=== PATIENT | female | born 1985 | race Two or more races ===

== ENCOUNTER 2024-03-08 09:30 | Outpatient (REF) | payer MEDICAID, SELFPAY ==
[2024-03-09 10:41] LABS: HPV 16,18/45 See PAP report
== END 2024-03-08 09:31 | disposition home or self-care (01) ==
LOC: HO.LNP 09:30
PROVIDERS: Visit Provider Obstetrics & Gynecology
DX: Z01.419 Encounter for gynecological examination (general) (routine) without abnormal findings (principal); N89.8 Other specified noninflammatory disorders of vagina; N94.9 Unspecified condition associated with female genital organs and menstrual cycle
CPT/HCPCS: 81515; 87491; 87591; 87626; 88175; 99386; 99459

== ENCOUNTER 2024-03-08 09:30 | Outpatient (AMB) | payer MEDICAID, SELFPAY ==
--- NOTE | 2024-03-08 09:31 | A.OFFVIS_ITS ---
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 Complaining of vaginal discharge denies associated with vulvovaginal itching nor foul odor Last Pap/HPV? No previous screening Mammogram Review of Systems Const All systems reviewed & are unremarkable except as noted in HPI and below Card Reports as per HPI Resp Reports as per HPI GI Reports as per HPI and Reports no additional complaints Reports as per HPI Physical Exam Vital Signs: BMI result Body Mass Index 29.5 Const General: cooperative, healthy appearing and comfortable Chest Chest palpation & inspection: normal inspection of the chest and normal palpation of entire chest wall Breast/axilla inspection: normal inspection of the breasts and normal inspection of the axillae Breast/axilla palpation: normal palpation of the breasts, normal palpation of the axillae and no axillary lymphadenopathy Resp Effort & Inspection: normal respiratory effort Auscultation: clear to auscultation bilaterally Percussion: percussion normal Cardio Palpation: normal PMI Rate: regular rate Rhythm: regular rhythm Heart sounds: no murmurs and no rubs Peripheral pulses: Peripheral pulses 2+ throughout GI Inspection: Yes normal to inspection Palpation (GI): Soft to palpation, nontender, no guarding, not rigid and No hepatosplenomegaly present Percussion: Yes normal to percussion Auscultation: normal bowel sounds Rectal Exam - Female: deferred General: Yes bladder normal to palpation External Female Exam: No lesion Speculum Exam - Vagina: normal appearance of the vagina, normal palpation, normal vaginal discharge and not erythematous Speculum Exam - Cervix: normal appearance of the cervix and normal palpation Bimanual exam- vagina & uterus: normal bimanual exam, normal palpation, uterine size normal, bladder normal to palpation, consistency normal and normal palpation Bimanual Exam- Adnexa, other: no tenderness and Other (? Right adnexal fullness) Assessment & Plan Assessment & Plan (1) Well woman exam: Code(s): Z01.419 - Encounter for gynecological examination (general) (routine) without abnormal findings Category: Medical Plan: Cotesting done. Mammogram ordered. Counseled the patient about the recommended dietary allowance of 1000 mg of Calcium & 600 IU of vitamin D. The patient was instructed to perform monthly self-breast exams and to schedule an annual exam in a year; All questions answered and the patient verbalized understanding. Instructed the patient to schedule annual exam in a year (2) Vaginal discharge: Code(s): N89.8 - Other specified noninflammatory disorders of vagina Category: Medical Plan: GC/CT with BV panel collected will check the results and treat accordingly (3) Adnexal fullness: Code(s): N94.9 - Unspecified condition associated with female genital organs and menstrual cycle Category: Medical Plan: Discussed with the patient the finding on pelvic exam, pelvic ultrasound ordered, instructions given the patient to schedule an ultrasound and a follow- up appointment within 2-3 weeks. Orders: Orders MM tomosynthesis screening BI Today Z12.31 - Encounter for screening mammogram for malignant neoplasm of breast US pelvic and transvaginal Today N94.9 - Unspecified condition associated with female genital organs and menstrual cycle HPV High risk Today Z01.419 - Encounter for gynecological examination (general) (routine) without abnormal findings Pap Smear Today Z01.419 - Encounter for gynecological examination (general) (routine) without abnormal findings Bacterial Vaginosis Panel Today N89.8 - Other specified noninflammatory disorders of vagina CT NG by PCR Today N89.8 - Other specified noninflammatory disorders of vagina Coding Level of Care Code New Pt Prev Care 40-64y([id number]) Diagnoses Well woman exam Z01.419 Vaginal discharge N89.8 Adnexal fullness N94.9
[2024-03-08 09:35] VITALS: BMI 29.5
--- OUTSIDE RECORDS SUMMARY | 2024-03-08 09:56 | XMS_ITS ---
Author Name [facility] Organization Unknown Results Test Name/Text Value Interpretation Date Range Source ALBUMIN 2.7g/dL Below low normal [id number] 3.4 - 5 [facility] SODIUM 142mmol/L Normal 473576127629 136 - 145 [facility] GLUCOSE 109mg/dL Above high normal 809504761882 74 - 100 [facility] BUN 12mg/dL Normal 317032716012 7 - 18 [facility] CALCIUM 8.9mg/dL Normal 556525871217 8.5 - 10.1 [facility] BILIRUBIN,TOTAL 0.6mg/dL Normal 525899409404 0.2 - 1 [facility] CHLORIDE 107mmol/L Normal 575364799331 98 - 107 [facility] POTASSIUM SERUM 4mmol/L Normal 672276840515 3.5 - 5.1 C [facility] CO2 28mmol/L Normal 702124973922 21 - 32 [facility] ALKALINE PHOSPHATASE 113U/L Normal 655309405848 50 - 1 36 [facility] AST (SGOT) 11U/L Below low normal 740410926145 15 - 37 [facility] GLOBULIN 3.8g/dL Normal 567802820681 2.4 - 4.2 [facility] A/G RATIO 0.7g/dL Normal 213172319246 [facility] ALT (SGPT) 18U/L Normal 740187621099 12 - 78 [facility] BUN/CREAT.RATIO 24 Normal [facility]3605931 [facility] CREATININE 0.5mg/dL Below low normal 512565157526 0.55 - 1. 3 [facility] PROTEIN, TOTAL 6.5g/dL Normal 918334356230 6.4 - 8.2 [facility] GFRE 146 Normal 567079153987 60 - [facility] WBC 5.3K/uL Normal [id number] 3.7 - 10.3 [facility] ABSOLUTE GRANULOCYTES 2.5K/uL Normal [id number] 2.2 - 7.3 [facility] ABSOLUTE BASO 0K/uL Normal 547228569463 0 - 0.2 [facility] RBC 3.88M/uL Below low normal 459653351301 4 - 5.4 [facility] IMMATURE GRANULOCYTES 1% Above high normal 8073979672 19 0 - 0.45 [facility] EOSINOPHILS 5% Normal 314450112136 0 - 6 [facility] MMH MPV 9fL Normal 026202660294 8 - 12 [facility] ABSOLUTE MONOS 0.3K/uL Normal 902987219165 0.2 - 1.5 [facility] BASOPHILS 1% Normal 806718968991 0 - 2 [facility] NUCLEATED RBC 0% Normal 888399031961 0 - 0.2 [facility] MCV 84fL Normal [id number] 83 - 102 [facility] MCH 25PG Below low normal 013209831157 27 - 34 [facility] HCT 32.6% Below low normal 790653788556 36 - 46 [facility] ABSOLUTE LYMPHS 2.2K/uL Normal 393140792089 1.5 - 4.9 C [facility] GRANULOCYTES 47% Normal 823446627418 23 - 78 [facility] MONOCYTES 5% Normal 093536120853 0 - 12 [facility] ABSOLUTE EOS 0.3K/uL Normal 817154635192 0 - 0.7 [facility] LYMPHS 41% Normal 071991472023 16 - 50 [facility] ABSOLUTE IMMATURE GRANULOCYTES 0.1K/uL Normal 652193540770 0 - 0.3 [facility] HGB 9.5g/dL Below low normal 047143054856 12.1 - 15.7 [facility] RDW 16.3% Above high normal 657082575364 11.1 - 13.3 [facility] PLATELET COUNT 317K/uL Normal [id number] 150 - 480 [facility] MCHC 29.1g/dL Below low normal 756718824561 31 - 36 [facility] ABSOLUTE NUCLEATED RBC 0K/uL Normal 830781283885 0 - 0.012 [facility] PATIENT FASTING? YES Normal [id number] [facility] IRON BINDING CAPACITY,TOTAL 204ug/dL Below low normal 296376620103 250 - 450 [facility] %SATURATION, IRON 25% Normal [id number] 20 - 55 [facility] IRON 50ug/dL Normal 564533285695 50 - 170 [facility] FERRITIN 306ng/mL Above high normal 704904710826 8 - 252 [facility] GFRE 263 Normal 540189139645 60 - [facility] SODIUM 141mmol/L Normal 634214169733 136 - 145 [facility] GLUCOSE 100mg/dL Normal 953871025951 74 - 100 [facility] BUN 10mg/dL Normal 487619224185 7 - 18 [facility] CALCIUM 8.5mg/dL Normal 165422086258 8.5 - 10.1 [facility] CHLORIDE 109mmol/L Above high normal 905402189411 98 - 107 [facility] POTASSIUM SERUM 4.4mmol/L Normal 825037314562 3.5 - 5.1 C [facility] CO2 24mmol/L Normal 227920251270 21 - 32 [facility] CREATININE 0.3mg/dL Below low normal 906935919063 0.55 - 1. 3 [facility] WBC 5.4K/uL Normal 244053461534 3.7 - 10.3 [facility] MH ABSOLUTE GRANULOCYTES 2.8K/uL Normal [id number] 2.2 - 7.3 [facility] ABSOLUTE BASO 0K/uL Normal 367486503430 0 - 0.2 [facility] RBC 3.53M/uL Below low normal 189688526378 4 - 5.4 [facility] IMMATURE GRANULOCYTES 2% Above high normal 2848710475 05 0 - 0.45 [facility] EOSINOPHILS 2% Normal 752657746692 0 - 6 [facility] MMH MPV 9fL Normal 498125351936 8 - 12 [facility] ABSOLUTE MONOS 0.3K/uL Normal 391474842522 0.2 - 1.5 [facility] BASOPHILS 1% Normal 461039893874 0 - 2 [facility] NUCLEATED RBC 0% Normal 546842306744 0 - 0.2 [facility] MCV 82fL Below low normal 501813794058 83 - 102 [facility] MCH 25PG Below low normal 844723974818 27 - 34 [facility] HCT 29% Below low normal 590508318112 36 - 46 [facility] ABSOLUTE LYMPHS 2.1K/uL Normal 649057537325 1.5 - 4.9 C [facility] GRANULOCYTES 52% Normal 269994133749 23 - 78 [facility] MONOCYTES 5% Normal 158115591066 0 - 12 [facility] ABSOLUTE EOS 0.1K/uL Normal 943521914438 0 - 0.7 [facility] LYMPHS 38% Normal [id number] 16 - 50 [facility] ABSOLUTE IMMATURE GRANULOCYTES 0.1K/uL Normal 195338768752 0 - 0.3 [facility] HGB 8.9g/dL Below low normal 262286311940 12.1 - 15.7 [facility] RDW 14.3% Above high normal 086548025848 11.1 - 13.3 [facility] PLATELET COUNT 334K/uL Normal 604737621871 150 - 480 [facility] MCHC 30.7g/dL Below low normal 855737579683 31 - 36 [facility] ABSOLUTE NUCLEATED RBC 0K/uL Normal 394282305512 0 - 0.012 [facility] PATIENT FASTING? UNKNOWN Normal [id number] [facility] BLOOD CULTURE NO GROWTH AT 5 DAYS Normal 255204865916 [facility] BLOOD CULTURE NO GROWTH AT 5 DAYS Normal 614634657512 [facility] WBC 7.6K/uL Normal 759513990469 3.7 - 10.3 [facility] MH ABSOLUTE GRANULOCYTES 4.2K/uL Normal 048173035171 2.2 - 7.3 [facility] ABSOLUTE BASO 0K/uL Normal 577130988780 0 - 0.2 [facility] RBC 3.53M/uL Below low normal 059355754911 4 - 5.4 [facility] IMMATURE GRANULOCYTES 2% Above high normal 4655000709 23 0 - 0.45 [facility] EOSINOPHILS 1% Normal 913730524472 0 - 6 [facility] MMH MPV 9fL Normal 861661091299 8 - 12 [facility] ABSOLUTE MONOS 0.5K/uL Normal 475220371083 0.2 - 1.5 [facility] BASOPHILS 0% Normal 979623904752 0 - 2 [facility] NUCLEATED RBC 0% Normal 910616236477 0 - 0.2 [facility] MCV 81fL Below low normal 307982832223 83 - 102 [facility] MCH 25PG Below low normal 377986549125 27 - 34 [facility] HCT 28.6% Below low normal 995761758997 36 - 46 [facility] ABSOLUTE LYMPHS 2.7K/uL Normal [id number] 1.5 - 4.9 C [facility] GRANULOCYTES 55% Normal 052065040949 23 - 78 [facility] MONOC[facility]TES 7% Normal [id number] 0 - 12 [facility] ABSOLUTE EOS 0.1K/uL Normal 326913131469 0 - 0.7 [facility] LYMPHS 36% Normal [id number] 16 - 50 [facility] ABSOLUTE IMMATURE GRANULOCYTES 0.1K/uL Normal 907534155210 0 - 0.3 [facility] HGB 8.9g/dL Below low normal 052554087109 12.1 - 15.7 [facility] RDW 13.2% Normal 262817701787 11.1 - 13.3 [facility] PLATELET COUNT 375K/uL Normal 630941031502 150 - [address] [facility] M[facility]C 31.1g/dL Normal 241210322295 31 - 36 [facility] ABSOLUTE NUCLEATED RBC 0K/uL Normal [id number] 0 - 0.012 [facility] BILIRUBIN,TOTAL 0.5mg/dL Normal 973715706177 0.2 - 1 C [facility] ALKALINE PHOSPHATASE 179U/L Above high normal 56024750845 1 50 - 136 [facility] GLOBULIN 4.4g/dL Above high normal 839427605427 2.4 - 4.2 [facility] A/G RATIO 0.5g/dL Normal 246401533658 [facility] ALT (SGPT) 45U/L Normal [id number] 12 - 78 [facility] PROTEIN, TOTAL 6.7g/dL Normal 646868834921 6.4 - 8.2 CT [facility] ALBUMIN 2.3g/dL Below low normal 902904944226 3.4 - 5 [facility] SODIUM 137mmol/L Normal 817024972230 136 - 145 [facility] GLUCOSE 91mg/dL Normal 657201745756 74 - 100 [facility] BUN 17mg/dL Normal 699893415738 7 - 18 [facility] CALCIUM 8.6mg/dL Normal 009252840713 8.5 - 10.1 [facility] CHLORIDE 104mmol/L Normal 463628958055 98 - 107 [facility] POTASSIUM SERUM 4.1mmol/L Normal 054326122994 3.5 - 5.1 C [facility] CO2 26mmol/L Normal 676792880624 21 - 32 [facility] AST (SGOT) 22U/L Normal [id number] 15 - 37 [facility] BUN/CREAT.RATIO 32.1 Normal 878053042839 [facility] CREATININE 0.53mg/dL Below low normal 841828379791 0.55 - 1. 3 [facility] GFRE 136 Normal 730050779676 60 - [facility] PATIENT FASTING? NO Normal [id number] [facility] GLYCOHEMOGLOBIN (A1C) 5% Normal 4 - 5 .6 [facility] VITAMIN B12 469pg/mL Normal 211 - 911 [facility] VITAMIN D (25-HYDROXY) 20.8ng/mL Below low normal 30 - 100 [facility] TRIGLYCERIDE 124mg/dL Normal 339626759312 - 150 [facility] LDL 93 Normal 0 - 129 [facility] CHOLESTEROL 169mg/dL Normal 663203611128 - 200 [facility] HDL 51mg/dL Normal 738050780447 - [facility] TSH 1uIU/mL Normal 0.35 - 4.5 [facility] MH ALBUMIN 3.5g/dL Normal 3.4 - 5 [facility] SODIUM 142mmol/L Normal 136 - 145 [facility] GLUCOSE 95mg/dL Normal 74 - 100 [facility] BUN 17mg/dL Normal 7 - 18 [facility] CALCIUM 8.8mg/dL Normal 8.5 - 10.1 [facility] MH BILIRUBIN,TOTAL 0.9mg/dL Normal 0.2 - 1 C [facility] CHLORIDE 110mmol/L Above high normal 98 - 107 [facility] POTASSIUM SERUM 4mmol/L Normal 3.5 - 5.1 C [facility] CO2 25mmol/L Normal 21 - 32 [facility] ALKALINE PHOSPHATASE 107U/L Normal 50 - 1 36 [facility] AST (SGOT) 17U/L Normal 15 - 37 [facility] MH GLOBULIN 3.8g/dL Normal 2.4 - 4.2 [facility] A/G RATIO 0.9g/dL Normal [facility] ALT (SGPT) 31U/L Normal 12 - 78 [facility] MH BUN/CREAT.RATIO 37 Normal C [facility] CREATININE 0.46mg/dL Below low normal 0.55 - 1. 3 [facility] PROTEIN, TOTAL 7.3g/dL Normal 6.4 - 8.2 [facility] GFRE 161 Normal 60 - [facility] WBC 5.1K/uL Normal 3.7 - 10.3 [facility] MH ABSOLUTE GRANULOCYTES 2.3K/uL Normal 2.2 - 7.3 [facility] ABSOLUTE BASO 0K/uL Normal 0 - 0.2 [facility] RBC 4.47M/uL Normal 4 - 5.4 [facility] IMMATURE GRANULOCYTES 0% Normal 0 - 0 .45 [facility] EOSINOPHILS 3% Normal 0 - 6 [facility] MMH MPV 10fL Normal 8 - 12 [facility] ABSOLUTE MONOS 0.3K/uL Normal 0.2 - 1.5 [facility] BASOPHILS 0% Normal 0 - 2 [facility] NUCLEATED RBC 0% Normal 0 - 0.2 [facility] MCV 87fL Normal 83 - 102 [facility] MCH 27PG Normal 27 - 34 [facility] HCT 39% Normal 36 - 46 [facility] ABSOLUTE LYMPHS 2.3K/uL Normal 1.5 - 4.9 C [facility] GRANULOCYTES 45% Normal 23 - 78 [facility] MONOCYTES 6% Normal 0 - 12 [facility] ABSOLUTE EOS 0.2K/uL Normal 0 - 0.7 [facility] LYMPHS 45% Normal [id number] 16 - 50 [facility] ABSOLUTE IMMATURE GRANULOCYTES 0K/uL Normal 965443754045 0 - 0.3 [facility] HGB 12.1g/dL Normal 676072210865 12.1 - 15.7 [facility] RDW 13.6% Above high normal [id number] 11.1 - 13.3 [facility] PLATELET COUNT 247K/uL Normal 066740242276 150 - 480 [facility] MCHC 31g/dL Normal 487910290544 31 - 36 [facility] ABSOLUTE NUCLEATED RBC 0K/uL Normal 320782062742 0 - 0.012 [facility] PATIENT FASTING? YES Normal 786762354036 [facility] SODIUM 141mmol/L Normal 582653588541 136 - 145 [facility] GLUCOSE 94mg/dL Normal 183182256954 74 - 100 [facility] BUN 21mg/dL Above high normal 011881821234 7 - 18 [facility] CALCIUM 8.9mg/dL Normal 424627422691 8.5 - 10.1 [facility] MH CHLORIDE 106mmol/L Normal 599800752508 98 - 107 [facility] POTASSIUM SERUM 4.4mmol/L Normal 993099764543 3.5 - 5.1 C [facility] CO2 29mmol/L Normal 870660178803 21 - 32 [facility] CREATININE 0.5mg/dL Below low normal 409189293082 0.55 - 1. 3 [facility] GFRE 146 Normal 028249475714 60 - [facility] WBC 5K/uL Normal [id number] 3.7 - 10.3 [facility] MH ABSOLUTE GRANULOCYTES 1.6K/uL Below low normal 10153236536 0 2.2 - 7.3 [facility] ABSOLUTE BASO 0K/uL Normal 954886309948 0 - 0.2 [facility] RBC 3.46M/uL Below low normal 147931656852 4 - 5.4 [facility] IMMATURE GRANULOCYTES 1% Above high normal [id number] 30 0 - 0.45 [facility] EOSINOPHILS 6% Normal 313782246025 0 - 6 [facility] MMH MPV 10fL Normal 658476124607 8 - 12 [facility] ABSOLUTE MONOS 0.3K/uL Normal 463769737763 0.2 - 1.5 [facility] BASOPHILS 0% Normal [id number] 0 - 2 [facility] NUCLEATED RBC 0% Normal 0 - 0.2 [facility] MCV 88fL Normal 941710307966 83 - 102 [facility] MCH 27PG Normal 064025089223 27 - 34 [facility] HCT 30.5% Below low normal 921252436737 36 - 46 [facility] ABSOLUTE LYMPHS 2.7K/uL Normal 551401719481 1.5 - 4.9 C [facility] GRANULOCYTES 32% Normal [id number] 23 - 78 [facility] MON[facility]TES 7% Normal 0 - 12 [facility] ABSOLUTE EOS 0.3K/uL Normal 0 - 0.7 [facility] LYMPHS 54% Above high normal 376147765685 16 - 50 [facility] ABSOLUTE IMMATURE GRANULOCYTES 0.1K/uL Normal 0 - 0.3 [facility] HGB 9.4g/dL Below low normal 507873626863 12.1 - 15.7 [facility] RDW 14.3% Above high normal [id number] 11.1 - 13.3 [facility] PLATELET COUNT 231K/uL Normal 062033290026 150 - 480 [facility] MCHC 30.8g/dL Below low normal 084769252577 31 - 36 [facility] ABSOLUTE NUCLEATED RBC 0K/uL Normal 154928863916 0 - 0.012 [facility] PATIENT FASTING? UNKNOWN Normal 304655903219 [facility] ALBUMIN 3.5g/dL Normal 048221563560 3.4 - 5 [facility] SODIUM 137mmol/L Normal 018374078800 136 - 145 [facility] GLUCOSE 92mg/dL Normal 669498933401 74 - 100 [facility] BUN 17mg/dL Normal 7 - 18 [facility] CALCIUM 9.6mg/dL Normal 078178945264 8.5 - 10.1 [facility] MH BILIRUBIN,TOTAL 0.7mg/dL Normal 477805123941 0.2 - 1 C [facility] CHLORIDE 102mmol/L Normal 758656422797 98 - 107 [facility] POTASSIUM SERUM 4.4mmol/L Normal 512527614328 3.5 - 5.1 C [facility] CO2 30mmol/L Normal 034097632809 21 - 32 [facility] ALKALINE PHOSPHATASE 99U/L Normal 958281066864 50 - 1 36 [facility] AST (SGOT) 19U/L Normal 723304571921 15 - 37 [facility] MH GLOBULIN 4.1g/dL Normal 071092115573 2.4 - 4.2 [facility] H A/G RATIO 0.9g/dL Normal 692648851248 [facility] ALT (SGPT) 35U/L Normal 12 - 78 [facility] MH BUN/CREAT.RATIO 32.7 Normal [facility] CREATININE 0.52mg/dL Below low normal 868469023072 0.55 - 1. 3 [facility] PROTEIN, TOTAL 7.6g/dL Normal 238843708658 6.4 - 8.2 [facility] GFRE 140 Normal 944405064615 60 - [facility] H WBC 5K/uL Normal 572852557792 3.7 - 10.3 [facility] MH ABSOLUTE GRANULOCYTES 1.9K/uL Below low normal 04939339264 4 2.2 - 7.3 [facility] ABSOLUTE BASO 0.1K/uL Normal 887748530218 0 - 0.2 [facility] RBC 3.85M/uL Below low normal 242750417108 4 - 5.4 [facility] IMMATURE GRANULOCYTES 2% Above high normal 5153608845 24 0 - 0.45 [facility] EOSINOPHILS 4% Normal 552554242277 0 - 6 [facility] MMH MPV 9fL Normal 525070942230 8 - 12 [facility] ABSOLUTE MONOS 0.4K/uL Normal 022093750832 0.2 - 1.5 [facility] BASOPHILS 1% Normal 459922892253 0 - 2 [facility] H NUCLEATED RBC 0% Normal 016125088330 0 - 0.2 [facility] MCV 87fL Normal 029382867699 83 - 102 [facility] MCH 27PG Normal 206879564816 27 - 34 [facility] HCT 33.6% Below low normal 830311615033 36 - 46 [facility] ABSOLUTE LYMPHS 2.4K/uL Normal 124359107001 1.5 - 4.9 C [facility] GRANULOCYTES 37% Normal 722750370669 23 - 78 [facility] MONOCYTES 9% Normal 152443331719 0 - 12 [facility] ABSOLUTE EOS 0.2K/uL Normal 670232492464 0 - 0.7 [facility] LYMPHS 48% Normal 212769370168 16 - 50 [facility] ABSOLUTE IMMATURE GRANULOCYTES 0.1K/uL Normal [id number] 0 - 0.3 [facility] HGB 10.5g/dL Below low normal 214683844942 12.1 - 15.7 [facility] RDW 13.7% Above high normal 256042597694 11.1 - 13.3 [facility] PLATELET COUNT 303K/uL Normal 723126273549 150 - 480 [facility] MCHC 31.3g/dL Normal 275370848752 31 - 36 [facility] ABSOLUTE NUCLEATED RBC 0K/uL Normal 150491123361 0 - 0.012 [facility] PATIENT FASTING? UNKNOWN Normal 725630487596 [facility] SED RATE 23MM/HR Above high normal 532790045762 0 - 20 [facility] C-REACTIVE PROTEIN < 0.3 Normal 448893402839 - 1 [facility] WBC 4.4K/uL Normal 514510769476 3.7 - 10.3 [facility] MH ABSOLUTE GRANULOCYTES 1.6K/uL Below low normal 96782335197 5 2.2 - 7.3 [facility] ABSOLUTE BASO 0K/uL Normal 463785541813 0 - 0.2 [facility] RBC 4.22M/uL Normal 819318234965 4 - 5.4 [facility] H IMMATURE GRANULOCYTES 1% Above high normal 3596875902 25 0 - 0.45 [facility] EOSINOPHILS 3% Normal 368940844374 0 - 6 [facility] MMH MPV 9fL Normal 608236774085 8 - 12 [facility] ABSOLUTE MONOS 0.3K/uL Normal 831935900860 0.2 - 1.5 [facility] BASOPHILS 1% Normal 469338769920 0 - 2 [facility] H NUCLEATED RBC 0% Normal 514677295397 0 - 0.2 [facility] MCV 90fL Normal 731692736756 83 - 102 [facility] H MCH 28PG Normal 828068975056 27 - 34 [facility] HCT 37.8% Normal 892380591277 36 - 46 [facility] ABSOLUTE LYMPHS 2.3K/uL Normal 156974637992 1.5 - 4.9 C [facility] GRANULOCYTES 37% Normal 256468633397 23 - 78 [facility] MONOC[facility]TES 6% Normal 921878760286 0 - 12 [facility] H ABSOLUTE EOS 0.1K/uL Normal 102871428827 0 - 0.7 [facility] LYMPHS 53% Above high normal 895848979118 16 - 50 [facility] ABSOLUTE IMMATURE GRANULOCYTES 0.1K/uL Normal 137130358937 0 - 0.3 [facility] HGB 11.6g/dL Below low normal 279776949649 12.1 - 15.7 [facility] RDW 12.9% Normal 015427434027 11.1 - 13.3 [facility] PLATELET COUNT 233K/uL Normal 287747382537 150 - [address] [facility] 30.7g/dL Below low normal 097650282806 31 - 36 [facility] ABSOLUTE NUCLEATED RBC 0K/uL Normal 306087619446 0 - 0.012 [facility] WBC > 50 Above high normal 124111885079 0 - 0 [facility] BACTERIA 4+ Critically abnormal - [facility] RBC 20/HPF Above high normal 797058157932 0 - 0 [facility] CRYSTALS 3+ CALCIUM OXALATE Normal [facility] EPI CELLS 1+ Normal 885346782436 [facility] H BILIRUBIN Negative Normal - [facility] H BLOOD Moderate Critically abnormal - [facility] SPECIFIC GRAVITY 1.02 Normal 1.005 - 1.03 [facility] PROTEIN Negative Normal - [facility] H UROBILINOGEN 0.2mg/dL Normal - [facility] COL[facility] Yellow Normal - [facility] H KETONES Negative Normal - [facility] H PH 5.5 Normal 5 - 8 [facility] H NITRITE Positive Critically abnormal - [facility] LEUK. ESTERASE Large Critically abnormal - [facility] GLUCOSE Negative Normal - [facility] H APPEARANCE Turbid Normal - [facility] MH BUN SerPl-mCnc 18mg/dL Normal 6 - 20 [facility] Creat SerPl-mCnc 0.7mg/dL Normal 0.4 - 1.3 [facility] Glucose SerPl-mCnc 103mg/dL Above high normal 70 - 100 [facility] BUN/Creat SerPl 25.7 Above high normal 8 - 23 [facility] Sodium SerPl-sCnc 137mmol/L Normal 136 - 144 [facility] Anion Gap3 SerPl-sCnc 10 Normal 7 - 1 7 [facility] Chloride SerPl-sCnc 101mmol/L Normal 98 - 10 7 [facility] HCO3 SerPl-sCnc 26mmol/L Normal 20 - 30 [facility] GFR/BSA.pred SerPlBld [id number] 60mL/min/1.73 m2 Normal - [facility] Potassium SerPl-sCnc 4.1mmol/L Normal 3.3 - 5.3 [facility] Calcium SerPl-mCnc 9mg/dL Normal 8.8 - 10 .2 [facility] Lymphocytes/leuk NFr Bld Auto 44.2% Normal 17 - 50 [facility] WBC # Bld Auto 3.2u3209/uL Below low normal 4 - 11 [facility] PMV Bld Auto 8.1fL Normal 8 - 12 [facility] M[facility] RBC Qn Auto 28.2pg Normal 27 - 33 [facility] Imm Granulocytes/leuk NFr Bld Auto 1.5% Above high normal 683793581382 0 - 1 [facility] Neutrophils # Bld Auto 1.25i0403/uL Below low normal 894022241834 2 - 7.6 [facility] Imm Granulocytes # Bld Auto 0.01n5730/uL Normal 914007051456 0 - 0.3 [facility] RDW RBC Auto-Rto 14.9% Normal 932162603525 11 - 15 [facility] nRBC # Bld Auto 7b7647/uL Normal 921287672400 0 - 1 [facility] MCHC RBC Auto-mCnc 32.1g/dL Normal 145163069532 31 - 36 [facility] nRBC/100 WBC Bld Auto-Rto 0% Normal 458938868142 0 - 1 [facility] RBC # Bld Auto 3.47M/uL Below low normal 382825580253 4 - 6 [facility] Platelet # Bld Auto 001d7057/uL Normal 645515201721 150 - 420 [facility] Eosinophil/leuk NFr Bld Auto 3.5% Normal 670918256423 0 - 5 [facility] Basophils/leuk NFr Bld Auto 0.6% Normal 016031642338 0 - 1.4 [facility] Eosinophil # Bld Auto 0.84m4373/uL Normal 401942728340 0 - 1 [facility] Lymphocytes # Bld Auto 1.00g5664/uL Normal 683067096782 0.6 - 3.7 [facility] Monocytes # Bld Auto 0.45o5320/uL Normal 073535308799 0 - 1 [facility] Monocytes/leuk NFr Bld Auto 9.6% Normal 427735897079 4 - 12 [facility] BKR WAM BASOPHIL ABSOLUTE COUNT. 0.41r8677/uL Normal 143475682246 0 - 1 [facility] Hgb Bld-mCnc 9.8g/dL Below low normal 029361662194 11.7 - 15.5 [facility] Hct VFr Bld Auto 30.5% Below low normal 588462184695 35 - 45 [facility] MCV RBC Auto 87.9fL Normal 919586805545 80 - 100 [facility] Neutrophils/leuk NFr Bld Auto 40.6% Normal 531801831856 39 - 72 [facility] BKR REFLEX URINE CULTURE See Comment Normal [id number] [facility] BKR BACTERIA, UA Moderate Abnormal 177124043057 - [facility] BKR RBC/HPF INSTRUMENT 1/HPF Normal [id number] 0 - 2 [facility] BKR WBC/HPF INSTRUMENT 10/HPF Above high normal 109031798582 0 - 5 [facility] BKR URINE SQUAMOUS EPITHELIAL CELLS, UA (NUMERIC) 1/HPF Normal [id number] 0 - 5 [facility] Glucose Ur Strip.auto-mCnc Negative Normal [id number] - [facility] Ketones Ur Strip.auto-mCnc Negative Normal [id number] - [facility] Clarity Ur Refract.auto Cloudy Abnormal [id number] - [facility] Hgb Ur Ql Strip.auto Negative Normal [id number] - [facility] Bilirub Ur Ql Strip.auto Negative Normal [id number] - [facility] Nitrite Ur Ql Strip.auto Positive Abnormal [id number] - [facility] Color Ur Auto Yellow Normal [id number] - [facility] WBC # Ur Strip 3+ Abnormal [id number] - [facility] Prot Ur Strip.auto-mCnc Negative Normal [id number] - [facility] Urobilinogen Ur Strip-mCnc 12mg/dL Above high normal [id number] - [facility] Sp Gr Ur Refract.auto 1.021 Normal [id number] 1 .005 - 1.03 [facility] pH Ur Strip.auto 6.5 Normal [id number] 5.5 - 7.5 [facility] BUN SerPl-mCnc 18mg/dL Normal [id number] 6 - 20 [facility] Creat SerPl-mCnc 0.6mg/dL Normal 0.4 - 1.3 [facility] Glucose SerPl-mCnc 97mg/dL Normal [id number] 70 - 100 [facility] BUN/Creat SerPl 30 Above high normal [id number] 8 - 23 [facility] Sodium SerPl-sCnc 136mmol/L Normal 136 - 144 [facility] Anion Gap3 SerPl-sCnc 10 Normal [id number] 7 - 1 7 [facility] Chloride SerPl-sCnc 100mmol/L Normal 226037246712 98 - 10 7 [facility] HCO3 SerPl-sCnc 26mmol/L Normal [id number] 20 - 30 [facility] GFR/BSA.pred SerPlBld CPM-LXC-RmPFcj 60mL/min/1.73 m2 Normal [id number] - [facility] Potassium SerPl-sCnc 4.2mmol/L Normal [id number] 3.3 - 5.3 [facility] Calcium SerPl-mCnc 9.2mg/dL Normal [id number] 8.8 - 10 .2 [facility] Phosphate SerPl-mCnc 4.3mg/dL Normal [id number] 2.2 - 4.5 [facility] Magnesium SerPl-mCnc 2.2mg/dL Normal 135477802093 1.7 - 2.4 [facility] WBC # Bld Auto 4.5m5654/uL Normal [id number] 4 - 11 [facility] PMV Bld Auto 8.3fL Normal 399101107610 8 - 12 [facility] MCH RBC Qn Auto 28.4pg Normal [id number] 27 - 33 [facility] Neutrophils # Bld Auto 2.77m9964/uL Normal [id number] 2 - 7.6 [facility] RDW RBC Auto-Rto 15.2% Above high normal 541843028510 11 - 15 [facility] MCHC RBC Auto-mCnc 31.7g/dL Normal [id number] 31 - 36 [facility] Hgb Bld-mCnc 9.7g/dL Below low normal 411227298293 11.7 - 15.5 [facility] RBC # Bld Auto 3.42M/uL Below low normal 623497783714 4 - 6 [facility] Platelet # Bld Auto 965q3315/uL Normal [id number] 150 - 420 [facility] Hct VFr Bld Auto 30.6% Below low normal [id number] 35 - 45 [facility] MCV RBC Auto 89.5fL Normal [id number] 80 - 100 [facility] BKR BACTERIA, UA Rare Normal [id number] - [facility] BKR RBC/HPF INSTRUMENT 3/HPF Above high normal 035840722064 0 - 2 [facility] BKR WBC/HPF INSTRUMENT 42/HPF Above high normal [id number] 0 - 5 [facility] Glucose Ur Strip.auto-mCnc Negative Normal [id number] - [facility] Ketones Ur Strip.auto-mCnc Negative Normal [id number] - [facility] Clarity Ur Refract.auto Clear Normal [id number] - [facility] Hgb Ur Ql Strip.auto Negative Normal [id number] - [facility] Bilirub Ur Ql Strip.auto Negative Normal [id number] - [facility] Nitrite Ur Ql Strip.auto Negative Normal [id number] - [facility] Color Ur Auto Yellow Normal [id number] - [facility] WBC # Ur Strip 4+ Abnormal [id number] - [facility] Prot Ur Strip.auto-mCnc Negative Normal [id number] - [facility] Urobilinogen Ur Strip-mCnc 6mg/dL Above high normal [id number] - [facility] Sp Gr Ur Refract.auto 1.008 Normal [id number] 1 .005 - 1.03 [facility] pH Ur Strip.auto 6 Normal 660230307021 5.5 - 7.5 [facility] BUN SerPl-mCnc 15mg/dL Normal [id number] 6 - 20 [facility] Creat SerPl-mCnc 0.7mg/dL Normal 0.4 - 1.3 [facility] Glucose SerPl-mCnc 93mg/dL Normal [id number] 70 - 100 [facility] BUN/Creat SerPl 21.4 Normal 8 - 23 [facility] Sodium SerPl-sCnc 136mmol/L Normal 136 - 144 [facility] Anion Gap3 SerPl-sCnc 12 Normal 158261440712 7 - 1 7 [facility] Chloride SerPl-sCnc 100mmol/L Normal 98 - 10 7 [facility] HCO3 SerPl-sCnc 24mmol/L Normal [id number] 20 - 30 [facility] GFR/BSA.pred SerPlBld IRZ-CIJ-ThUGio 60mL/min/1.73 m2 Normal [id number] - [facility] Potassium SerPl-sCnc 4.2mmol/L Normal [id number] 3.3 - 5.3 [facility] Calcium SerPl-mCnc 9.6mg/dL Normal [id number] 8.8 - 10 .2 [facility] Lymphocytes/leuk NFr Bld Auto 27.2% Normal [id number] 17 - 50 [facility] WBC # Bld Auto 5.1b6617/uL Normal [id number] 4 - 11 [facility] PMV Bld Auto 8.4fL Normal 065156064026 8 - 12 [facility] MCH RBC Qn Auto 28.3pg Normal [id number] 27 - 33 [facility] Imm Granulocytes/leuk NFr Bld Auto 4% Above high normal 662711415005 0 - 1 [facility] Neutrophils # Bld Auto 3.59x6648/uL Normal [id number] 2 - 7.6 [facility] Imm Granulocytes # Bld Auto 0.78a9916/uL Normal [id number] 0 - 0.3 [facility] RDW RBC Auto-Rto 15% Normal [id number] 11 - 15 [facility] nRBC # Bld Auto 9h9847/uL Normal 268585369810 0 - 1 [facility] [facility] RBC Auto-mCnc 32.3g/dL Normal [id number] 31 - 36 [facility] nRBC/100 WBC Bld Auto-Rto 0% Normal [id number] 0 - 1 [facility] RBC # Bld Auto 3.85M/uL Below low normal 456632204882 4 - 6 [facility] Platelet # Bld Auto 240x1901/uL Normal [id number] 150 - 420 [facility] Eosinophil/leuk NFr Bld Auto 3.3% Normal 722673560434 0 - 5 [facility] Basophils/leuk NFr Bld Auto 1.1% Normal 662388898064 0 - 1.4 [facility] Eosinophil # Bld Auto 0.20k8117/uL Normal 908130518977 0 - 1 [facility] Lymphocytes # Bld Auto 1.82h2264/uL Normal [id number] 0.6 - 3.7 [facility] Monocytes # Bld Auto 0.73i6884/uL Normal 772458103178 0 - 1 [facility] Monocytes/leuk NFr Bld Auto 6.1% Normal [id number] 4 - 12 [facility] BKR WAM BASOPHIL ABSOLUTE COUNT. 0.31m7730/uL Normal [id number] 0 - 1 [facility] Hgb Bld-mCnc 10.9g/dL Below low normal 237833163987 11.7 - 15.5 [facility] Hct VFr Bld Auto 33.7% Below low normal [id number] 35 - 45 [facility] MCV RBC Auto 87.5fL Normal [id number] 80 - 100 [facility] Neutrophils/leuk NFr Bld Auto 58.3% Normal [id number] 39 - 72 [facility] Phosphate SerPl-mCnc 4.4mg/dL Normal [id number] 2.2 - 4.5 [facility] Magnesium SerPl-mCnc 2.3mg/dL Normal [id number] 1.7 - 2.4 [facility] BUN SerPl-mCnc 18mg/dL Normal [id number] 6 - 20 [facility] Creat SerPl-mCnc 0.6mg/dL Normal 0.4 - 1.3 [facility] Glucose SerPl-mCnc 100mg/dL Normal [id number] 70 - 100 [facility] BUN/Creat SerPl 30 Above high normal 757990310090 8 - 23 [facility] Sodium SerPl-sCnc 135mmol/L Below low normal 13 6 - 144 [facility] Anion Gap3 SerPl-sCnc 12 Normal [id number] 7 - 1 7 [facility] Chloride SerPl-sCnc 98mmol/L Normal 98 - 10 7 [facility] HCO3 SerPl-sCnc 25mmol/L Normal [id number] 20 - 30 [facility] GFR/BSA.pred SerPlBld NFC-NLK-FuCPzh 60mL/min/1.73 m2 Normal [id number] - [facility] Potassium SerPl-sCnc 3.8mmol/L Normal [id number] 3.3 - 5.3 [facility] Calcium SerPl-mCnc 9.3mg/dL Normal [id number] 8.8 - 10 .2 [facility] Ammonia Plas-sCnc 10umol/L Below low normal 744059257503 11 - 35 [facility] Vit B12 SerPl-mCnc 1215pg/mL Normal [id number] 232 - 12 45 [facility] BUN SerPl-mCnc 17mg/dL Normal [id number] 6 - 20 [facility] Creat SerPl-mCnc 0.6mg/dL Normal [id number] 0.4 - 1.3 [facility] Glucose SerPl-mCnc 109mg/dL Above high normal 783786360817 70 - 100 [facility] BUN/Creat SerPl 28.3 Above high normal [id number] 8 - 23 [facility] Sodium SerPl-sCnc 133mmol/L Below low normal [id number] 13 6 - 144 [facility] Anion Gap3 SerPl-sCnc 12 Normal [id number] 7 - 1 7 [facility] Chloride SerPl-sCnc 97mmol/L Below low normal [id number] 98 - 107 [facility] HCO3 SerPl-sCnc 24mmol/L Normal [id number] 20 - 30 [facility] GFR/BSA.pred SerPlBld MGH-GFC-OpMXjf 60mL/min/1.73 m2 Normal [id number] - [facility] Potassium SerPl-sCnc 4.7mmol/L Normal [id number] 3.3 - 5.3 [facility] Calcium SerPl-mCnc 9.2mg/dL Normal [id number] 8.8 - 10 .2 [facility] BUN SerPl-mCnc 17mg/dL Normal [id number] 6 - 20 [facility] Creat SerPl-mCnc 0.5mg/dL Normal [id number] 0.4 - 1.3 [facility] Glucose SerPl-mCnc 109mg/dL Above high normal [id number] 70 - 100 [facility] BUN/Creat SerPl 34 Above high normal [id number] 8 - 23 [facility] Sodium SerPl-sCnc 132mmol/L Below low normal [id number] 13 6 - 144 [facility] Anion Gap3 SerPl-sCnc 14 Normal [id number] 7 - 1 7 [facility] Chloride SerPl-sCnc 94mmol/L Below low normal 764428430178 98 - 107 [facility] HCO3 SerPl-sCnc 24mmol/L Normal [id number] 20 - 30 [facility] GFR/BSA.pred SerPlBld TKU-VAI-QsJEmu 60mL/min/1.73 m2 Normal [id number] - [facility] Potassium SerPl-sCnc 4.9mmol/L Normal [id number] 3.3 - 5.3 [facility] Calcium SerPl-mCnc 9.4mg/dL Normal [id number] 8.8 - 10 .2 [facility] BUN SerPl-mCnc 16mg/dL Normal [id number] 6 - 20 [facility] Creat SerPl-mCnc 0.6mg/dL Normal 487130652299 0.4 - 1.3 [facility] Glucose SerPl-mCnc 102mg/dL Above high normal [id number] 70 - 100 [facility] BUN/Creat SerPl 26.7 Above high normal [id number] 8 - 23 [facility] Sodium SerPl-sCnc 132mmol/L Below low normal [id number] 13 6 - 144 [facility] Anion Gap3 SerPl-sCnc 9 Normal [id number] 7 - 1 7 [facility] Chloride SerPl-sCnc 97mmol/L Below low normal [id number] 98 - 107 [facility] HCO3 SerPl-sCnc 26mmol/L Normal [id number] 20 - 30 [facility] GFR/BSA.pred SerPlBld SNJ-YTG-XtTTww 60mL/min/1.73 m2 Normal [id number] - [facility] Potassium SerPl-sCnc 4.7mmol/L Normal 3.3 - 5.3 [facility] Calcium SerPl-mCnc 8.8mg/dL Normal 8.8 - 10 .2 [facility] Phosphate SerPl-mCnc 4.1mg/dL Normal 2.2 - 4.5 [facility] Magnesium SerPl-mCnc 2.2mg/dL Normal 1.7 - 2.4 [facility] BUN SerPl-mCnc 13mg/dL Normal 6 - 20 [facility] Creat SerPl-mCnc 0.6mg/dL Normal 0.4 - 1.3 [facility] Glucose SerPl-mCnc 115mg/dL Above high normal 70 - 100 [facility] BUN/Creat SerPl 21.7 Normal 8 - 23 [facility] Sodium SerPl-sCnc 134mmol/L Below low normal 13 6 - 144 [facility] Anion Gap3 SerPl-sCnc 10 Normal 7 - 1 7 [facility] Chloride SerPl-sCnc 99mmol/L Normal 98 - 10 7 [facility] HCO3 SerPl-sCnc 25mmol/L Normal 20 - 30 [facility] GFR/BSA.pred SerPlBld FJE-CGY-ZvJWit 60mL/min/1.73 m2 Normal - [facility] Potassium SerPl-sCnc 4.7mmol/L Normal 3.3 - 5.3 [facility] Calcium SerPl-mCnc 8.9mg/dL Normal 8.8 - 10 .2 [facility] Phosphate SerPl-mCnc 3.5mg/dL Normal 2.2 - 4.5 [facility] Magnesium SerPl-mCnc 2mg/dL Normal 1.7 - 2.4 [facility] WBC # Bld Auto 9.3y4312/uL Normal 4 - 11 [facility] PMV Bld Auto 9.8fL Normal 8 - 12 [facility] RBC Qn Auto 28.6pg Normal 27 - 33 [facility] Neutrophils # Bld Auto 6.51h6588/uL Normal 2 - 7.6 [facility] RDW RBC Auto-Rto 15.4% Above high normal 11 - 15 [facility] RBC Auto-mCnc 32.4g/dL Normal 31 - 36 [facility] Hgb Bld-mCnc 9.6g/dL Below low normal 11.7 - 15.5 [facility] RBC # Bld Auto 3.36M/uL Below low normal 4 - 6 [facility] Platelet # Bld Auto 921h8950/uL Normal 150 - 420 [facility] Hct VFr Bld Auto 29.6% Below low normal 35 - 45 [facility] MCV RBC Auto 88.1fL Normal 80 - 100 [facility] BUN SerPl-mCnc 11mg/dL Normal 6 - 20 [facility] Creat SerPl-mCnc 0.5mg/dL Normal 0.4 - 1.3 [facility] Glucose SerPl-mCnc 102mg/dL Above high normal 70 - 100 [facility] BUN/Creat SerPl 22 Normal 8 - 23 [facility] Sodium SerPl-sCnc 136mmol/L Normal 136 - 144 [facility] Anion Gap3 SerPl-sCnc 10 Normal 7 - 1 7 [facility] Chloride SerPl-sCnc 102mmol/L Normal 98 - 10 7 [facility] HCO3 SerPl-sCnc 24mmol/L Normal 20 - 30 [facility] GFR/BSA.pred SerPlBld UPV-TKM-YlWGty 60mL/min/1.73 m2 Normal - [facility] Potassium SerPl-sCnc 4.3mmol/L Normal [id number] 3.3 - 5.3 [facility] Calcium SerPl-mCnc 8.3mg/dL Below low normal [id number] 8 .8 - 10.2 [facility] Phosphate SerPl-mCnc 3.8mg/dL Normal [id number] 2.2 - 4.5 [facility] Magnesium SerPl-mCnc 2.1mg/dL Normal [id number] 1.7 - 2.4 [facility] WBC # Bld Auto 9.4l2095/uL Normal [id number] 4 - 11 [facility] PMV Bld Auto 10.2fL Normal [id number] 8 - 12 [facility] RBC Qn Auto 28.4pg Normal [id number] 27 - 33 [facility] Neutrophils # Bld Auto 5.35o8114/uL Normal [id number] 2 - 7.6 [facility] RDW RBC Auto-Rto 15.5% Above high normal [id number] 11 - 15 [facility] RBC Auto-mCnc 32.6g/dL Normal [id number] 31 - 36 [facility] Hgb Bld-mCnc 8.5g/dL Below low normal [id number] 11.7 - 15.5 [facility] RBC # Bld Auto 2.99M/uL Below low normal [id number] 4 - 6 [facility] Platelet # Bld Auto 907v8987/uL Normal [id number] 150 - 420 [facility] Hct VFr Bld Auto 26.1% Below low normal [id number] 35 - 45 [facility] MCV RBC Auto 87.3fL Normal [id number] 80 - 100 [facility] Procalcitonin SerPl-mCnc 0.24ng/mL Normal [id number] - [facility] BUN SerPl-mCnc 10mg/dL Normal [id number] 6 - 20 [facility] Creat SerPl-mCnc 0.5mg/dL Normal [id number] 0.4 - 1.3 [facility] Glucose SerPl-mCnc 109mg/dL Above high normal [id number] 70 - 100 [facility] BUN/Creat SerPl 20 Normal [id number] 8 - 23 [facility] Sodium SerPl-sCnc 136mmol/L Normal [id number] 136 - 144 [facility] Anion Gap3 SerPl-sCnc 11 Normal [id number] 7 - 1 7 [facility] Chloride SerPl-sCnc 101mmol/L Normal [id number] 98 - 10 7 [facility] HCO3 SerPl-sCnc 24mmol/L Normal [id number] 20 - 30 [facility] GFR/BSA.pred SerPlBld GUM-JET-WhUHyr 60mL/min/1.73 m2 Normal [id number] - [facility] Potassium SerPl-sCnc 4.4mmol/L Normal [id number] 3.3 - 5.3 [facility] Calcium SerPl-mCnc 7.9mg/dL Below low normal [id number] 8 .8 - 10.2 [facility] Phosphate SerPl-mCnc 3.9mg/dL Normal [id number] 2.2 - 4.5 [facility] Magnesium SerPl-mCnc 2mg/dL Normal [id number] 1.7 - 2.4 [facility] WBC # Bld Auto 7.5q6788/uL Normal [id number] 4 - 11 [facility] PMV Bld Auto 9.6fL Normal [id number] 8 - 12 [facility]CH RBC Qn Auto 28.2pg Normal 594846707048 27 - 33 [facility] Neutrophils # Bld Auto 4.67v1407/uL Normal [id number] 2 - 7.6 [facility] RDW RBC Auto-Rto 15.5% Above high normal [id number] 11 - 15 [facility] RBC Auto-mCnc 32.9g/dL Normal [id number] 31 - 36 [facility] Hgb Bld-mCnc 9.1g/dL Below low normal [id number] 11.7 - 15.5 [facility] RBC # Bld Auto 3.23M/uL Below low normal 700538118832 4 - 6 [facility] Platelet # Bld Auto 432m1229/uL Normal [id number] 150 - 420 [facility] Hct VFr Bld Auto 27.7% Below low normal 971235186689 35 - 45 [facility] MCV RBC Auto 85.8fL Normal [id number] 80 - 100 [facility] BUN SerPl-mCnc 8mg/dL Normal [id number] 6 - 20 [facility] Creat SerPl-mCnc 0.4mg/dL Normal 941037780166 0.4 - 1.3 [facility] Glucose SerPl-mCnc 147mg/dL Above high normal [id number] 70 - 100 [facility] BUN/Creat SerPl 20 Normal [id number] 8 - 23 [facility] Sodium SerPl-sCnc 141mmol/L Normal [id number] 136 - 144 [facility] Anion Gap3 SerPl-sCnc 9 Normal [id number] 7 - 1 7 [facility] Chloride SerPl-sCnc 108mmol/L Above high normal [id number] 98 - 107 [facility] HCO3 SerPl-sCnc 24mmol/L Normal [id number] 20 - 30 [facility] GFR/BSA.pred SerPlBld ALV-ECX-FwOGbm 60mL/min/1.73 m2 Normal [id number] - [facility] Potassium SerPl-sCnc 3.9mmol/L Normal [id number] 3.3 - 5.3 [facility] Calcium SerPl-mCnc 7.7mg/dL Below low normal [id number] 8 .8 - 10.2 [facility] Phosphate SerPl-mCnc 1.8mg/dL Below low normal 331857314662 2.2 - 4.5 [facility] Magnesium SerPl-mCnc 2mg/dL Normal [id number] 1.7 - 2.4 [facility] WBC # Bld Auto 2j2518/uL Normal [id number] 4 - 11 [facility] PMV Bld Auto 9.7fL Normal [id number] 8 - 12 [facility] RBC Qn Auto 28.9pg Normal [id number] 27 - 33 [facility] Neutrophils # Bld Auto 4.1t6105/uL Normal [id number] 2 - 7.6 [facility] RDW RBC Auto-Rto 15.5% Above high normal 538375736890 11 - 15 [facility] RBC Auto-mCnc 33.8g/dL Normal 524600188984 31 - 36 [facility] Hgb Bld-mCnc 7.9g/dL Below low normal 320955450476 11.7 - 15.5 [facility] RBC # Bld Auto 2.73M/uL Below low normal [id number] 4 - 6 [facility] Platelet # Bld Auto 693t0165/uL Below low normal 72337306415 2 150 - 420 [facility] Hct VFr Bld Auto 23.4% Below low normal 576453154191 35 - 45 [facility] MCV RBC Auto 85.7fL Normal [id number] 80 - 100 [facility] BUN SerPl-mCnc 8mg/dL Normal [id number] 6 - 20 [facility] Creat SerPl-mCnc 0.5mg/dL Normal 913760884602 0.4 - 1.3 [facility] Glucose SerPl-mCnc 126mg/dL Above high normal 344138581133 70 - 100 [facility] BUN/Creat SerPl 16 Normal 000264259044 8 - 23 [facility] Sodium SerPl-sCnc 143mmol/L Normal [id number] 136 - 144 [facility] Anion Gap3 SerPl-sCnc 6 Below low normal 09213540179 1 7 - 17 [facility] Chloride SerPl-sCnc 110mmol/L Above high normal 796968528257 98 - 107 [facility] HCO3 SerPl-sCnc 27mmol/L Normal [id number] 20 - 30 [facility] GFR/BSA.pred SerPlBld DXL-CIP-LeMWae 60mL/min/1.73 m2 Normal 515516049979 - [facility] Potassium SerPl-sCnc 3.7mmol/L Normal [id number] 3.3 - 5.3 [facility] Calcium SerPl-mCnc 7.2mg/dL Below low normal 271218180474 8 .8 - 10.2 [facility] Phosphate SerPl-mCnc 2.2mg/dL Normal 696143467520 2.2 - 4.5 [facility] Magnesium SerPl-mCnc 2mg/dL Normal [id number] 1.7 - 2.4 [facility] RH TYPE POS Normal 134485006774 [facility] T ANTIBODY SCREEN NEG Normal 015236051171 [facility] ABO GROUPING A Normal 354543432094 [facility] WBC # Bld Auto 7.4f4963/uL Normal 722796427079 4 - 11 [facility] PMV Bld Auto 9.5fL Normal [id number] 8 - 12 [facility] MCH RBC Qn Auto 28.3pg Normal [id number] 27 - 33 [facility] Neutrophils # Bld Auto 5.49v9136/uL Normal [id number] 2 - 7.6 [facility] RDW RBC Auto-Rto 14.9% Normal [id number] 11 - 15 [facility]CH[facility] RBC Auto-mCnc 33.8g/dL Normal [id number] 31 - 36 [facility] Hgb Bld-mCnc 7.8g/dL Below low normal 494747126905 11.7 - 15.5 [facility] RBC # Bld Auto 2.76M/uL Below low normal 898560459219 4 - 6 [facility] Platelet # Bld Auto 379k8320/uL Below low normal 98860284551 0 150 - 420 [facility] Hct VFr Bld Auto 23.1% Below low normal 316781215783 35 - 45 [facility] MCV RBC Auto 83.7fL Normal 312973950770 80 - 100 [facility] Procalcitonin SerPl-mCnc 0.5ng/mL Above high normal 893247814111 - [facility] Phosphate SerPl-mCnc 0.6mg/dL Critically low 893368236900 2 .2 - 4.5 [facility] BUN SerPl-mCnc 8mg/dL Normal 462543801590 6 - 20 [facility] Creat SerPl-mCnc 0.5mg/dL Normal 572393568915 0.4 - 1.3 [facility] Glucose SerPl-mCnc 158mg/dL Above high normal 567571778295 70 - 100 [facility] BUN/Creat SerPl 16 Normal [id number] 8 - 23 [facility] Sodium SerPl-sCnc 142mmol/L Normal [id number] 136 - 144 [facility] Anion Gap3 SerPl-sCnc 9 Normal 215130039317 7 - 1 7 [facility] Chloride SerPl-sCnc 109mmol/L Above high normal [id number] 98 - 107 [facility] HCO3 SerPl-sCnc 24mmol/L Normal [id number] 20 - 30 [facility] GFR/BSA.pred SerPlBld CZC-SNZ-VsVDqs 60mL/min/1.73 m2 Normal [id number] - [facility] Potassium SerPl-sCnc 3.2mmol/L Below low normal 861877022150 3.3 - 5.3 [facility] Calcium SerPl-mCnc 7.4mg/dL Below low normal 996854687405 8 .8 - 10.2 [facility] Magnesium SerPl-mCnc 1.9mg/dL Normal 902683806912 1.7 - 2.4 [facility] BKR WAM IPF 2.3% Normal [id number] 1.2 - 8.6 [facility] BKR WAM IPF, ABSOLUTE 2.7n1194/uL Normal [id number] - 2 0 [facility] Lymphocytes/leuk NFr Bld Auto 10% Below low normal 107541775002 17 - 50 [facility] WBC # Bld Auto 9.3i7696/uL Normal 908450256084 4 - 11 [facility] PMV Bld Auto 9.4fL Normal 120401243442 8 - 12 [facility] MCH RBC Qn Auto 29.2pg Normal 073252548007 27 - 33 [facility] Imm Granulocytes/leuk NFr Bld Auto 2.2% Above high normal 179246665485 0 - 1 [facility] Neutrophils # Bld Auto 7.34q1688/uL Above high normal 236908576031 2 - 7.6 [facility] Imm Granulocytes # Bld Auto 0.97n2350/uL Normal 188552010911 0 - 0.3 [facility] RDW RBC Auto-Rto 15.3% Above high normal 247301978716 11 - 15 [facility] nRBC # Bld Auto 0.32k3012/uL Normal [id number] 0 - 1 [facility]C RBC Auto-mCnc 34g/dL Normal 442039481608 31 - 36 [facility] nRBC/100 WBC Bld Auto-Rto 0.2% Normal 046076308628 0 - 1 [facility] RBC # Bld Auto 2.98M/uL Below low normal 091075434959 4 - 6 [facility] Platelet # Bld Auto 63k8813/uL Below low normal 934488199882 150 - 420 [facility] Eosinophil/leuk NFr Bld Auto 1.2% Normal 654624980092 0 - 5 [facility] Basophils/leuk NFr Bld Auto 0.4% Normal 877373569070 0 - 1.4 [facility] Eosinophil # Bld Auto 0.98j9787/uL Normal 332375723341 0 - 1 [facility] Lymphocytes # Bld Auto 0.61z2906/uL Normal [id number] 0.6 - 3.7 [facility] Monocytes # Bld Auto 0.57v0856/uL Normal [id number] 0 - 1 [facility] Monocytes/leuk NFr Bld Auto 5.7% Normal [id number] 4 - 12 [facility] BKR WAM BASOPHIL ABSOLUTE COUNT. 0.91w2719/uL Normal [id number] 0 - 1 [facility] Hgb Bld-mCnc 8.7g/dL Below low normal 460894045712 11.7 - 15.5 [facility] Hct VFr Bld Auto 25.6% Below low normal 078454961436 35 - 45 [facility] MCV RBC Auto 85.9fL Normal 463667727063 80 - 100 [facility] Neutrophils/leuk NFr Bld Auto 80.5% Above high normal 555205606369 39 - 72 [facility] BUN SerPl-mCnc 6mg/dL Normal 852381768828 6 - 20 [facility] Creat SerPl-mCnc 0.6mg/dL Normal 511213633511 0.4 - 1.3 [facility] Glucose SerPl-mCnc 90mg/dL Normal 656716244011 70 - 100 [facility] BUN/Creat SerPl 10 Normal [id number] 8 - 23 [facility] Sodium SerPl-sCnc 138mmol/L Normal [id number] 136 - 144 [facility] Anion Gap3 SerPl-sCnc 12 Normal 484736054038 7 - 1 7 [facility] Chloride SerPl-sCnc 106mmol/L Normal [id number] 98 - 10 7 [facility] HCO3 SerPl-sCnc 20mmol/L Normal [id number] 20 - 30 [facility] GFR/BSA.pred SerPlBld IDW-NWZ-HjJQtl 60mL/min/1.73 m2 Normal [id number] - [facility] Potassium SerPl-sCnc 3.7mmol/L Normal [id number] 3.3 - 5.3 [facility] Calcium SerPl-mCnc 7.6mg/dL Below low normal 343634353474 8 .8 - 10.2 [facility] AST SerPl w P-5'-P-cCnc 97U/L Above high normal [id number] 10 - 35 [facility] ALP SerPl-cCnc 66U/L Normal [id number] 9 - 122 [facility] Bilirub Direct SerPl-mCnc 0.8mg/dL Above high normal [id number] - [facility] AST/ALT SerPl-cRto 2.9 Normal 689801282888 - [facility] Bilirub SerPl-mCnc 1.5mg/dL Above high normal 153052540777 - [facility] ALT SerPl w/o P-5'-P-cCnc 34U/L Normal [id number] 10 - 35 [facility] Phosphate SerPl-mCnc 1.8mg/dL Below low normal 304651251483 2.2 - 4.5 [facility] Magnesium SerPl-mCnc 1.8mg/dL Normal 593560704217 1.7 - 2.4 [facility] Prothrombin time 11.4seconds Normal 444990857372 9.5 - 12 .1 [facility] aPTT PPP 33.7seconds Above high normal 873518731579 22.5 - 32 [facility] INR PPP 1.07 Normal [id number] 0.88 - 1.14 [facility] BUN SerPl-mCnc 5mg/dL Below low normal 439660251751 6 - 2 0 [facility] Creat SerPl-mCnc 0.5mg/dL Normal [id number] 0.4 - 1.3 [facility] Glucose SerPl-mCnc 96mg/dL Normal 478042801976 70 - 100 [facility] BUN/Creat SerPl 10 Normal 504660722511 8 - 23 [facility] Sodium SerPl-sCnc 137mmol/L Normal [id number] 136 - 144 [facility] Anion Gap3 SerPl-sCnc 8 Normal [id number] 7 - 1 7 [facility] Chloride SerPl-sCnc 108mmol/L Above high normal 576043640237 98 - 107 [facility] HCO3 SerPl-sCnc 21mmol/L Normal [id number] 20 - 30 [facility] GFR/BSA.pred SerPlBld RWR-UJN-SrGBbf 60mL/min/1.73 m2 Normal [id number] - [facility] Potassium SerPl-sCnc 3.9mmol/L Normal [id number] 3.3 - 5.3 [facility] Calcium SerPl-mCnc 7.4mg/dL Below low normal 836451276897 8 .8 - 10.2 [facility] Phosphate SerPl-mCnc 1.8mg/dL Below low normal 708561986490 2.2 - 4.5 [facility] Magnesium SerPl-mCnc 1.9mg/dL Normal 455477706155 1.7 - 2.4 [facility] Prothrombin time 11.4seconds Normal 565535600272 9.5 - 12 .1 [facility] aPTT PPP 34.7seconds Above high normal 198387880732 22.5 - 32 [facility] INR PPP 1.07 Normal 375959403342 0.88 - 1.14 [facility] BKR WAM IPF 2.6% Normal 767501801834 1.2 - 8.6 [facility] BKR WAM IPF, ABSOLUTE 2.9n1918/uL Normal 886912500977 - 2 0 [facility] Lymphocytes/leuk NFr Bld Auto 8.6% Below low normal 296803763057 17 - 50 [facility] WBC # Bld Auto 8.5m2986/uL Normal 825815489418 4 - 11 [facility] PMV Bld Auto 9.6fL Normal 537663702363 8 - 12 [facility] RBC Qn Auto 29pg Normal 165232190006 27 - 33 [facility] Imm Granulocytes/leuk NFr Bld Auto 1.9% Above high normal 605838556843 0 - 1 [facility] Neutrophils # Bld Auto 6.29b8246/uL Normal 492206866863 2 - 7.6 [facility] Imm Granulocytes # Bld Auto 0.72o7674/uL Normal [id number] 0 - 0.3 [facility] RDW RBC Auto-Rto 15.4% Above high normal 310718376935 11 - 15 [facility] nRBC # Bld Auto 7f7305/uL Normal 353362438462 0 - 1 [facility] MCHC RBC Auto-mCnc 33.6g/dL Normal [id number] 31 - 36 [facility] nRBC/100 WBC Bld Auto-Rto 0% Normal 669349181027 0 - 1 [facility] RBC # Bld Auto 2.97M/uL Below low normal 452627650653 4 - 6 [facility] Platelet # Bld Auto 47r4682/uL Below low normal 208750720084 150 - 420 [facility] Eosinophil/leuk NFr Bld Auto 2.6% Normal 048744632190 0 - 5 [facility] Basophils/leuk NFr Bld Auto 0.6% Normal 700223251584 0 - 1.4 [facility] Eosinophil # Bld Auto 0.04r7655/uL Normal 256086008078 0 - 1 [facility] Lymphocytes # Bld Auto 0.06m8351/uL Normal [id number] 0.6 - 3.7 [facility] Monocytes # Bld Auto 0.46e6964/uL Normal 960858829475 0 - 1 [facility] Monocytes/leuk NFr Bld Auto 6.1% Normal [id number] 4 - 12 [facility] BKR WAM BASOPHIL ABSOLUTE COUNT. 0.29l7503/uL Normal 825251193202 0 - 1 [facility] Hgb Bld-mCnc 8.6g/dL Below low normal 392442459023 11.7 - 15.5 [facility] Hct VFr Bld Auto 25.6% Below low normal 537553928908 35 - 45 [facility] MCV RBC Auto 86.2fL Normal [id number] 80 - 100 [facility] Neutrophils/leuk NFr Bld Auto 80.2% Above high normal 052883702525 39 - 72 [facility] Procalcitonin SerPl-mCnc 0.74ng/mL Above high normal [id number] - [facility] BUN SerPl-mCnc 5mg/dL Below low normal 577849286659 6 - 2 0 [facility] Creat SerPl-mCnc 0.6mg/dL Normal 557111200919 0.4 - 1.3 [facility] Glucose SerPl-mCnc 95mg/dL Normal [id number] 70 - 100 [facility] BUN/Creat SerPl 8.3 Normal 573575447619 8 - 23 [facility] Sodium SerPl-sCnc 138mmol/L Normal [id number] 136 - 144 [facility] Anion Gap3 SerPl-sCnc 8 Normal 240371926612 7 - 1 7 [facility] Chloride SerPl-sCnc 108mmol/L Above high normal 838156072871 98 - 107 [facility] HCO3 SerPl-sCnc 22mmol/L Normal 561944594915 20 - 30 [facility] GFR/BSA.pred SerPlBld DAO-SYL-UiEVvy 60mL/min/1.73 m2 Normal [id number] - [facility] Potassium SerPl-sCnc 3.9mmol/L Normal 059352400710 3.3 - 5.3 [facility] Calcium SerPl-mCnc 7.3mg/dL Below low normal 210209314072 8 .8 - 10.2 [facility] AST SerPl w P-5'-P-cCnc 104U/L Above high normal 272025665431 10 - 35 [facility] ALP SerPl-cCnc 73U/L Normal 988065239400 9 - 122 [facility] Bilirub Direct SerPl-mCnc 0.9mg/dL Above high normal 241216555593 - [facility] AST/ALT SerPl-cRto 3.2 Normal 781775087922 - [facility] Bilirub SerPl-mCnc 1.3mg/dL Above high normal 463107543313 - [facility] ALT SerPl w/o P-5'-P-cCnc 33U/L Normal [id number] 10 - 35 [facility] Phosphate SerPl-mCnc 2.3mg/dL Normal [id number] 2.2 - 4.5 [facility] Magnesium SerPl-mCnc 1.8mg/dL Normal 624347028774 1.7 - 2.4 [facility] Prothrombin time 11.6seconds Normal 963988780076 9.5 - 12 .1 [facility] aPTT PPP 32.8seconds Above high normal 467268841347 22.5 - 32 [facility] INR PPP 1.09 Normal [id number] 0.88 - 1.14 [facility] BKR WAM IPF 2.8% Normal 516493407380 1.2 - 8.6 [facility] BKR WAM IPF, ABSOLUTE 2.6x4576/uL Normal 808792980440 - 2 0 [facility] Lymphocytes/leuk NFr Bld Auto 9.8% Below low normal 542924606044 17 - 50 [facility] WBC # Bld Auto 9.8o4871/uL Normal [id number] 4 - 11 [facility] PMV Bld Auto 9.5fL Normal 037746342462 8 - 12 [facility] MCH RBC Qn Auto 29pg Normal [id number] 27 - 33 [facility] Imm Granulocytes/leuk NFr Bld Auto 1.7% Above high normal 209235799648 0 - 1 [facility] Neutrophils # Bld Auto 7.71f9037/uL Normal 934105543219 2 - 7.6 [facility] Imm Granulocytes # Bld Auto 0.77t1125/uL Normal 786462845361 0 - 0.3 [facility] RDW RBC Auto-Rto 15.3% Above high normal [id number] 11 - 15 [facility] nRBC # Bld Auto 6h6270/uL Normal 062870499909 0 - 1 [facility] MCHC RBC Auto-mCnc 33.1g/dL Normal 946919726606 31 - 36 [facility] nRBC/100 WBC Bld Auto-Rto 0% Normal [id number] 0 - 1 [facility] RBC # Bld Auto 3.03M/uL Below low normal 135652293874 4 - 6 [facility] Platelet # Bld Auto 46v3784/uL Below low normal [id number] 150 - 420 [facility] Eosinophil/leuk NFr Bld Auto 3% Normal 932788203906 0 - 5 [facility] Basophils/leuk NFr Bld Auto 0.4% Normal 345572262944 0 - 1.4 [facility] Eosinophil # Bld Auto 0.18r6031/uL Normal [id number] 0 - 1 [facility] Lymphocytes # Bld Auto 0.50j7403/uL Normal 969907893563 0.6 - 3.7 [facility] Monocytes # Bld Auto 0.42l6508/uL Normal 627587876926 0 - 1 [facility] Monocytes/leuk NFr Bld Auto 6.7% Normal 146998883312 4 - 12 [facility] BKR WAM BASOPHIL ABSOLUTE COUNT. 0.70e1416/uL Normal [id number] 0 - 1 [facility] Hgb Bld-mCnc 8.8g/dL Below low normal 677139929298 11.7 - 15.5 [facility] Hct VFr Bld Auto 26.6% Below low normal 715538347944 35 - 45 [facility] MCV RBC Auto 87.8fL Normal 654392081358 80 - 100 [facility] Neutrophils/leuk NFr Bld Auto 78.4% Above high normal 365430645259 39 - 72 [facility] BKR WAM IPF 2.3% Normal 123228689988 1.2 - 8.6 [facility] BKR WAM IPF, ABSOLUTE 1.3c0029/uL Normal [id number] - 2 0 [facility] Lymphocytes/leuk NFr Bld Auto 7.6% Below low normal 433936886976 17 - 50 [facility] WBC # Bld Auto 8.9n5449/uL Normal [id number] 4 - 11 [facility] PMV Bld Auto 9.2fL Normal 132042592098 8 - 12 [facility] MCH RBC Qn Auto 28.7pg Normal 634250933020 27 - 33 [facility] Imm Granulocytes/leuk NFr Bld Auto 1.3% Above high normal 984620368505 0 - 1 [facility] Neutrophils # Bld Auto 7.36o7140/uL Normal 677690288672 2 - 7.6 [facility] Imm Granulocytes # Bld Auto 0.93u9131/uL Normal 773031228431 0 - 0.3 [facility] RDW RBC Auto-Rto 15.1% Above high normal 753622876448 11 - 15 [facility] nRBC # Bld Auto 6r5113/uL Normal 679780510059 0 - 1 [facility] MCHC RBC Auto-mCnc 33.6g/dL Normal 323363918519 31 - 36 [facility] nRBC/100 WBC Bld Auto-Rto 0% Normal [id number] 0 - 1 [facility] RBC # Bld Auto 3.34M/uL Below low normal 744914049053 4 - 6 [facility] Platelet # Bld Auto 81j0521/uL Below low normal [id number] 150 - 420 [facility] Eosinophil/leuk NFr Bld Auto 1.8% Normal 592575511346 0 - 5 [facility] Basophils/leuk NFr Bld Auto 0.3% Normal 989870545778 0 - 1.4 [facility] Eosinophil # Bld Auto 0.95r5846/uL Normal 955046118866 0 - 1 [facility] Lymphocytes # Bld Auto 0.38j7871/uL Normal 411030005951 0.6 - 3.7 [facility] Monocytes # Bld Auto 0.48f6742/uL Normal 623628406944 0 - 1 [facility] Monocytes/leuk NFr Bld Auto 5.5% Normal 133769750703 4 - 12 [facility] BKR WAM BASOPHIL ABSOLUTE COUNT. 0.23l9260/uL Normal 945442203429 0 - 1 [facility] Hgb Bld-mCnc 9.6g/dL Below low normal 211244007783 11.7 - 15.5 [facility] Hct VFr Bld Auto 28.6% Below low normal 921868945013 35 - 45 [facility] MCV RBC Auto 85.6fL Normal 972406663467 80 - 100 [facility] Neutrophils/leuk NFr Bld Auto 83.5% Above high normal 342559718859 39 - 72 [facility] Prothrombin time 12.1seconds Normal 588466041892 9.5 - 12 .1 [facility] aPTT PPP 30.8seconds Normal 944363657526 22.5 - 32 [facility] INR PPP 1.14 Normal 930908178129 0.88 - 1.14 [facility] BUN SerPl-mCnc 4mg/dL Below low normal 251432586446 6 - 2 0 [facility] Creat SerPl-mCnc 0.6mg/dL Normal 315987569640 0.4 - 1.3 [facility] Glucose SerPl-mCnc 99mg/dL Normal 290123423346 70 - 100 [facility] BUN/Creat SerPl 6.7 Below low normal 956473910106 8 - 23 [facility] Sodium SerPl-sCnc 136mmol/L Normal 164177566089 136 - 144 [facility] Anion Gap3 SerPl-sCnc 9 Normal 562163680362 7 - 1 7 [facility] Chloride SerPl-sCnc 106mmol/L Normal 934241172970 98 - 10 7 [facility] HCO3 SerPl-sCnc 21mmol/L Normal [id number] 20 - 30 [facility] GFR/BSA.pred SerPlBld GEV-EQD-EhOFef 60mL/min/1.73 m2 Normal 815865807769 - [facility] Potassium SerPl-sCnc 3.5mmol/L Normal 742300856861 3.3 - 5.3 [facility] Calcium SerPl-mCnc 7.1mg/dL Below low normal 322971831188 8 .8 - 10.2 [facility] Phosphate SerPl-mCnc 2.7mg/dL Normal 849451741690 2.2 - 4.5 [facility] Magnesium SerPl-mCnc 1.7mg/dL Normal 916429754627 1.7 - 2.4 [facility] RH TYPE POS Normal 353018397502 [facility] T ANTIBODY SCREEN NEG Normal 224620527541 [facility] ABO GROUPING A Normal 117563373299 [facility] BKR WAM IPF 2.2% Normal 904234781907 1.2 - 8.6 [facility] BKR WAM IPF, ABSOLUTE 1.8p8150/uL Normal 873417425555 - 2 0 [facility] Lymphocytes/leuk NFr Bld Auto 12% Below low normal 669198227952 17 - 50 [facility] WBC # Bld Auto 6.2f3979/uL Normal 599954408623 4 - 11 [facility] PMV Bld Auto 9.1fL Normal 258401416416 8 - 12 [facility] MCH RBC Qn Auto 29.1pg Normal 700687782998 27 - 33 [facility] Imm Granulocytes/leuk NFr Bld Auto 1.7% Above high normal 455700584279 0 - 1 [facility] Neutrophils # Bld Auto 5.48i1567/uL Normal 420853763679 2 - 7.6 [facility] Imm Granulocytes # Bld Auto 0.71o3944/uL Normal [id number] 0 - 0.3 [facility] RDW RBC Auto-Rto 14.7% Normal [id number] 11 - 15 [facility] nRBC # Bld Auto 8c1477/uL Normal 469696231057 0 - 1 [facility] MCHC RBC Auto-mCnc 33.7g/dL Normal [id number] 31 - 36 [facility] nRBC/100 WBC Bld Auto-Rto 0% Normal 138934332524 0 - 1 [facility] RBC # Bld Auto 3.26M/uL Below low normal 075270346911 4 - 6 [facility] Platelet # Bld Auto 67k3715/uL Below low normal 342074173697 150 - 420 [facility] Eosinophil/leuk NFr Bld Auto 3.5% Normal 420488353382 0 - 5 [facility] Basophils/leuk NFr Bld Auto 0.5% Normal 117902342509 0 - 1.4 [facility] Eosinophil # Bld Auto 0.06v9768/uL Normal 819295513374 0 - 1 [facility] Lymphocytes # Bld Auto 0.89v3545/uL Normal 272384506520 0.6 - 3.7 [facility] Monocytes # Bld Auto 0.7q7611/uL Normal 845370826392 0 - 1 [facility] Monocytes/leuk NFr Bld Auto 4.6% Normal 549189272680 4 - 12 [facility] BKR WAM BASOPHIL ABSOLUTE COUNT. 0.94t1277/uL Normal 378236620278 0 - 1 [facility] Hgb Bld-mCnc 9.5g/dL Below low normal 132989888526 11.7 - 15.5 [facility] Hct VFr Bld Auto 28.2% Below low normal 081478097059 35 - 45 [facility] MCV RBC Auto 86.5fL Normal 845187143848 80 - 100 [facility] Neutrophils/leuk NFr Bld Auto 77.7% Above high normal 050206657491 39 - 72 [facility] Prothrombin time 11.9seconds Normal 518568710123 9.5 - 12 .1 [facility] aPTT PPP 29.3seconds Normal 490690188357 22.5 - 32 [facility] INR PPP 1.12 Normal [id number] 0.88 - 1.14 [facility] AST SerPl w P-5'-P-cCnc 105U/L Above high normal 200712229164 10 - 35 [facility] ALP SerPl-cCnc 126U/L Above high normal 886693753093 9 - 122 [facility] Bilirub Direct SerPl-mCnc 0.8mg/dL Above high normal 912594633143 - [facility] AST/ALT SerPl-cRto 3.6 Normal [id number] - [facility] Bilirub SerPl-mCnc 1.4mg/dL Above high normal 258549869798 - [facility] ALT SerPl w/o P-5'-P-cCnc 29U/L Normal 321568961610 10 - 35 [facility] BUN SerPl-mCnc 4mg/dL Below low normal 134098287231 6 - 2 0 [facility] Creat SerPl-mCnc 0.7mg/dL Normal 679215344323 0.4 - 1.3 [facility] Glucose SerPl-mCnc 108mg/dL Above high normal 332973940459 70 - 100 [facility] BUN/Creat SerPl 5.7 Below low normal 199678829945 8 - 23 [facility] Sodium SerPl-sCnc 140mmol/L Normal 754341531025 136 - 144 [facility] Anion Gap3 SerPl-sCnc 7 Normal 609137217200 7 - 1 7 [facility] Chloride SerPl-sCnc 112mmol/L Above high normal 295542405959 98 - 107 [facility] HCO3 SerPl-sCnc 21mmol/L Normal 20 - 30 [facility] GFR/BSA.pred SerPlBld HRV-KFA-TdYJdu 60mL/min/1.73 m2 Normal - [facility] Potassium SerPl-sCnc 4.1mmol/L Normal 3.3 - 5.3 [facility] Calcium SerPl-mCnc 7mg/dL Below low normal 803252360462 8 .8 - 10.2 [facility] Trigl SerPl-mCnc 512mg/dL Above high normal - [facility] Lipase SerPl-cCnc 8U/L Below low normal 981225773638 11 - 55 [facility] Magnesium SerPl-mCnc 1.8mg/dL Normal 1.7 - 2.4 [facility] Phosphate SerPl-mCnc 1.9mg/dL Below low normal 2.2 - 4.5 [facility] BKR WAM IPF 2.2% Normal 819727067539 1.2 - 8.6 [facility] BKR WAM IPF, ABSOLUTE 1.4j0160/uL Normal 847609411902 - 2 0 [facility] Lymphocytes/leuk NFr Bld Auto 11.8% Below low normal 718032439567 17 - 50 [facility] WBC # Bld Auto 6.5s5094/uL Normal 511212488591 4 - 11 [facility] PMV Bld Auto 10.5fL Normal 029371490808 8 - 12 [facility] MCH RBC Qn Auto 29.5pg Normal [id number] 27 - 33 [facility] Imm Granulocytes/leuk NFr Bld Auto 1.5% Above high normal 124264017861 0 - 1 [facility] Neutrophils # Bld Auto 5.62q5982/uL Normal 233543923561 2 - 7.6 [facility] Imm Granulocytes # Bld Auto 0.7z6170/uL Normal 332468113090 0 - 0.3 [facility] RDW RBC Auto-Rto 14.9% Normal 596782571063 11 - 15 [facility] nRBC # Bld Auto 7z1686/uL Normal 547722360459 0 - 1 [facility] MCHC RBC Auto-mCnc 33.2g/dL Normal 757150050140 31 - 36 [facility] nRBC/100 WBC Bld Auto-Rto 0% Normal 473982748970 0 - 1 [facility] RBC # Bld Auto 2.68M/uL Below low normal 105492532675 4 - 6 [facility] Platelet # Bld Auto 34n0006/uL Below low normal 223806684464 150 - 420 [facility] Eosinophil/leuk NFr Bld Auto 3.5% Normal 403073722069 0 - 5 [facility] Basophils/leuk NFr Bld Auto 0.4% Normal 000910117730 0 - 1.4 [facility] Eosinophil # Bld Auto 0.53k7692/uL Normal 227318060353 0 - 1 [facility] Lymphocytes # Bld Auto 0.78f3156/uL Normal 259120502385 0.6 - 3.7 [facility] Monocytes # Bld Auto 0.84m9789/uL Normal 094546129823 0 - 1 [facility] Monocytes/leuk NFr Bld Auto 4.5% Normal [id number] 4 - 12 [facility] BKR WAM BASOPHIL ABSOLUTE COUNT. 0.37r5197/uL Normal [id number] 0 - 1 [facility] Hgb Bld-mCnc 7.9g/dL Below low normal 353698112073 11.7 - 15.5 [facility] Hct VFr Bld Auto 23.8% Below low normal 546221669996 35 - 45 [facility] MCV RBC Auto 88.8fL Normal 499150679159 80 - 100 [facility] Neutrophils/leuk NFr Bld Auto 78.3% Above high normal 727282905747 39 - 72 [facility] Prothrombin time 11.7seconds Normal 847988272986 9.5 - 12 .1 [facility] aPTT PPP 28.3seconds Normal 772632612860 22.5 - 32 [facility] INR PPP 1.1 Normal [id number] 0.88 - 1.14 [facility] BUN SerPl-mCnc 4mg/dL Below low normal 904860085728 6 - 2 0 [facility] Creat SerPl-mCnc 0.7mg/dL Normal 267851368481 0.4 - 1.3 [facility] Glucose SerPl-mCnc 113mg/dL Above high normal 213937852574 70 - 100 [facility] BUN/Creat SerPl 5.7 Below low normal 100149582736 8 - 23 [facility] Sodium SerPl-sCnc 138mmol/L Normal [id number] 136 - 144 [facility] Anion Gap3 SerPl-sCnc 6 Below low normal 47141929830 1 7 - 17 [facility] Chloride SerPl-sCnc 110mmol/L Above high normal 880973805738 98 - 107 [facility] HCO3 SerPl-sCnc 22mmol/L Normal [id number] 20 - 30 [facility] GFR/BSA.pred SerPlBld DKP-TJL-FzVZae 60mL/min/1.73 m2 Normal [id number] - [facility] Potassium SerPl-sCnc 3.7mmol/L Normal [id number] 3.3 - 5.3 [facility] Calcium SerPl-mCnc 7.1mg/dL Below low normal 791717662946 8 .8 - 10.2 [facility] Phosphate SerPl-mCnc 2.3mg/dL Normal 637642210102 2.2 - 4.5 [facility] Magnesium SerPl-mCnc 1.8mg/dL Normal 392840664850 1.7 - 2.4 [facility] pO2 BldA 168mmHg Above high normal 852345492687 83 - 108 [facility] SaO2 % BldA 99% Above high normal 777905563005 94 - 98 [facility] pCO2 BldA 34mmHg Normal 473397499490 32 - 48 [facility] T HCO3 std BldA-sCnc 19.7mmol/L Below low normal 727192130145 21 - 28 [facility] pH BldA 7.38units Normal [id number] 7.35 - 7.45 [facility] Base excess std BldA Calc-sCnc -4mmol/L Below low normal 179449659023 - [facility] Bdy temp Pnl 37Celsius Normal 837582200900 [facility] BKR BACTERIA, UA Rare Normal 264854757691 - [facility] B[facility] RBC/HPF INSTRUMENT 67/HPF Above high normal 402223709083 0 - 2 [facility] BKR WBC/HPF INSTRUMENT 22/HPF Above high normal [id number] 0 - 5 [facility] BKR URINE SQUAMOUS EPITHELIAL CELLS, UA (NUMERIC) 1/HPF Normal [id number] 0 - 5 [facility] Glucose Ur Strip.auto-mCnc Negative Normal 442793241862 - [facility] Ketones Ur Strip.auto-mCnc Negative Normal [id number] - [facility] Clarity Ur Refract.auto Cloudy Abnormal [id number] - [facility] Hgb Ur Ql Strip.auto 3+ Abnormal 700495185721 - [facility] Bilirub Ur Ql Strip.auto Negative Normal [id number] - [facility] Nitrite Ur Ql Strip.auto Negative Normal [id number] - [facility] Color Ur Auto Yellow Normal 957246415310 - [facility] WBC # Ur Strip 3+ Abnormal 529585806041 - [facility] Prot Ur Strip.auto-mCnc 1+ Abnormal 617322732166 - [facility] Urobilinogen Ur Strip-mCnc 2mg/dL Normal 738059489818 - [facility] Sp Gr Ur Refract.auto 1.024 Normal 130596774621 1 .005 - 1.03 [facility] pH Ur Strip.auto 5.5 Normal 680447308902 5.5 - 7.5 [facility] CK SerPl-cCnc 4356U/L Above high normal 918538420388 11 - 204 [facility] BUN SerPl-mCnc 5mg/dL Below low normal 6 - 2 0 [facility] Creat SerPl-mCnc 0.56mg/dL Normal 167094552412 0.4 - 1.3 [facility] Glucose SerPl-mCnc 109mg/dL Above high normal 906059995415 70 - 100 [facility] BUN/Creat SerPl 8.9 Normal 254946558733 8 - 23 [facility] Sodium SerPl-sCnc 138mmol/L Normal [id number] 136 - 144 [facility] Anion Gap3 SerPl-sCnc 8 Normal 245066700523 7 - 1 7 [facility] Chloride SerPl-sCnc 108mmol/L Above high normal 800316400315 98 - 107 [facility] HCO3 SerPl-sCnc 22mmol/L Normal [id number] 20 - 30 [facility] GFR/BSA.pred SerPlBld IWW-MUP-PiAEuf 60mL/min/1.73 m2 Normal [id number] - [facility] Potassium SerPl-sCnc 4.3mmol/L Normal [id number] 3.3 - 5.3 [facility] Calcium SerPl-mCnc 7.7mg/dL Below low normal 946141205910 8 .8 - 10.2 [facility] AST SerPl w P-5'-P-cCnc 112U/L Above high normal 654404220260 10 - 35 [facility] ALP SerPl-cCnc 55U/L Normal 479179053658 9 - 122 [facility] Bilirub Direct SerPl-mCnc 0.5mg/dL Above high normal 116621018627 - [facility] AST/ALT SerPl-cRto 2.2 Normal 259616962134 - [facility] Bilirub SerPl-mCnc 1.4mg/dL Above high normal 283293708289 - [facility] ALT SerPl w/o P-5'-P-cCnc 50U/L Above high normal 389126484353 10 - 35 [facility] Phosphate SerPl-mCnc 2.5mg/dL Normal 628846842948 2.2 - 4.5 [facility] Magnesium SerPl-mCnc 1.7mg/dL Normal 455472989520 1.7 - 2.4 [facility] Prothrombin time 11.6seconds Normal 856183354881 9.6 - 12 .3 [facility] aPTT PPP 26.7seconds Normal 185498609100 23 - 31.[address] INR PPP 1.05 Normal 933193890931 0.86 - 1.12 [facility] Lymphocytes/leuk NFr Bld Auto 18.3% Normal [id number] 17 - 50 [facility] WBC # Bld Auto 6r8178/uL Normal 727144684065 4 - 11 [facility] PMV Bld Auto 9.9fL Normal 892810954861 8 - 12 [facility] MCH RBC Qn Auto 28.9pg Normal 956529133170 27 - 33 [facility] Imm Granulocytes/leuk NFr Bld Auto 0.9% Normal 193871240757 0 - 1 [facility] Neutrophils # Bld Auto 5.74n3591/uL Normal 361997857015 2 - 7.6 [facility] Imm Granulocytes # Bld Auto 0.40h9628/uL Normal 251413834193 0 - 0.3 [facility] RDW RBC Auto-Rto 14.9% Normal 047868925462 11 - 15 [facility] nRBC # Bld Auto 2d6294/uL Normal 279674418190 0 - 1 [facility] MCHC RBC Auto-mCnc 32.2g/dL Normal 219993173497 31 - 36 [facility] nRBC/100 WBC Bld Auto-Rto 0% Normal 568540011861 0 - 1 [facility] RBC # Bld Auto 3.77M/uL Below low normal 459498305979 4 - 6 [facility] Platelet # Bld Auto 561m0541/uL Below low normal 02816037490 2 150 - 420 [facility] Eosinophil/leuk NFr Bld Auto 1.8% Normal 168743234916 0 - 5 [facility] Basophils/leuk NFr Bld Auto 0.4% Normal 874347274604 0 - 1.4 [facility] Eosinophil # Bld Auto 0.06m4228/uL Normal [id number] 0 - 1 [facility] Lymphocytes # Bld Auto 1.61b5639/uL Normal 004332681536 0.6 - 3.7 [facility] Monocytes # Bld Auto 0.55t1202/uL Normal [id number] 0 - 1 [facility] Monocytes/leuk NFr Bld Auto 4.8% Normal [id number] 4 - 12 [facility] BKR WAM BASOPHIL ABSOLUTE COUNT. 0.24r0861/uL Normal [id number] 0 - 1 [facility] Hgb Bld-mCnc 10.9g/dL Below low normal 174953369294 11.7 - 15.5 [facility] Hct VFr Bld Auto 33.8% Below low normal 750091738184 35 - 45 [facility] MCV RBC Auto 89.7fL Normal 057675780357 80 - 100 [facility] Neutrophils/leuk NFr Bld Auto 73.8% Above high normal 450003163548 39 - 72 [facility] CK SerPl-cCnc 4471U/L Above high normal 529323288920 11 - 204 [facility] BKR TROPONIN T HS 1 HOUR DELTA FROM 0 HOUR ON 3HR -3ng/L Normal 504502348098 [facility] Troponin T SerPl HS-mCnc 20ng/L Above high normal [id number] - [facility] BKR TROPONIN T HS 3 HOUR DELTA FROM 0 HOUR 5ng/L Normal 086339014546 [facility] BUN SerPl-mCnc 6mg/dL Normal 105323395057 6 - 20 [facility] Creat SerPl-mCnc 0.58mg/dL Normal 049119083807 0.4 - 1.3 [facility] Glucose SerPl-mCnc 115mg/dL Above high normal 069440915469 70 - 100 [facility] BUN/Creat SerPl 10.3 Normal 757619081079 8 - 23 [facility] Sodium SerPl-sCnc 136mmol/L Normal 702352847951 136 - 144 [facility] Anion Gap3 SerPl-sCnc 6 Below low normal 68852442826 6 7 - 17 [facility] Chloride SerPl-sCnc 108mmol/L Above high normal 684433461724 98 - 107 [facility] HCO3 SerPl-sCnc 22mmol/L Normal 040189277216 20 - 30 [facility] GFR/BSA.pred SerPlBld GUZ-TRE-ApNAdw 60mL/min/1.73 m2 Normal [id number] - [facility] Potassium SerPl-sCnc 4.2mmol/L Normal [id number] 3.3 - 5.3 [facility] Calcium SerPl-mCnc 8.1mg/dL Below low normal 645025944867 8 .8 - 10.2 [facility] Phosphate SerPl-mCnc 2.4mg/dL Normal 244276883921 2.2 - 4.5 [facility] Magnesium SerPl-mCnc 1.7mg/dL Normal 578767993171 1.7 - 2.4 [facility] BKR WAM IPF 2.9% Normal [id number] 1.2 - 8.[address] [facility] BKR WAM IPF, ABSOLUTE 2.8z0410/uL Normal 501465226354 - 2 0 [facility] Lymphocytes/leuk NFr Bld Auto 15.3% Below low normal 665243551579 17 - 50 [facility] WBC # Bld Auto 8.3b9162/uL Normal 481674990032 4 - 11 [facility] PMV Bld Auto 10.2fL Normal 060556372772 8 - 12 [facility] MCH RBC Qn Auto 28.5pg Normal 460668515552 27 - 33 [facility] Imm Granulocytes/leuk NFr Bld Auto 1% Normal 691396014190 0 - 1 [facility] Neutrophils # Bld Auto 6.13j6855/uL Normal 415552318478 2 - 7.6 [facility] Imm Granulocytes # Bld Auto 0.18y7542/uL Normal 590403984440 0 - 0.3 [facility] RDW RBC Auto-Rto 15% Normal 429088737358 11 - 15 [facility] nRBC # Bld Auto 1k7509/uL Normal 657463120685 0 - 1 [facility] MCHC RBC Auto-mCnc 32.4g/dL Normal 815627218647 31 - 36 [facility] nRBC/100 WBC Bld Auto-Rto 0% Normal 582487988547 0 - 1 [facility] RBC # Bld Auto 3.65M/uL Below low normal 513211666012 4 - 6 [facility] Platelet # Bld Auto 74q2259/uL Below low normal 569733715846 150 - 420 [facility] Eosinophil/leuk NFr Bld Auto 0.6% Normal 428608562367 0 - 5 [facility] Basophils/leuk NFr Bld Auto 0.4% Normal 996211500311 0 - 1.4 [facility] Eosinophil # Bld Auto 0.84z0342/uL Normal 747775466426 0 - 1 [facility] Lymphocytes # Bld Auto 1.81i5818/uL Normal 484991787867 0.6 - 3.7 [facility] Monocytes # Bld Auto 0.64y9910/uL Normal 637989643589 0 - 1 [facility] Monocytes/leuk NFr Bld Auto 4.7% Normal 169534294971 4 - 12 [facility] BKR WAM BASOPHIL ABSOLUTE COUNT. 0.41j4377/uL Normal 951167082573 0 - 1 [facility] Hgb Bld-mCnc 10.4g/dL Below low normal 178924555630 11.7 - 15.5 [facility] Hct VFr Bld Auto 32.1% Below low normal 171750589478 35 - 45 [facility] MCV RBC Auto 87.9fL Normal 202430117271 80 - 100 [facility] Neutrophils/leuk NFr Bld Auto 78% Above high normal 748557477450 39 - 72 [facility] Prothrombin time 11.8seconds Normal 657423101840 9.6 - 12 .3 [facility] aPTT PPP 27.5seconds Normal 549601685908 23 - 31.[address] INR PPP 1.07 Normal 117846450939 0.86 - 1.12 [facility] pO2 BldA 104mmHg Normal 459759783918 83 - 108 [facility] SaO2 % BldA 97% Normal 278394246941 94 - [address] pCO2 BldA 43mmHg Normal 466792822771 32 - 48 [facility] HCO3 std BldA-sCnc 21mmol/L Normal 810515682520 21 - 28 [facility] pH BldA 7.31units Below low normal 663966619319 7.35 - 7.45 [facility] BKR FIO2 40% Normal 563945603056 [facility] Base excess std BldA Calc-sCnc -5mmol/L Below low normal 246689780713 - [facility] Bdy temp Pnl 37Celsius Normal 847160682977 [facility] CK SerPl-cCnc 4235U/L Above high normal 895434200038 11 - 204 [facility] Myoglobin Ur Ql Positive Abnormal 218386323525 - [facility] Ethanol SerPl-mCnc 10mg/dL Normal 389458693109 - 10 [facility] Phosphate SerPl-mCnc 2.3mg/dL Normal 429260049919 2.2 - 4.5 [facility] BUN SerPl-mCnc 7mg/dL Normal 461133601254 6 - 20 [facility] Creat SerPl-mCnc 0.64mg/dL Normal 917517659542 0.4 - 1.3 [facility] Glucose SerPl-mCnc 140mg/dL Above high normal 749683097386 70 - 100 [facility] BUN/Creat SerPl 10.9 Normal 871792052412 8 - 23 [facility] Sodium SerPl-sCnc 137mmol/L Normal 947946560947 136 - 144 [facility] Anion Gap3 SerPl-sCnc 8 Normal 979455038397 7 - 1 7 [facility] Chloride SerPl-sCnc 110mmol/L Above high normal 515934077133 98 - 107 [facility] HCO3 SerPl-sCnc 19mmol/L Below low normal 447181878208 20 - 30 [facility] GFR/BSA.pred SerPlBld EKL-JOR-SkUPya 60mL/min/1.73 m2 Normal 364284611295 - [facility] Potassium SerPl-sCnc 4mmol/L Normal 372742022497 3.3 - 5.3 [facility] Calcium SerPl-mCnc 7.2mg/dL Below low normal 543549007347 8 .8 - 10.2 [facility] Troponin T SerPl HS-mCnc 12ng/L Above high normal 836368580805 - [facility] BKR TROPONIN T HS 1 HOUR DELTA FROM 0 HOUR -3ng/L Normal 387358678881 [facility] Magnesium SerPl-mCnc 1.6mg/dL Below low normal 773217769211 1.7 - 2.4 [facility] BKR WAM IPF 1.9% Normal 198394376387 1.2 - 8.[address] BKR WAM IPF, ABSOLUTE 1.3b2550/uL Normal 188842760986 - 2 0 [facility] Lymphocytes/leuk NFr Bld Auto 8.4% Below low normal 690596912066 17 - 50 [facility] WBC # Bld Auto 9.6v4258/uL Normal 888305941864 4 - 11 [facility] PMV Bld Auto 10.1fL Normal 846200637975 8 - 12 [facility] MCH RBC Qn Auto 29.5pg Normal 483785259033 27 - 33 [facility] Imm Granulocytes/leuk NFr Bld Auto 1.1% Above high normal 920540705817 0 - 1 [facility] Neutrophils # Bld Auto 7.83d3908/uL Above high normal 609052730830 2 - 7.6 [facility] Imm Granulocytes # Bld Auto 0.8u0013/uL Normal 187462919236 0 - 0.3 [facility] RDW RBC Auto-Rto 15% Normal 061605551607 11 - 15 [facility] nRBC # Bld Auto 0i1321/uL Normal 913985014126 0 - 1 [facility] MCHC RBC Auto-mCnc 32.5g/dL Normal 115225155890 31 - 36 [facility] nRBC/100 WBC Bld Auto-Rto 0% Normal 457096149102 0 - 1 [facility] RBC # Bld Auto 3.73M/uL Below low normal 699772808175 4 - 6 [facility] Platelet # Bld Auto 17c6909/uL Below low normal 449753293046 150 - 420 [facility] Eosinophil/leuk NFr Bld Auto 0.5% Normal 403023667462 0 - 5 [facility] Basophils/leuk NFr Bld Auto 0.1% Normal 474866024013 0 - 1.4 [facility] Eosinophil # Bld Auto 0.82g2489/uL Normal 947971346478 0 - 1 [facility] Lymphocytes # Bld Auto 0.61z8090/uL Normal 877804478258 0.6 - 3.7 [facility] Monocytes # Bld Auto 0.35m8773/uL Normal 003630001701 0 - 1 [facility] Monocytes/leuk NFr Bld Auto 5% Normal [id number] 4 - 12 [facility] BKR WAM BASOPHIL ABSOLUTE COUNT. 0.66k5772/uL Normal [id number] 0 - 1 [facility] Hgb Bld-mCnc 11g/dL Below low normal 573636294464 11.7 - 15.5 [facility] Hct VFr Bld Auto 33.8% Below low normal [id number] 35 - 45 [facility] MCV RBC Auto 90.6fL Normal 855759321632 80 - 100 [facility] Neutrophils/leuk NFr Bld Auto 84.9% Above high normal [id number] 39 - 72 [facility] Prothrombin time 11.8seconds Normal 923961772513 9.6 - 12 .3 [facility] aPTT PPP 24seconds Normal 761161925745 23 - 31.4 [facility] INR PPP 1.07 Normal [id number] 0.86 - 1.12 [facility] Troponin T SerPl HS-mCnc 15ng/L Above high normal 909551933948 - [facility] Cortis SerPl-mCnc 7.4ug/dL Normal 189040130431 - [facility] BKR TEG ANGLE, [place] 72deg Normal [id number] 53 - 72 [facility] BKR TEG R, [place] 2.9min Below low normal 494504723100 5 - 10 [facility] BKR TEG MA, [place] 59.2mm Normal [id number] 50 - 70 [facility] BKR TEG K, [place] 1.5min Normal 098819019127 1 - 3 [facility] BKR TEG LY30, [place] 0% Normal [id number] 0 - 8 [facility] Lactate SerPl-sCnc 1.6mmol/L Normal [id number] 0.5 - 2. 2 [facility] MCH RBC Qn Auto 29.1pg Normal 704409364284 27 - 33 [facility] RBC # Bld Auto 3.82M/uL Below low normal 451289665451 4 - 6 [facility] Hct VFr Bld Auto 33.3% Below low normal 101029052682 35 - 45 [facility] Neutrophils # Bld Auto 6.0p0913/uL Normal [id number] 2 - 7.6 [facility] Platelet # Bld Auto 472x9516/uL Below low normal 17053990528 7 150 - 420 [facility] RDW RBC Auto-Rto 15.3% Above high normal [id number] 11 - 15 [facility] PMV Bld Auto 9.6fL Normal 490286413694 8 - 12 [facility] Hgb Bld-mCnc 11.1g/dL Below low normal [id number] 11.7 - 15.5 [facility] MCV RBC Auto 87.2fL Normal [id number] 80 - 100 [facility] WBC # Bld Auto 8.6d0260/uL Normal 615875754896 4 - 11 [facility] MCHC RBC Auto-mCnc 33.3g/dL Normal 300182151311 31 - 36 [facility] ABORH RECHECK INTERPRETATION A POS Normal [id number] [facility] CK SerPl-cCnc 4444U/L Above high normal [id number] 11 - 204 [facility] Potassium SerPl-sCnc 3.4mmol/L Normal 163120160281 3.3 - 5.3 [facility] Glucose SerPl-mCnc 144mg/dL Above high normal 950299017745 70 - 100 [facility] Chloride SerPl-sCnc 109mmol/L Above high normal 931491188013 98 - 107 [facility] BUN SerPl-mCnc 8mg/dL Normal 142989905677 6 - 20 [facility] Calcium SerPl-mCnc 7.6mg/dL Below low normal 705330080227 8 .8 - 10.2 [facility] Creat SerPl-mCnc 0.68mg/dL Normal 514076241925 0.4 - 1.3 [facility] BUN/Creat SerPl 11.8 Normal 479663194435 8 - 23 [facility] Sodium SerPl-sCnc 137mmol/L Normal [id number] 136 - 144 [facility] Anion Gap3 SerPl-sCnc 9 Normal 840331759351 7 - 1 7 [facility] GFR/BSA.pred SerPlBld OKA-QSN-LjXUat 60mL/min/1.73 m2 Normal 451285522757 - [facility] HCO3 SerPl-sCnc 19mmol/L Below low normal 010630850306 20 - 30 [facility] ALP SerPl-cCnc 47U/L Normal [id number] 9 - 122 [facility] AST/ALT SerPl-cRto 2.5 Normal 514924297983 - [facility] Bilirub Direct SerPl-mCnc 0.2mg/dL Normal [id number] - [facility] ALT SerPl w/o P-5'-P-cCnc 48U/L Above high normal 121707936660 10 - 35 [facility] Bilirub SerPl-mCnc 1mg/dL Normal 671528183037 - [facility] AST SerPl w P-5'-P-cCnc 118U/L Above high normal 296613315703 10 - 35 [facility] Phosphate SerPl-mCnc 2.1mg/dL Below low normal 804225683724 2.2 - 4.5 [facility] Magnesium SerPl-mCnc 2mg/dL Normal 296139070621 1.7 - 2.4 [facility] MCH RBC Qn Auto 28.5pg Normal [id number] 27 - 33 [facility] RBC # Bld Auto 2.42M/uL Below low normal 599221286257 4 - 6 [facility] Lymphocytes # Bld Auto 0.29g9703/uL Normal 920627363660 0.6 - 3.7 [facility] Neutrophils/leuk NFr Bld Auto 72.8% Above high normal 800890077841 39 - 72 [facility] Lymphocytes/leuk NFr Bld Auto 18.7% Normal 690346556535 17 - 50 [facility] PMV Bld Auto 10.1fL Normal [id number] 8 - 12 [facility] BKR WAM BASOPHIL ABSOLUTE COUNT. 0.33r6995/uL Normal 269493687352 0 - 1 [facility] Imm Granulocytes # Bld Auto 0.40s1795/uL Normal 682457555918 0 - 0.3 [facility] Monocytes/leuk NFr Bld Auto 6.9% Normal 063631008081 4 - 12 [facility] Basophils/leuk NFr Bld Auto 0.2% Normal 203880586752 0 - 1.4 [facility] nRBC/100 WBC Bld Auto-Rto 0% Normal 858228579573 0 - 1 [facility] MCHC RBC Auto-mCnc 28.3g/dL Below low normal 163877401688 3 1 - 36 [facility] Monocytes # Bld Auto 0.98l2192/uL Normal 521926759825 0 - 1 [facility] Hct VFr Bld Auto 24.4% Below low normal 864132261522 35 - 45 [facility] Eosinophil/leuk NFr Bld Auto 0.8% Normal 823562525581 0 - 5 [facility] Neutrophils # Bld Auto 3.54f5280/uL Normal 661297991545 2 - 7.6 [facility] Platelet # Bld Auto 13m3554/uL Below low normal 756121570911 150 - 420 [facility] RDW RBC Auto-Rto 16.1% Above high normal 120895029182 11 - 15 [facility] Imm Granulocytes/leuk NFr Bld Auto 0.6% Normal [id number] 0 - 1 [facility] Eosinophil # Bld Auto 0.78w1839/uL Normal 663573088838 0 - 1 [facility] Hgb Bld-mCnc 6.9g/dL Below low normal [id number] 11.7 - 15.5 [facility] nRBC # Bld Auto 6s1592/uL Normal [id number] 0 - 1 [facility] MCV RBC Auto 100.8fL Above high normal 727939253136 80 - 1 00 [facility] WBC # Bld Auto 6u1096/uL Normal [id number] 4 - 11 [facility] WAM IPF, ABSOLUTE 1g3795/uL Normal [id number] - 20 [facility] B[facility] WAM IPF 1.3% Normal [id number] 1.2 - 8.[address] aPTT PPP 24seconds Normal [id number] 23 - 31.4 [facility] Prothrombin time 11.8seconds Normal [id number] 9.6 - 12 .3 [facility] INR PPP 1.07 Normal [id number] 0.86 - 1.12 [facility] Potassium SerPl-sCnc 3.9mmol/L Normal [id number] 3.3 - 5.3 [facility] Glucose SerPl-mCnc 124mg/dL Above high normal 989845696835 70 - 100 [facility] Chloride SerPl-sCnc 110mmol/L Above high normal 829565761444 98 - 107 [facility] BUN SerPl-mCnc 9mg/dL Normal 495671383124 6 - 20 [facility] Calcium SerPl-mCnc 8mg/dL Below low normal 691004969200 8 .8 - 10.2 [facility] Creat SerPl-mCnc 0.62mg/dL Normal [id number] 0.4 - 1.3 [facility] BUN/Creat SerPl 14.5 Normal 002982474247 8 - 23 [facility] Sodium SerPl-sCnc 139mmol/L Normal [id number] 136 - 144 [facility] Anion Gap3 SerPl-sCnc 9 Normal 350891640590 7 - 1 7 [facility] GFR/BSA.pred SerPlBld HTF-YOO-FcFTjy 60mL/min/1.73 m2 Normal 881995040118 - [facility] HCO3 SerPl-sCnc 20mmol/L Normal [id number] 20 - 30 [facility] Phosphate SerPl-mCnc 2.4mg/dL Normal [id number] 2.2 - 4.5 [facility] Magnesium SerPl-mCnc 2.1mg/dL Normal 808998616954 1.7 - 2.4 [facility] aPTT PPP 22.3seconds Below low normal [id number] 23 - 31. 4 [facility] Prothrombin time 11.5seconds Normal [id number] 9.6 - 12 .3 [facility] INR PPP 1.04 Normal 642934303908 0.86 - 1.12 [facility] MCH RBC Qn Auto 28.8pg Normal [id number] 27 - 33 [facility] RBC # Bld Auto 3.79M/uL Below low normal 509914304572 4 - 6 [facility] Lymphocytes # Bld Auto 1.27i8102/uL Normal [id number] 0.6 - 3.7 [facility] Neutrophils/leuk NFr Bld Auto 70.2% Normal 007283782777 39 - 72 [facility] Lymphocytes/leuk NFr Bld Auto 21.9% Normal [id number] 17 - 50 [facility] PMV Bld Auto 9.9fL Normal [id number] 8 - 12 [facility] BKR WAM BASOPHIL ABSOLUTE COUNT. 0.73u4486/uL Normal [id number] 0 - 1 [facility] Imm Granulocytes # Bld Auto 0.79u1419/uL Normal [id number] 0 - 0.3 [facility] Monocytes/leuk NFr Bld Auto 6.3% Normal [id number] 4 - 12 [facility] Basophils/leuk NFr Bld Auto 0.4% Normal [id number] 0 - 1.4 [facility] nRBC/100 WBC Bld Auto-Rto 0% Normal [id number] 0 - 1 [facility] MCHC RBC Auto-mCnc 33.5g/dL Normal [id number] 31 - 36 [facility] Monocytes # Bld Auto 0.13d4972/uL Normal 962347690115 0 - 1 [facility] Hct VFr Bld Auto 32.5% Below low normal 099938902330 35 - 45 [facility] Eosinophil/leuk NFr Bld Auto 0.6% Normal 080291299516 0 - 5 [facility] Neutrophils # Bld Auto 4.79s2106/uL Normal [id number] 2 - 7.6 [facility] Platelet # Bld Auto 038o7709/uL Below low normal 34282602219 3 150 - 420 [facility] RDW RBC Auto-Rto 15% Normal [id number] 11 - 15 [facility] Imm Granulocytes/leuk NFr Bld Auto 0.6% Normal 709306037515 0 - 1 [facility] Eosinophil # Bld Auto 0.88t2188/uL Normal 437945751893 0 - 1 [facility] Hgb Bld-mCnc 10.9g/dL Below low normal 536017973770 11.7 - 15.5 [facility] nRBC # Bld Auto 6a5743/uL Normal 372068304556 0 - 1 [facility] MCV RBC Auto 85.8fL Normal [id number] 80 - 100 [facility] WBC # Bld Auto 6.5u6957/uL Normal [id number] 4 - 11 [facility] MCH RBC Qn Auto 28.8pg Normal 350150806848 27 - 33 [facility] RBC # Bld Auto 4.06M/uL Normal [id number] 4 - 6 [facility] Lymphocytes # Bld Auto 1.68u4814/uL Normal [id number] 0.6 - 3.7 [facility] Neutrophils/leuk NFr Bld Auto 74.3% Above high normal 273123577398 39 - 72 [facility] Lymphocytes/leuk NFr Bld Auto 18.8% Normal [id number] 17 - 50 [facility] PMV Bld Auto 10.1fL Normal 609006471214 8 - 12 [facility] BKR WAM BASOPHIL ABSOLUTE COUNT. 0.86f2638/uL Normal [id number] 0 - 1 [facility] Imm Granulocytes # Bld Auto 0.46s0986/uL Normal 763131690196 0 - 0.3 [facility] Monocytes/leuk NFr Bld Auto 6.1% Normal [id number] 4 - 12 [facility] Basophils/leuk NFr Bld Auto 0.2% Normal [id number] 0 - 1.4 [facility] nRBC/100 WBC Bld Auto-Rto 0% Normal [id number] 0 - 1 [facility] MCHC RBC Auto-mCnc 33.5g/dL Normal [id number] 31 - 36 [facility] Monocytes # Bld Auto 0.17q9588/uL Normal [id number] 0 - 1 [facility] Hct VFr Bld Auto 34.9% Below low normal 382947248057 35 - 45 [facility] Eosinophil/leuk NFr Bld Auto 0.2% Normal 707421223090 0 - 5 [facility] Neutrophils # Bld Auto 6.86s0351/uL Normal [id number] 2 - 7.6 [facility] Platelet # Bld Auto 980r1307/uL Below low normal [id number] 1 150 - 420 [facility] RDW RBC Auto-Rto 14.8% Normal [id number] 11 - 15 [facility] Imm Granulocytes/leuk NFr Bld Auto 0.4% Normal [id number] 0 - 1 [facility] Eosinophil # Bld Auto 0.33z2498/uL Normal [id number] 0 - 1 [facility] Hgb Bld-mCnc 11.7g/dL Normal [id number] 11.7 - 15.5 [facility] nRBC # Bld Auto 0m2355/uL Normal [id number] 0 - 1 [facility] MCV RBC Auto 86fL Normal [id number] 80 - 100 [facility] WBC # Bld Auto 7i1387/uL Normal [id number] 4 - 11 [facility] Potassium SerPl-sCnc 4.2mmol/L Normal [id number] 3.3 - 5.3 [facility] Glucose SerPl-mCnc 123mg/dL Above high normal 613671208585 70 - 100 [facility] Chloride SerPl-sCnc 106mmol/L Normal 200656570501 98 - 10 7 [facility] BUN SerPl-mCnc 10mg/dL Normal [id number] 6 - 20 [facility] Calcium SerPl-mCnc 8.5mg/dL Below low normal [id number] 8 .8 - 10.2 [facility] Creat SerPl-mCnc 0.73mg/dL Normal 969567502867 0.4 - 1.3 [facility] BUN/Creat SerPl 13.7 Normal [id number] 8 - 23 [facility] Sodium SerPl-sCnc 136mmol/L Normal [id number] 136 - 144 [facility] Anion Gap3 SerPl-sCnc 9 Normal [id number] 7 - 1 7 [facility] GFR/BSA.pred SerPlBld VGG-LNY-LkITyc 60mL/min/1.73 m2 Normal [id number] - [facility] HCO3 SerPl-sCnc 21mmol/L Normal [id number] 20 - 30 [facility] Lipase SerPl-cCnc 17U/L Normal [id number] 11 - 55 [facility] Phosphate SerPl-mCnc 2.9mg/dL Normal [id number] 2.2 - 4.5 [facility] Magnesium SerPl-mCnc 2.2mg/dL Normal [id number] 1.7 - 2.4 [facility] aPTT PPP 23.6seconds Normal [id number] 23 - 31.[address] Prothrombin time 11.2seconds Normal [id number] 9.6 - 12 .3 [facility] INR PPP 1.01 Normal [id number] 0.86 - 1.12 [facility] Trigl SerPl-mCnc 65mg/dL Normal - [facility] Potassium SerPl-sCnc 3.2mmol/L Below low normal 346320904026 3.3 - 5.3 [facility] Glucose SerPl-mCnc 193mg/dL Above high normal 991651198911 70 - 100 [facility] Chloride SerPl-sCnc 117mmol/L Above high normal 422079183029 98 - 107 [facility] BUN SerPl-mCnc 11mg/dL Normal 247189593082 6 - 20 [facility] Calcium SerPl-mCnc 6.4mg/dL Critically low 207301336513 8.8 - 10.2 [facility] Creat SerPl-mCnc 0.57mg/dL Normal [id number] 0.4 - 1.3 [facility] BUN/Creat SerPl 19.3 Normal [id number] 8 - 23 [facility] Sodium SerPl-sCnc 145mmol/L Above high normal 008288693479 1 36 - 144 [facility] Anion Gap3 SerPl-sCnc 9 Normal 485717993282 7 - 1 7 [facility] GFR/BSA.pred SerPlBld WEW-NDN-DeRHil 60mL/min/1.73 m2 Normal 978647041595 - [facility] HCO3 SerPl-sCnc 19mmol/L Below low normal [id number] 20 - 30 [facility] CRP SerPl HS-mCnc 4.3mg/L Above high normal [id number] - [facility] Phosphate SerPl-mCnc 2.6mg/dL Normal 624177811412 2.2 - 4.5 [facility] Magnesium SerPl-mCnc 1.5mg/dL Below low normal [id number] 1.7 - 2.4 [facility] Prealb SerPl Neph-mCnc 15.7mg/dL Below low normal 160292155004 20 - 40 [facility] aPTT PPP 24.5seconds Normal 658891054496 23 - 31.[address] Prothrombin time 12seconds Normal [id number] 9.6 - 12.3 [facility] INR PPP 1.09 Normal [id number] 0.86 - 1.12 [facility] MCH RBC Qn Auto 28.7pg Normal [id number] 27 - 33 [facility] RBC # Bld Auto 3.73M/uL Below low normal [id number] 4 - 6 [facility] Lymphocytes # Bld Auto 0.00e5330/uL Normal 894801103521 0.6 - 3.7 [facility] Neutrophils/leuk NFr Bld Auto 84.1% Above high normal 167957302771 39 - 72 [facility] Lymphocytes/leuk NFr Bld Auto 9.6% Below low normal 489713585028 17 - 50 [facility] PMV Bld Auto 9.7fL Normal [id number] 8 - 12 [facility] BKR WAM BASOPHIL ABSOLUTE COUNT. 0.02s2597/uL Normal [id number] 0 - 1 [facility] Imm Granulocytes # Bld Auto 0.23q6312/uL Normal [id number] 0 - 0.3 [facility] Monocytes/leuk NFr Bld Auto 5.7% Normal [id number] 4 - 12 [facility] Basophils/leuk NFr Bld Auto 0.1% Normal [id number] 0 - 1.4 [facility] nRBC/100 WBC Bld Auto-Rto 0% Normal [id number] 0 - 1 [facility] MCHC RBC Auto-mCnc 33g/dL Normal [id number] 31 - 36 [facility] Monocytes # Bld Auto 0.24q3845/uL Normal [id number] 0 - 1 [facility] Hct VFr Bld Auto 32.4% Below low normal 752697344029 35 - 45 [facility] Eosinophil/leuk NFr Bld Auto 0% Normal 002441544975 0 - 5 [facility] Neutrophils # Bld Auto 7.7o5183/uL Above high normal 640655924447 2 - 7.6 [facility] Platelet # Bld Auto 240i9187/uL Below low normal 13908321465 5 150 - 420 [facility] RDW RBC Auto-Rto 14.7% Normal [id number] 11 - 15 [facility] Imm Granulocytes/leuk NFr Bld Auto 0.5% Normal [id number] 0 - 1 [facility] Eosinophil # Bld Auto 8s9503/uL Normal [id number] 0 - 1 [facility] Hgb Bld-mCnc 10.7g/dL Below low normal [id number] 11.7 - 15.5 [facility] nRBC # Bld Auto 0p7526/uL Normal 551530358796 0 - 1 [facility] MCV RBC Auto 86.9fL Normal [id number] 80 - 100 [facility] WBC # Bld Auto 9.0y4313/uL Normal [id number] 4 - 11 [facility] CK SerPl-cCnc 1392U/L Above high normal 016409166902 11 - 204 [facility] Albumin SerPl BCG-mCnc 3.6g/dL Normal [id number] 3.6 - 4.9 [facility] B[facility] BUPRENORPHINE SCREEN Negative Normal [id number] - [facility] B[facility] DRUGS OF ABUSE NOTE Normal 987042480346 [facility] fentaNYL Ur Ql Scn Positive Abnormal [id number] - [facility] BKR DRUGS OF ABUSE NOTE Normal 578973849589 [facility] PCP Ur Ql Scn>25 ng/mL Negative Normal 111094184080 - [facility] Benzodiaz Ur Ql Scn Negative Normal [id number] - [facility] Barbiturates Ur Ql Scn Negative Normal [id number] - [facility] oxyCODONE Ur Ql Scn Negative Normal 878397486624 - [facility] BKR DRUGS OF ABUSE DISCLAIMER See Comment Normal 448406394992 [facility] BZE Ur Ql Scn Negative Normal [id number] - [facility] Cannabinoids Ur Ql Scn Positive Abnormal 251060728732 - [facility] Opiates Ur Ql Scn Negative Normal 898028903310 - [facility] B[facility] METHADONE METABOLITE SCREEN, URINE, NO CONF. Negative Normal 650056342440 - [facility] Amphetamines Ur Ql Scn Negative Normal 566424107074 - [facility] BKR TEG R, KAOLIN/HEPARINASE 3.9min Below low normal 516624730988 5 - 10 [facility] T BKR TEG LY30, KAOLIN/HEPARINASE 0.1% Normal 728526899315 0 - 8 [facility] B[facility] TEG K, KAOLIN/HEPARINASE 1.3min Normal [id number] 1 - 3 [facility] B[facility] TEG ANGLE, KAOLIN/HEPARINASE 71.2deg Normal 548744997921 53 - 72 [facility] B[facility] TEG MA, KAOLIN/HEPARINASE 64.1mm Normal [id number] 50 - 70 [facility] Lactate SerPl-sCnc 1.4mmol/L Normal [id number] 0.5 - 2. 2 [facility] Potassium SerPl-sCnc 3.7mmol/L Normal [id number] 3.3 - 5.3 [facility] Glucose SerPl-mCnc 158mg/dL Above high normal 842360614317 70 - 100 [facility] Chloride SerPl-sCnc 106mmol/L Normal 145286336127 98 - 10 7 [facility] BUN SerPl-mCnc 14mg/dL Normal 088513392219 6 - 20 [facility] Calcium SerPl-mCnc 8.4mg/dL Below low normal 328643966365 8 .8 - 10.2 [facility] Creat SerPl-mCnc 0.8mg/dL Normal 904997330523 0.4 - 1.3 [facility] BUN/Creat SerPl 17.5 Normal 378712239939 8 - 23 [facility] Sodium SerPl-sCnc 139mmol/L Normal [id number] 136 - 144 [facility] Anion Gap3 SerPl-sCnc 12 Normal 908427369854 7 - 1 7 [facility] GFR/BSA.pred SerPlBld NQA-NSQ-SeXHao 60mL/min/1.73 m2 Normal [id number] - [facility] HCO3 SerPl-sCnc 21mmol/L Normal [id number] 20 - 30 [facility] Ca-I adj pH7.4 BldV ISE-mCnc 4.41mg/dL Below low normal 174881195444 4.6 - 5.08 [facility] MCH RBC Qn Auto 28.5pg Normal [id number] 27 - 33 [facility] RBC # Bld Auto 4.25M/uL Normal 332184183616 4 - 6 [facility] Lymphocytes # Bld Auto 0.50w8627/uL Normal [id number] 0.6 - 3.7 [facility] Neutrophils/leuk NFr Bld Auto 84.2% Above high normal 075635335583 39 - 72 [facility] Lymphocytes/leuk NFr Bld Auto 9.5% Below low normal 241050051392 17 - 50 [facility] PMV Bld Auto 9.4fL Normal 596845007088 8 - 12 [facility] BKR WAM BASOPHIL ABSOLUTE COUNT. 0.94o1430/uL Normal [id number] 0 - 1 [facility] Imm Granulocytes # Bld Auto 0.79z3223/uL Normal 346777011308 0 - 0.3 [facility] Monocytes/leuk NFr Bld Auto 4.8% Normal [id number] 4 - 12 [facility] Basophils/leuk NFr Bld Auto 0.2% Normal [id number] 0 - 1.4 [facility] nRBC/100 WBC Bld Auto-Rto 0% Normal 521118653935 0 - 1 [facility] MCHC RBC Auto-mCnc 32.9g/dL Normal [id number] 31 - 36 [facility] Monocytes # Bld Auto 0.23o6574/uL Normal 813834582051 0 - 1 [facility] Hct VFr Bld Auto 36.8% Normal 082322894624 35 - 45 [facility] Eosinophil/leuk NFr Bld Auto 0.2% Normal 254035747314 0 - 5 [facility] Neutrophils # Bld Auto 8.20k4479/uL Above high normal 264308840343 2 - 7.6 [facility] Platelet # Bld Auto 023d1872/uL Below low normal 39622020593 9 150 - 420 [facility] RDW RBC Auto-Rto 14.4% Normal 678904455945 11 - 15 [facility] Imm Granulocytes/leuk NFr Bld Auto 1.1% Above high normal 234628365249 0 - 1 [facility] Eosinophil # Bld Auto 0.22k7935/uL Normal 257318974942 0 - 1 [facility] Hgb Bld-mCnc 12.1g/dL Normal 538923581713 11.7 - 15.5 [facility] nRBC # Bld Auto 1i7803/uL Normal [id number] 0 - 1 [facility] MCV RBC Auto 86.6fL Normal 981267760901 80 - 100 [facility] WBC # Bld Auto 10.1g0034/uL Normal 574931466282 4 - 11 [facility] Phosphate SerPl-mCnc 4.1mg/dL Normal [id number] 2.2 - 4.5 [facility] CK SerPl-cCnc 384U/L Above high normal 873182202133 11 - 204 [facility] ALP SerPl-cCnc 59U/L Normal 140085470617 9 - 122 [facility] AST/ALT SerPl-cRto 1.8 Normal [id number] - [facility] Bilirub Direct SerPl-mCnc 0.2mg/dL Normal [id number] - [facility] ALT SerPl w/o P-5'-P-cCnc 40U/L Above high normal [id number] 10 - 35 [facility] Bilirub SerPl-mCnc 0.8mg/dL Normal 023604773892 - [facility] AST SerPl w P-5'-P-cCnc 73U/L Above high normal 188672791168 10 - 35 [facility] Magnesium SerPl-mCnc 2.2mg/dL Normal 799908089315 1.7 - 2.4 [facility] Bdy temp Pnl 36.4Celsius Normal 852415730423 [facility] pO2 BldA 70mmHg Below low normal 688480256309 83 - 108 [facility] SaO2 % BldA 95% Normal 579541521676 94 - [address] pH BldA 7.35units Normal [id number] 7.35 - 7.45 [facility] HCO3 std BldA-sCnc 22.8mmol/L Normal 789225838963 21 - 28 [facility] Base excess std BldA Calc-sCnc -2mmol/L Normal 108409623184 - [facility] pCO2 BldA 42mmHg Normal [id number] 32 - 48 [facility] BKR FIO2 21% Normal 034312515525 [facility] BKR ISOPROPANOL BLOOD2 Not Detected Normal [id number] - [facility] BKR METHANOL2 Not Detected Normal 658810540942 - [facility] BKR ACETONE BLOOD2 Not Detected Normal [id number] - [facility] Ethanol SerPl-mCnc Not Detected Normal [id number] - [facility] ABO GROUPING A Normal 508574439380 [facility] RH TYPE POS Normal [id number] [facility] ANTIBODY SCREEN NEG Normal 099616394986 [facility] HOLD SPECIMEN BB RECVD Normal 014899251818 [facility] Potassium SerPl-sCnc 3.8mmol/L Normal [id number] 3.3 - 5.3 [facility] Glucose SerPl-mCnc 169mg/dL Above high normal 741708218039 70 - 100 [facility] Chloride SerPl-sCnc 102mmol/L Normal 533544767115 98 - 10 7 [facility] BUN SerPl-mCnc 15mg/dL Normal 178346097620 6 - 20 [facility] Calcium SerPl-mCnc 8.6mg/dL Below low normal 377863726296 8 .8 - 10.2 [facility] Creat SerPl-mCnc 1.08mg/dL Normal 473674098975 0.4 - 1.3 [facility] BUN/Creat SerPl 13.9 Normal [id number] 8 - 23 [facility] Sodium SerPl-sCnc 138mmol/L Normal [id number] 136 - 144 [facility] Anion Gap3 SerPl-sCnc 21 Above high normal 1893863820 28 7 - 17 [facility] GFR/BSA.pred SerPlBld ACK-HVU-UxAEkj 60mL/min/1.73 m2 Normal [id number] - [facility] HCO3 SerPl-sCnc 15mmol/L Below low normal 171423347193 20 - 30 [facility] aPTT PPP 21.9seconds Below low normal 634865573087 23 - 31. 4 [facility] Prothrombin time 11.5seconds Normal 481306183031 9.6 - 12 .3 [facility] INR PPP 1.04 Normal [id number] 0.86 - 1.12 [facility] MCH RBC Qn Auto 28pg Normal [id number] 27 - 33 [facility] RBC # Bld Auto 4M/uL Normal [id number] 4 - 6 [facility] Lymphocytes # Bld Auto 4.50k5559/uL Above high normal 551272347307 0.6 - 3.7 [facility] Neutrophils/leuk NFr Bld Auto 41.7% Normal 075272624135 39 - 72 [facility] Lymphocytes/leuk NFr Bld Auto 50.5% Above high normal 359590674607 17 - 50 [facility] PMV Bld Auto 9.7fL Normal 538903096882 8 - 12 [facility] BKR WAM BASOPHIL ABSOLUTE COUNT. 0.82z5224/uL Normal 500573050595 0 - 1 [facility] Imm Granulocytes # Bld Auto 0.01p0259/uL Normal 152182756105 0 - 0.3 [facility] Monocytes/leuk NFr Bld Auto 4.7% Normal 620762553340 4 - 12 [facility] Basophils/leuk NFr Bld Auto 0.5% Normal 722564260852 0 - 1.4 [facility] nRBC/100 WBC Bld Auto-Rto 0% Normal [id number] 0 - 1 [facility] MCHC RBC Auto-mCnc 31.8g/dL Normal [id number] 31 - 36 [facility] Monocytes # Bld Auto 0.15j7221/uL Normal 691785209035 0 - 1 [facility] Hct VFr Bld Auto 35.2% Normal [id number] 35 - 45 [facility] Eosinophil/leuk NFr Bld Auto 0.8% Normal 855929242826 0 - 5 [facility] Neutrophils # Bld Auto 3.98h3061/uL Normal [id number] 2 - 7.6 [facility] Platelet # Bld Auto 357n5384/uL Normal 783323728086 150 - 420 [facility] RDW RBC Auto-Rto 14.6% Normal 857551423365 11 - 15 [facility] Imm Granulocytes/leuk NFr Bld Auto 1.8% Above high normal 737289414968 0 - 1 [facility] Eosinophil # Bld Auto 0.98y4220/uL Normal 807929129834 0 - 1 [facility] Hgb Bld-mCnc 11.2g/dL Below low normal 818256248044 11.7 - 15.5 [facility] nRBC # Bld Auto 6w5075/uL Normal 705391238808 0 - 1 [facility] MCV RBC Auto 88fL Normal 316040930803 80 - 100 [facility] WBC # Bld Auto 8.3d5946/uL Normal [id number] 4 - 11 [facility] History of Medication Use Medication Directions Dispensed Refills Start Date End Date Status calcium carbonate (TUMS) 500 MG chewable tablet Chew 1 tablet (500 mg total) every 4 (four) hours as needed for indigestion or heartburn. 4 03/02/99 active naloxone (NARCAN) 4 mg/0.1 mL Liquid nasal spray device 1 spray (4 mg total) by Alternating Nares route once. [place] contents (4mg) into one nostril once. May repeat every 2 to 3 minutes in alternating nostrils. Call 911 immediately after use. 4 03/02/99 active loratadine (CLARITIN) 10 MG tablet Take 1 tablet (10 mg total) by mouth daily. 4 03/02/99 active OLANZapine (ZyPREXA) 5 MG tablet Take 1 tablet (5 mg total) by mouth nightly. 4 03/02/99 active methocarbamol (ROBAXIN) 500 MG tablet Take 1 tablet (500 mg total) by mouth 4 (four) times a day. 4 03/02/99 active sodium phosphates (FLEET) enema Insert into the rectum once. 4 03/02/99 active senna (SENOKOT) 8.6 MG Tab tablet Take 2 tablets by mouth daily as needed for constipation. 4 03/02/99 active acetaminophen (TYLENOL) 325 MG suppository Insert 1 suppository (325 mg total) into the rectum 4 times daily (every 6 hours) as needed for mild pain. 4 03/02/99 99 active docusate sodium (COLACE) 100 MG capsule Take 1 capsule (100 mg total) by mouth 2 (two) times a day. 4 03/02/99 99 active ciprofloxacin (CIPRO) 500 MG tablet 4 active doxycycline (VIBRAMYCIN) 100 MG capsule 4 active lidocaine (PROZENA) 4 % patch Place 1 patch on the skin daily. 4 active OLANZapine (ZyPREXA) 10 MG tablet 4 active Vitamin D3 (CHOLECALCIFEROL) 50 MCG (2000 UT) tablet Take 1 tablet (2,000 Units total) by mouth daily. 4 active No known medications No known medications 4 active cephalexin (KEFLEX) 500 MG capsule Take 1 capsule (500 mg total) by mouth 2 (two) times a day. 4 active ergocalciferol (VITAMIN D2,DRISDOL) 20100 units Cap Take 1 capsule (50,000 Units total) by mouth once a week. 4 active docusate sodium (COLACE) 100 MG capsule Take 2 capsules (200 mg total) by mouth nightly. 4 active polycarbophil (FIBERCON) 625 MG tablet Take 1 tablet (625 mg total) by mouth daily. 4 active fentaNYL PF (SUBLIMAZE) injection 100 mcg 100 mcg, IV Push, ONCE, On 11/10/22 at 1530, For 1 doseMaximum IV Push dose of 1 mcg/kg. If ordered IV Push, administer undiluted over 1 minute.?If ordered SC, administer over a few seconds. For SC dose volumes greater than 1.5 mL, use multiple injection sites. RECOMMENDED monitoring includes: 3 completed tranexamic acid (CYKLOKAPRON) 1 g in sodium chloride 0.9% 100 mL IVPB (mini-bag plus) 1 g, Intravenous, at 600 mL/hr, ONCE, On 11/10/22 at 0300, For 1 doseNurse Administration??Activ ate prior to use via mini-bag plus. 3 completed acetaminophen (TYLENOL) 325 mg tablet Take 2 tablets (650 mg total) by mouth every 6 (six) hours as needed for up to 10 days. 3 active polyethylene glycol (MIRALAX) packet 17 g 17 g, Oral, DAILY PRN, constipation, Starting on Michelle 12/12/22 at 0643For 17g dose: Dissolve in 4 - 8 oz of water, juice, soda, coffee, or tea.??For BOWEL PREP FOR COLONOSCOPY/FLEX SIG:?Dissolve 119g (7 packets) in 32 ounces of clear sports drink or other clear liquid??Common Side Effects: Diarrhea, 3 aborted midodrine (ProAmatine) 5 MG tablet Take 1 tablet (5 mg total) by mouth 3 (three) times a day as needed for orthostatic hypotension (SBP <100. Hold for SBP >100). Take during daytime hours. 4 active dexMEDEtomidine (PRECEDEX) 400 mcg/100 mL (4 mcg/mL) in dextrose 5% infusion 100 mL, at 3.98-13.93 mL/hr, Intravenous, CONTINUOUS, Starting on 11/11/22 at 1130Start:?0.2 mcg/kg/hr??Titrate by:?0.1 mcg/kg/hr??No more frequently than every:?30 minutes??Maximum Dose:?Pursuant to dose within order (ie: dose field) and up to 1.4 mcg/kg/hr. ??Minimum frequency of titration goa 3 aborted heparin (PORCINE) injection 5,000 Units 5,000 Units, Subcutaneous, Every 8 Hours Scheduled, First dose on 11/10/22 at 2200For VTE Prophylaxis, administer dose as SC. For Heparin Infusion Protocol bolus, administer dose as IV Push undiluted over 1 minute. RECOMMENDED monitoring includes: Bleeding. Common Side Effects include bruising a 3 aborted oseltamivir (TAMIFLU) 75 MG capsule Take 1 capsule (75 mg total) by mouth. 4 active famotidine (PEPCID) tablet 20 mg 20 mg, Per J Tube, 2 Times Daily Scheduled, First dose on 11/16/22 at 2100Common Side Effects: Dizziness, headache, stomach upset, confusion.Pharmacist will implement [facility] Renal Dose Adjustment Protocol unless otherwise specified: Implement ProtocolProtocol: [email or web address] 3 aborted sodium chloride 0.9 % flush 3 mL 3 mL, Intravenous, EVERY 8 HOURS, First dose on Fri11/10/22 at 0230For IV lock flush only. 3 aborted magnesium hydroxide (MILK OF MAGNESIA) 400 mg/5 mL suspension Take 30 mL by mouth every third day as needed for constipation. 4 aborted iohexoL (OMNIPAQUE) 350 mg iodine/mL injection 50 mL 50 mL, Intravenous, IMG ONCE PRN, other, Starting on Fri11/10/22 at 0352, For 1 doseVesicant agents may cause severe tissue damage, including necrosis, if they extravasate into tissue; Common Side Effects: Headache, nausea, allergic reaction. 3 completed bisacodyl (DULCOLAX) 10 MG suppository Insert 1 suppository (10 mg total) into the rectum daily as needed for constipation. 4 active naloxone (NARCAN) 4 mg/0.1 mL Liquid nasal spray device [place] contents (4mg) into one nostril once. May repeat every 2 to 3 minutes in alternating nostrils. Call 911 immediately after use. 4 active Banatrol Plus oral powder packet 1 packet, Oral, Daily, First dose (after last modification) on Fri11/20/22 at 0900 3 aborted potassium chloride in sterile water 10 mEq/100 mL IVPB 10 mEq 10 mEq, Intravenous, Administer over 60 Minutes, EVERY 1 HOUR PRN, other, Potassium chloride sliding scale coverage., Starting on Fri11/10/22 at 1039, For 35 daysK < 3: Call MD/ROBERTO??K = 3 to 3.4: 10 mEq X 6 doses??K = 3.5 to 3.8: 10 mEq X 4 doses??K = 3.9 to 4.0: 10 mEq X 2 doses??K > 4.0: No Coverage?? 3 aborted fentaNYL (SUBLIMAZE) bolus from bag 50 mcg 50 mcg, Intravenous, EVERY 30 MIN PRN, RASS > (Specify in PRN comment), 0, Starting on Fri11/10/22 at 1525, For 7 daysRe-Bolus dose from continous infusion??Common Side Effects: Confusion, nausea, vomiting, drowsiness, constipation, breathing problems. 3 aborted norepinephrine (LEVOPHED) 16 mg in sodium chloride 0.9% 250 mL (64 mcg/mL) infusion 250 mL, at 1.49-223.88 mL/hr, Intravenous, CONTINUOUS, Starting on Fri11/13/22 at 2145Start: ??0.02 mcg/kg/min??Titrate by: ??0.02 mcg/kg/min??No more frequently than every 1 minute??Maximum Dose: ??3 mcg/kg/min??Minimum frequency of titration goal parameter assessment: every 4 hours and/or pre/post dose 3 aborted fentaNYL (SUBLIMAZE) 2500 mcg in 50 mL UNDILUTED (50 mcg/mL) infusion 50 mL, at 0.8-15.92 mL/hr, Intravenous, CONTINUOUS, Starting on Fri11/10/22 at 1530, For 7 daysStart:?0.5 mcg/kg/hr??Titrate by:?0.25 mcg/kg/hr??No more frequently than every:?2 minutes??Maximum Dose:?10 mcg/kg/hr??Minimum frequency of titration goal parameter assessment: every 4 hours and/or pre/p 3 aborted ARIPiprazole (ABILIFY) tablet 5 mg 5 mg, Per NG tube, Daily, First dose on Fri11/15/22 at 1300 3 aborted senna-docusate (Senna-Plus) 8.6-50 MG Take 1 tablet by mouth nightly. 9 PM 4 active iohexoL (OMNIPAQUE) 350 mg iodine/mL injection 80 mL 80 mL, Intravenous, IMG ONCE PRN, other, Starting on Fri11/10/22 at 0356, For 1 doseVesicant agents may cause severe tissue damage, including necrosis, if they extravasate into tissue; Common Side Effects: Headache, nausea, allergic reaction. 3 completed lactated ringers (new bag) bolus 1,000 mL 1,000 mL, Intravenous, Administer over 1 Hours, ONCE, On Fri11/10/22 at 0230, For 1 dose 3 completed acetaminophen (TYLENOL) suspension 650 mg 650 mg, Oral, EVERY 6 HOURS, First dose (after last modification) on Fri11/20/22 at 0430Maximum dose of acetaminophen is 4000 mg from all sources in 24 hours. 3 aborted oxyCODONE (ROXICODONE) Immediate Release tablet 2.5 mg 2.5 mg, Oral, EVERY 6 HOURS PRN, severe Pain (PIS 7-10), Starting on Michelle 12/05/22 at 1414, For 65 hoursCommon Side Effects: Confusion, nausea, vomiting, drowsiness, constipation, breathing problems. 3 completed senna leaf extract 176 mg/5 mL syrup 15 mL 15 mL, Per NG tube, 2 Times Daily Scheduled, First dose on Michelle 11/14/22 at 1200Common Side Effects: Diarrhea, discomfort, cramps. 3 aborted acetaminophen (TYLENOL) 325 MG tablet Take 2 tablets (650 mg total) by mouth 4 times daily (every 6 hours) as needed for mild pain or fever. 4 aborted docusate sodium (COLACE) 100 MG capsule Take 1-2 capsules (100-200 mg total) by mouth nightly as needed for constipation. Take with of water 4 active clindamycin (CLEOCIN T) 1 % lotion Apply topically 2 (two) times daily for 10 days. 3 aborted sodium chloride 0.9% infusion 75 mL/hr, Intravenous, CONTINUOUS, Starting on Fri11/11/22 at 1745, For 3 days 19 hours 3 aborted naloxone (NARCAN) 4 mg/0.1 mL Liquid nasal spray device [place] contents (4mg) into one nostril once. May repeat every 2 to 3 minutes in alternating nostrils. Call 911 immediately after use. 4 active Banatrol Plus oral powder packet 1 packet, Oral, Daily, First dose (after last modification) on Fri11/20/22 at 0900 3 aborted potassium chloride in sterile water 10 mEq/100 mL IVPB 10 mEq 10 mEq, Intravenous, Administer over 60 Minutes, EVERY 1 HOUR PRN, other, Potassium chloride sliding scale coverage., Starting on Fri11/10/22 at 1039, For 35 daysK < 3: Call MD/ROBERTO??K = 3 to 3.4: 10 mEq X 6 doses??K = 3.5 to 3.8: 10 mEq X 4 doses??K = 3.9 to 4.0: 10 mEq X 2 doses??K > 4.0: No Coverage?? 3 aborted fentaNYL (SUBLIMAZE) bolus from bag 50 mcg 50 mcg, Intravenous, EVERY 30 MIN PRN, RASS > (Specify in PRN comment), 0, Starting on Fri11/10/22 at 1525, For 7 daysRe-Bolus dose from continous infusion??Common Side Effects: Confusion, nausea, vomiting, drowsiness, constipation, breathing problems. 3 aborted norepinephrine (LEVOPHED) 16 mg in sodium chloride 0.9% 250 mL (64 mcg/mL) infusion 250 mL, at 1.49-223.88 mL/hr, Intravenous, CONTINUOUS, Starting on Fri11/13/22 at 2145Start: ??0.02 mcg/kg/min??Titrate by: ??0.02 mcg/kg/min??No more frequently than every 1 minute??Maximum Dose: ??3 mcg/kg/min??Minimum frequency of titration goal parameter assessment: every 4 hours and/or pre/post dose 3 aborted sodium chloride 0.9% large volume syringe for autoinjector 60 mL 60 mL, Intravenous, IMG ONCE PRN, other, Imaging, Starting on Fri11/10/22 at 0353, For 1 dose 3 completed magnesium hydroxide (MILK OF MAGNESIA) 400 mg/5 mL suspension 30 mL 30 mL, Oral, DAILY PRN, constipation, 2nd line, Starting on Fri11/20/22 at 0000Common Side Effects: Chalky taste, stomach upset. 3 aborted diazepam (VALIUM) 10 MG tablet Take 1 tablet (10 mg total) by mouth 3 times daily (every 8 hours) as needed for muscle spasms. 4 active gabapentin (NEURONTIN) 300 MG capsule Take 1 capsule (300 mg total) by mouth 3 (three) times a day. 4 active [facility] [id number] (Human prothrombin complex concentrate, 4-factor (Kcentra??) 3000 IU or placebo IV investigational study drug 3,000 International Units 3,000 International Units, Intravenous, ONCE, On 11/10/22 at 0315, For 1 dose 3 completed acetaminophen (OFIRMEV) 10 mg/mL IVPB 650 mg 650 mg, Intravenous, Administer over 15 Minutes, EVERY 6 HOURS, First dose on Fri11/12/22 at 1130, For 8 doses 3 completed haloperidol lactate (HALDOL) injection 5 mg 5 mg, IV Push, EVERY 8 HOURS PRN, agitation, Starting on Michelle 11/14/22 at 1721If ordered IV Push, administer undiluted at a rate of 5 mg over 1 minute. RECOMMENDED monitoring for doses greater than 5 mg includes: baseline HR and BP, repeated Q15 minutes x 1. No HR or BP monitoring recommended for dos 3 aborted piperacillin-tazoba ctam (ZOSYN) 4.5 g in sodium chloride 0.9% 100 mL (mini-bag plus) 4.5 g, Intravenous, at 33.3 mL/hr, EVERY 6 HOURS, First dose on Fri11/12/22 at 1630, For 17 dosesFor all hospitals ([facility], [facility], [facility] [place]): Infuse over 180 minutes.??For the ED, OR and Outpatient Clinics: Infuse over 30 minutes.??For patients receiving Hemodialysis, please revie 3 aborted sodium chloride 0.9 % flush 20 mL 20 mL, Intra-Catheter, PRN for Line Care, other, After Blood Specimen Sampling, Starting on Fri11/11/22 at 1846Flush using a pulsatile, push pause technique 3 aborted gabapentin (NEURONTIN) 100 mg capsule Take 2 capsules (200 mg total) by mouth 3 (three) times daily. 3 active enoxaparin (LOVENOX) syringe 40 mg 40 mg, Subcutaneous, Every 24 Hours Scheduled (Daily), First dose on Fri11/27/22 at 1200Contraindicated with epidural use. Common Side Effects: Bruising, minor and major bleeding. 3 aborted potassium and sodium phosphates (ELEMENTAL phosphorus 250 mg/packet) (Phos-NaK) oral powder 500 mg 500 mg, Per J Tube, 4 Times Daily With Meals & Nightly, First dose on Fri11/17/22 at 0800, For 24 hoursDissolve contents of each packet in 75 mL of water or juice prior to administration 3 completed miconazole (MONISTAT) 2 % vaginal cream 1 Applicatorful 1 Applicatorful, Vaginal, Nightly, First dose on Fri12/03/22 at 2100, For 7 doses 3 completed oxyCODONE (ROXICODONE) Immediate Release tablet 5 mg 5 mg, Oral, EVERY 6 HOURS PRN, severe Pain (PIS 7-10), Starting on Fri11/25/22 at 1319, For 10 days 1 hourCommon Side Effects: Confusion, nausea, vomiting, drowsiness, constipation, breathing problems. 3 aborted norepinephrine (LEVOPHED) 16 mg in dextrose 5 % 250 mL (64 mcg/mL) infusion pmx 250 mL, at 1.49-223.88 mL/hr, Intravenous, CONTINUOUS, Starting on Fri11/12/22 at 1245Start:?0.02 mcg/kg/min??Titrate by:?0.02 mcg/kg/min??No more frequently than every 1 minute??Maximum Dose:?3 mcg/kg/min??Minimum frequency of titration goal parameter assessment: every 4 hours and/or pre/post dose 3 aborted oxyCODONE (ROXICODONE) 5 MG immediate release tablet Take 1 tablet (5 mg total) by mouth 3 times daily (every 8 hours) as needed. 4 active camphor-menthoL (SARNA) lotion Topical (Top), 2 Times Daily Scheduled, First dose on Fri12/10/22 at 2100Apply to: arms, legs 3 aborted sodium chloride 0.9 % (new bag) bolus 500 mL 500 mL, Intravenous, Administer over 15 Minutes, ONCE, On Fri11/26/22 at 0530, For 1 dose 3 completed ibuprofen (ADVIL,MOTRIN) tablet 600 mg 600 mg, Oral, ONCE, On Fri12/15/22 at 1730, For 1 doseCommon Side Effects: Stomach upset, dizziness, increased bleeding risk. 3 completed diazePAM (VALIUM) tablet 5 mg 5 mg, Oral, 4 TIMES DAILY PRN, other, agitation, Starting on Fri11/24/22 at 0929Common Side Effects: Confusion, dizziness, drowsiness, mood changes. 3 aborted sodium chloride 0.9 % (new bag) bolus 1,000 mL 1,000 mL, Intravenous, Administer over 15 Minutes, ONCE, On Fri11/11/22 at 0945, For 1 dose 3 completed nicotine polacrilex (NICORETTE) gum 2 mg 2 mg, Oral, EVERY 2 HOURS PRN, tobacco cravings, Starting on Fri12/10/22 at 1004Not to exceed 24 pieces/24 hours. Chew and park PRN tobacco cravings.??Dispose partially used, medication and all packaging (vial, syringe, tubing) even if empty in the black RCRA container. 3 aborted sodium chloride 0.9 % flush 10 mL 10 mL, Intra-Catheter, Every 24 Hours Scheduled (Daily), First dose on Fri11/12/22 at 0900For Capped Lumen Only??Flush using a pulsatile, push pause technique 3 aborted haloperidol lactate (HALDOL) injection 2 mg 2 mg, IV Push, ONCE, On Fri11/10/22 at 1415, For 1 doseIf ordered IV Push, administer undiluted at a rate of 5 mg over 1 minute. RECOMMENDED monitoring for doses greater than 5 mg includes: baseline HR and BP, repeated Q15 minutes x 1. No HR or BP monitoring recommended for doses 5 mg or less. RANDI 3 completed chlorhexidine gluconate (PERIDEX) 0.12 % solution 15 mL 15 mL, Mouth/Throat, 2 Times Daily Scheduled, First dose on Fri11/12/22 at 2100If patient mechanically ventilated, use per oral care protocol for mechanically ventilated patients.?HOB > 30 degrees. 3 aborted cyclobenzaprine (FLEXERIL) tablet 5 mg 5 mg, Oral, 3 Times Daily Scheduled, First dose on Michelle 11/28/22 at 1400 3 aborted morphine syringe 2 mg 2 mg, IV Push, EVERY 3 HOURS PRN, other, Breakthrough pain or inability to take PO, Starting on 11/17/22 at 0953, For 167 hoursIf given as IV push, administer over 5 minutes. If given as subcutaneous injection, administer over a few seconds. Do not administer > 1.5ml per injection site ? use mul 3 aborted Sulfur hexafluoride Microspheres (LUMASON) Intravenous suspension 4 mL, Intravenous, IMG ONCE PRN, other, Starting on 11/11/22 at 0918, For 1 dose, Procedural ImagingAdminister 2 ml over 10 seconds and an additional 2 mL as needed. NOT to exceed 4 mL. ??IV line flushed with 10 mL of NS.Reason for use (RFU): Unable to detect two or more contiguous segments of l 3 completed miconazole (MICOTIN) 2 % powder Topical (Top), 2 Times Daily Scheduled, First dose on Fri11/15/22 at 1330Apply to: Groin, Both 3 aborted potassium phosphate 21 mmol in sodium chloride 0.9% 250 mL IVPB 21 mmol, Intravenous, Administer over 3 Hours, Every 3 Hours Scheduled, First dose on 11/16/22 at 0600, For 2 doses 3 completed enoxaparin (LOVENOX) 40 MG/0.4ML injection Inject 0.4 mL (40 mg total) under the skin daily. 4 active nicotine (NICODERM CQ) transdermal patch 24 hr 14 mg 14 mg, Transdermal, Administer over 24 Hours, Daily, First dose on 11/23/22 at 2300 3 aborted sodium chloride 0.9% infusion (not for pump integration) 3 mL/hr, Intra-arterial, CONTINUOUS, Starting on Fri11/12/22 at [id number] mL bag Infuse via pressure bag at 300 mmHg for arterial line monitoring and flush. 3 aborted fentaNYL PF (SUBLIMAZE) injection 50 mcg 50 mcg, IV Push, ONCE, On Fri11/10/22 at 0230, For 1 doseMaximum IV Push dose of 1 mcg/kg. If ordered IV Push, administer undiluted over 1 minute.?If ordered SC, administer over a few seconds. For SC dose volumes greater than 1.5 mL, use multiple injection sites. RECOMMENDED monitoring includes: H 3 completed gabapentin (NEURONTIN) capsule 100 mg 100 mg, Oral, 3 Times Daily Scheduled, First dose on Fri12/02/22 at 1400Avoid dairy products, antacids, calcium and iron within 2 hours. 3 aborted baclofen (LIORESAL) 10 MG tablet Take 1 tablet (10 mg total) by mouth 3 (three) times a day. 4 active polyethylene glycol (miraLAx) 17 g packet Take 1 packet (17 g total) by mouth daily. 4 active potassium bicarbonate-citric acid (EFFER-K, K-LYTE) effervescent tablet for oral solution 20-60 mEq 20-60 mEq, Per NG tube, EVERY 4 HOURS PRN, Potassium chloride sliding scale coverage., Starting on Fri11/14/22 at 1300, For 35 dosesK < 3:?Call MD/LIP??K = 3 to 3.4:?6 0 mEq X 1 dose??K = 3.5 to 3.8:? 40 mEq X 1 dose??K = 3.9 to 4.0:? 20 mEq X 1 dose??K > 4.0:? 3 aborted norepinephrine bitartrate-D5W (LEVOPHED) 4 mg/250 mL (16 mcg/mL) infusion Soln 250 mL, at 5.97-895.5 mL/hr, Intravenous, CONTINUOUS, Starting on Fri11/11/22 at 2215Start:?0.02 mcg/kg/min??Titrate by:?0.02 mcg/kg/min??No more frequently than every 1 minute??Maximum Dose:?3 mcg/kg/min??Minimum frequency of titration goal parameter assessment: every 4 hours and/or pre/post dose c 3 aborted phenazopyridine (PYRIDIUM) 100 mg tablet Take 1 tablet (100 mg total) by mouth 3 (three) times daily with meals for 3 days. 3 aborted famotidine (PF) (PEPCID) 20 mg in sodium chloride 0.9% PF 5 mL Injection 20 mg, IV Push, Every 12 Hours Scheduled, First dose on Fri11/10/22 at 0645Maximum IV Push dose of 40 mg.?Dilute to a final concentration of 4 mg/mL with ordered diluent and administer over 2 minutes.??Common Side Effects include: Dizziness, headache, stomach upset and confusion.Pharmacist will im 3 aborted magnesium sulfate in water 2 gram/50 mL (4 %) (IVPB) 2 g 2 g, Intravenous, Administer over 1 Hours, ONCE, On Fri11/12/22 at 0900, For 1 doseMagnesium Level 1.4-1.6 mg/dl AND CrCl >/= 30 mL/min: Replete with Magnesium sulfate 2g IV x 1 dose. 3 completed chlorhexidine gluconate (HIBICLENS/BETASEPT ) 4 % topical liquid Topical (Top), Daily @2100, First dose on Fri11/11/22 at 1900Apply from the neck down for daily bathing.??Do not apply to head or face (including mouth, eyes, or nose), internal genital membranes, and/or wounds that involve more than the superficial layer of the skin.??For patients with an indwelling 3 aborted calcium gluconate 1 g in sodium chloride 100 mL IVPB 1 g 1 g, Intravenous, Administer over 60 Minutes, ONCE, On Fri11/12/22 at 0915, For 1 doseVesicant agents may cause severe tissue damage, including necrosis, if they extravasate into tissue. 3 completed D5 NS infusion 125 mL/hr, Intravenous, CONTINUOUS, Starting on Fri11/10/22 at 0445 3 aborted senna (SENOKOT) tablet 17.2 mg 17.2 mg (2 tablet), Per NG tube, 2 Times Daily Scheduled, First dose on 11/17/22 at 2100Common Side Effects: Diarrhea, discomfort, cramps. 3 aborted potassium chloride SA (K-DUR,KLOR-CON M) 24 hr tablet 20 mEq 20 mEq, Oral, Daily, First dose on 11/24/22 at 0930NOTE: Product is dosed in mEq of ELEMENTAL potassium. Hold for Postassium level > 4.5 mmol/L, and call MD/LIP if potassium repletion should be continued.??Common Side Effects: Stomach upset, diarrhea. 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 [facility]Diagnosis[facility] Urinary retention active En[facility]Diagnosis[facility] Traumatic pneumothorax, initial encounter active [facility]Diagnosis[facility] Pelvic avulsion fracture, open, initial encounter (HC Code) (HC CODE) active 2022-11-10 ProblemAct [facility] Insect bite of head active 2022-09-28 ProblemAct [facility] SAH (subarachnoid hemorrhage) (HC Code) (HC CODE) (HC Code) active En[facility]Diagnosis[facility] Enchondroma of bone active 2018-12-08 ProblemAct [facility] History of spinal fusion active EncounterDiagnosis[facility] Closed fracture of second lumbar vertebra, unspecified fracture morphology, initial encounter (HC Code) (HC CODE) (HC Code) active [facility]counterDiagnosis[facility] Folliculitis active 2022-10-21 ProblemAct [facility] Alcohol use disorder, moderate, in early remission active 2019-03-29 ProblemAct [facility] Cocaine use disorder, mild, in sustained remission (HC Code) (HC CODE) active 2015-04-11 ProblemAct [facility] Compression fracture of lumbar vertebra, unspecified lumbar vertebral level, initial encounter (HC CODE) (HC Code) active [facility] Acquired bilateral foot drop active EncounterDiagnosisAct [facility] Closed fracture dislocation of lumbar spine, sequela active 2022-11-12 Problem[facility] History of latent tuberculosis active 2021-12-06 Problem[facility] Impaired mobility and ADLs active EncounterDiagnosisAct [facility] Varicose veins of lower extremity active 2017-08-25 ProblemAct [facility] Cauda equina spinal cord injury, initial encounter (HC Code) (HC CODE) (HC Code) active EncounterDiagnosis[facility] Homeless active 2022-10-21 ProblemAct [facility] Closed nondisplaced fracture of sixth cervical vertebra, unspecified fracture morphology, initial encounter (HC Code) active EncounterDiagnosis[facility] Rash active 2022-10-21 ProblemAct [facility] Auditory hallucinations active EncounterDiagnosisAct [facility] S Former smoker active 2015-12-08 ProblemAct [facility] S Cognitive impairment active EncounterDiagnosisA ct [facility] Bacterial vaginosis active 2022-10-21 ProblemAct [facility] Multiple closed fractures of pelvis with stable disruption of pelvic ring, initial encounter (HC Code) (HC CODE) (HC Code) active [facility]Diagnosis[facility] Macromastia active 2015-01-09 ProblemAct [facility] Vitamin D deficiency active 2018-10-26 ProblemAct [facility] Schizoaffective disorder, bipolar type (HC Code) (HC CODE) active 2015-12-08 ProblemAct [facility] Suicidal ideation active EncounterDiagnosisAct [facility] History of spinal cord injury active EncounterDiagnosisAct [facility] Cannabis use disorder, mild, in sustained remission active 2015-04-11 ProblemAct [facility] Pelvic ring fracture with routine healing active EncounterDiagnosisAct [facility] Immunizations Vaccine Date Source Lot Number Status COVID-19, FRANCINE (J&J), 0.5 mL 01/23/2021 [facility] [id number] completed Influenza, seasonal, injecta ble, preservative free 12/16/2014 [facility] completed Influenza, injectable, quadr ivalent, preservative free 12/09/2015 [facility] [id number] completed Tdap 04/19/2014 [facility] completed COVID-19, PFIZER 12Y up,mRNA,MARY JANE 09/29/2021 [facility] FP [id number] completed Influenza, seasonal, injectable 11/23/2013 [facility] completed
== END 2024-03-08 11:10 | disposition home or self-care (01) ==
PROVIDERS: Visit Provider Obstetrics & Gynecology
DX: Z01.419 Encounter for gynecological examination (general) (routine) without abnormal findings (principal); N89.8 Other specified noninflammatory disorders of vagina; N94.9 Unspecified condition associated with female genital organs and menstrual cycle
CPT/HCPCS: 99386; 99459

== ENCOUNTER 2024-03-08 09:57 | Outpatient (REF) | payer MEDICAID, SELFPAY ==
[2024-03-08 15:48] LABS: Bacterial Vaginosis PCR NEGATIVE (Negative); Candida Group PCR NOT DETECTED (Not Detect); Candida glab krusei PCR NOT DETECTED (Not Detect); Trichomonas vaginalis PCR NOT DETECTED (Not Detect)
[2024-03-08 16:20] LABS: CT PCR NOT DETECTED (Not Detect.); NG PCR NOT DETECTED (Not Detect.)
== END 2024-03-08 09:58 | disposition home or self-care (01) ==
LOC: HO.LAB 09:57
PROVIDERS: Visit Provider Obstetrics & Gynecology
DX: Z01.419 Encounter for gynecological examination (general) (routine) without abnormal findings (principal); N89.8 Other specified noninflammatory disorders of vagina
CPT/HCPCS: 81515; 87491; 87591

== ENCOUNTER 2024-03-22 13:46 | Outpatient (REF) | payer MEDICAID, SELFPAY | END 2024-03-22 13:47 | disposition home or self-care (01) | LOC: HO.MAMMO 13:46 | PROVIDERS: Visit Provider Obstetrics & Gynecology | DX: Z12.31 Encounter for screening mammogram for malignant neoplasm of breast (principal) | CPT/HCPCS: 77063; 77067 ==

== ENCOUNTER → 2024-03-22 14:00 | Outpatient (BNV) | payer MEDICAID, SELFPAY | PROVIDERS: Visit Provider Internal Medicine | DX: Z12.31 Encounter for screening mammogram for malignant neoplasm of breast (principal) | CPT/HCPCS: 77063; 77067 ==

== ENCOUNTER 2024-03-24 11:29 | Outpatient (REF) | payer MEDICAID, SELFPAY ==
--- OUTSIDE RECORDS SUMMARY | 2024-03-24 13:15 | XMS_ITS | Clinical Summary ---
Author Organization [address] [facility] Address [address] [place] [address] Phone Care Team Providers Care Greige Goods Examiner Name Role Phone Unavailable Primary Care Provider Unavailabl e Encounters Date Type Department Care Team Description 01/06/2024 Lab Requisition [facility] - Main Lab [address] [facility] [place] [address] Joel Jorgensen MD Traumatic subarachnoid hemorrhage with loss of consciousness of unspecified duration, sequela (CMS/HCC) from Last 3 Months Social History Tobacco Use Types Packs/Day Years Used Date Smoking Tobacco: Never Assessed Sex and Gender Information Value Date Recorded Sex Assigned at Not on file Gender Identity Not on file Sexual Orientation Not on file Plan of Treatment Health Maintenance Due Date Last Done Comments Breast Cancer Screening 1984 DTaP,Tdap,and Td Vaccines (1 - Tdap) 02/27/2003 Hepatitis B Vaccines (1 of 3 - 19+ 3-dose series) 02/27/2003 Cervical Cancer Screening: P ap Smear 02/27/2005 COVID-19 Vaccine ( - 2023-2 5 season) 2023 Influenza Vaccine (#1) 2023 Depression Screening 12/28/2023 HIV Screening 12/28/2023 Hepatitis C Screening 12/28/2023 Social Influencers of Health Screening 12/28/2023 HIB Vaccines Aged Out No longer eligi ble based on patient's age to complete this topic HPV Vaccines Aged Out No longer eligi ble based on patient's age to complete this topic Hepatitis A Vaccines Aged Out No long er eligible based on patient's age to complete this topic IPV Vaccines Aged Out No longer eligi ble based on patient's age to complete this topic MMR Vaccines Aged Out No longer eligi ble based on patient's age to complete this topic Meningococcal ACWY Vaccine Aged Out N o longer eligible based on patient's age to complete this topic Pneumococcal Vaccine: Pediat rics (0 to 5 Years) and At-Risk Patients (6 to 64 Years) Aged Out No longer eligible b ased on patient's age to complete this topic RSV Immunization Patients Un ariana 20 months Aged Out No longer eligible b ased on patient's age to complete this topic Varicella Vaccines Aged Out No longer eligible based on patient's age to complete this topic Procedures Procedure Name Priority Date/Time Associated Diagnosis Comments COMPREHENSIVE METABOLIC PANEL Routine 01/06/2024 5:05 AM EST Traumatic subarachnoid hemorrhage with loss of consciousness of unspecified duration, sequela (CMS/HCC) from Last 3 Months Results * (ABNORMAL) Comprehensive metabolic panel (01/06/2024 5:05 AM EST) Sodium 142 133 - 145 mmol/L LAB CHEMISTRY METHOD 01/06/2024 7:07 AM [facility] Potassium 4.5 3.5 - 5.5 mmol/L LAB CHEMISTRY METHOD 01/06/2024 7:07 AM [facility] Chloride 110 96 - 110 mmol/L LAB CHEMISTRY METHOD 01/06/2024 7:07 AM [facility] CO2 27 21 - 32 mmol/L LAB CHEMISTRY METHOD 01/06/2024 7:07 AM [facility] Anion Gap 5 3 - 11 LAB CHEMISTRY METHOD 01/06/2024 7:07 AM [facility] Glucose 89 70 - 100 mg/dL LAB CHEMISTRY METHOD 01/06/2024 7:07 AM [facility] BUN 14 5 - 25 mg/dL LAB CHEMISTRY METHOD 01/06/2024 7:07 AM [facility] Creatinine 0.57 0.50 - 1.10 mg/dL LAB CHEMISTRY METHOD 01/06/2024 7:07 AM [facility] eGFR 119 >=60 mL/min/1. 73m2 LAB CHEMISTRY METHOD 01/06/2024 7:07 AM [facility] Comment:Calculation based on the??Chronic Kidney Disease Epidemiology Collaboration (CKD-EPI) equation refit??without adjustment for race. BUN/Creatinine Ratio 24.6 LAB CHEMISTRY METHOD 01/06/2024 7:07 AM [facility] Calcium 8.9 8.5 - 10.5 mg/dL LAB CHEMISTRY METHOD 01/06/2024 7:07 AM [facility] AST (SGOT) 17 10 - 42 unit/L LAB CHEMISTRY METHOD 01/06/2024 7:07 AM [facility] ALT (SGPT) 15 10 - 60 unit/L LAB CHEMISTRY METHOD 01/06/2024 7:07 AM [facility] Alkaline Phosphatase 142(H) 42 - 121 unit/L LAB CHEMISTRY METHOD 01/06/2024 7:07 AM [facility] Total Protein 6.7 6.0 - 8.0 g/dL LAB CHEMISTRY METHOD 01/06/2024 7:07 AM [facility] Albumin 3.0(L) 3.2 - 5.0 g/dL LAB CHEMISTRY METHOD 01/06/2024 7:07 AM [facility] Total Bilirubin 0.3 0.0 - 1.4 mg/dL LAB CHEMISTRY METHOD 01/06/2024 7:07 AM [facility] Blood Venous blood specimen / Unknown 01/06/2024 5:05 AM EST 01/06/2024 6:46 AM EST Joel Jorgensen MD LAB BLOOD ORDERABLES [facility] [address] [place] [address], from Last 3 Months
--- OUTSIDE RECORDS SUMMARY | 2024-03-24 13:15 | XMS_ITS ---
Author Organization [facility] Address [address] [place] [address] Care Team Providers Care Parcel Post Clerk Name Role Phone Unavailable Primary Care Provider Nestor e [id number] Program Enrollment: [id number] Status:Enrolled (Active) Start date:12/29/2023 Enrollment date:12/29/2023 Enrollment reason:Approved referral Case Team Name Relationship Phone Meka Angela LCSW (Responsible Staff) [phone] Continued Care and Services Coordination
--- OUTSIDE RECORDS SUMMARY | 2024-03-24 13:15 | XMS_ITS | Clinical Summary ---
Author Organization [facility] Address [address] [place] [address] Care Team Providers Care Valve Steamer Name Role Phone Unavailable Primary Care Provider Unavailabl e Source Comments PLEASE NOTE, if this patient is a minor, it may be UNLAWFUL to discuss sensitive information that is contained in these records (such as FAMILY PLANNING, MENTAL HEALTH or SUBSTANCE ABUSE) with the minor patient's parent or other person without the patient's specific authorization.[facility] Active Problems Problem Noted Date Diagnosed Date Schizoaffective disorder, bipolar type (HCC-CMS) 12/29/2023 Encounters Date Type Department Care Team Description 12/29/2023 / Visits [facility] [address] [facility] [address] [place] [phone] Meka Angela LCSW Schizoaffective disorder, bipolar type (HCC-CMS) (Primary Dx) from Last 3 Months Social History Tobacco Use Types Packs/Day Years Used Date Smoking Tobacco: Never Assessed Social Connections Answer Date Recorded Connectedness 0 12/29/2023 Financial Resource Strain Answer Date R ecorded Financial Resource Strain 0 2023 Stress Answer Date Recorded Stress 0 12/29/2023 Physical Activity Answer Date Recorded Physical Activity 0 12/29/2023 Food Insecurity Answer Date Recorded Food 0 12/29/2023 Transportation Needs Answer Date Record ed Transportation 0 12/29/2023 Housing Stability Answer Date Recorded Housing 0 12/29/2023 Safety and Environment Answer Date Virgilio rded Safety 0 12/29/2023 Utilities Answer Date Recorded Utilities 0 12/29/2023 Employment Answer Date Recorded Stress 0 12/29/2023 Comments Unknown Sex and Gender Information Value Date Recorded Sex Assigned at Female 12/29/2023 11:31 AM PDT Legal Sex Female 11:29 AM PDT Gender Identity Female 12/29/2023 11:31 AM PDT Sexual Orientation Don't know 12/29/2023 11 :31 AM PDT Plan of Treatment Health Maintenance Due Date Last Done Comments Diabetes Screening 1984 HPV Screening 1984 Hepatitis C Screening 1984 Lipid Screening 1984 Pap + HPV 1984 Tobacco Screening 1984 HIV Screening 02/27/1999 Relationship Safety Screening/Counseling 02/27/1999 Hypertension Screening (#1) 02/27/2002 Imm-DTaP/Tdap/Td (1 - Tdap) 02/27/2003 Imm-Hepatitis B (1 of 3 - 19+ 3-dose series) 3 Cervical Cancer Screening 02/27/2005 Pap Smear 02/27/2005 [id number] ( season) 2023 Imm-Influenza (#1) 2023 Breast Cancer Screening (Mammogram) 2024 Alcohol and Drug Screen 03/03/2024 Depression Annual Screen 03/03/2024 Cervical Ablation/Cold-Knife Conization Discontinued Cervical Cryotherapy Discontinued Colposcopy Discontinued Endometrial Biopsy Discontinued Excision/Leep Discontinued HPV Genotyping Discontinued Vaginal Pap Discontinued Vulvoscopy Discontinued
--- OUTSIDE RECORDS SUMMARY | 2024-03-24 13:15 | XMS_ITS | Encounter Summary ---
Author Organization [facility] Address [address] [place] [address] Care Team Providers Care Offshore Wind Turbine Technician Name Role Phone Unavailable Primary Care Provider Unavailabl e Encounter Details Date Type Department Care Team (Late st Contact Info) Description 01/06/2024 Lab Requisition [facility] Lab [address] [facility] [address] Joel Jorgensen MD [address] [place] [address] [address] [place], [place] Traumatic subarachnoid hemorrhage with loss of consciousness of unspecified duration, sequela (CMS/HCC) Social History Tobacco Use Types Packs/Day Years Used Date Smoking Tobacco: Never Assessed Sex and Gender Information Value Date Recorded Sex Assigned at Not on file Gender Identity Not on file Sexual Orientation Not on file documented as of this encounter Plan of Treatment Not on file documented as of this encounter Procedures Procedure Name Priority Date/Time Associated Diagnosis Comments COMPREHENSIVE METABOLIC PANEL Routine 01/06/2024 5:05 AM EST Traumatic subarachnoid hemorrhage with loss of consciousness of unspecified duration, sequela (CMS/HCC) documented in this encounter Results * (ABNORMAL) Comprehensive metabolic panel (01/06/2024 5:05 AM EST) Sodium 142 133 - 145 mmol/L LAB CHEMISTRY METHOD 01/06/2024 7:07 AM EST [facility] Potassium 4.5 3.5 - 5.5 mmol/L LAB CHEMISTRY METHOD 01/06/2024 7:07 AM EST [facility] Chloride 110 96 - 110 mmol/L LAB CHEMISTRY METHOD 01/06/2024 7:[address] [facility] CO2 27 21 - 32 mmol/L LAB CHEMISTRY METHOD 01/06/2024 7:[address] [facility] Anion Gap 5 3 - 11 LAB CHEMISTRY METHOD 01/06/2024 7:[address] [facility] Glucose 89 70 - 100 mg/dL LAB CHEMISTRY METHOD 01/06/2024 7:[address] [facility] BUN 14 5 - 25 mg/dL LAB CHEMISTRY METHOD 01/06/2024 7:[address] [facility] Creatinine 0.57 0.50 - 1.10 mg/dL LAB CHEMISTRY METHOD 01/06/2024 7:[address] [facility] eGFR 119 >=60 mL/min/1. 73m2 LAB CHEMISTRY METHOD 01/06/2024 7:[address] [facility] Comment:Calculation based on the??Chronic Kidney Disease Epidemiology Collaboration (CKD-EPI) equation refit??without adjustment for race. BUN/Creatinine Ratio 24.6 LAB CHEMISTRY METHOD 01/06/2024 7:[address] [facility] Calcium 8.9 8.5 - 10.5 mg/dL LAB CHEMISTRY METHOD 01/06/2024 7:[address] [facility] AST (SGOT) 17 10 - 42 unit/L LAB CHEMISTRY METHOD 01/06/2024 7:[address] [facility] ALT (SGPT) 15 10 - 60 unit/L LAB CHEMISTRY METHOD 01/06/2024 7:[address] [facility] Alkaline Phosphatase 142(H) 42 - 121 unit/L LAB CHEMISTRY METHOD 01/06/2024 7:[address] [facility] Total Protein 6.7 6.0 - 8.0 g/dL LAB CHEMISTRY METHOD 01/06/2024 7:[address] [facility] Albumin 3.0(L) 3.2 - 5.0 g/dL LAB CHEMISTRY METHOD 01/06/2024 7:[address] [facility] Total Bilirubin 0.3 0.0 - 1.4 mg/dL LAB CHEMISTRY METHOD 01/06/2024 7:[address] [facility] Blood Venous blood specimen / Unknown 01/06/2024 5:05 AM EST 01/06/2024 6:46 AM EST Joel Jorgensen MD LAB BLOOD ORDERABLES [facility] [address] [place] [address], documented in this encounter Visit Diagnoses Diagnosis Traumatic subarachnoid hemorrhage with loss of consciousness of unspecified duration, sequela (CMS/HCC) documented in this encounter
--- OUTSIDE RECORDS SUMMARY | 2024-03-24 13:16 | XMS_ITS | Encounter Summary ---
Author Organization [facility] Address [address] [place] [address] Care Team Providers Care Adjunct Instructor In Economics Name Role Phone Pcp, No Primary Care Provider Unavailabl e Emma Bernard PT Unavailable Encounter Details Date Type Department Care Team (Late st Contact Info) Description 02/27/[address] [facility] Physical Medicine and Rehab [address] [address] Emma Bernard, PT 85 [facility] [address] [place] [address] Social History Tobacco Use Types Packs/Day Years Used Date Smoking Tobacco: Never Smokeless Tobacco: Never AUDIT-C Answer Date Recorded Q1: How often do you have a drink containing alcohol? Never 02/24/2023 Q2: How many drinks containi ng alcohol do you have on a typical day when you are drinking? Patient does not drink Q3: How often do you have si x or more drinks on one occasion? Never 02/24/2023 [facility] Occupat ional Health - Occupational Stress Questionnaire Answer Date Recorded Do you feel stress - tense, restless, nervous, or anxious, or unable to sleep at night because your mind is troubled all the time - these days? Not at all 02/26/2024 Physical Activity Answer Date Recorded On average, how many days pe r week do you engage in moderate to strenuous exercise (like a brisk walk)? 5 days 02/26/2024 On average, how many minutes do you exercise per day at this level? 30 min 02/26/2024 Sex and Gender Information Value Date Recorded Sex Assigned at Female 02/23/2023 11:03 PM EST Gender Identity Female 02/23/2023 11:03 PM EST Sexual Orientation Choose not to disclose 2022 11:03 PM EST documented as of this encounter Progress Notes * Emma Bernard, PT - 02/27/2024 11:42 AM ESTSummary: PMR Navigation touchpoint JC from SNF to [facility] living PMR provider, Dr. Calloway, reached out to navigator for support in Zakiya's transition plan from [facility] [place] to [facility] so that our department and provider can support her with resources. I called facility at [phone], and spoke with Dimple who is a social worker assistant and referred me to pts DOOR LINER, Altagracia Johnson, at [phone] and left a detailed message regarding our role in pts care, her follow up visit yesterday with Dr. Calloway, and JC planning. Dimple communicated that there is not a concrete plan at this time due to safety issues being worked out with apartment and working toward rehab goals. She said she would also communicate to Altagracia that I had called. Cont to navigate this patient with ongoing needs and support upon JC from SNF to community. documented in this encounter Plan of Treatment Upcoming Encounters Date Type Department Care Team (Late st Contact Info) Description 06/02/2024 2:45 PM EDT Office Visit [facility] Urologic Surgery [address] [place] [phone] Eugene Bazan MD 85 [facility] [address] [place], [place] [phone] 06/03/2024 2:00 PM EDT Office Visit [facility] PHYSICAL MEDICINE & RE[facility]AB [place] [address] [facility] 5 [place] [address] Jerry Galindo MD 85 [facility] [address] [place] [address] documented as of this encounter Visit Diagnoses Not on filedocumented in this encounter Care Teams Adjunct Instructor In Economics Relationship Specialty Start Date End Date Pcp, No [address] [place] [address] PCP - General 06/13/21 Emma Bernard, PT [address] [address] [employer] ManagerRuffler [facility] 02/27/24 documented as of this encounter
--- OUTSIDE RECORDS SUMMARY | 2024-03-24 13:16 | XMS_ITS | Clinical Summary ---
Author Organization [facility] Address [address] [place] [address] Care Team Providers Care Service Car Operator Name Role Phone Pcp, No Primary Care Provider Unavailabl e Emma Bernard PT Unavailable Allergies No known active allergies Medications Medication Sig Dispensed Refills Start Date End Date Status doxycycline (VIBRAMYCIN) 100 MG capsule 07/30/2023 Active ciprofloxacin (CIPRO) 500 MG tablet 07/30/2023 Active OLANZapine (ZyPREXA) 10 MG tablet 07/18/2023 Active Vitamin D3 (CHOLECALCIFEROL) 50 MCG (1999 UT) tablet Take 1 tablet (2,000 Units total) by mouth daily. Active lidocaine (PROZENA) 4 % patch Place 1 patch on the skin daily. Active enoxaparin (Lovenox) 40 MG/0.4ML injection Inject 0.4 mL (40 mg total) under the skin daily. Active oxyCODONE (ROXICODONE) 5 MG immediate release tablet Take 1 tablet (5 mg total) by mouth every 4 (four) hours as needed for severe pain. Active acetaminophen (TYLENOL) 325 MG suppository Insert 1 suppository (325 mg total) into the rectum 4 times daily (every 6 hours) as needed for mild pain. Active Liniments (SURI POWER EX) Apply topically. Active bisacodyl (DULCOLAX) 10 MG suppository Insert 1 suppository (10 mg total) into the rectum daily. Active Menthol, Topical Analgesic, (SURI POWER SPA EX) Apply topically. Active docusate sodium (COLACE) 100 MG capsule Take 1 capsule (100 mg total) by mouth 2 (two) times a day. Active sodium phosphates (FLEET) enema Insert into the rectum once. Active loratadine (CLARITIN) 10 MG tablet Take 1 tablet (10 mg total) by mouth daily. Active methocarbamol (ROBAXIN) 500 MG tablet Take 1 tablet (500 mg total) by mouth 4 (four) times a day. Active naloxone (NARCAN) 4 mg/0.1 mL Liquid nasal spray device 1 spray (4 mg total) by Alternating Nares route once. [place] contents (4mg) into one nostril once. May repeat every 2 to 3 minutes in alternating nostrils. Call 911 immediately after use. Active OLANZapine (ZyPREXA) 5 MG tablet Take 1 tablet (5 mg total) by mouth nightly. Active senna (SENOKOT) 8.6 MG Tab tablet Take 2 tablets by mouth daily as needed for constipation. Active calcium carbonate (TUMS) 500 MG chewable tablet Chew 1 tablet (500 mg total) every 4 (four) hours as needed for indigestion or heartburn. Active Active Problems No known active problems Resolved Problems Problem Noted Date Diagnosed Date Resolved Date UTI (urinary tract infection) 02/24/2023 05/14/2023 Encounters Date Type Department Care Team Description 02/27/2024 Documentation [facility] Physical Medicine and Rehab [address] [phone] Emma Bernard, PT 02/26/2024 9:00 AM EST Office Visit [facility] PHYSICAL MEDICINE & REHAB [address] [place] [address] Jerry Galindo MD Paraplegia (HCC) (Primary Dx); Neurogenic bladder; Neurogenic bowel; Neuropathic pain 02/26/2024 Travel 01/21/2024 Telephone [facility] Medical [facility] Urologic Surgery [place] [address] [facility] [address] [place] [phone] Eugene Bazan MD Other from Last 3 Months Family History Medical History Relation Name Comments Cancer Neg Hx Cancer, Bladder Neg Hx Cancer, Kidney Neg Hx Social History Tobacco Use Types Packs/Day Years Used Date Smoking Tobacco: Never Smokeless Tobacco: Never Tobacco Cessation:Counseling Given: Not Answered AUDIT-C Answer Date Recorded Q1: How often do you have a drink containing alcohol? Never 02/24/2023 Q2: How many drinks containi ng alcohol do you have on a typical day when you are drinking? Patient does not drink 3 Q3: How often do you have si x or more drinks on one occasion? Never 02/24/2023 [facility] Occupat ional [facility] - Occupational Stress Questionnaire Answer Date Recorded [...] not to disclose 2022 11:03 PM EST Last Filed Vital Signs Vital Sign Reading Time Taken Comments Blood Pressure 117/76 02/26/2024 9:27 AM EST Pulse 87 02/26/2024 9:27 AM EST Temperature 36.8 ??C (98.2 ??F) 05/21/2023 10:38 PM E DT Respiratory Rate 16 06/04/2023 8:49 AM EDT Oxygen Saturation 100% 05/22/2023 2:22 AM EDT Inhaled Oxygen Concentration - - Weight 77.1 kg (170 lb) 08/06/2023 9:16 AM EDT p erpt Height 166.4 cm (5' 5.5 ) 08/06/2023 9:16 AM EDT per pt Body Mass Index 27.86 08/06/2023 9:16 AM EDT Plan of Treatment Upcoming Encounters Date Type Department Care Team (Late st Contact Info) Description 06/02/2024 2:45 PM EDT Office Visit [facility] Urologic Surgery [address] [place] [address] Eugene Bazan MD [address] [place] [address] 06/03/2024 2:00 PM EDT Office Visit [facility] PHYSICAL MEDICINE & RE[facility]AB [place] [address] [facility] [address] [place] [address] Jerry Galindo MD 85 [facility] [address] [place] [address] Health Maintenance Due Date Last Done Comments Hepatitis C Virus Screening 1984 Microalbumin/Creatinine Ratio Urine 02/27/2002 DTaP/Tdap/Td Vaccines (1 - Tdap) 02/27/2003 Hepatitis B Vaccines (1 of 3 - 19+ 3-dose series) 02/27/2003 Pap Smear (Ages 21-65) 02/27/2005 Influenza Vaccine 10/02/2023 12/09/2015, 12/16/2014, 11/23/2013 COVID-19 Vaccine ( season) 2023 09/29/2021, 01/23/2021 Mammogram 2024 Hemoglobin A1C Discontinued 11/08/2021, 03/06/2019 HIV Screening Completed 01/26/2022 HPV Vaccines Aged Out No longer eligi ble based on patient's age to complete this topic Pneumococcal Vaccine: Pediatric (0-5 Years) and At-Risk Patients (6 to 49 Years) Aged Out No longer eligible b ased on patient's age to complete this topic Advance Directives * Full Code (Latest Code Status on File) Date Activated Date Inactivated Comments 02/24/2023 4:26 AM 03/06/2023 8:25 PM Care Teams Service Car Operator Relationship Specialty Start Date End Date Pcp, No [address] [place] [address] PCP - General 06/13/21 Emma Bernard, PT [address] [address] Headlight AssemblerRailway Track Worker Medicine and Rehabilitation 02/27/24
--- OUTSIDE RECORDS SUMMARY | 2024-03-24 13:16 | XMS_ITS | Encounter Summary ---
Author Organization [facility] Address [address] [place] [address] Care Team Providers Care Sludge Filtration Operator Name Role Phone Pcp, No Primary Care Provider Unavailabl e Encounter Details Date Type Department Care Team (Latest Contact Info) Description 02/26/2024 Travel Social History Tobacco Use Types Packs/Day Years [...] more drinks on one occasion? Never 02/24/2023 [facility] - Occupational Stress [...] PM EST documented as of this encounter Plan of Treatment Upcoming Encounters Date Type Department Care Team (Late st Contact Info) Description 06/02/2024 2:45 PM EDT Office Visit [facility] Urologic Surgery [address] [place] [address] Eugene Bazan MD 85 [facility] [address] [place], [place] [phone] 06/03/2024 2:00 PM EDT Office Visit [facility] PHYSICAL MEDICINE & REHAB [address] [phone] Jerry Galindo MD 85 [facility] [address] [place] [address] documented as of this encounter Visit Diagnoses Not on filedocumented in this encounter Care Teams Sludge Filtration Operator Relationship Specialty Start Date End Date Pcp, No [address] [place] [address] PCP - General 06/13/21 documented as of this encounter
--- OUTSIDE RECORDS SUMMARY | 2024-03-24 13:16 | XMS_ITS | Encounter Summary ---
Author Organization [facility] Address [address] [place] [address] Care Team Providers Care Video Journalist Name Role Phone Pcp, No Primary Care Provider Unavailabl e Reason for Visit * Reason Comments Spine Injury Patient reports no i ssues however she wants to speak with the doctor by herself Encounter Details Date Type Department Care Team (Latest Contact Info) Description 02/26/2024 9:00 AM EST Office Visit [facility] [address] [phone] Jerry Galindo MD [address] [place] [address] Paraplegia (HCC) (Primary Dx); Neurogenic bladder; Neurogenic bowel; Neuropathic pain Social History Tobacco Use Types Packs/Day Years [...] more drinks on one occasion? Never 02/24/2023 [facility] Occupat ional Health - Occupational Stress [...] PM EST documented as of this encounter Last Filed Vital Signs Vital Sign Reading Time Taken Comments Blood Pressure 117/76 02/26/2024 9:27 AM EST Pulse 87 02/26/2024 9:27 AM EST Temperature - - Respiratory Rate - - Oxygen Saturation - - Inhaled Oxygen Concentration - - Weight - - Height - - Body Mass Index - - documented in this encounter Progress Notes * Jerry Galindo MD - 02/26/2024 9:21 AM EST Physical Medicine [facility] Rehabilitation [facility] Note DOS: 02/26/2024 PCP: No,PCP (Inactive) Referral Source: No referring provider defined for this encounter. Chief Complaint: Chief Complaint Patient presents with Spine Injury Patient reports no issues however she wants to speak with the doctor by herself Diagnosis: Paraplegia/polytrauma ASSESSMENT & PLAN: Zakiya Gallardo is a 38 y.o. right hand dominant woman, history of Paraplegia, polytrauma, neurogenic bowel, neurogenic bladder who presents today for evaluation of paraplegia. #Paraplegia INSCI completed today: L2 AIS C. Independent slide board transfers. Neurogenic bowel/bladder. Pending Home Sales Consultant and Uro follow up. Currently residing in facility but wants to transition to community in near future. Pending receipt of own manual chair. -Counseled on role of DME, social work, PM&R in transition to community -Therapy: Continue PT in facility -Medications: no med changes today -Referral: refer to PMR patient healthcare translator to follow up on discharge planning and cooridination. - Plan for UDS/Cysto 1 year Follow-up in 3 months, or sooner if needed. Call if any questions or concerns. Jerry Galindo MD Physical Medicine & Rehabilitation [facility] SUBJECTIVE: Zakiya Gallardo presents for evaluation of paraplegia. Mobility: non ambulatory. Independent with manual wheelchair, received own chair. Independent slide-board transfers. Continues with PT/OT at [facility]. - Currently at [facility] - Has W/c accessible apartment in [place]. 4th floor elevator access no stairs to enter. Gross Motor: Some movement in right leg. Improving strength in left leg. Upper extremties full strength Fine Motor: no issues Pain: intermittent bilat leg pain worse after therapy. Most notably in calves. Neurogenic Bowel: incontinent of bowel but does report sensation. Neurogenic Bladder: love cath. No UTIs Skin/wounds: Left ischial wound, following with wound care at [facility] Other: Interested in transitioning to community and independent living in near future. Past Medical History: Diagnosis Date ETOH abuse H/O spinal cord injury Hip fracture (HCC) Multiple fractures of pelvis with stable disruption of pelvic [place] ([facility]) Paraplegia (HCC) Schizophrenia (HCC) Substance abuse ([facility]) UTI (urinary tract infection) No past surgical history on file. Family History Problem Relation Age of Onset Cancer, Bladder Neg Hx Cancer Neg Hx Cancer, Kidney Neg Hx Social History Tobacco Use Smoking status: Never Smokeless tobacco: Never No Known Allergies Current Outpatient Medications Medication Instructions ciprofloxacin (CIPRO) 500 MG tablet No dose, route, or frequency recorded. doxycycline (VIBRAMYCIN) 100 MG capsule No dose, route, or frequency recorded. enoxaparin (LOVENOX) 40 mg, Subcutaneous, Daily lidocaine (PROZENA) 4 % patch 1 patch, Transdermal, Daily OLANZapine (ZyPREXA) 10 MG tablet No dose, route, or frequency recorded. oxyCODONE (ROXICODONE) 5 mg, Oral, Every 4 hours PRN Vitamin D3 (CHOLECALCIFEROL) 2,000 Units, Oral, Daily PHYSICAL EXAM: General: Not in acute distress Psych: appropriate mood, processing speed WNL HEENT: Normocephalic, atraumatic, anicteric sclera, moist mucous membranes Cardiac: Appears well perfused Pulmonary: Normal work of breathing, on room air Abdomen: normal habitus, soft, nondistended, nontender Extremities: No pitting edema to bilateral lower extremities Skin: No skin breakdown to exposed skin Neurologic: Alert and oriented. Speech fluent without dysarthria. Cranial nerves: Extraocular movements intact. Facial sensation intact to light touch to V1/V2/V3. Muscles of mastication symmetric to palpation. Face symmetric to smile and eyebrow raise. Hearing grossly intact. No nystagmus. Palate raise symmetric. No vocal hoarseness. Tongue midline. Strength: Right Left Right Left Shoulder Abductors 5 5 Hip Flexors 2 1 Elbow Flexors 5 5 Hip Abductors Elbow Extensors 5 5 Knee Extensors 3 1 Wrist Extensors 5 5 Knee Flexors 2 1 Finger Flexors 5 5 Dorsiflexors 1 1 FDI 5 5 Plantarflexors 3+ 1 JOSSIE IMPAIRMENT SCALE STANDARD NEUROLOGICAL CLASSIFICATION OF SPINAL CORD INJURY MOTOR (MURPHY MUSCLES) 0 = total paralysis 1 = palpable or visible contraction 2 = active movement,gravity eliminated 3 = active movement,against gravity 4 = active movement,against some resistance 5 = active movement,against full resistance NT = not testable RIGHT LEFT C5 5 5 Elbow Flexors C6 5 5 Wrist extensors C7 5 5 Elbow extensors C8 5 5 Finger flexors (distal phalanx of 3rd finger) T1 5 5 Finger abductors (little finger) L2 1 0 Hip flexors L3 3 0 Knee extensors L4 0 0 Ankle dorsiflexors L5 1 0 Long toe extensors S1 3 0 Ankle plantar flexors Voluntary anal contractions: No SENSORY (MURPHY SENSORY POINTS) 0 = absent 1 = impaired 2 = normal NT = not testable Light touch Pin Prick R L R L C2 2 2 2 2 C3 2 2 2 2 C4 2 2 2 2 C5 2 2 2 2 C6 2 2 2 2 C7 2 2 2 2 C8 2 2 2 2 T1 2 2 2 2 T2 2 2 2 2 T3 2 2 2 2 T4 2 2 2 2 T5 2 2 2 2 T6 2 2 2 2 T7 2 2 2 2 T8 2 2 2 2 T9 2 2 2 2 T10 2 2 2 2 T11 2 2 2 2 T12 2 2 2 2 L1 2 2 2 2 L2 2 2 2 2 L3 1 2 1 2 L4 1 2 1 2 L5 1 2 1 0 S1 1 2 1 2 S2 1 2 1 1 S3 2 2 2 2 S4-5 2 2 2 0 Totals: 56 + 56 56 + 56 Any anal sensation: Yes Neurologic Level (The most caudal segment with normal function) R L Sensory L2 L2 Motor L2 L2 Incomplete (Incomplete = any sensory or motor function in S4-5) JOSSIE Impairment Scale: C = Incomplete: Motor function is preserved below the neurological level, and more than half of murphy muscles below the neurological level have a muscle grade less than 3. I spent a total of 50 minutes on today's visit documented in this encounter Plan of Treatment Upcoming Encounters Date Type Department Care Team (Late st Contact Info) Description 06/02/2024 2:45 PM EDT Office Visit [facility] Urologic Surgery [address] [place] [address] Eugene Bazan MD [address] [phone] 06/03/2024 2:00 PM EDT Office Visit [facility] [address] [place] [phone] Jerry Galindo MD 85 [facility] [address] [place] [address] documented as of this encounter Visit Diagnoses Diagnosis Paraplegia (HCC)- Primary Paraplegia Neurogenic bladder Neurogenic bladder, NOS Neurogenic bowel Neuropathic pain documented in this encounter Care Teams Video Journalist Relationship Specialty Start Date End Date Pcp, No [address] [place] [address] PCP - General 06/13/21 documented as of this encounter
--- OUTSIDE RECORDS SUMMARY | 2024-03-24 13:17 | XMS_ITS | Encounter Summary ---
Author Organization [facility] Address [address] [place] [address] Care Team Providers Care Hydraulic Controls Technician Name Role Phone Pcp, No Primary Care Provider UnavailEmma Gamboa PT Unavailable Reason for Visit * Reason Comments Other Encounter Details Date Type Department Care Team ([facility] st Contact Info) Description 10/06/2023 Telephone [facility] [address] [place] [phone] Sharad Trujillo MD [address] [place] [address] Other Social History Tobacco Use Types Packs/Day Years [...] more drinks on one occasion? Never 02/24/[address] [facility] [place] of Occupat ional Health - Occupational Stress Questionnaire Answer Date Recorded Do you feel stress - tense, restless, nervous, or anxious, or unable to sleep at night because your mind is troubled all the time - these days? Not at all 06/04/2023 Physical Activity Answer Date Recorded On average, how many days pe r week do you engage in moderate to strenuous exercise (like a brisk walk)? 0 days 06/04/2023 On average, how many minutes do you exercise per day at this level? 0 min 06/04/2023 Sex and Gender Information Value Date Recorded Sex Assigned at Female 02/23/2023 11:03 PM EST Gender Identity Female 02/23/2023 11:03 PM EST Sexual Orientation Choose not to disclose 2022 11:03 PM EST documented as of this encounter Miscellaneous Notes * Telephone Encounter - Dipika Castellon MA - 10/06/2023 12:45 PM EDT Zakiya has been transferred to a facility in [facility]. It takes about 1.5 hours to get to the [place] office. Zakiya did have an appointment for 09/16 that needed to be canceled. The facility is asking if she needs to come in for a follow up or can she be seen on an as needed basis? I can call Sadie Walker back at [phone] Thank You - Dipika documented in this encounter Plan of Treatment Upcoming Encounters Date Type Department Care Team (Late st Contact Info) Description 06/02/2024 2:45 PM EDT Office Visit [facility] Urologic Surgery [address] [place] [address] Eugene Bazan MD [address] [address] 06/03/2024 2:00 PM EDT Office Visit [facility]YSICAL MEDICINE & REHAB [address] [place] [address] Jerry Galindo MD [address] [address] documented as of this encounter Visit Diagnoses Not on filedocumented in this encounter Care Teams Hydraulic Controls Technician Relationship Specialty Start Date End Date Pcp, No [address] [place] [address] PCP - General 06/13/21 Emma Bernard, PT [address] [address] Emt/ParamedicDetacher Medicine and Rehabilitation 02/27/24 documented as of this encounter
--- OUTSIDE RECORDS SUMMARY | 2024-03-24 13:17 | XMS_ITS | Encounter Summary ---
Author Organization [facility] Address [address] [place] [address] Care Team Providers Care Cant Gang Sawyer Name Role Phone Pcp, No Primary Care Provider Emma Doe PT Unavailable Encounter Details Date Type Department Care Team (Late st Contact Info) Description 06/19/2023 Scanned Document [facility] Urologic Surgery [address] [place] [phone] Rafia Meyer PA-C [address] [place] [address] Social History Tobacco Use Types Packs/Day Years [...] more drinks on one occasion? Never 02/24/2023 [facility] [place] of Occupat ional Health - Occupational Stress [...] Description 06/02/2024 2:45 PM EDT Office Visit [facility] Urologic Surgery [address] [place] [address] Eugene Bazan MD [address] [address] 06/03/2024 2:00 PM EDT Office Visit [facility] PHYSICAL MEDICINE & REHAB [address] [place] [address] Jerry Galindo MD [address] [address] documented as of this encounter Visit Diagnoses Not on filedocumented in this encounter Care Teams Cant Gang Sawyer Relationship Specialty Start Date End Date Pcp, No [address] [place] [address] PCP - General 06/13/21 Emma Bernard, PT [address] [address] Wash Tank TenderPoultry Packer Medicine and Rehabilitation 02/27/24 documented as of this encounter
== END 2024-03-24 11:30 | disposition home or self-care (01) ==
LOC: HO.US 11:29
PROVIDERS: PCP Hospitalist; Visit Provider Obstetrics & Gynecology
DX: Z13.89 Encounter for screening for other disorder (principal)

== ENCOUNTER 2024-04-23 12:47 | Outpatient (REF) | payer MEDICAID, SELFPAY ==
--- NOTE | ~2024-04-23 | US_ITS ---
EXAMINATION: US PELVIS TRANSABDOMINAL AND TRANSVAGINAL HISTORY: N94.9 - adnexal fullness COMPARISON: There are no prior studies for comparison. TECHNIQUE: Transabdominal and endovaginal real-time 2D horta-scale ultrasound was performed. FINDINGS: Uterus: The uterus is normal in size, measuring 6.9 x 4.0 x 4.5 cm. Myometrium has a normal echotexture. No fibroids are identified. Endometrium: The endometrial stripe measures 9 mm in thickness. Right ovary: The right ovary measures 2.4 x 2.7 x 2.2 cm. The right ovary is normal in size and echotexture. There is a 1.5 x 1.1 x 1.8 cm cyst versus follicle. Left ovary: The left ovary measures 2.6 x 2.4 x 2.7 cm. There is a 1.3 x 1.1 x 1.0 cm heterogeneous hypoechoic, structure which may represent a corpus luteum. Pelvic fluid: There is a small amount of free fluid in the cul-de-sac.. US/US pelvic and transvaginal IMPRESSION: Probable 1.3 x 1.1 x 1.0 cm left ovarian corpus luteal cyst. Otherwise unremarkable pelvic ultrasound. Electronically signed by: Jeffrey Vuong MD 04/26/2024 09:05 AM [facility]
--- OUTSIDE RECORDS SUMMARY | 2024-04-23 13:18 | XMS_ITS | Clinical Summary ---
Author Organization [address] [facility] Address [address] [place] [address] Phone Care Team Providers Care Supervisor Tubing Name Role Phone Joel Jorgensen MD Primary Care Provider [phone] Encounters Date Type Department Care Team Description 04/07/2024 Lab Requisition [facility] - Main Lab [address] [facility] [place] [address] Joel Jorgensen MD Traumatic subarachnoid hemorrhage with loss of consciousness of unspecified duration, sequela (CMS/HCC) from Last 3 Months Social History Tobacco Use Types Packs/Day Years Used Date Smoking Tobacco: Never Assessed Comments Unknown Sex and Gender Information Value Date Recorded Sex Assigned at Not on file Legal Sex Female 3:40 PM EDT Gender Identity Not on file Sexual Orientation Not on file Plan of Treatment Health Maintenance Due Date Last Done Comments Breast Cancer Screening 1984 DTaP,Tdap,and Td Vaccines (1 - Tdap) 02/27/2003 Hepatitis B Vaccines (1 of 3 - 19+ 3-dose series) 02/27/2003 Cervical Cancer Screening: P ap Smear 02/27/2005 COVID-19 Vaccine (2023-2 5 season) 2023 Influenza Vaccine (#1) 2023 [...] patient's age to complete this topic Meningococcal B Vacine Aged Out No lo nger eligible based on patient's age to complete [...] Procedure Name Priority Date/Time Associated Diagnosis Comments CBC WITH AUTO DIFFERENTIAL Routine 04/07/2024 6:41 AM EST Traumatic subarachnoid hemorrhage with loss of consciousness of unspecified duration, sequela (CMS/HCC) VITAMIN D 25 HYDROXY Routine 04/07/2024 6:41 AM EST Traumatic subarachnoid hemorrhage with loss of consciousness of unspecified duration, sequela (CMS/HCC) CBC AND DIFFERENTIAL Routine 04/07/2024 6:41 AM EST Traumatic subarachnoid hemorrhage with loss of consciousness of unspecified duration, sequela (CMS/HCC) COMPREHENSIVE METABOLIC PANEL Routine 04/07/2024 6:41 AM EST Traumatic subarachnoid hemorrhage with loss of consciousness of unspecified duration, sequela (CMS/HCC) from Last 3 Months Results * (ABNORMAL) CBC auto differential (04/07/2024 6:41 AM EST) WBC 4.8 4.8 - 10.8 K/mcL LAB HEMETOLOGY METHOD 04/07/2024 8:10 AM [facility] RBC 4.10 3.80 - 4.80 M/mcL LAB HEMETOLOGY METHOD 04/07/2024 8:10 AM [facility] Hemoglobin 10.5(L) 11.5 - 16.0 g/dL LAB HEMETOLOGY METHOD 04/07/2024 8:10 AM [facility] Hematocrit 34.3(L) 35.0 - 47.0 % LAB HEMETOLOGY METHOD 04/07/2024 8:10 AM [facility] MCV 84.7 79.0 - 98.0 FL LAB HEMETOLOGY METHOD 04/07/2024 8:10 AM [facility] MCH 25.9(L) 27.0 - 32.0 pcg LAB HEMETOLOGY METHOD 04/07/2024 8:10 AM [facility] MCHC 30.6(L) 32.0 - 37.0 g/dL LAB HEMETOLOGY METHOD 04/07/2024 8:10 AM [facility] RDW 14.7 11.0 - 15.0 % LAB HEMETOLOGY METHOD 04/07/2024 8:10 AM [facility] Platelets 268 130 - 400 K/mcL LAB HEMETOLOGY METHOD 04/07/2024 8:10 AM [facility] MPV 9.4 7.0 - 11.0 FL LAB HEMETOLOGY METHOD 04/07/2024 8:10 AM [facility] NRBC 0.0 <1.0 % LAB HEMETOLOGY METHOD 04/07/2024 8:10 AM [facility] NRBC Absolute 0.00 <0.10 K/mcL LAB HEMETOLOGY METHOD 04/07/2024 8:10 AM [facility] Neutrophils Relative 41.2 % LAB HEMETOLOGY METHOD 04/07/2024 8:10 AM [facility] Lymphocytes Relative 46.3 % LAB HEMETOLOGY METHOD 04/07/2024 8:10 AM [facility] Monocytes Relative 7.3 % LAB HEMETOLOGY METHOD 04/07/2024 8:10 AM [facility] Eosinophils Relative 3.8 % LAB HEMETOLOGY METHOD 04/07/2024 8:10 AM [facility] Basophils Relative 0.4 % LAB HEMETOLOGY METHOD 04/07/2024 8:10 AM EST [facility] Immature Granulocytes Relative 1.0 % LAB HEMETOLOGY METHOD 04/07/2024 8:10 AM EST [facility] Neutrophils Absolute 1.98 1.50 - 7.00 K/mcL LAB HEMETOLOGY METHOD 04/07/2024 8:10 AM EST [facility] Lymphocytes Absolute 2.22 1.00 - 5.00 K/mcL LAB HEMETOLOGY METHOD 04/07/2024 8:10 AM EST [facility] Monocytes Absolute 0.35 0.20 - 1.00 K/mcL LAB HEMETOLOGY METHOD 04/07/2024 8:10 AM EST [facility] Eosinophils Absolute 0.18 0.00 - 0.50 K/mcL LAB HEMETOLOGY METHOD 04/07/2024 8:10 AM EST [facility] Basophils Absolute 0.02 0.00 - 0.20 K/mcL LAB HEMETOLOGY METHOD 04/07/2024 8:10 AM EST [facility] Immature Granulocytes Absolute 0.05(H) 0.00 - 0.03 K/mcL LAB HEMETOLOGY METHOD 04/07/2024 8:10 AM [facility] Blood Venous blood specimen / Unknown 04/07/2024 6:41 AM EST 04/07/2024 7:58 AM EST us Joel Jorgensen MD LAB BLOOD ORDERABLES Final Resul t [facility] [address] [place] [address], * (ABNORMAL) Vitamin D 25 hydroxy (04/07/2024 6:41 AM EST) Vit D, 25-Hydroxy 21.7(L) 30.0 - 80.0 ng/mL LAB CHEMISTRY METHOD 04/07/2024 8:57 AM EST [facility] Blood Venous blood specimen / Unknown 04/07/2024 6:41 AM EST 04/07/2024 7:58 AM EST Joel Jorgensen MD LAB BLOOD ORDERABLES Final Resul t [facility] [address] [place] [address], * (ABNORMAL) Comprehensive metabolic panel (04/07/2024 6:41 AM EST) Sodium 140 133 - 145 mmol/L LAB CHEMISTRY METHOD 04/07/2024 8:30 AM [facility] Potassium 4.4 3.5 - 5.5 mmol/L LAB CHEMISTRY METHOD 04/07/2024 8:30 AM [facility] Chloride 108 96 - 110 mmol/L LAB CHEMISTRY METHOD 04/07/2024 8:30 AM [facility] CO2 28 21 - 32 mmol/L LAB CHEMISTRY METHOD 04/07/2024 8:30 AM [facility] Anion Gap 4 3 - 11 LAB CHEMISTRY METHOD 04/07/2024 8:30 AM [facility] Glucose 85 70 - 100 mg/dL LAB CHEMISTRY METHOD 04/07/2024 8:30 AM [facility] BUN 13 5 - 25 mg/dL LAB CHEMISTRY METHOD 04/07/2024 8:30 AM [facility] Creatinine 0.53 0.50 - 1.10 mg/dL LAB CHEMISTRY METHOD 04/07/2024 8:30 AM [facility] eGFR 120 >=60 mL/min/1. 73m2 LAB CHEMISTRY METHOD 04/07/2024 8:30 AM [facility] Comment:Calculation based on the??Chronic Kidney Disease Epidemiology Collaboration (CKD-EPI) equation refit??without adjustment for race. BUN/Creatinine Ratio 24.5 LAB CHEMISTRY METHOD 04/07/2024 8:30 AM [facility] Calcium 8.8 8.5 - 10.5 mg/dL LAB CHEMISTRY METHOD 04/07/2024 8:30 AM [facility] AST (SGOT) 12 10 - 42 unit/L LAB CHEMISTRY METHOD 04/07/2024 8:30 AM [facility] ALT (SGPT) 17 10 - 60 unit/L LAB CHEMISTRY METHOD 04/07/2024 8:30 AM [facility] Alkaline Phosphatase 137(H) 42 - 121 unit/L LAB CHEMISTRY METHOD 04/07/2024 8:30 AM [facility] Total Protein 6.8 6.0 - 8.0 g/dL LAB CHEMISTRY METHOD 04/07/2024 8:30 AM [facility] Albumin 2.9(L) 3.2 - 5.0 g/dL LAB CHEMISTRY METHOD 04/07/2024 8:30 AM [facility] Total Bilirubin 0.3 0.0 - 1.4 mg/dL LAB CHEMISTRY METHOD 04/07/2024 8:30 AM [facility] Blood Venous blood specimen / Unknown 04/07/2024 6:41 AM EST 04/07/2024 7:58 AM EST us Joel Jorgensen MD LAB BLOOD ORDERABLES Final Resul t [facility] [address] [place] [address], [place] [phone] from Last 3 Months Insurance MEDICAID [place] Care Teams Supervisor Tubing Relationship Specialty Start Date End Date Joel Jorgensen MD [address] [place] [address] [address] SHANNON William PCP - General Internal Medicine 04/07/24
--- OUTSIDE RECORDS SUMMARY | 2024-04-23 13:18 | XMS_ITS | Encounter Summary ---
Author Organization [facility] Address [address] [place] [address] Care Team Providers Care Banquet Prep Cook Name Role Phone Pcp, No Primary Care Provider Emma Doe PT Unavailable Reason for Visit * Reason Comments Other Encounter Details Date Type Department Care Team ([facility] st Contact Info) Description 10/06/2023 Telephone [facility] [address] [address] Sharad Trujillo MD [address] [place] [address] Other Social History Tobacco Use [...] more drinks on one occasion? Never 02/24/2023 [facility] [place] of Occupat ional Health - Occupational Stress [...] has been transferred to a facility in [facility]. It takes about 1.5 hours to get to the [place] office. Zakiya did have an appointment for 09/16 that needed to be canceled. The facility is asking if she needs to come in for a follow up or can she be seen on an as needed basis? I can call Sadie Walker back at [phone] Thank You - Dipika documented in this encounter Plan of Treatment Upcoming Encounters Date Type Department Care Team (Late st Contact Info) Description 06/02/2024 2:45 PM EDT Office Visit [facility] Urologic Surgery [address] [place] [phone] Eugene Bazan MD [address] [address] 06/03/2024 2:00 PM EDT Office Visit [facility] RE[facility] [address] [place] [address] Jerry Galindo MD [address] [address] documented as of this encounter Visit Diagnoses Not on filedocumented in this encounter Care Teams Banquet Prep Cook Relationship Specialty Start Date End Date Pcp, No [address] [place] [address] PCP - General 06/13/21 Emma Bernard, PT [address] [address] Extruder OperatorLiquefied Natural Gas Operator Medicine and Rehabilitation 02/27/24 documented as of this encounter
--- OUTSIDE RECORDS SUMMARY | 2024-04-23 13:19 | XMS_ITS | Clinical Summary ---
Author Organization [facility] Address [address] [place] [address] Care Team Providers Care Industrial Economics Professor Name Role Phone Unavailable Primary Care Provider [...] Encounters Date Type Department Care Team Description 04/08/2024 / Visits [facility] [address] [facility] [address] [place] [phone] Meka Angela LCSW Schizoaffective disorder, bipolar type [...] Cervical Cancer Screening 02/27/2005 Pap Smear 02/27/2005 [id number] ( season) 2023 Imm-Influenza (#1) 2023 Breast Cancer Screening (Mammogram) 2024 Alcohol and Drug Screen 03/03/2024 Depression Annual Screen 03/03/2024 Cervical Ablation/Cold-Knife Conization Discontinued Cervical Cryotherapy Discontinued Colposcopy Discontinued Endometrial Biopsy Discontinued Excision/Leep Discontinued HPV Genotyping Discontinued Vaginal Pap Discontinued Vulvoscopy Discontinued
--- OUTSIDE RECORDS SUMMARY | 2024-04-23 13:19 | XMS_ITS | Clinical Summary ---
Author Organization [facility] Address [address] [place] [address] Care Team Providers Care Road Advisor Name Role Phone Pcp, No Primary Care Provider Emma Doe PT Unavailable Allergies No known active allergies [...] mg total) by Alternating Nares route once. [place] contents (4mg) into one nostril once. May [...] Type Department Care Team Description 02/27/2024 Documentation [facility] Physical Medicine and Rehab [address] [address] Emma Bernard, CASSY 02/26/2024 9:00 AM EST Office Visit [facility] [address] [address] Jerry Galindo MD Paraplegia (HCC) (Primary Dx); Neurogenic bladder; Neurogenic bowel; Neuropathic pain 02/26/2024 Travel from Last 3 Months Family History Medical [...] more drinks on one occasion? Never 02/24/2023 [facility] of Occupat ional [facility] - Occupational Stress Questionnaire Answer Date Recorded [...] Description 06/02/2024 2:45 PM EDT Office Visit [facility] Urologic Surgery [address] [place] [phone] Eugene Bazan MD [address] [place] [address] 06/03/2024 2:00 PM EDT Office Visit [facility] [place] [address] [phone] Jerry Galindo MD [address] [place] [address] [address] [place] [address] Health Maintenance Due Date Last Done Comments Hepatitis C Virus Screening 1984 Microalbumin/Creatinine Ratio Urine 02/27/2002 DTaP/Tdap/Td Vaccines (1 - Tdap) 02/27/2003 Hepatitis B Vaccines (1 of 3 - 19+ 3-dose series) 02/27/2003 Pap Smear (Ages 21-65) 02/27/2005 Influenza Vaccine 10/02/2023 12/09/2015, 12/16/2014, 11/23/2013 COVID-19 Vaccine ( - 2023- season) 2023 09/29/2021, 01/23/2021 Mammogram 2024 Hemoglobin [...] 4:26 AM 03/06/2023 8:[address] Advisor Relationship Specialty Start Date End Date Pcp, No [address] [place] [address] PCP - General 06/13/21 Emma Bernard, PT 85 [facility] [address] [place] [address] Vault Service MechanicApplication Security Consultant Medicine and Rehabilitation 02/27/24
--- OUTSIDE RECORDS SUMMARY | 2024-04-23 13:19 | XMS_ITS | Encounter Summary ---
Author Organization [employer] Address [address] [place] [address] Care Team Providers Care Chargeback Analyst Name Role Phone Joel Jorgensen MD Primary Care Provider [phone] Encounter Details Date Type Department Care Team (Late st Contact Info) Description 04/07/2024 Lab Requisition [facility] - Main Lab [address] [facility] [place] [address] Joel Jorgensen MD [address] [place] [address] [address] SHANNON William Traumatic subarachnoid hemorrhage with loss of consciousness [...] documented in this encounter Results * (ABNORMAL) CBC auto differential (04/07/2024 6:41 AM EST) [facility] Signature WBC 4.8 4.8 - 10.8 K/mcL LAB HEMETOLOGY METHOD 04/07/2024 8:10 AM [facility] RBC 4.10 3.80 - 4.80 M/mcL LAB HEMETOLOGY METHOD 04/07/2024 8:10 AM [facility] Hemoglobin 10.5(L) 11.5 - 16.0 g/dL LAB HEMETOLOGY METHOD 04/07/2024 8:10 AM [facility] Hematocrit 34.3(L) 35.0 - 47.0 % LAB HEMETOLOGY METHOD 04/07/2024 8:10 AM [facility] MCV 84.7 79.0 - 98.0 FL LAB HEMETOLOGY METHOD 04/07/2024 8:10 AM [facility] MCH 25.9(L) 27.0 - 32.0 pcg LAB HEMETOLOGY METHOD 04/07/2024 8:10 AM [facility] LAB MCHC 30.6(L) 32.0 - 37.0 g/dL LAB HEMETOLOGY METHOD 04/07/2024 8:10 AM [facility] RDW 14.7 11.0 - 15.0 % LAB HEMETOLOGY METHOD 04/07/2024 8:10 AM [facility] Platelets 268 130 - 400 K/mcL LAB HEMETOLOGY METHOD 04/07/2024 8:10 AM [facility] MPV 9.4 7.0 - 11.0 FL LAB HEMETOLOGY METHOD 04/07/2024 8:10 AM [facility] NRBC 0.0 <1.0 % LAB HEMETOLOGY METHOD 04/07/2024 8:10 AM [facility] NRBC Absolute 0.00 <0.10 K/mcL LAB HEMETOLOGY METHOD 04/07/2024 8:10 AM [facility] Neutrophils Relative 41.2 % LAB HEMETOLOGY METHOD 04/07/2024 8:10 AM [facility] Lymphocytes Relative 46.3 % LAB HEMETOLOGY METHOD 04/07/2024 8:10 AM [facility] Monocytes Relative 7.3 % LAB HEMETOLOGY METHOD 04/07/2024 8:10 AM [facility] Eosinophils Relative 3.8 % LAB HEMETOLOGY METHOD 04/07/2024 8:10 AM [facility] Basophils Relative 0.4 % LAB HEMETOLOGY METHOD 04/07/2024 8:10 AM [facility] Immature Granulocytes Relative 1.0 % LAB HEMETOLOGY METHOD 04/07/2024 8:10 AM [facility] Neutrophils Absolute 1.98 1.50 - 7.00 K/mcL LAB HEMETOLOGY METHOD 04/07/2024 8:10 AM [facility] Lymphocytes Absolute 2.22 1.00 - 5.00 K/mcL LAB HEMETOLOGY METHOD 04/07/2024 8:10 AM [facility] Monocytes Absolute 0.35 0.20 - 1.00 K/mcL LAB HEMETOLOGY METHOD 04/07/2024 8:10 AM [facility] Eosinophils Absolute 0.18 0.00 - 0.50 K/mcL LAB HEMETOLOGY METHOD 04/07/2024 8:10 AM [facility] Basophils Absolute 0.02 0.00 - 0.20 K/mcL LAB HEMETOLOGY METHOD 04/07/2024 8:10 AM [facility] Immature Granulocytes Absolute 0.05(H) 0.00 - 0.03 K/mcL LAB HEMETOLOGY METHOD 04/07/2024 8:10 AM [facility] Blood Venous blood specimen / Unknown 04/07/2024 6:41 AM EST 04/07/2024 7:58 AM EST us Joel Jorgensen MD LAB BLOOD ORDERABLES Final Resul t Performing Organization Address City/[facility]/ZIP Co de Phone Number [facility] [address] [place] [address], [place] [phone] * (ABNORMAL) Vitamin D 25 hydroxy (04/07/2024 6:41 AM EST) Pathologist [facility] Vit D, 25-Hydroxy 21.7(L) 30.0 - 80.0 ng/mL LAB CHEMISTRY METHOD 04/07/2024 8:57 AM EST [facility] Blood Venous blood specimen / Unknown 04/07/2024 6:41 AM EST 04/07/2024 7:58 AM EST us Joel Jorgensen MD LAB BLOOD ORDERABLES Final Resul t Performing Organization Address [facility]/ZIP Co de Phone Number [facility] [address] [place] [address], [place] [phone] * (ABNORMAL) Comprehensive metabolic panel (04/07/2024 6:41 AM EST) [facility] Sodium 140 133 - 145 mmol/L LAB CHEMISTRY METHOD 04/07/2024 8:30 AM EST [facility] Potassium 4.4 3.5 - 5.5 mmol/L LAB CHEMISTRY METHOD 04/07/2024 8:30 AM EST [facility] Chloride 108 96 - 110 mmol/L LAB CHEMISTRY METHOD 04/07/2024 8:30 AM EST [facility] CO2 28 21 - 32 mmol/L LAB CHEMISTRY METHOD 04/07/2024 8:30 AM [facility] Anion Gap 4 3 - 11 LAB CHEMISTRY METHOD 04/07/2024 8:30 AM [facility] Glucose 85 70 - 100 mg/dL LAB CHEMISTRY METHOD 04/07/2024 8:30 AM [facility] BUN 13 5 - 25 mg/dL LAB CHEMISTRY METHOD 04/07/2024 8:30 AM [facility] Creatinine 0.53 0.50 - 1.10 mg/dL LAB CHEMISTRY METHOD 04/07/2024 8:30 AM [facility] eGFR 120 >=60 mL/min/1. 73m2 LAB CHEMISTRY METHOD 04/07/2024 8:30 AM [facility] Comment:Calculation based on the??Chronic Kidney Disease Epidemiology Collaboration (CKD-EPI) equation refit??without adjustment for race. BUN/Creatinine Ratio 24.5 LAB CHEMISTRY METHOD 04/07/2024 8:30 AM [facility] Calcium 8.8 8.5 - 10.5 mg/dL LAB CHEMISTRY METHOD 04/07/2024 8:30 AM [facility] AST (SGOT) 12 10 - 42 unit/L LAB CHEMISTRY METHOD 04/07/2024 8:30 AM [facility] ALT (SGPT) 17 10 - 60 unit/L LAB CHEMISTRY METHOD 04/07/2024 8:30 AM [facility] Alkaline Phosphatase 137(H) 42 - 121 unit/L LAB CHEMISTRY METHOD 04/07/2024 8:30 AM [facility] Total Protein 6.8 6.0 - 8.0 g/dL LAB CHEMISTRY METHOD 04/07/2024 8:30 AM [facility] Albumin 2.9(L) 3.2 - 5.0 g/dL LAB CHEMISTRY METHOD 04/07/2024 8:30 AM [facility] Total Bilirubin 0.3 0.0 - 1.4 mg/dL LAB CHEMISTRY METHOD 04/07/2024 8:30 AM [facility] Blood Venous blood specimen / Unknown 04/07/2024 6:41 AM EST 04/07/2024 7:58 AM EST us Joel Jorgensen MD LAB BLOOD ORDERABLES Final Resul t [facility] [address] [place] [address], documented in this encounter Visit Diagnoses Diagnosis Traumatic subarachnoid hemorrhage with loss of consciousness of unspecified duration, sequela (CMS/HCC) documented in this encounter Care Teams Chargeback Analyst Relationship Specialty Start Date End Date Joel Jorgensen MD [address] [place], [place] PCP - General Internal Medicine 04/07/24 documented as of this encounter
--- OUTSIDE RECORDS SUMMARY | 2024-04-23 13:19 | XMS_ITS ---
Author Organization [facility] Address [address] [place] [address] Care Team Providers Care Painter And Body Work Name Role Phone Unavailable Primary Care Provider Nestor e [id number] Program Enrollment: SHAKA Status:Closed (Closed) Start date:12/29/2023 Enrollment date:12/29/2023 Enrollment reason:Approved referral End date:04/08/2024 Close reason:Completed Continued Care and Services Coordination
--- OUTSIDE RECORDS SUMMARY | 2024-04-23 13:19 | XMS_ITS | Encounter Summary ---
Author Organization [facility] Address [address] [place] [address] Care Team Providers Care College Or University Department Head Name Role Phone Pcp, No Primary Care Provider Emma Doe PT Unavailable Encounter Details Date Type Department Care Team (Late st Contact Info) Description 06/19/2023 Scanned Document [facility] Urologic Surgery [address] [place] [address] Rafia Meyer PA-C [address] [place] [address] Social History Tobacco Use Types Packs/Day Years [...] more drinks on one occasion? Never 02/24/2023 [facility] of Occupat ional Health - Occupational Stress [...] 06/02/2024 2:45 PM EDT Office Visit [facility] Urologic Surgery [address] [place] [address] Eugene Bazan MD [address] [address] 06/03/2024 2:00 PM EDT Office Visit [facility]YSICAL [facility]IC[facility] & REHAB [address] [place] [address] Jerry Galindo MD [address] [address] documented as of this encounter Visit Diagnoses Not on filedocumented in this encounter Care Teams College Or University Department Head Relationship Specialty Start Date End Date Pcp, No [address] [place] [address] PCP - General 06/13/21 Emma Bernard, PT [address] [address] Material Yard ClerkCommunity Ambassador Medicine and Rehabilitation 02/27/24 documented as of this encounter
--- OUTSIDE RECORDS SUMMARY | 2024-04-23 13:19 | XMS_ITS | Encounter Summary ---
Author Organization [facility] Address [address] [place] [address] Care Team Providers Care Business Investor Name Role Phone Unavailable Primary Care Provider Unavailabl e Encounter Details Date Type Department Care Team (Late st Contact Info) Description 04/08/2024 BH/ Visits [facility] [address] [facility] [address] [place] [phone] Meka Angela LCSW [address] [place], [place] [phone] Schizoaffective disorder, bipolar type (HCC-CMS) (Primary Dx) Social History Tobacco Use Types Packs/Day Years [...] Don't know 12/29/2023 11 :31 AM PDT documented as of this encounter Progress Notes * Meka Angela LCSW - 04/08/2024 8:53 AM EST Completed assessment, client not enough information to determine qualifying brain injury. Not DMHASconnected. Residing at [facility] fac[facility] in [place], [place]. documented in this encounter Plan of Treatment Not on file documented as of this encounter Visit Diagnoses Diagnosis Schizoaffective disorder, bipolar type ([facility])- Primary Schizoaffective disorder, unspecified condition documented in this encounter
--- OUTSIDE RECORDS SUMMARY | 2024-04-23 13:19 | XMS_ITS | Encounter Summary ---
Author Organization [facility] Address [address] [place] [address] Care Team Providers Care Senior Data Quality Analyst Name Role Phone Joel Jorgensen MD Primary Care Provider [phone] Encounter Details Date Type Department Care Team (Late st Contact Info) Description 01/06/2024 Lab Requisition [facility] - Main Lab [address] [facility] [place] [address] Joel Jorgensen MD [address] [place] [address] [address] [place] Traumatic subarachnoid hemorrhage with loss of consciousness [...] LAB CHEMISTRY METHOD 01/06/2024 7:07 AM EST [facility] Potassium 4.5 3.5 - 5.5 mmol/L LAB CHEMISTRY METHOD 01/06/2024 7:07 AM EST [facility] Chloride 110 96 - 110 mmol/L LAB CHEMISTRY METHOD 01/06/2024 7:07 AM EST [facility] CO2 27 21 - 32 mmol/L LAB CHEMISTRY METHOD 01/06/2024 7:07 AM [facility] Anion Gap 5 3 - 11 LAB CHEMISTRY METHOD 01/06/2024 7:07 AM [facility] Glucose 89 70 - 100 mg/dL LAB CHEMISTRY METHOD 01/06/2024 7:07 AM [facility] BUN 14 5 - 25 mg/dL LAB CHEMISTRY METHOD 01/06/2024 7:07 AM [facility] Creatinine 0.57 0.50 - 1.10 mg/dL LAB CHEMISTRY METHOD 01/06/2024 7:07 AM [facility] eGFR 119 >=60 mL/min/1. 73m2 LAB CHEMISTRY METHOD 01/06/2024 7:07 AM [facility] Comment:Calculation based on the??Chronic Kidney Disease Epidemiology Collaboration (CKD-EPI) equation refit??without adjustment for race. BUN/Creatinine Ratio 24.6 LAB CHEMISTRY METHOD 01/06/2024 7:07 AM [facility] Calcium 8.9 8.5 - 10.5 mg/dL LAB CHEMISTRY METHOD 01/06/2024 7:07 AM [facility] AST (SGOT) 17 10 - 42 unit/L LAB CHEMISTRY METHOD 01/06/2024 7:07 AM [facility] ALT (SGPT) 15 10 - 60 unit/L LAB CHEMISTRY METHOD 01/06/2024 7:07 AM [facility] Alkaline Phosphatase 142(H) 42 - 121 unit/L LAB CHEMISTRY METHOD 01/06/2024 7:07 AM [facility] Total Protein 6.7 6.0 - 8.0 g/dL LAB CHEMISTRY METHOD 01/06/2024 7:07 AM [facility] Albumin 3.0(L) 3.2 - 5.0 g/dL LAB CHEMISTRY METHOD 01/06/2024 7:07 AM [facility] Total Bilirubin 0.3 0.0 - 1.4 mg/dL LAB CHEMISTRY METHOD 01/06/2024 7:07 AM EST [facility] Blood Venous blood specimen / Unknown 01/06/2024 5:05 AM EST 01/06/2024 6:46 AM EST us Joel Jorgensen MD LAB BLOOD ORDERABLES Final Resul t [facility] [address] [place] [address], documented in this encounter Visit Diagnoses Diagnosis Traumatic subarachnoid hemorrhage with loss of consciousness of unspecified duration, sequela (CMS/HCC) documented in this encounter Care Teams Senior Data Quality Analyst Relationship Specialty Start Date End Date Joel Jorgensen MD [address] [place] [address] Dr [address] [place], [place] PCP - General Internal Medicine 04/07/24 documented as of this encounter
== END 2024-04-23 12:48 | disposition home or self-care (01) ==
LOC: HO.XRAY 12:47
PROVIDERS: PCP Hospitalist; Visit Provider Obstetrics & Gynecology
DX: N94.9 Unspecified condition associated with female genital organs and menstrual cycle (principal)
CPT/HCPCS: 76830; 76856

== ENCOUNTER 2024-04-23 12:52 | Outpatient (REF) | payer MEDICAID, SELFPAY | END 2024-04-23 12:53 | disposition home or self-care (01) | LOC: HO.US 12:52 | PROVIDERS: PCP Hospitalist; Visit Provider Obstetrics & Gynecology | DX: Z13.89 Encounter for screening for other disorder (principal) ==

== ENCOUNTER → 2024-04-23 12:54 | Outpatient (BNV) | payer MEDICAID, SELFPAY | PROVIDERS: PCP Hospitalist; Visit Provider Radiology Diagnostic Radiology | DX: N83.202 Unspecified ovarian cyst, left side (principal) | CPT/HCPCS: 76830; 76856 ==

== ENCOUNTER 2024-04-26 11:43 | Outpatient (AMB) | payer MEDICAID, SELFPAY ==
--- NOTE | 2024-04-26 11:43 | A.OFFVIS_ITS ---
Intake Visit Reasons: TV Ultrasound follow up Allergies No Known Allergies Allergy (Verified 03/08/24 09:43) HPI Comments Details: The patient is scheduled a telehealth visit to discuss the results the ultrasound. Pelvic ultrasound showed the following: Uterus: The uterus is normal in size, measuring 6.9 x 4.0 x 4.5 cm. Myometrium has a normal echotexture. No fibroids are identified. Endometrium: The endometrial stripe measures 9 mm in thickness. Right ovary: The right ovary measures 2.4 x 2.7 x 2.2 cm. The right ovary is normal in size and echotexture. There is a 1.5 x 1.1 x 1.8 cm cyst versus follicle. Left ovary: The left ovary measures 2.6 x 2.4 x 2.7 cm. There is a 1.3 x 1.1 x 1.0 cm heterogeneous hypoechoic, structure which may represent a corpus luteum. Pelvic fluid: There is a small amount of free fluid in the cul-de-sac.. Review of Systems Const All systems reviewed & are unremarkable except as noted in HPI and below Reports as per HPI and Reports no additional complaints GI Reports no additional complaints Reports no additional complaints Telehealth Telehealth Telehealth Platform: Telephone Location of provider rendering services: practice address Location of patient: address on file Patient Identification confirmed using: Name, : Yes Telehealth method: voice only Patient verbally consented to treatment: Yes Patient verbally consented to billing insurance company: Yes Patient informed of any privacy concerns related to visit: Yes Minutes spent on Phone/Video with Pt.: 8 Assessment & Plan Assessment & Plan (1) Complex ovarian cyst: Comment: Possible left colpo luteum cyst Code(s): N83.299 - Other ovarian cyst, unspecified side Category: Medical Plan: Discussed with the patient the complex ovarian cyst by ultrasound. Discussed with the patient the Ultrasound findings, the main limitation of transvaginal ultrasonography alone as a diagnostic tool to distinguish benign from malignant masses relates to its lack of specificity and low positive predictive value for cancer. The differential diagnosis discussed with the patient includes the following but not limited to: benign and malignant gynecological and non-gynecological causes. Laboratory evaluation include UPT and GC/CT , serum tumor marker CA 125 . Discussed with the patient options of treatment , including laparoscopy ovarian cystectomy/oophorectomy vs. expectant management with repeat US in repeating pelvic US in 12 weeks from previous US. If the ovarian complex cyst is persistent larger and / or more complex looking, will refer to gynecologic Oncology. All pros, cons, risks and benefits of each approach were discussed with the patient including but not limited to a delay in the diagnosis and treatment of ovarian cancer affecting the prognosis; The patient decided to go ahead with expectant management. Instructions given the patient to schedule a 3 months follow-up ultrasound appointment. All questions were answered & the patient verbalized understanding and agreed with the plan. Will coordinate follow-up ultrasound and appointment with the reverse unit operator fisherman at [facility], Dimple Yadav extension [phone] I spent a total of 20 minutes reviewing the chart, talking to the patient via video and documenting in the medical record. Orders: Orders US pelvic and transvaginal 3 Months N83.299 - Other ovarian cyst, unspecified side Coding Level of Care Code Tele Est Pt Level 3 (74528) Diagnoses Complex ovarian cyst N83.299
--- OUTSIDE RECORDS SUMMARY | 2024-04-26 13:33 | XMS_ITS | Encounter Summary ---
Author Organization [facility] Address [address] [place] [address] Care Team Providers Care Respiratory Clinician Name Role Phone Pcp, No Primary Care Provider Emma Doe PT Unavailable Reason for Visit * Reason Comments Other Encounter Details Date Type Department Care Team ([facility] st Contact Info) Description 10/06/2023 Telephone [facility] [address] [address] Sharad Trujillo MD [address] [place] [address] Other Social History Tobacco Use [...] more drinks on one occasion? Never 02/24/2023 [facility] [place] of Occupat ional Health - Occupational Stress [...] has been transferred to a facility in [facility]. It takes about 1.5 hours to get to the [place] office. Zakiya did have an appointment for 09/16 that needed to be canceled. The facility is asking if she needs to come in for a follow up or can she be seen on an as needed basis? I can call Sadie Walker back at [phone] Thank You - Dipika documented in this encounter Plan of Treatment Upcoming Encounters Date Type Department Care Team (Late st Contact Info) Description 06/02/2024 2:45 PM EDT Office Visit [facility] Urologic Surgery [address] [place] [phone] Eugene Bazan MD [address] [address] 06/03/2024 2:00 PM EDT Office Visit [facility] PHYSICAL MEDICINE & REHAB [address] [place] [address] Jerry Galindo MD [address] [address] documented as of this encounter Visit Diagnoses Not on filedocumented in this encounter Care Teams Respiratory Clinician Relationship Specialty Start Date End Date Pcp, No [address] [place] [address] PCP - General 06/13/21 Emma Bernard, PT [address] [address] Director Of In Service EducationEvs Manager Medicine and Rehabilitation 02/27/24 documented as of this encounter
--- OUTSIDE RECORDS SUMMARY | 2024-04-26 13:34 | XMS_ITS ---
Author Organization [facility] Address [address] [place] [address] Care Team Providers Care Natural Sciences Department Chair Name Role Phone Unavailable Primary Care Provider Nestor e SA192 Program Enrollment: SHAKA Status:Closed (Closed) Start date:12/29/2023 Enrollment date:12/29/2023 Enrollment reason:Approved referral End date:04/08/2024 Close reason:Completed Continued Care and Services Coordination
--- OUTSIDE RECORDS SUMMARY | 2024-04-26 13:34 | XMS_ITS | Clinical Summary ---
Author Organization [facility] Address [address] [place] [address] Care Team Providers Care Nursing Consultant Name Role Phone Pcp, No Primary Care [...] mg total) by Alternating Nares route once. [place] contents (4mg) into one nostril once. May [...] Department Care Team Description 02/27/2024 Documentation [facility] Physical Medicine and Rehab [address] [address] Emma Bernard, CASSY 02/26/2024 9:00 AM EST Office Visit [facility] PHYSICAL MEDICINE & REHAB [address] [address] Jerry Galindo MD Paraplegia (HCC) (Primary Dx); [...] more drinks on one occasion? Never 02/24/2023 [facility] of Occupat ional [facility] - Occupational Stress Questionnaire Answer Date Recorded [...] Description 06/02/2024 2:45 PM EDT Office Visit [facility] Urologic Surgery [address] [place] [phone] Eugene Bazan MD [address] [place] [address] 06/03/2024 2:00 PM EDT Office Visit [facility] PHYSICAL MEDICINE & REHAB [place] [address] [address] Jerry Galindo MD [address] [place] [address] [address] [place] [address] Health Maintenance Due Date Last Done Comments [...] 4:26 AM 03/06/2023 8:25 PM Care Teams Nursing Consultant Relationship Specialty Start Date End Date Pcp, No 80 [place] [address] PCP - General 06/13/21 Emma Bernard, PT 85 [facility] [address] [place] [address] Network Applications SpecialistSemiconductor Wafers Tester Medicine and Rehabilitation 02/27/24
--- OUTSIDE RECORDS SUMMARY | 2024-04-26 13:34 | XMS_ITS | Encounter Summary ---
Author Organization [facility] Address [address] [place] [address] Care Team Providers Care Layout Mechanic Name Role Phone Unavailable Primary Care Provider Unavailabl e Encounter Details Date Type Department Care Team (Late st Contact Info) Description 04/08/2024 BH/ Visits [facility] [address] [facility] [address] [place] [phone] Meka Angela LCSW [address] [place], [place] [id number] Schizoaffective disorder, bipolar type (HCC-CMS) (Primary Dx) [...] qualifying brain injury. Not DMHASconnected. Residing at [facility] facilty in [place], [place]. documented in this encounter Plan of Treatment Not on file documented as of this encounter Visit Diagnoses Diagnosis Schizoaffective disorder, bipolar type ([facility])- Primary Schizoaffective disorder, unspecified condition documented in this encounter
--- OUTSIDE RECORDS SUMMARY | 2024-04-26 13:34 | XMS_ITS | Encounter Summary ---
Author Organization [facility] Address [address] [place] [address] Care Team Providers Care Human Resources Supervisor Name Role Phone Pcp, No Primary Care Provider Emma Doe PT Unavailable Encounter Details Date Type Department Care Team (Late st Contact Info) Description 06/19/[address] [facility] Urologic Surgery [address] [place] [address] Rafia Meyer PA-C [address] [place] [address] Social History Tobacco Use Types Packs/Day Years [...] more drinks on one occasion? Never 02/24/2023 [facility] of Occupat ional Health - Occupational Stress [...] Description 06/02/2024 2:45 PM EDT Office Visit [facility] Urologic Surgery [address] [place] [address] Eugene Bazan MD [address] [address] 06/03/2024 2:00 PM EDT Office Visit [facility] PHYSICAL MEDICINE & REHAB [address] [place] [address] Jerry Galindo MD [address] [address] documented as of this encounter Visit Diagnoses Not on filedocumented in this encounter Care Teams Human Resources Supervisor Relationship Specialty Start Date End Date Pcp, No [address] [place] [address] PCP - General 06/13/21 Emma Bernard, PT [address] [address] [place] Machine TenderSalvage Repairer Medicine and Rehabilitation 02/27/24 documented as of this encounter
--- OUTSIDE RECORDS SUMMARY | 2024-04-26 13:34 | XMS_ITS | Encounter Summary ---
Author Organization [facility] Address [address] [place] [address] Care Team Providers Care Viscosity Tester Name Role Phone Joel Jorgensen MD Primary Care Provider [phone] Encounter Details Date Type Department Care Team (Late st Contact Info) Description 01/06/2024 Lab Requisition [facility] - Main Lab [address] [facility] [place] [address] Joel Jorgensen MD [address] [place] [address] [address] [place] Traumatic subarachnoid hemorrhage with loss of consciousness [...] LAB CHEMISTRY METHOD 01/06/2024 7:07 AM EST [facility] Potassium 4.5 3.5 - 5.5 mmol/L LAB CHEMISTRY METHOD 01/06/2024 7:07 AM EST [facility] Chloride 110 96 - 110 mmol/L LAB CHEMISTRY METHOD 01/06/2024 7:07 AM EST [facility] CO2 27 21 - 32 mmol/L [...] LAB CHEMISTRY METHOD 01/06/2024 7:07 AM EST [facility] Blood Venous blood specimen / Unknown 01/06/2024 5:05 AM EST 01/06/2024 6:46 AM EST us Joel Jorgensen MD LAB BLOOD ORDERABLES Final Resul t [facility] [address] [place] [address], documented in this encounter Visit Diagnoses Diagnosis Traumatic subarachnoid hemorrhage with loss of consciousness of unspecified duration, sequela (CMS/HCC) documented in this encounter Care Teams Viscosity Tester Relationship Specialty Start Date End Date Joel Jorgensen MD [address] [place] [address] [address] [place], [place] PCP - General Internal Medicine 04/07/24 documented as of this encounter
--- OUTSIDE RECORDS SUMMARY | 2024-04-26 13:34 | XMS_ITS | Clinical Summary ---
Author Organization 299 [facility] Address [address] [place] [address] Phone Care Team Providers Care Rehabilitation Coordinator Name Role Phone Joel Jorgensen MD Primary Care Provider Encounters Date Type Department Care Team Description 04/07/2024 Lab Requisition [facility] - Main Lab 299 [facility] [place] [address] Joel Jorgensen MD Traumatic subarachnoid hemorrhage [...] K/mcL LAB HEMETOLOGY METHOD 04/07/2024 8:10 AM [facility] RBC 4.10 3.80 - 4.80 M/mcL LAB HEMETOLOGY METHOD 04/07/2024 8:10 AM [facility] Hemoglobin 10.5(L) 11.5 - 16.0 g/dL LAB HEMETOLOGY METHOD 04/07/2024 8:10 AM [facility] Hematocrit 34.3(L) 35.0 - 47.0 % LAB HEMETOLOGY METHOD 04/07/2024 8:10 AM [facility] MCV 84.7 79.0 - 98.0 FL LAB HEMETOLOGY METHOD 04/07/2024 8:10 AM [facility] MCH 25.9(L) 27.0 - 32.0 pcg LAB HEMETOLOGY METHOD 04/07/2024 8:10 AM [facility] MCHC 30.6(L) 32.0 - 37.0 g/dL LAB HEMETOLOGY METHOD 04/07/2024 8:10 AM [facility] RDW 14.7 11.0 - 15.0 % LAB HEMETOLOGY METHOD 04/07/2024 8:10 AM [facility] Platelets 268 130 - 400 K/mcL LAB HEMETOLOGY METHOD 04/07/2024 8:10 AM [facility] MPV 9.4 7.0 - 11.0 FL LAB HEMETOLOGY METHOD 04/07/2024 8:10 AM [facility] NRBC 0.0 <1.0 % LAB HEMETOLOGY METHOD 04/07/2024 8:10 AM [facility] NRBC Absolute 0.00 <0.10 K/mcL LAB HEMETOLOGY METHOD 04/07/2024 8:10 AM [facility] Neutrophils Relative 41.2 % LAB HEMETOLOGY METHOD 04/07/2024 8:10 AM [facility] Lymphocytes Relative 46.3 % LAB HEMETOLOGY METHOD 04/07/2024 8:10 AM [facility] Monocytes Relative 7.3 % LAB HEMETOLOGY METHOD 04/07/2024 8:10 AM [facility] Eosinophils Relative 3.8 % LAB HEMETOLOGY METHOD 04/07/2024 8:10 AM [facility] Basophils Relative 0.4 % LAB HEMETOLOGY METHOD 04/07/2024 8:10 AM EST [facility] Immature Granulocytes Relative 1.0 % LAB HEMETOLOGY METHOD 04/07/2024 8:10 AM EST [facility] Neutrophils Absolute 1.98 1.50 - 7.00 K/mcL LAB HEMETOLOGY METHOD 04/07/2024 8:10 AM EST [facility] Lymphocytes Absolute 2.22 1.00 - 5.00 K/mcL LAB HEMETOLOGY METHOD 04/07/2024 8:10 AM EST [facility] Monocytes Absolute 0.35 0.20 - 1.00 K/mcL LAB HEMETOLOGY METHOD 04/07/2024 8:10 AM EST [facility] Eosinophils Absolute 0.18 0.00 - 0.50 K/mcL LAB HEMETOLOGY METHOD 04/07/2024 8:10 AM EST [facility] Basophils Absolute 0.02 0.00 - 0.20 K/mcL LAB HEMETOLOGY METHOD 04/07/2024 8:10 AM EST [facility] Immature Granulocytes Absolute 0.05(H) 0.00 - 0.03 K/mcL LAB HEMETOLOGY METHOD 04/07/2024 8:10 AM [facility] Blood Venous blood specimen / Unknown 04/07/2024 6:41 AM EST 04/07/2024 7:58 AM EST us Joel Jorgensen MD LAB BLOOD ORDERABLES Final Resul t [facility] [address] [place] [address], * (ABNORMAL) Vitamin D 25 hydroxy (04/07/2024 6:41 AM EST) Vit D, 25-Hydroxy 21.7(L) 30.0 - 80.0 ng/mL LAB CHEMISTRY METHOD 04/07/2024 8:57 AM EST [facility] Blood Venous blood specimen / Unknown 04/07/2024 6:41 AM EST 04/07/2024 7:58 AM EST Joel Jorgensen MD LAB BLOOD ORDERABLES Final Resul t [facility] [address] [place] [address], * (ABNORMAL) Comprehensive metabolic panel (04/07/2024 6:41 AM EST) Sodium 140 133 - 145 mmol/L LAB CHEMISTRY METHOD 04/07/2024 8:30 AM [facility] Potassium 4.4 3.5 - 5.5 mmol/L LAB CHEMISTRY METHOD 04/07/2024 8:30 AM [facility] Chloride 108 96 - 110 mmol/L LAB CHEMISTRY METHOD 04/07/2024 8:30 AM [facility] CO2 28 21 - 32 mmol/L LAB CHEMISTRY METHOD 04/07/2024 8:30 AM [facility] Anion Gap 4 3 - 11 LAB CHEMISTRY METHOD 04/07/2024 8:30 AM [facility] Glucose 85 70 - 100 mg/dL LAB CHEMISTRY METHOD 04/07/2024 8:30 AM [facility] BUN 13 5 - 25 mg/dL LAB CHEMISTRY METHOD 04/07/2024 8:30 AM [facility] Creatinine 0.53 0.50 - 1.10 mg/dL LAB CHEMISTRY METHOD 04/07/2024 8:30 AM [facility] eGFR 120 >=60 mL/min/1. 73m2 LAB CHEMISTRY METHOD 04/07/2024 8:30 AM [facility] Comment:Calculation based on the??Chronic Kidney Disease Epidemiology Collaboration (CKD-EPI) equation refit??without adjustment for race. BUN/Creatinine Ratio 24.5 LAB CHEMISTRY METHOD 04/07/2024 8:30 AM [facility] Calcium 8.8 8.5 - 10.5 mg/dL LAB CHEMISTRY METHOD 04/07/2024 8:30 AM [facility] AST (SGOT) 12 10 - 42 unit/L LAB CHEMISTRY METHOD 04/07/2024 8:30 AM [facility] ALT (SGPT) 17 10 - 60 unit/L LAB CHEMISTRY METHOD 04/07/2024 8:30 AM [facility] Alkaline Phosphatase 137(H) 42 - 121 unit/L LAB CHEMISTRY METHOD 04/07/2024 8:30 AM [facility] Total Protein 6.8 6.0 - 8.0 g/dL LAB CHEMISTRY METHOD 04/07/2024 8:30 AM [facility] Albumin 2.9(L) 3.2 - 5.0 g/dL LAB CHEMISTRY METHOD 04/07/2024 8:30 AM [facility] Total Bilirubin 0.3 0.0 - 1.4 mg/dL LAB CHEMISTRY METHOD 04/07/2024 8:30 AM [facility] Blood Venous blood specimen / Unknown 04/07/2024 6:41 AM EST 04/07/2024 7:58 AM EST us Joel Jorgensen MD LAB BLOOD ORDERABLES Final Resul t [facility] [address] [place] [address], [place] [phone] from Last 3 Months Insurance [place]ICAID [place] Member Subscriber Plan / Payer (Ef fective 2024-Present) Name:Zakiya Gallardo Relation to Subscriber:Self Name:Zakiya Gallardo Payer ID:[id number] Group ID:Not on file Type:Not on file Address: [facility] [address] [place] [address] Care Teams Rehabilitation Coordinator Relationship Specialty Start Date End Date Joel Jorgensen MD [address] [place] [address] [address] SHANNON William PCP - General Internal Medicine 04/07/24
--- OUTSIDE RECORDS SUMMARY | 2024-04-26 13:34 | XMS_ITS | Encounter Summary ---
Author Organization [facility] Address [address] [place] [address] Care Team Providers Care Slabber Name Role Phone Joel Jorgensen MD Primary Care Provider [phone] Encounter Details Date Type Department Care Team (Late st Contact Info) Description 04/07/2024 Lab Requisition [facility] - Main Lab [address] [facility] [place] [address] Joel Jorgensen MD [address] [place] [address] Dr [address] SHANNON William Traumatic subarachnoid [...] CBC auto differential (04/07/2024 6:41 AM EST) [facility] Signature WBC 4.8 4.8 - 10.8 K/mcL LAB HEMETOLOGY METHOD 04/07/2024 8:10 AM [facility] RBC 4.10 3.80 - 4.80 M/mcL LAB HEMETOLOGY METHOD 04/07/2024 8:10 AM [facility] Hemoglobin 10.5(L) 11.5 - 16.0 g/dL LAB HEMETOLOGY METHOD 04/07/2024 8:10 AM [facility] Hematocrit 34.3(L) 35.0 - 47.0 % LAB HEMETOLOGY METHOD 04/07/2024 8:10 AM [facility] MCV 84.7 79.0 - 98.0 FL LAB HEMETOLOGY METHOD 04/07/2024 8:10 AM [facility] MCH 25.9(L) 27.0 - 32.0 pcg LAB HEMETOLOGY METHOD 04/07/2024 8:10 AM [facility] MCHC 30.6(L) 32.0 - 37.0 g/dL LAB HEMETOLOGY METHOD 04/07/2024 8:10 AM [facility] RDW 14.7 11.0 - 15.0 % LAB HEMETOLOGY METHOD 04/07/2024 8:10 AM [facility] Platelets 268 130 - 400 K/mcL LAB HEMETOLOGY METHOD 04/07/2024 8:10 AM [facility] MPV 9.4 7.0 - 11.0 FL LAB HEMETOLOGY METHOD 04/07/2024 8:10 AM [facility] NRBC 0.0 <1.0 % LAB HEMETOLOGY METHOD 04/07/2024 8:10 AM [facility] NRBC Absolute 0.00 <0.10 K/mcL LAB HEMETOLOGY METHOD 04/07/2024 8:10 AM [facility] Neutrophils Relative 41.2 % LAB HEMETOLOGY METHOD 04/07/2024 8:10 AM [facility] Lymphocytes Relative 46.3 % LAB HEMETOLOGY METHOD 04/07/2024 8:10 AM [facility] Monocytes Relative 7.3 % LAB HEMETOLOGY METHOD 04/07/2024 8:10 AM [facility] Eosinophils Relative 3.8 % LAB HEMETOLOGY METHOD 04/07/2024 8:10 AM [facility] Basophils Relative 0.4 % LAB HEMETOLOGY METHOD 04/07/2024 8:10 AM [facility] Immature Granulocytes Relative 1.0 % LAB HEMETOLOGY METHOD 04/07/2024 8:10 AM [facility] Neutrophils Absolute 1.98 1.50 - 7.00 K/mcL LAB HEMETOLOGY METHOD 04/07/2024 8:10 AM [facility] Lymphocytes Absolute 2.22 1.00 - 5.00 K/mcL LAB HEMETOLOGY METHOD 04/07/2024 8:10 AM [facility] Monocytes Absolute 0.35 0.20 - 1.00 K/mcL LAB HEMETOLOGY METHOD 04/07/2024 8:10 AM [facility] Eosinophils Absolute 0.18 0.00 - 0.50 K/mcL LAB HEMETOLOGY METHOD 04/07/2024 8:10 AM [facility] Basophils Absolute 0.02 0.00 - 0.20 K/mcL LAB HEMETOLOGY METHOD 04/07/2024 8:10 AM [facility] Immature Granulocytes Absolute 0.05(H) 0.00 - 0.03 K/mcL LAB HEMETOLOGY METHOD 04/07/2024 8:10 AM [facility] Blood Venous blood specimen / Unknown 04/07/2024 6:41 AM EST 04/07/2024 7:58 AM EST us Joel Jorgensen MD LAB BLOOD ORDERABLES Final Resul t Performing Organization Address City/[facility]/ZIP Co de Phone Number [facility] [address] [place] [address], [place] [phone] * (ABNORMAL) Vitamin D 25 hydroxy (04/07/2024 6:41 AM EST) Pathologist [facility] Vit D, 25-Hydroxy 21.7(L) 30.0 - 80.0 ng/mL LAB CHEMISTRY METHOD 04/07/2024 8:57 AM EST [facility] Blood Venous blood specimen / Unknown 04/07/2024 6:41 AM EST 04/07/2024 7:58 AM EST us Joel Jorgensen MD LAB BLOOD ORDERABLES Final Resul t Performing Organization Address [facility]/ZIP Co de Phone Number [facility] [address] [place] [address], [place] [phone] * (ABNORMAL) Comprehensive metabolic panel (04/07/2024 6:41 AM EST) [facility] Sodium 140 133 - 145 mmol/L LAB CHEMISTRY METHOD 04/07/2024 8:30 AM EST [facility] Potassium 4.4 3.5 - 5.5 mmol/L LAB CHEMISTRY METHOD 04/07/2024 8:30 AM EST [facility] Chloride 108 96 - 110 mmol/L LAB CHEMISTRY METHOD 04/07/2024 8:30 AM EST [facility] CO2 28 21 - 32 mmol/L LAB CHEMISTRY METHOD 04/07/2024 8:30 AM [facility] Anion Gap 4 3 - 11 LAB CHEMISTRY METHOD 04/07/2024 8:30 AM [facility] Glucose 85 70 - 100 mg/dL LAB CHEMISTRY METHOD 04/07/2024 8:30 AM [facility] BUN 13 5 - 25 mg/dL LAB CHEMISTRY METHOD 04/07/2024 8:30 AM [facility] Creatinine 0.53 0.50 - 1.10 mg/dL LAB CHEMISTRY METHOD 04/07/2024 8:30 AM [facility] eGFR 120 >=60 mL/min/1. 73m2 LAB CHEMISTRY METHOD 04/07/2024 8:30 AM [facility] Comment:Calculation based on the??Chronic Kidney Disease Epidemiology Collaboration (CKD-EPI) equation refit??without adjustment for race. BUN/Creatinine Ratio 24.5 LAB CHEMISTRY METHOD 04/07/2024 8:30 AM [facility] Calcium 8.8 8.5 - 10.5 mg/dL LAB CHEMISTRY METHOD 04/07/2024 8:30 AM [facility] AST (SGOT) 12 10 - 42 unit/L LAB CHEMISTRY METHOD 04/07/2024 8:30 AM [facility] ALT (SGPT) 17 10 - 60 unit/L LAB CHEMISTRY METHOD 04/07/2024 8:30 AM [facility] Alkaline Phosphatase 137(H) 42 - 121 unit/L LAB CHEMISTRY METHOD 04/07/2024 8:30 AM [facility] Total Protein 6.8 6.0 - 8.0 g/dL LAB CHEMISTRY METHOD 04/07/2024 8:30 AM [facility] Albumin 2.9(L) 3.2 - 5.0 g/dL LAB CHEMISTRY METHOD 04/07/2024 8:30 AM [facility] Total Bilirubin 0.3 0.0 - 1.4 mg/dL LAB CHEMISTRY METHOD 04/07/2024 8:30 AM [facility] Blood Venous blood specimen / Unknown 04/07/2024 6:41 AM EST 04/07/2024 7:58 AM EST us Joel Jorgensen MD LAB BLOOD ORDERABLES Final Resul t [facility] [address] [place] [address], documented in this encounter Visit Diagnoses Diagnosis Traumatic subarachnoid hemorrhage with loss of consciousness of unspecified duration, sequela (CMS/HCC) documented in this encounter Care Teams Slabber Relationship Specialty Start Date End Date Joel Jorgensen MD [address] [place], [place] PCP - General Internal Medicine 04/07/24 documented as of this encounter
--- OUTSIDE RECORDS SUMMARY | 2024-04-26 13:34 | XMS_ITS | Clinical Summary ---
Author Organization [facility] Address [address] [place] [address] Care Team Providers Care Training Developer Name Role Phone Unavailable Primary Care Provider [...] Team Description 04/08/2024 / Visits [facility] [address] [facility] [address] [place] [phone] Meka Angela LCSW Schizoaffective disorder, bipolar type [...] Cervical Cancer Screening 02/27/2005 Pap Smear 02/27/2005 [id number] ( season) 2023 Imm-Influenza (#1) 2023 Breast Cancer Screening (Mammogram) 2024 Alcohol and Drug Screen 03/03/2024 Depression Annual Screen 03/03/2024 Cervical Ablation/Cold-Knife Conization Discontinued Cervical Cryotherapy Discontinued Colposcopy Discontinued Endometrial Biopsy Discontinued Excision/Leep Discontinued HPV Genotyping Discontinued Vaginal Pap Discontinued Vulvoscopy Discontinued
== END 2024-04-26 12:21 | disposition home or self-care (01) ==
LOC: HO.HWS 11:43
PROVIDERS: PCP Hospitalist; Visit Provider Obstetrics & Gynecology
DX: N83.291 Other ovarian cyst, right side (principal)
CPT/HCPCS: 98013

== ENCOUNTER → 2024-04-26 11:43 | Outpatient (BNVA) | payer MEDICAID, SELFPAY | PROVIDERS: PCP Hospitalist; Visit Provider Obstetrics & Gynecology ==

== ENCOUNTER 2024-07-28 10:23 | Outpatient (REF) | payer MEDICAID, SELFPAY ==
--- NOTE | ~2024-07-28 | US_ITS ---
EXAMINATION: US PELVIS TRANSABDOMINAL AND TRANSVAGINAL HISTORY: N83.299 - Other ovarian cyst, unspecified side COMPARISON: Comparison is made with the prior examination dated 04/23/2024. TECHNIQUE: Transabdominal and endovaginal real-time 2D horta-scale ultrasound was performed. FINDINGS: Uterus: The uterus is normal in size, measuring 9.6 x 3.2 x 4.8 cm. Myometrium has a normal echotexture. No fibroids are identified. Endometrium: The endometrial stripe measures 7 mm in thickness. Right ovary: The right ovary measures 2.9 x 2.7 x 3.5 cm. There is a 2.4 x 2.0 x 2.3 cm cyst versus follicle Left ovary: The left ovary measures 2.4 x 2.4 x 2.5 cm. The left ovary is normal in size and echotexture. Pelvic fluid: none. US/US pelvic and transvaginal IMPRESSION: 2.4 x 2.0 x 2.3 cm right ovarian cyst versus follicle. Was unremarkable pelvic ultrasound. Electronically signed by: Jeffrey Vuong MD 07/28/2024 11:17 AM EDT
--- OUTSIDE RECORDS SUMMARY | 2024-07-28 11:21 | XMS_ITS | Encounter Summary ---
Author Organization [facility] Address [address] [place] [address] Care Team Providers Care Skein Washer Name Role Phone Pcp, No Primary Care Provider Unavailabl e Emma Bernard PT Unavailable [phone] Joel Jorgensen Primary Care Provider [phone] Reason for Visit * Reason Comments Other Encounter Details Date Type Department Care Team (Late st Contact Info) Description 10/06/2023 Telephone [facility] [address] [place] [address] Sharad Trujillo MD [address] [place] [address] Other Social History Tobacco Use [...] drinks on one occasion? Never 02/24/2023 [facility] [place] of Occupat ional Health - Occupational Stress [...] day at this level? 0 min 06/04/2023 Comments Unknown Sex and Gender Information Value Date Recorded Sex Assigned at Female 02/23/2023 11:03 PM EST Legal Sex Female 11:14 AM EDT Gender Identity Female 02/23/2023 11:03 PM EST Sexual Orientation Choose not to disclose 2022 11:03 PM EST documented as of this encounter Miscellaneous Notes * Telephone Encounter - Dipika Castellon MA - 10/06/2023 12:45 PM EDT Zakiya has been transferred to a facility in [facility]. It takes about 1.5 hours to get to the [place] office. Zakiya did have an appointment for 09/16 that needed to be canceled. The facility is asking if she needs to come in for a follow up or can she be seen on an as needed basis? I can call Sadie Aaron back at [phone] Thank You - Dipika documented in this encounter Plan of Treatment Upcoming Encounters Date Type Department Care Team (Late st Contact Info) Description 08/06/2024 1:00 PM EDT Office Visit [facility] Urologic Surgery [address] [place] [phone] Rafia Meyer PA-C [address] [place] [address] 08/19/2024 2:30 PM EDT Office Visit [facility] PHYSICAL MEDICINE & REHAB [place] [address] [facility] [address] [place] [address] Jerry Galindo MD 85 [facility] [address] [place] [address] documented as of this encounter Visit Diagnoses Not on filedocumented in this encounter Care Teams Skein Washer Relationship Specialty Start Date End Date Pcp, No [address] [place] [address] PCP - General 06/13/21 07/11/24 Joel Jorgensen [address] [place] [address] [address] [place] [address] PCP - General Medicine Hospitalist 07/12/24 Emma Bernard, PT [address] [address] Carpet MechanicMachine Tool Technician Instructor Medicine and Rehabilitation 02/27/24 documented as of this encounter
== END 2024-07-28 10:24 | disposition home or self-care (01) ==
LOC: HO.US 10:23
PROVIDERS: PCP Hospitalist; Visit Provider Obstetrics & Gynecology
DX: N83.299 Other ovarian cyst, unspecified side (principal)
CPT/HCPCS: 76830; 76856

== ENCOUNTER → 2024-07-28 10:27 | Outpatient (BNV) | payer MEDICAID, SELFPAY | PROVIDERS: PCP Hospitalist; Visit Provider Radiology Diagnostic Radiology | DX: N83.01 Follicular cyst of right ovary (principal) | CPT/HCPCS: 76830; 76856 ==

== ENCOUNTER 2024-08-16 11:14 | Outpatient (AMB) | payer MEDICAID, SELFPAY ==
--- NOTE | 2024-08-16 11:16 | MHC.OFFVIS ---
Intake Visit Reasons: US follow up French Binder: French Binder Present (Janeth) Accompanied by: Employee Allergies No Known Allergies Allergy (Verified 08/16/24 11:17) HPI Comments Details: Presenting for ultrasound follow-up showing the following: Uterus: The uterus is normal in size, measuring 9.6 x 3.2 x 4.8 cm. Myometrium has a normal echotexture. No fibroids are identified. Endometrium: The endometrial stripe measures 7 mm in thickness. Right ovary: The right ovary measures 2.9 x 2.7 x 3.5 cm. There is a 2.4 x 2.0 x 2.3 cm cyst versus follicle Left ovary: The left ovary measures 2.4 x 2.4 x 2.5 cm. The left ovary is normal in size and echotexture. Pelvic fluid: none. No complaints no pelvic pain and or any other concerns. Review of Systems Const All systems reviewed & are unremarkable except as noted in HPI and below Reports as per HPI and Reports no additional complaints GI Reports no additional complaints Reports no additional complaints Assessment & Plan Assessment & Plan (1) Ovarian cyst: Code(s): N83.209 - Unspecified ovarian cyst, unspecified side Category: Medical Plan: Discussed with the patient ultrasound findings showing the previously identified complex cyst has resolved. The patient was instructed to call if symptoms recur. All questions were answered the patient verbalized understanding. Coding Level of Care Code Est Pt Level 3 (56799) Diagnoses Ovarian cyst N83.209
--- OUTSIDE RECORDS SUMMARY | 2024-08-16 12:48 | XMS_ITS | Encounter Summary ---
Author Organization [facility] Address [address] [place] [address] Care Team Providers Care Waiter/Waitress Tourist Class Name Role Phone Pcp, No Primary Care Provider Unavailabl e Emma Bernard PT Unavailable [phone] Joel Jorgensen Primary Care Provider [phone] Reason for Visit * Reason Comments Other Encounter Details Date Type Department Care Team (Late st Contact Info) Description 10/06/2023 Telephone [facility] [address] [place] [phone] Sharad Trujillo MD [address] [place] [address] Other Social History Tobacco Use [...] drinks on one occasion? Never 02/24/2023 [facility] [place] of Occupat ional Health - Occupational Stress [...] has been transferred to a facility in [facility]. It takes about 1.5 hours to get to the [place] office. Zakiya did have an appointment for 09/16 that needed to be canceled. The facility is asking if she needs to come in for a follow up or can she be seen on an as needed basis? I can call Sadie Aaron back at [phone] Thank You - Dipika documented in this encounter Plan of Treatment Upcoming Encounters Date Type Department Care Team (Late st Contact Info) Description 08/19/2024 2:30 PM EDT Office Visit [facility] [address] [phone] Jerry Galindo MD [address] [address] 11/25/2024 1:45 PM EDT Office Visit [facility] [place] [address] [place] [phone] Rafia Meyer PA-C [address] [phone] documented as of this encounter Visit Diagnoses Not on filedocumented in this encounter Care Teams Waiter/Waitress Tourist Class Relationship Specialty Start Date End Date Pcp, No [address] [place] [address] PCP - General 06/13/21 07/11/24 Joel Jorgensen [address] [facility] [address] [place] [address] PCP - General Medicine Hospitalist 07/12/24 Emma Bernard, PT [address] [address] [employer] [facility] 02/27/24 documented as of this encounter
== END 2024-08-16 11:30 | disposition home or self-care (01) ==
LOC: HO.HWS 11:14
PROVIDERS: PCP Hospitalist; Visit Provider Obstetrics & Gynecology
DX: N83.209 Unspecified ovarian cyst, unspecified side (principal)
CPT/HCPCS: 99213

== ENCOUNTER → 2024-08-16 11:14 | Outpatient (BNVA) | payer MEDICAID, SELFPAY | PROVIDERS: PCP Hospitalist; Visit Provider Obstetrics & Gynecology | DX: Z71.2 Person consulting for explanation of examination or test findings (principal); N83.201 Unspecified ovarian cyst, right side | CPT/HCPCS: 99212 ==

== ENCOUNTER 2024-08-31 14:45 | Outpatient (REF) | payer MEDICAID, SELFPAY ==
--- NOTE | ~2024-08-31 | US_ITS ---
CLINICAL HISTORY: RETENTION OF URINE US Renal Comparison: None provided Findings: Right kidney normal size and echotexture, 9.2 cm length. Left kidney normal size and echotexture, 10.5 cm length. 100 collecting system dilatation of either kidney. Normal color Doppler. Urinary bladder is unremarkable. Prevoid volume mL. Postvoid volume was not measured Bilateral ureteral jets are not visualized. IMPRESSION: 1. Normal kidneys. This document has been electronically signed by: Ari Ewing MD on 09/02/2024 09:31:27
--- OUTSIDE RECORDS SUMMARY | 2024-08-31 15:46 | XMS_ITS ---
Author Name [facility] Organization Unknown Results Test Name/Text Value Interpretation Date Range Source CREATININE 0.5 mg/dL Below low normal 10/01/2023 0.55 - 1.3 [facility] BUN/CREAT.RATIO 24.0 Normal 10/01/2023 [facility] CALCIUM 8.9 mg/dL Normal 10/01/2023 8.5 - 10.1 [facility] AST (SGOT) 11.0 U/L Below low normal 10/01/2023 15 - 37 C [facility] GLOBULIN 3.8 g/dL Normal 10/01/2023 2.4 - 4.2 [facility] POTASSIUM SERUM 4.0 mmol/L Normal 10/01/2023 3.5 - 5.1 CT [facility] BUN 12.0 mg/dL Normal 10/01/2023 7 - 18 [facility] BILIRUBIN,TOTAL 0.6 mg/dL Normal 10/01/2023 0.2 - 1 [facility] ALBUMIN 2.7 g/dL Below low normal 10/01/2023 3.4 - 5 CT [facility] CO2 28.0 mmol/L Normal 10/01/2023 21 - 32 [facility] ALT (SGPT) 18.0 U/L Normal 10/01/2023 12 - 78 [facility] SODIUM 142.0 mmol/L Normal 10/01/2023 136 - 145 [facility] MH A/G RATIO 0.7 g/dL Normal 10/01/2023 [facility] PROTEIN, TOTAL 6.5 g/dL Normal 10/01/2023 6.4 - 8.2 [facility] ALKALINE PHOSPHATASE 113.0 U/L Normal 10/01/2023 50 - 136 [facility] CHLORIDE 107.0 mmol/L Normal 10/01/2023 98 - 107 [facility] MH GLUCOSE 109.0 mg/dL Above high normal 10/01/2023 74 - 100 [facility] PATIENT FASTING? YES Normal 10/01/2023 CT [facility] GFRE 146.0 Normal 10/01/2023 60 - [facility] PLATELET COUNT 317.0 K/uL Normal 10/01/2023 150 - 480 [facility] HGB 9.5 g/dL Below low normal 10/01/2023 12.1 - 15.7 [facility] RDW 16.3 % Above high normal 10/01/2023 11.1 - 13.3 [facility] MONOCYTES 5.0 % Normal 10/01/2023 0 - 12 [facility] ABSOLUTE IMMATURE GRANULOCYTES 0.1 K/uL Normal 10/01/2023 0 - 0.3 [facility] BASOPHILS 1.0 % Normal 10/01/2023 0 - 2 [facility] ABSOLUTE GRANULOCYTES 2.5 K/uL Normal 10/01/2023 2.2 - 7 .3 [facility] ABSOLUTE NUCLEATED RBC 0.0 K/uL Normal 10/01/2023 0 - 0.012 [facility] ABSOLUTE LYMPHS 2.2 K/uL Normal 10/01/2023 1.5 - 4.9 [facility] MCHC 29.1 g/dL Below low normal 10/01/2023 31 - 36 [facility] MPV 9.0 fL Normal 10/01/2023 8 - 12 [facility] ABSOLUTE MONOS 0.3 K/uL Normal 10/01/2023 0.2 - 1.5 [facility] HCT 32.6 % Below low normal 10/01/2023 36 - 46 [facility] RBC 3.88 M/uL Below low normal 10/01/2023 4 - 5.4 CT [facility] GRANULOCYTES 47.0 % Normal 10/01/2023 23 - 78 [facility] MH MCV 84.0 fL Normal 10/01/2023 83 - 102 [facility] ABSOLUTE BASO 0.0 K/uL Normal 10/01/2023 0 - 0.2 [facility] MMH LYMPHS 41.0 % Normal 10/01/2023 16 - 50 [facility] ABSOLUTE EOS 0.3 K/uL Normal 10/01/2023 0 - 0.7 [facility] MH WBC 5.3 K/uL Normal 10/01/2023 3.7 - 10.3 [facility] MCH 25.0 PG Below low normal 10/01/2023 27 - 34 [facility] NUCLEATED RBC 0.0 % Normal 10/01/2023 0 - 0.2 [facility] MMH IMMATURE GRANULOCYTES 1.0 % Above high normal 10/01/2023 0 - 0.45 [facility] EOSINOPHILS 5.0 % Normal 10/01/2023 0 - 6 [facility] GLUCOSE 100.0 mg/dL Normal 08/11/2023 74 - 100 [facility] BUN 10.0 mg/dL Normal 08/11/2023 7 - 18 [facility] CREATININE 0.3 mg/dL Below low normal 08/11/2023 0.55 - 1.3 [facility] CO2 24.0 mmol/L Normal 08/11/2023 21 - 32 [facility] CALCIUM 8.5 mg/dL Normal 08/11/2023 8.5 - 10.1 [facility] CHLORIDE 109.0 mmol/L Above high normal 08/11/2023 98 - 107 [facility] POTASSIUM SERUM 4.4 mmol/L Normal 08/11/2023 3.5 - 5.1 CT [facility] SODIUM 141.0 mmol/L Normal 08/11/2023 136 - 145 [facility] PATIENT FASTING? UNKNOWN Normal 08/11/2023 CT [facility] GFRE 263.0 Normal 08/11/2023 60 - [facility] FERRITIN 306.0 ng/mL Above high normal 08/11/2023 8 - 252 [facility] IRON 50.0 ug/dL Normal 08/11/2023 50 - 170 [facility] IRON BINDING CAPACITY,TOTAL 204.0 ug/dL Below low normal 08/11/2023 250 - 450 [facility] %SATURATION, IRON 25.0 % Normal 08/11/2023 20 - 55 C [facility] BASOPHILS 1.0 % Normal 08/11/2023 0 - 2 [facility] PLATELET COUNT 334.0 K/uL Normal 08/11/2023 150 - 480 [facility] RDW 14.3 % Above high normal 08/11/2023 11.1 - 13.3 [facility] RBC 3.53 M/uL Below low normal 08/11/2023 4 - 5.4 [facility] ABSOLUTE EOS 0.1 K/uL Normal 08/11/2023 0 - 0.7 [facility] MH WBC 5.4 K/uL Normal 08/11/2023 3.7 - 10.3 [facility] ABSOLUTE NUCLEATED RBC 0.0 K/uL Normal 08/11/2023 0 - 0.012 [facility] MONOCYTES 5.0 % Normal 08/11/2023 0 - 12 [facility] ABSOLUTE MONOS 0.3 K/uL Normal 08/11/2023 0.2 - 1.5 [facility] ABSOLUTE LYMPHS 2.1 K/uL Normal 08/11/2023 1.5 - 4.9 [facility] ABSOLUTE IMMATURE GRANULOCYTES 0.1 K/uL Normal 08/11/2023 0 - 0.3 [facility] HGB 8.9 g/dL Below low normal 08/11/2023 12.1 - 15.7 [facility] MCHC 30.7 g/dL Below low normal 08/11/2023 31 - 36 [facility] HCT 29.0 % Below low normal 08/11/2023 36 - 46 [facility] EOSINOPHILS 2.0 % Normal 08/11/2023 0 - 6 [facility] ABSOLUTE BASO 0.0 K/uL Normal 08/11/2023 0 - 0.2 [facility] MMH MCV 82.0 fL Below low normal 08/11/2023 83 - 102 [facility] MPV 9.0 fL Normal 08/11/2023 8 - 12 [facility] ABSOLUTE GRANULOCYTES 2.8 K/uL Normal 08/11/2023 2.2 - 7 .3 [facility] IMMATURE GRANULOCYTES 2.0 % Above high normal 08/11/2023 0 - 0.45 [facility] LYMPHS 38.0 % Normal 08/11/2023 16 - 50 [facility] MCH 25.0 PG Below low normal 08/11/2023 27 - 34 [facility] NUCLEATED RBC 0.0 % Normal 08/11/2023 0 - 0.2 [facility] MMH GRANULOCYTES 52.0 % Normal 08/11/2023 23 - 78 [facility] BLOOD CULTURE NO GROWTH AT 5 DAYS Normal 08/05/2023 [facility] PLATELET COUNT 375.0 K/uL Normal 07/31/2023 150 - 480 [facility] ABSOLUTE BASO 0.0 K/uL Normal 07/31/2023 0 - 0.2 [facility] MMH HGB 8.9 g/dL Below low normal 07/31/2023 12.1 - 15.7 [facility] EOSINOPHILS 1.0 % Normal 07/31/2023 0 - 6 [facility] ABSOLUTE GRANULOCYTES 4.2 K/uL Normal 07/31/2023 2.2 - 7 .3 [facility] RBC 3.53 M/uL Below low normal 07/31/2023 4 - 5.4 [facility] MCH 25.0 PG Below low normal 07/31/2023 27 - 34 [facility] ABSOLUTE MONOS 0.5 K/uL Normal 07/31/2023 0.2 - 1.5 [facility] LYMPHS 36.0 % Normal 07/31/2023 16 - 50 [facility] ABSOLUTE IMMATURE GRANULOCYTES 0.1 K/uL Normal 07/31/2023 0 - 0.3 [facility] ABSOLUTE LYMPHS 2.7 K/uL Normal 07/31/2023 1.5 - 4.9 [facility] MCHC 31.1 g/dL Normal 07/31/2023 31 - 36 [facility] ABSOLUTE EOS 0.1 K/uL Normal 07/31/2023 0 - 0.7 [facility] MH MONOCYTES 7.0 % Normal 07/31/2023 0 - 12 [facility] GRANULOCYTES 55.0 % Normal 07/31/2023 23 - 78 [facility] HCT 28.6 % Below low normal 07/31/2023 36 - 46 [facility] RDW 13.2 % Normal 07/31/2023 11.1 - 13.3 [facility] WBC 7.6 K/uL Normal 07/31/2023 3.7 - 10.3 [facility] MCV 81.0 fL Below low normal 07/31/2023 83 - 102 [facility] BASOPHILS 0.0 % Normal 07/31/2023 0 - 2 [facility] ABSOLUTE NUCLEATED RBC 0.0 K/uL Normal 07/31/2023 0 - 0.012 [facility] IMMATURE GRANULOCYTES 2.0 % Above high normal 07/31/2023 0 - 0.45 [facility] NUCLEATED RBC 0.0 % Normal 07/31/2023 0 - 0.2 [facility] MMH MPV 9.0 fL Normal 07/31/2023 8 - 12 [facility] GFRE 136.0 Normal 07/31/2023 60 - [facility] GLOBULIN 4.4 g/dL Above high normal 07/31/2023 2.4 - 4.2 C [facility] A/G RATIO 0.5 g/dL Normal 07/31/2023 [facility] BILIRUBIN,TOTAL 0.5 mg/dL Normal 07/31/2023 0.2 - 1 [facility] PROTEIN, TOTAL 6.7 g/dL Normal 07/31/2023 6.4 - [facility] 45.0 U/L Normal 07/31/2023 12 - 78 [facility] ALKALINE PHOSPHATASE 179.0 U/L Above high normal 07/31/2023 50 - 136 [facility] CREATININE 0.53 mg/dL Below low normal 07/31/2023 0.55 - 1.3 [facility] ALBUMIN 2.3 g/dL Below low normal 07/31/2023 3.4 - 5 CT [facility] CO2 26.0 mmol/L Normal 07/31/2023 21 - 32 [facility] AST (SGOT) 22.0 U/L Normal 07/31/2023 15 - 37 [facility] GLUCOSE 91.0 mg/dL Normal 07/31/2023 74 - 100 [facility] BUN 17.0 mg/dL Normal 07/31/2023 7 - 18 [facility] CALCIUM 8.6 mg/dL Normal 07/31/2023 8.5 - 10.1 [facility] POTASSI[facility]UM 4.1 mmol/L Normal 07/31/2023 3.5 - 5.1 CT [facility] CHLORIDE 104.0 mmol/L Normal 07/31/2023 98 - [facility] BUN/CREAT.RATIO 32.1 Normal 07/31/2023 [facility] SODIUM 137.0 mmol/L Normal 07/31/2023 136 - 145 [facility] PATIENT FASTING? NO Normal 07/31[facility] GROWTH AT 5 DAYS Normal 08/05/2023 [facility] GLYCOHEMOGLOBIN (A1C) 5.0 % Normal 05/28/2023 4 - 5.6 [facility] VITAMIN D (25-HYDROXY) 20.8 ng/mL Below low normal 05/28/2023 30 - 100 [facility] GFRE 161.0 Normal 05/28/2023 60 - [facility] VITAMIN B12 469.0 pg/mL Normal 05/28/2023 211 - 911 [facility] HDL 51.0 mg/dL Normal 05/28/2023 - [facility] CHOLESTEROL 169.0 mg/dL Normal 05/28/2023 - 200 [facility] LDL 93.0 Normal 05/28/2023 0 - 129 [facility] TRIGLYCERIDE 124.0 mg/dL Normal 05/28/2023 - 150 [facility] TSH 1.0 uIU/mL Normal 05/28/2023 0.35 - 4.5 [facility] CREATININE 0.46 mg/dL Below low normal 05/28/2023 0.55 - 1.3 [facility] ALKALINE PHOSPHATASE 107.0 U/L Normal 05/28/2023 50 - 136 [facility] SODIUM 142.0 mmol/L Normal 05/28/2023 136 - 145 [facility] MH GLOBULIN 3.8 g/dL Normal 05/28/2023 2.4 - 4.2 [facility] CALCIUM 8.8 mg/dL Normal 05/28/2023 8.5 - 10.1 [facility] BUN 17.0 mg/dL Normal 05/28/2023 7 - 18 [facility] CHLORIDE 110.0 mmol/L Above high normal 05/28/2023 98 - 107 [facility] ALT (SGPT) 31.0 U/L Normal 05/28/2023 12 - 78 [facility] GLUCOSE 95.0 mg/dL Normal 05/28/2023 74 - 100 [facility] BILIRUBIN,TOTAL 0.9 mg/dL Normal 05/28/2023 0.2 - 1 [facility] PROTEIN, TOTAL 7.3 g/dL Normal 05/28/2023 6.4 - 8.2 [facility] BUN/CREAT.RATIO 37.0 Normal 05/28/2023 [facility] A/G RATIO 0.9 g/dL Normal 05/28/2023 [facility] AST (SGOT) 17.0 U/L Normal 05/28/2023 15 - 37 [facility] CO2 25.0 mmol/L Normal 05/28/2023 21 - 32 [facility] POTASSIUM SERUM 4.0 mmol/L Normal 05/28/2023 3.5 - 5.1 CT [facility] ALBUMIN 3.5 g/dL Normal 05/28/2023 3.4 - 5 [facility] PATIENT FASTING? YES Normal 05/28/2023 CT [facility] ABSOLUTE BASO 0.0 K/uL Normal 05/28/2023 0 - 0.2 [facility] MMH HGB 12.1 g/dL Normal 05/28/2023 12.1 - 15.7 [facility] ABSOLUTE GRANULOCYTES 2.3 K/uL Normal 05/28/2023 2.2 - 7 .3 [facility] EOSINOPHILS 3.0 % Normal 05/28/2023 0 - 6 [facility] MCHC 31.0 g/dL Normal 05/28/2023 31 - 36 [facility] ABSOLUTE IMMATURE GRANULOCYTES 0.0 K/uL Normal 05/28/2023 0 - 0.3 [facility] PLATELET COUNT 247.0 K/uL Normal 05/28/2023 150 - 480 [facility] NUCLEATED RBC 0.0 % Normal 05/28/2023 0 - 0.2 [facility] MMH LYMPHS 45.0 % Normal 05/28/2023 16 - 50 [facility] ABSOLUTE MONOS 0.3 K/uL Normal 05/28/2023 0.2 - 1.5 [facility] ABSOLUTE EOS 0.2 K/uL Normal 05/28/2023 0 - 0.7 [facility] MH MONOCYTES 6.0 % Normal 05/28/2023 0 - 12 [facility] BASOPHILS 0.0 % Normal 05/28/2023 0 - 2 [facility] RDW 13.6 % Above high normal 05/28/2023 11.1 - 13.3 [facility] GRANULOCYTES 45.0 % Normal 05/28/2023 23 - 78 [facility] MH WBC 5.1 K/uL Normal 05/28/2023 3.7 - 10.3 [facility] ABSOLUTE NUCLEATED RBC 0.0 K/uL Normal 05/28/2023 0 - 0.012 [facility] MCH 27.0 PG Normal 05/28/2023 27 - 34 [facility] IMMATURE GRANULOCYTES 0.0 % Normal 05/28/2023 0 - 0.4 5 [facility] HCT 39.0 % Normal 05/28/2023 36 - 46 [facility] ABSOLUTE LYMPHS 2.3 K/uL Normal 05/28/2023 1.5 - 4.9 [facility] MPV 10.0 fL Normal 05/28/2023 8 - 12 [facility] RBC 4.47 M/uL Normal 05/28/2023 4 - 5.4 [facility] MCV 87.0 fL Normal 05/28/2023 83 - 102 [facility] CREATININE 0.5 mg/dL Below low normal 03/28/2023 0.55 - 1.3 [facility] GLUCOSE 94.0 mg/dL Normal 03/28/2023 74 - 100 [facility] BUN 21.0 mg/dL Above high normal 03/28/2023 7 - 18 [facility] CHLORIDE 106.0 mmol/L Normal 03/28/2023 98 - 107 [facility] MH CO2 29.0 mmol/L Normal 03/28/2023 21 - 32 [facility] SODIUM 141.0 mmol/L Normal 03/28/2023 136 - 145 [facility] MH CALCIUM 8.9 mg/dL Normal 03/28/2023 8.5 - 10.1 [facility] POTASSIUM SERUM 4.4 mmol/L Normal 03/28/2023 3.5 - 5.1 CT [facility] PATIENT FASTING? UNKNOWN Normal 03/28/2023 CT [facility] GFRE 146.0 Normal 03/28/2023 60 - [facility] NUCLEATED RBC 0.0 % Normal 03/28/2023 0 - 0.2 [facility] MMH RDW 14.3 % Above high normal 03/28/2023 11.1 - 13.3 [facility] MCH 27.0 PG Normal 03/28/2023 27 - 34 [facility] ABSOLUTE BASO 0.0 K/uL Normal 03/28/2023 0 - 0.2 [facility] MMH ABSOLUTE NUCLEATED RBC 0.0 K/uL Normal 03/28/2023 0 - 0.012 [facility] ABSOLUTE EOS 0.3 K/uL Normal 03/28/2023 0 - 0.7 [facility] MH WBC 5.0 K/uL Normal 03/28/2023 3.7 - 10.3 [facility] LYMPHS 54.0 % Above high normal 03/28/2023 16 - 50 C [facility] HCT 30.5 % Below low normal 03/28/2023 36 - 46 [facility] MONOCYTES 7.0 % Normal 03/28/2023 0 - 12 [facility] RBC 3.46 M/uL Below low normal 03/28/2023 4 - 5.4 CT [facility] GRANULOCYTES 32.0 % Normal 03/28/2023 23 - 78 [facility] MH ABSOLUTE MONOS 0.3 K/uL Normal 03/28/2023 0.2 - 1.5 [facility] HGB 9.4 g/dL Below low normal 03/28/2023 12.1 - 15.7 [facility] MCHC 30.8 g/dL Below low normal 03/28/2023 31 - 36 CT [facility] MPV 10.0 fL Normal 03/28/2023 8 - 12 [facility] IMMATURE GRANULOCYTES 1.0 % Above high normal 03/28/2023 0 - 0.45 [facility] ABSOLUTE GRANULOCYTES 1.6 K/uL Below low normal 03/28/2023 2.2 - 7.3 [facility] ABSOLUTE LYMPHS 2.7 K/uL Normal 03/28/2023 1.5 - 4.9 [facility] EOSINOPHILS 6.0 % Normal 03/28/2023 0 - 6 [facility] H ABSOLUTE IMMATURE GRANULOCYTES 0.1 K/uL Normal 03/28/2023 0 - 0.3 [facility] MCV 88.0 fL Normal 03/28/2023 83 - 102 [facility] BASOPHILS 0.0 % Normal 03/28/2023 0 - 2 [facility] PLATELET COUNT 231.0 K/uL Normal 03/28/2023 150 - 480 [facility] CREATININE 0.52 mg/dL Below low normal 03/10/2023 0.55 - 1.3 [facility] SODIUM 137.0 mmol/L Normal 03/10/2023 136 - 145 [facility] MH ALT (SGPT) 35.0 U/L Normal 03/10/2023 12 - 78 [facility] CALCIUM 9.6 mg/dL Normal 03/10/2023 8.5 - 10.1 [facility] CHLORIDE 102.0 mmol/L Normal 03/10/2023 98 - 107 [facility] MH A/G RATIO 0.9 g/dL Normal 03/10/2023 [facility] ALBUMIN 3.5 g/dL Normal 03/10/2023 3.4 - 5 [facility] GLUCOSE 92.0 mg/dL Normal 03/10/2023 74 - 100 [facility] GLOBULIN 4.1 g/dL Normal 03/10/2023 2.4 - [facility] POTAS[facility]UM SERUM 4.4 mmol/L Normal 03/10/2023 3.5 - 5.1 CT [facility] ALKALINE PHOSPHATASE 99.0 U/L Normal 03/10/2023 50 - 136 [facility] BUN/CREAT.RATIO 32.7 Normal 03/10/2023 [facility] BUN 17.0 mg/dL Normal 03/10/2023 7 - [facility] 30.0 mmol/L Normal 03/10/2023 21 - [facility] AST (SGOT) 19.0 U/L Normal 03/10/2023 15 - 37 [facility] BILIRUBIN,TOTAL 0.7 mg/dL Normal 03/10/2023 0.2 - 1 [facility] PROTEIN, TOTAL 7.6 g/dL Normal 03/10/2023 6.4 - 8.2 [facility] PATIENT FASTING? UNKNOWN Normal 03/10/2023 CT [facility] GFRE 140.0 Normal 03/10/2023 60 - [facility] PLATELET COUNT 303.0 K/uL Normal 03/10/2023 150 - 480 [facility] ABSOLUTE MONOS 0.4 K/uL Normal 03/10/2023 0.2 - 1.5 [facility] ABSOLUTE NUCLEATED RBC 0.0 K/uL Normal 03/10/2023 0 - 0.012 [facility] HCT 33.6 % Below low normal 03/10/2023 36 - [facility] ABSOLUTE BASO 0.1 K/uL Normal 03/10/2023 0 - 0.2 [facility] HGB 10.5 g/dL Below low normal 03/10/2023 12.1 - 15.7 [facility] ABSOLUTE LYMPHS 2.4 K/uL Normal 03/10/2023 1.5 - 4.9 [facility] GRANULOCYTES 37.0 % Normal 03/10/2023 23 - 78 [facility] MH MCV 87.0 fL Normal 03/10/2023 83 - 102 [facility] ABSOLUTE EOS 0.2 K/uL Normal 03/10/2023 0 - 0.7 [facility] MH MONOCYTES 9.0 % Normal 03/10/2023 0 - 12 [facility] RBC 3.85 M/uL Below low normal 03/10/2023 4 - 5.4 CT [facility] MPV 9.0 fL Normal 03/10/2023 8 - 12 [facility] EOSINOPHILS 4.0 % Normal 03/10/2023 0 - 6 [facility] H BASOPHILS 1.0 % Normal 03/10/2023 0 - 2 [facility] IMMATURE GRANULOCYTES 2.0 % Above high normal 03/10/2023 0 - 0.45 [facility] WBC 5.0 K/uL Normal 03/10/2023 3.7 - 10.3 [facility] LYMPHS 48.0 % Normal 03/10/2023 16 - 50 [facility] MCH 27.0 PG Normal 03/10/2023 27 - 34 [facility] ABSOLUTE GRANULOCYTES 1.9 K/uL Below low normal 03/10/2023 2.2 - 7.3 [facility] MCHC 31.3 g/dL Normal 03/10/2023 31 - 36 [facility] NUCLEATED RBC 0.0 % Normal 03/10/2023 0 - 0.2 [facility] MMH RDW 13.7 % Above high normal 03/10/2023 11.1 - 13.3 [facility] ABSOLUTE IMMATURE GRANULOCYTES 0.1 K/uL Normal 03/10/2023 0 - 0.3 [facility] SED RATE 23.0 MM/HR Above high normal 02/17/2023 0 - 20 [facility] EOSINOPHILS 3.0 % Normal 02/17/2023 0 - 6 [facility] H HGB 11.6 g/dL Below low normal 02/17/2023 12.1 - 15.7 [facility] BASOPHILS 1.0 % Normal 02/17/2023 0 - 2 [facility] ABSOLUTE LYMPHS 2.3 K/uL Normal 02/17/2023 1.5 - 4.9 [facility] MONOCYTES 6.0 % Normal 02/17/2023 0 - 12 [facility] MCH 28.0 PG Normal 02/17/2023 27 - 34 [facility] ABSOLUTE BASO 0.0 K/uL Normal 02/17/2023 0 - 0.2 [facility] MMH RDW 12.9 % Normal 02/17/2023 11.1 - 13.3 [facility] H ABSOLUTE IMMATURE GRANULOCYTES 0.1 K/uL Normal 02/17/2023 0 - 0.3 [facility] MCHC 30.7 g/dL Below low normal 02/17/2023 31 - 36 CT [facility] NUCLEATED RBC 0.0 % Normal 02/17/2023 0 - 0.2 [facility] MMH ABSOLUTE NUCLEATED RBC 0.0 K/uL Normal 02/17/2023 0 - 0.012 [facility] ABSOLUTE MONOS 0.3 K/uL Normal 02/17/2023 0.2 - 1.5 [facility] RBC 4.22 M/uL Normal 02/17/2023 4 - 5.4 [facility] HCT 37.8 % Normal 02/17/2023 36 - 46 [facility] ABSOLUTE GRANULOCYTES 1.6 K/uL Below low normal 02/17/2023 2.2 - 7.3 [facility] ABSOLUTE EOS 0.1 K/uL Normal 02/17/2023 0 - 0.7 [facility] MPV 9.0 fL Normal 02/17/2023 8 - 12 [facility] LYMPHS 53.0 % Above high normal 02/17/2023 16 - 50 [facility] MCV 90.0 fL Normal 02/17/2023 83 - 102 [facility] GRANULOCYTES 37.0 % Normal 02/17/2023 23 - 78 [facility] PLATELET COUNT 233.0 K/uL Normal 02/17/2023 150 - 480 [facility] IMMATURE GRANULOCYTES 1.0 % Above high normal 02/17/2023 0 - 0.45 [facility] WBC 4.4 K/uL Normal 02/17/2023 3.7 - 10.3 [facility] C-REACTIVE PROTEIN < 0.3 Normal 02/17/2023 - 1 [facility] RBC 20.0 /HPF Above high normal 02/09/2023 0 - 0 [facility] WBC > 50 Above high normal 02/09/2023 0 - 0 C [facility] BACTERIA 4+ Critically abnormal 02/09/2023 - [facility] CRYSTALS 3+ CALCIUM OXALATE Normal 02/09/2023 [facility] EPI CELLS 1+ Normal 02/09/2023 [facility] PROTEIN Negative Normal 02/09/2023 - [facility] BLOOD Moderate Critically abnormal 02/09/2023 - [facility] LEUK. ESTERASE Large Critically abnormal 02/09/2023 - [facility] BILIRUBIN Negative Normal 02/09/2023 - [facility] NITRITE Positive Critically abnormal 02/09/2023 - [facility] SPECIFIC GRAVITY 1.02 Normal 02/09/2023 1.005 - 1.03 [facility] APPEARANCE Turbid Normal 02/09/2023 - [facility] UROBILINOGEN 0.2 mg/dL Normal 02/09/2023 - [facility] COL[facility] Yellow Normal 02/09/2023 - [facility] KETONES Negative Normal 02/09/2023 - [facility] PH 5.5 Normal 02/09/2023 5 - 8 [facility] GLUCOSE Negative Normal 02/09/2023 - [facility] Sodium SerPl-sCnc 137.0 mmol/L Normal 12/01/2022 136 - 14 4 [facility] BUN/Creat SerPl 25.7 Above high normal 12/01/2022 8 - 2 3 [facility] Creat SerPl-mCnc 0.7 mg/dL Normal 12/01/2022 0.4 - 1.3 [facility] Chloride SerPl-sCnc 101.0 mmol/L Normal 12/01/2022 98 - 1 07 [facility] Glucose SerPl-mCnc 103.0 mg/dL Above high normal 12/01/2022 70 - 100 [facility] HCO3 SerPl-sCnc 26.0 mmol/L Normal 12/01/2022 20 - 30 [facility] Anion Gap3 SerPl-sCnc 10.0 Normal 12/01/2022 7 - 17 [facility] Potassium SerPl-sCnc 4.1 mmol/L Normal 12/01/2022 3.3 - 5 .3 [facility] BUN SerPl-mCnc 18.0 mg/dL Normal 12/01/2022 6 - 20 [facility] GFR/BSA.pred SerPlBld FDZ-[id number]-[id number] >60.0 mL/min/1.73m2 Normal 12/01/2022 - [facility] Calcium SerPl-mCnc 9.0 mg/dL Normal 12/01/2022 8.8 - 10.2 [facility] RDW RBC Auto-Rto 14.9 % Normal 12/01/2022 11 - 15 [facility] Eosinophil/leuk NFr Bld Auto 3.5 % Normal 12/01/2022 0 - 5 [facility] Monocytes/leuk NFr Bld Auto 9.6 % Normal 12/01/2022 4 - 12 [facility] Lymphocytes # Bld Auto 1.51 x 1000/uL Normal 12/01/2022 0.6 - 3.7 [facility] BKR WAM BASOPHIL ABSOLUTE COUNT. 0.02 x 1000/uL Normal 12/01/2022 0 - 1 [facility] Hgb Bld-mCnc 9.8 g/dL Below low normal 12/01/2022 11.7 - 15 .5 [facility] Eosinophil # Bld Auto 0.12 x 1000/uL Normal 12/01/2022 0 - 1 [facility] nRBC # Bld Auto 0.0 x 1000/uL Normal 12/01/2022 0 - 1 [facility] RBC # Bld Auto 3.47 M/uL Below low normal 12/01/2022 4 - 6 [facility] Lymphocytes/leuk NFr Bld Auto 44.2 % Normal 12/01/2022 17 - 50 [facility] nRBC/100 WBC Bld Auto-Rto 0.0 % Normal 12/01/2022 0 - 1 [facility] Neutrophils/leuk NFr Bld Auto 40.6 % Normal 12/01/2022 39 - 72 [facility] Monocytes # Bld Auto 0.33 x 1000/uL Normal 12/01/2022 0 - 1 [facility] WBC # Bld Auto 3.4 x1000/uL Below low normal 12/01/2022 4 - 11 [facility] Basophils/leuk NFr Bld Auto 0.6 % Normal 12/01/2022 0 - 1.4 [facility] Imm Granulocytes # Bld Auto 0.05 x 1000/uL Normal 12/01/2022 0 - 0.3 [facility] MCV RBC Auto 87.9 fL Normal 12/01/2022 80 - [address] [facility] Imm Granulocytes/leuk NFr Bld Auto 1.5 % Above high normal 12/01/2022 0 - 1 [facility] Hct VFr Bld Auto 30.5 % Below low normal 12/01/2022 35 - 45 [facility] PMV Bld Auto 8.1 fL Normal 12/01/2022 8 - [address] [facility] [address] Platelet # Bld Auto 249.0 x1000/uL Normal 12/01/2022 150 - 420 [facility] MCHC RBC Auto-mCnc 32.1 g/dL Normal 12/01/2022 31 - 36 [facility] MCH RBC Qn Auto 28.2 pg Normal 12/01/2022 27 - 33 [facility] Neutrophils # Bld Auto 1.39 x 1000/uL Below low normal 12/01/2022 2 - 7.6 [facility] BKR REFLEX URINE CULTURE See Comment Normal 11/29/2022 [facility] BKR RBC/HPF INSTRUMENT 1.0 /HPF Normal 11/29/2022 0 - 2 [facility] BKR URINE SQUAMOUS EPITHELIAL CELLS, UA (NUMERIC) 1.0 /HPF Normal 11/29/2022 0 - 5 [facility] BKR BACTERIA, UA Moderate Abnormal 11/29/2022 - [facility] BKR WBC/HPF INSTRUMENT 10.0 /HPF Above high normal 11/29/2022 0 - 5 [facility] Color Ur Auto Yellow Normal 11/29/2022 - [facility] Bilirub Ur Ql Strip.auto Negative Normal 11/29/2022 - [facility] Nitrite Ur Ql Strip.auto Positive Abnormal 11/29/2022 - [facility] Hgb Ur Ql Strip.auto Negative Normal 11/29/2022 - [facility] Ketones Ur Strip.auto-mCnc Negative Normal 11/29/2022 - [facility] Prot Ur Strip.auto-mCnc Negative Normal 11/29/2022 - [facility] Glucose Ur Strip.auto-mCnc Negative Normal 11/29/2022 - [facility] Clarity Ur Refract.auto Cloudy Abnormal 11/29/2022 - [facility] Sp Gr Ur Refract.auto 1.021 Normal 11/29/2022 1.0 05 - 1.03 [facility] Urobilinogen Ur Strip-mCnc >12.0 mg/dL Above high normal 11/29/2022 - [facility] WBC # Ur Strip 3+ Abnormal 11/29/2022 - [facility] pH Ur Strip.auto 6.5 Normal 11/29/2022 5.5 - 7.5 [facility] Chloride SerPl-sCnc 100.0 mmol/L Normal 11/28/2022 98 - 1 07 [facility] Sodium SerPl-sCnc 136.0 mmol/L Normal 11/28/2022 136 - 14 4 [facility] Anion Gap3 SerPl-sCnc 10.0 Normal 11/28/2022 7 - 17 [facility] BUN/Creat SerPl 30.0 Above high normal 11/28/2022 8 - 2 3 [facility] Calcium SerPl-mCnc 9.2 mg/dL Normal 11/28/2022 8.8 - 10.2 [facility] Glucose SerPl-mCnc 97.0 mg/dL Normal 11/28/2022 70 - 100 [facility] GFR/BSA.pred SerPlBld VUM-ZHS-WbMGox >60.0 mL/min/1.73m2 Normal 11/28/2022 - [facility] HCO3 SerPl-sCnc 26.0 mmol/L Normal 11/28/2022 20 - 30 [facility] BUN SerPl-mCnc 18.0 mg/dL Normal 11/28/2022 6 - 20 [facility] Creat SerPl-mCnc 0.6 mg/dL Normal 11/28/2022 0.4 - 1.3 [facility] Potassium SerPl-sCnc 4.2 mmol/L Normal 11/28/2022 3.3 - 5 .3 [facility] Phosphate SerPl-mCnc 4.3 mg/dL Normal 11/28/2022 2.2 - 4. 5 [facility] Magnesium SerPl-mCnc 2.2 mg/dL Normal 11/28/2022 1.7 - 2. 4 [facility] Hgb Bld-mCnc 9.7 g/dL Below low normal 11/28/2022 11.7 - 15 .5 [facility] WBC # Bld Auto 4.1 x1000/uL Normal 11/28/2022 4 - 11 [facility] MCHC RBC Auto-mCnc 31.7 g/dL Normal 11/28/2022 31 - 36 [facility] RDW RBC Auto-Rto 15.2 % Above high normal 11/28/2022 11 - 15 [facility] PMV Bld Auto 8.3 fL Normal 11/28/2022 8 - [address] [facility] [address] RBC # Bld Auto 3.42 M/uL Below low normal 11/28/2022 4 - 6 [facility] MCH RBC Qn Auto 28.4 pg Normal 11/28/2022 27 - 33 [facility] Platelet # Bld Auto 324.0 x1000/uL Normal 11/28/2022 150 - 420 [facility] Hct VFr Bld Auto 30.6 % Below low normal 11/28/2022 35 - 45 [facility] MCV RBC Auto 89.5 fL Normal 11/28/2022 80 - [address] [facility] [address] Neutrophils # Bld Auto 2.04 x 1000/uL Normal 11/28/2022 2 - 7.6 [facility] BKR BACTERIA, UA Rare Normal 11/26/2022 - [facility] BKR WBC/HPF INSTRUMENT 42.0 /HPF Above high normal 11/26/2022 0 - 5 [facility] BKR RBC/HPF INSTRUMENT 3.0 /HPF Above high normal 11/26/2022 0 - 2 [facility] WBC # Ur Strip 4+ Abnormal 11/26/2022 - [facility] Nitrite Ur Ql Strip.auto Negative Normal 11/26/2022 - [facility] Prot Ur Strip.auto-mCnc Negative Normal 11/26/2022 - [facility] Clarity Ur Refract.auto Clear Normal 11/26/2022 - [facility] Bilirub Ur Ql Strip.auto Negative Normal 11/26/2022 - [facility] Glucose Ur Strip.auto-mCnc Negative Normal 11/26/2022 - [facility] Sp Gr Ur Refract.auto 1.008 Normal 11/26/2022 1.0 05 - 1.03 [facility] pH Ur Strip.auto 6.0 Normal 11/26/2022 5.5 - 7.5 [facility] Urobilinogen Ur Strip-mCnc 6.0 mg/dL Above high normal 11/26/2022 - [facility] Hgb Ur Ql Strip.auto Negative Normal 11/26/2022 - [facility] Color Ur Auto Yellow Normal 11/26/2022 - [facility] Ketones Ur Strip.auto-mCnc Negative Normal 11/26/2022 - [facility] Chloride SerPl-sCnc 100.0 mmol/L Normal 11/26/2022 98 - 1 07 [facility] Potassium SerPl-sCnc 4.2 mmol/L Normal 11/26/2022 3.3 - 5 .3 [facility] Creat SerPl-mCnc 0.7 mg/dL Normal 11/26/2022 0.4 - 1.3 [facility] Calcium SerPl-mCnc 9.6 mg/dL Normal 11/26/2022 8.8 - 10.2 [facility] BUN SerPl-mCnc 15.0 mg/dL Normal 11/26/2022 6 - 20 [facility] Anion Gap3 SerPl-sCnc 12.0 Normal 11/26/2022 7 - 17 [facility] BUN/Creat SerPl 21.4 Normal 11/26/2022 8 - 23 [facility] Sodium SerPl-sCnc 136.0 mmol/L Normal 11/26/2022 136 - 14 4 [facility] GFR/BSA.pred SerPlBld SDM-DWP-JiVBhz >60.0 mL/min/1.73m2 Normal 11/26/2022 - [facility] HCO3 SerPl-sCnc 24.0 mmol/L Normal 11/26/2022 20 - 30 [facility] Glucose SerPl-mCnc 93.0 mg/dL Normal 11/26/2022 70 - 100 [facility] Basophils/leuk NFr Bld Auto 1.1 % Normal 11/26/2022 0 - 1.4 [facility] nRBC # Bld Auto 0.0 x 1000/uL Normal 11/26/2022 0 - 1 [facility] PMV Bld Auto 8.4 fL Normal 11/26/2022 8 - [address] [facility] MCH RBC Qn Auto 28.3 pg Normal 11/26/2022 27 - 33 [facility] BKR WAM BASOPHIL ABSOLUTE COUNT. 0.06 x 1000/uL Normal 11/26/2022 0 - 1 [facility] Hct VFr Bld Auto 33.7 % Below low normal 11/26/2022 35 - 45 [facility] WBC # Bld Auto 5.4 x1000/uL Normal 11/26/2022 4 - 11 [facility] MCHC RBC Auto-mCnc 32.3 g/dL Normal 11/26/2022 31 - 36 [facility] Platelet # Bld Auto 382.0 x1000/uL Normal 11/26/2022 150 - 420 [facility] nRBC/100 WBC Bld Auto-Rto 0.0 % Normal 11/26/2022 0 - 1 [facility] RBC # Bld Auto 3.85 M/uL Below low normal 11/26/2022 4 - 6 [facility] Hgb Bld-mCnc 10.9 g/dL Below low normal 11/26/2022 11.7 - 15 .5 [facility] RDW RBC Auto-Rto 15.0 % Normal 11/26/2022 11 - 15 [facility] Lymphocytes/leuk NFr Bld Auto 27.2 % Normal 11/26/2022 17 - 50 [facility] MCV RBC Auto 87.5 fL Normal 11/26/2022 80 - [address] [facility] Lymphocytes # Bld Auto 1.48 x 1000/uL Normal 11/26/2022 0.6 - 3.7 [facility] Neutrophils # Bld Auto 3.17 x 1000/uL Normal 11/26/2022 2 - 7.6 [facility] Imm Granulocytes # Bld Auto 0.22 x 1000/uL Normal 11/26/2022 0 - 0.3 [facility] Eosinophil # Bld Auto 0.18 x 1000/uL Normal 11/26/2022 0 - 1 [facility] Imm Granulocytes/leuk NFr Bld Auto 4.0 % Above high normal 11/26/2022 0 - 1 [facility] Monocytes/leuk NFr Bld Auto 6.1 % Normal 11/26/2022 4 - 12 [facility] Monocytes # Bld Auto 0.33 x 1000/uL Normal 11/26/2022 0 - 1 [facility] Eosinophil/leuk NFr Bld Auto 3.3 % Normal 11/26/2022 0 - 5 [facility] Neutrophils/leuk NFr Bld Auto 58.3 % Normal 11/26/2022 39 - 72 [facility] Phosphate SerPl-mCnc 4.4 mg/dL Normal 11/24/2022 2.2 - 4. 5 [facility] Magnesium SerPl-mCnc 2.3 mg/dL Normal 11/24/2022 1.7 - 2. 4 [facility] Chloride SerPl-sCnc 98.0 mmol/L Normal 11/24/2022 98 - 10 7 [facility] Calcium SerPl-mCnc 9.3 mg/dL Normal 11/24/2022 8.8 - 10.2 [facility] BUN/Creat SerPl 30.0 Above high normal 11/24/2022 8 - 2 3 [facility] Glucose SerPl-mCnc 100.0 mg/dL Normal 11/24/2022 70 - 100 [facility] BUN SerPl-mCnc 18.0 mg/dL Normal 11/24/2022 6 - 20 [facility] HCO3 SerPl-sCnc 25.0 mmol/L Normal 11/24/2022 20 - 30 [facility] GFR/BSA.pred SerPlBld NLX-JVY-BfFAtx >60.0 mL/min/1.73m2 Normal 11/24/2022 - [facility] Creat SerPl-mCnc 0.6 mg/dL Normal 11/24/2022 0.4 - 1.3 [facility] Anion Gap3 SerPl-sCnc 12.0 Normal 11/24/2022 7 - 17 [facility] Potassium SerPl-sCnc 3.8 mmol/L Normal 11/24/2022 3.3 - 5 .3 [facility] Sodium SerPl-sCnc 135.0 mmol/L Below low normal 11/24/2022 1 36 - 144 [facility] Ammonia Plas-sCnc <10.0 umol/L Below low normal 11/23/2022 1 1 - 35 [facility] Vit B12 SerPl-mCnc 1215.0 pg/mL Normal 11/23/2022 232 - 1 245 [facility] Sodium SerPl-sCnc 133.0 mmol/L Below low normal 11/23/2022 1 36 - 144 [facility] Potassium SerPl-sCnc 4.7 mmol/L Normal 11/23/2022 3.3 - 5 .3 [facility] Creat SerPl-mCnc 0.6 mg/dL Normal 11/23/2022 0.4 - 1.3 [facility] Calcium SerPl-mCnc 9.2 mg/dL Normal 11/23/2022 8.8 - 10.2 [facility] Chloride SerPl-sCnc 97.0 mmol/L Below low normal 11/23/2022 98 - 107 [facility] HCO3 SerPl-sCnc 24.0 mmol/L Normal 11/23/2022 20 - 30 [facility] Anion Gap3 SerPl-sCnc 12.0 Normal 11/23/2022 7 - 17 [facility] BUN SerPl-mCnc 17.0 mg/dL Normal 11/23/2022 6 - 20 [facility] Glucose SerPl-mCnc 109.0 mg/dL Above high normal 11/23/2022 70 - 100 [facility] BUN/Creat SerPl 28.3 Above high normal 11/23/2022 8 - 2 3 [facility] GFR/BSA.pred SerPlBld WPW-OVP-WpJRhr >60.0 mL/min/1.73m2 Normal 11/23/2022 - [facility] Potassium SerPl-sCnc 4.9 mmol/L Normal 11/22/2022 3.3 - 5 .3 [facility] BUN SerPl-mCnc 17.0 mg/dL Normal 11/22/2022 6 - 20 [facility] Creat SerPl-mCnc 0.5 mg/dL Normal 11/22/2022 0.4 - 1.3 [facility] Chloride SerPl-sCnc 94.0 mmol/L Below low normal 11/22/2022 98 - 107 [facility] GFR/BSA.pred SerPlBld XUG-SKF-BhNHyv >60.0 mL/min/1.73m2 Normal 11/22/2022 - [facility] HCO3 SerPl-sCnc 24.0 mmol/L Normal 11/22/2022 20 - 30 [facility] Sodium SerPl-sCnc 132.0 mmol/L Below low normal 11/22/2022 1 36 - 144 [facility] Calcium SerPl-mCnc 9.4 mg/dL Normal 11/22/2022 8.8 - 10.2 [facility] Glucose SerPl-mCnc 109.0 mg/dL Above high normal 11/22/2022 70 - 100 [facility] BUN/Creat SerPl 34.0 Above high normal 11/22/2022 8 - 2 3 [facility] Anion Gap3 SerPl-sCnc 14.0 Normal 11/22/2022 7 - 17 [facility] Phosphate SerPl-mCnc 4.1 mg/dL Normal 11/21/2022 2.2 - 4. 5 [facility] Glucose SerPl-mCnc 102.0 mg/dL Above high normal 11/21/2022 70 - 100 [facility] Sodium SerPl-sCnc 132.0 mmol/L Below low normal 11/21/2022 1 36 - 144 [facility] BUN/Creat SerPl 26.7 Above high normal 11/21/2022 8 - 2 3 [facility] GFR/BSA.pred SerPlBld ZES-NLH-WdPFhv >60.0 mL/min/1.73m2 Normal 11/21/2022 - [facility] Chloride SerPl-sCnc 97.0 mmol/L Below low normal 11/21/2022 98 - 107 [facility] Anion Gap3 SerPl-sCnc 9.0 Normal 11/21/2022 7 - 17 [facility] Calcium SerPl-mCnc 8.8 mg/dL Normal 11/21/2022 8.8 - 10.2 [facility] Creat SerPl-mCnc 0.6 mg/dL Normal 11/21/2022 0.4 - 1.3 [facility] HCO3 SerPl-sCnc 26.0 mmol/L Normal 11/21/2022 20 - 30 [facility] BUN SerPl-mCnc 16.0 mg/dL Normal 11/21/2022 6 - 20 [facility] Potassium SerPl-sCnc 4.7 mmol/L Normal 11/21/2022 3.3 - 5 .3 [facility] Magnesium SerPl-mCnc 2.2 mg/dL Normal 11/21/2022 1.7 - 2. 4 [facility] Potassium SerPl-sCnc 4.7 mmol/L Normal 11/20/2022 3.3 - 5 .3 [facility] Glucose SerPl-mCnc 115.0 mg/dL Above high normal 11/20/2022 70 - 100 [facility] BUN/Creat SerPl 21.7 Normal 11/20/2022 8 - 23 [facility] Anion Gap3 SerPl-sCnc 10.0 Normal 11/20/2022 7 - 17 [facility] HCO3 SerPl-sCnc 25.0 mmol/L Normal 11/20/2022 20 - 30 [facility] Creat SerPl-mCnc 0.6 mg/dL Normal 11/20/2022 0.4 - 1.3 [facility] Calcium SerPl-mCnc 8.9 mg/dL Normal 11/20/2022 8.8 - 10.2 [facility] BUN SerPl-mCnc 13.0 mg/dL Normal 11/20/2022 6 - 20 [facility] Sodium SerPl-sCnc 134.0 mmol/L Below low normal 11/20/2022 1 36 - 144 [facility] GFR/BSA.pred SerPlBld OXZ-XOB-UtSCuo >60.0 mL/min/1.73m2 Normal 11/20/2022 - [facility] Chloride SerPl-sCnc 99.0 mmol/L Normal 11/20/2022 98 - 10 7 [facility] Phosphate SerPl-mCnc 3.5 mg/dL Normal 11/20/2022 2.2 - 4. 5 [facility] Magnesium SerPl-mCnc 2.0 mg/dL Normal 11/20/2022 1.7 - 2. 4 [facility] MCV RBC Auto 88.1 fL Normal 11/20/2022 80 - [address] Hct VFr Bld Auto 29.6 % Below low normal 11/20/2022 35 - 45 [facility] Neutrophils # Bld Auto 6.36 x 1000/uL Normal 11/20/2022 2 - 7.6 [facility] WBC # Bld Auto 9.3 x1000/uL Normal 11/20/2022 4 - 11 [facility] RBC # Bld Auto 3.36 M/uL Below low normal 11/20/2022 4 - 6 [facility] RDW RBC Auto-Rto 15.4 % Above high normal 11/20/2022 11 - 15 [facility] Platelet # Bld Auto 278.0 x1000/uL Normal 11/20/2022 150 - 420 [facility] PMV Bld Auto 9.8 fL Normal 11/20/2022 8 - [address] [facility] MCH RBC Qn Auto 28.6 pg Normal 11/20/2022 27 - 33 [facility] Hgb Bld-mCnc 9.6 g/dL Below low normal 11/20/2022 11.7 - 15 .5 [facility] MCHC RBC Auto-mCnc 32.4 g/dL Normal 11/20/2022 31 - 36 [facility] HCO3 SerPl-sCnc 24.0 mmol/L Normal 11/19/2022 20 - 30 [facility] Anion Gap3 SerPl-sCnc 10.0 Normal 11/19/2022 7 - 17 [facility] Sodium SerPl-sCnc 136.0 mmol/L Normal 11/19/2022 136 - 14 4 [facility] Calcium SerPl-mCnc 8.3 mg/dL Below low normal 11/19/2022 8.8 - 10.2 [facility] Creat SerPl-mCnc 0.5 mg/dL Normal 11/19/2022 0.4 - 1.3 [facility] BUN/Creat SerPl 22.0 Normal 11/19/2022 8 - 23 [facility] Glucose SerPl-mCnc 102.0 mg/dL Above high normal 11/19/2022 70 - 100 [facility] Potassium SerPl-sCnc 4.3 mmol/L Normal 11/19/2022 3.3 - 5 .3 [facility] BUN SerPl-mCnc 11.0 mg/dL Normal 11/19/2022 6 - 20 [facility] Chloride SerPl-sCnc 102.0 mmol/L Normal 11/19/2022 98 - 1 07 [facility] GFR/BSA.pred SerPlBld VHR-RSF-OfXLsk >60.0 mL/min/1.73m2 Normal 11/19/2022 - [facility] Phosphate SerPl-mCnc 3.8 mg/dL Normal 11/19/2022 2.2 - 4. 5 [facility] Magnesium SerPl-mCnc 2.1 mg/dL Normal 11/19/2022 1.7 - 2. 4 [facility] PMV Bld Auto 10.2 fL Normal 11/19/2022 8 - [address] Platelet # Bld Auto 234.0 x1000/uL Normal 11/19/2022 150 - 420 [facility] MCHC RBC Auto-mCnc 32.6 g/dL Normal 11/19/2022 31 - 36 [facility] MCH RBC Qn Auto 28.4 pg Normal 11/19/2022 27 - 33 [facility] Hct VFr Bld Auto 26.1 % Below low normal 11/19/2022 35 - 45 [facility] MCV RBC Auto 87.3 fL Normal 11/19/2022 80 - [address] [facility] [address] RBC # Bld Auto 2.99 M/uL Below low normal 11/19/2022 4 - 6 [facility] WBC # Bld Auto 9.2 x1000/uL Normal 11/19/2022 4 - 11 [facility] Hgb Bld-mCnc 8.5 g/dL Below low normal 11/19/2022 11.7 - 15 .5 [facility] Neutrophils # Bld Auto 5.69 x 1000/uL Normal 11/19/2022 2 - 7.6 [facility] RDW RBC Auto-Rto 15.5 % Above high normal 11/19/2022 11 - 15 [facility] Procalcitonin SerPl-mCnc 0.24 ng/mL Normal 11/18/2022 - [facility] Calcium SerPl-mCnc 7.9 mg/dL Below low normal 11/18/2022 8.8 - 10.2 [facility] GFR/BSA.pred SerPlBld TCB-ASH-MkYXpb >60.0 mL/min/1.73m2 Normal 11/18/2022 - [facility] BUN SerPl-mCnc 10.0 mg/dL Normal 11/18/2022 6 - 20 [facility] Potassium SerPl-sCnc 4.4 mmol/L Normal 11/18/2022 3.3 - 5 .3 [facility] Anion Gap3 SerPl-sCnc 11.0 Normal 11/18/2022 7 - 17 [facility] HCO3 SerPl-sCnc 24.0 mmol/L Normal 11/18/2022 20 - 30 [facility] Chloride SerPl-sCnc 101.0 mmol/L Normal 11/18/2022 98 - 1 07 [facility] BUN/Creat SerPl 20.0 Normal 11/18/2022 8 - 23 [facility] Creat SerPl-mCnc 0.5 mg/dL Normal 11/18/2022 0.4 - 1.3 [facility] Sodium SerPl-sCnc 136.0 mmol/L Normal 11/18/2022 136 - 14 4 [facility] Glucose SerPl-mCnc 109.0 mg/dL Above high normal 11/18/2022 70 - 100 [facility] Phosphate SerPl-mCnc 3.9 mg/dL Normal 11/18/2022 2.2 - 4. 5 [facility] Magnesium SerPl-mCnc 2.0 mg/dL Normal 11/18/2022 1.7 - 2. 4 [facility] MCHC RBC Auto-mCnc 32.9 g/dL Normal 11/18/2022 31 - 36 [facility] RDW RBC Auto-Rto 15.5 % Above high normal 11/18/2022 11 - 15 [facility] PMV Bld Auto 9.6 fL Normal 11/18/2022 8 - [address] [facility] Neutrophils # Bld Auto 4.43 x 1000/uL Normal 11/18/2022 2 - 7.6 [facility] MCV RBC Auto 85.8 fL Normal 11/18/2022 80 - [address] [facility] RBC # Bld Auto 3.23 M/uL Below low normal 11/18/2022 4 - 6 [facility] Hgb Bld-mCnc 9.1 g/dL Below low normal 11/18/2022 11.7 - 15 .5 [facility] Hct VFr Bld Auto 27.7 % Below low normal 11/18/2022 35 - 45 [facility] Platelet # Bld Auto 177.0 x1000/uL Normal 11/18/2022 150 - 420 [facility] MCH RBC Qn Auto 28.2 pg Normal 11/18/2022 27 - 33 [facility] WBC # Bld Auto 7.8 x1000/uL Normal 11/18/2022 4 - 11 [facility] Calcium SerPl-mCnc 7.7 mg/dL Below low normal 11/17/2022 8.8 - 10.2 [facility] Glucose SerPl-mCnc 147.0 mg/dL Above high normal 11/17/2022 70 - 100 [facility] Creat SerPl-mCnc 0.4 mg/dL Normal 11/17/2022 0.4 - 1.3 [facility] BUN SerPl-mCnc 8.0 mg/dL Normal 11/17/2022 6 - 20 [facility] BUN/Creat SerPl 20.0 Normal 11/17/2022 8 - 23 [facility] GFR/BSA.pred SerPlBld OOR-OLZ-YoLUld >60.0 mL/min/1.73m2 Normal 11/17/2022 - [facility] Chloride SerPl-sCnc 108.0 mmol/L Above high normal 98 - 107 [facility] Sodium SerPl-sCnc 141.0 mmol/L Normal 11/17/2022 136 - 14 4 [facility] HCO3 SerPl-sCnc 24.0 mmol/L Normal 11/17/2022 20 - 30 [facility] Anion Gap3 SerPl-sCnc 9.0 Normal 11/17/2022 7 - 17 [facility] Potassium SerPl-sCnc 3.9 mmol/L Normal 11/17/2022 3.3 - 5 .3 [facility] Phosphate SerPl-mCnc 1.8 mg/dL Below low normal 11/17/2022 2 .2 - 4.5 [facility] Magnesium SerPl-mCnc 2.0 mg/dL Normal 11/17/2022 1.7 - 2. 4 [facility] WBC # Bld Auto 7.0 x1000/uL Normal 11/17/2022 4 - 11 [facility] MCH RBC Qn Auto 28.9 pg Normal 11/17/2022 27 - 33 [facility] Hgb Bld-mCnc 7.9 g/dL Below low normal 11/17/2022 11.7 - 15 .5 [facility] RDW RBC Auto-Rto 15.5 % Above high normal 11/17/2022 11 - 15 [facility] Platelet # Bld Auto 136.0 x1000/uL Below low normal 11/18/19 23 150 - 420 [facility] PMV Bld Auto 9.7 fL Normal 11/17/2022 8 - [address] [facility] MCHC RBC Auto-mCnc 33.8 g/dL Normal 11/17/2022 31 - 36 [facility] RBC # Bld Auto 2.73 M/uL Below low normal 11/17/2022 4 - 6 [facility] Hct VFr Bld Auto 23.4 % Below low normal 11/17/2022 35 - 45 [facility] MCV RBC Auto 85.7 fL Normal 11/17/2022 80 - [address] [facility] Neutrophils # Bld Auto 4.3 x 1000/uL Normal 11/17/2022 2 - 7.6 [facility] BUN SerPl-mCnc 8.0 mg/dL Normal 11/16/2022 6 - 20 [facility] Calcium SerPl-mCnc 7.2 mg/dL Below low normal 11/16/2022 8.8 - 10.2 [facility] GFR/BSA.pred SerPlBld RQA-LJT-HmHDpk >60.0 mL/min/1.73m2 Normal 11/16/2022 - [facility] Chloride SerPl-sCnc 110.0 mmol/L Above high normal 98 - 107 [facility] Creat SerPl-mCnc 0.5 mg/dL Normal 11/16/2022 0.4 - 1.3 [facility] Sodium SerPl-sCnc 143.0 mmol/L Normal 11/16/2022 136 - 14 4 [facility] Potassium SerPl-sCnc 3.7 mmol/L Normal 11/16/2022 3.3 - 5 .3 [facility] BUN/Creat SerPl 16.0 Normal 11/16/2022 8 - 23 [facility] Glucose SerPl-mCnc 126.0 mg/dL Above high normal 11/16/2022 70 - 100 [facility] Anion Gap3 SerPl-sCnc 6.0 Below low normal 11/16/2022 7 - 17 [facility] HCO3 SerPl-sCnc 27.0 mmol/L Normal 11/16/2022 20 - 30 [facility] Phosphate SerPl-mCnc 2.2 mg/dL Normal 11/16/2022 2.2 - 4. 5 [facility] Magnesium SerPl-mCnc 2.0 mg/dL Normal 11/16/2022 1.7 - 2. 4 [facility] PMV Bld Auto 9.5 fL Normal 11/16/2022 8 - [address] [facility] Neutrophils # Bld Auto 5.58 x 1000/uL Normal 11/16/2022 2 - 7.6 [facility] WBC # Bld Auto 7.9 x1000/uL Normal 11/16/2022 4 - 11 [facility] Hgb Bld-mCnc 7.8 g/dL Below low normal 11/16/2022 11.7 - 15 .5 [facility] Platelet # Bld Auto 114.0 x1000/uL Below low normal 11/17/19 23 150 - 420 [facility] MCHC RBC Auto-mCnc 33.8 g/dL Normal 11/16/2022 31 - 36 [facility] RDW RBC Auto-Rto 14.9 % Normal 11/16/2022 11 - 15 [facility] Hct VFr Bld Auto 23.1 % Below low normal 11/16/2022 35 - 45 [facility] RBC # Bld Auto 2.76 M/uL Below low normal 11/16/2022 4 - 6 [facility] MCV RBC Auto 83.7 fL Normal 11/16/2022 80 - [address] [facility] MCH RBC Qn Auto 28.3 pg Normal 11/16/2022 27 - 33 [facility] RH TYPE POS Normal 11/16/2022 [facility] ABO GROUPING A Normal 11/16/[address] [facility] ANTIBODY SCREEN NEG Normal 11/16/2022 [facility] Procalcitonin SerPl-mCnc 0.5 ng/mL Above high normal 11/16/2022 - [facility] Phosphate SerPl-mCnc 0.6 mg/dL Critically low 11/16/2022 2.2 - 4.5 [facility] Anion Gap3 SerPl-sCnc 9.0 Normal 11/16/2022 7 - 17 [facility] Chloride SerPl-sCnc 109.0 mmol/L Above high normal 3 98 - 107 [facility] HCO3 SerPl-sCnc 24.0 mmol/L Normal 11/16/2022 20 - 30 [facility] Glucose SerPl-mCnc 158.0 mg/dL Above high normal 11/16/2022 70 - 100 [facility] BUN SerPl-mCnc 8.0 mg/dL Normal 11/16/2022 6 - 20 [facility] BUN/Creat SerPl 16.0 Normal 11/16/2022 8 - 23 [facility] Potassium SerPl-sCnc 3.2 mmol/L Below low normal 11/16/2022 3.3 - 5.3 [facility] Calcium SerPl-mCnc 7.4 mg/dL Below low normal 11/16/2022 8.8 - 10.2 [facility] Sodium SerPl-sCnc 142.0 mmol/L Normal 11/16/2022 136 - 14 4 [facility] Creat SerPl-mCnc 0.5 mg/dL Normal 11/16/2022 0.4 - 1.3 [facility] GFR/BSA.pred SerPlBld JYM-LHR-ZvSHbd >60.0 mL/min/1.73m2 Normal 11/16/2022 - [facility] Magnesium SerPl-mCnc 1.9 mg/dL Normal 11/16/2022 1.7 - 2. 4 [facility] BKR WAM IPF 2.3 % Normal 11/15/2022 1.2 - 8.6 [facility] T BKR WAM IPF, ABSOLUTE 2.2 x1000/uL Normal 11/15/2022 - 20 [facility] Neutrophils # Bld Auto 7.63 x 1000/uL Above high normal 11/15/2022 2 - 7.6 [facility] Monocytes/leuk NFr Bld Auto 5.7 % Normal 11/15/2022 4 - 12 [facility] WBC # Bld Auto 9.5 x1000/uL Normal 11/15/2022 4 - 11 [facility] RDW RBC Auto-Rto 15.3 % Above high normal 11/15/2022 11 - 15 [facility] Neutrophils/leuk NFr Bld Auto 80.5 % Above high normal 11/15/2022 39 - 72 [facility] nRBC # Bld Auto 0.02 x 1000/uL Normal 11/15/2022 0 - 1 [facility] Hct VFr Bld Auto 25.6 % Below low normal 11/15/2022 35 - 45 [facility] PMV Bld Auto 9.4 fL Normal 11/15/2022 8 - [address] [facility] Imm Granulocytes/leuk NFr Bld Auto 2.2 % Above high normal 11/15/2022 0 - 1 [facility] BKR WAM BASOPHIL ABSOLUTE COUNT. 0.04 x 1000/uL Normal 11/15/2022 0 - 1 [facility] MCHC RBC Auto-mCnc 34.0 g/dL Normal 11/15/2022 31 - 36 [facility] Imm Granulocytes # Bld Auto 0.21 x 1000/uL Normal 11/15/2022 0 - 0.3 [facility] Lymphocytes # Bld Auto 0.95 x 1000/uL Normal 11/15/2022 0.6 - 3.7 [facility] RBC # Bld Auto 2.98 M/uL Below low normal 11/15/2022 4 - 6 [facility] Platelet # Bld Auto 97.0 x1000/uL Below low normal 150 - 420 [facility] Basophils/leuk NFr Bld Auto 0.4 % Normal 11/15/2022 0 - 1.4 [facility] MCV RBC Auto 85.9 fL Normal 11/15/2022 80 - [address] [facility] Monocytes # Bld Auto 0.54 x 1000/uL Normal 11/15/2022 0 - 1 [facility] Eosinophil # Bld Auto 0.11 x 1000/uL Normal 11/15/2022 0 - 1 [facility] Hgb Bld-mCnc 8.7 g/dL Below low normal 11/15/2022 11.7 - 15 .5 [facility] Eosinophil/leuk NFr Bld Auto 1.2 % Normal 11/15/2022 0 - 5 [facility] Lymphocytes/leuk NFr Bld Auto 10.0 % Below low normal 11/15/2022 17 - 50 [facility] nRBC/100 WBC Bld Auto-Rto 0.2 % Normal 11/15/2022 0 - 1 [facility] MCH RBC Qn Auto 29.2 pg Normal 11/15/2022 27 - 33 [facility] Creat SerPl-mCnc 0.6 mg/dL Normal 11/15/2022 0.4 - 1.3 [facility] Potassium SerPl-sCnc 3.7 mmol/L Normal 11/15/2022 3.3 - 5 .3 [facility] Glucose SerPl-mCnc 90.0 mg/dL Normal 11/15/2022 70 - 100 [facility] HCO3 SerPl-sCnc 20.0 mmol/L Normal 11/15/2022 20 - 30 [facility] BUN SerPl-mCnc 6.0 mg/dL Normal 11/15/2022 6 - 20 [facility] BUN/Creat SerPl 10.0 Normal 11/15/2022 8 - 23 [facility] Anion Gap3 SerPl-sCnc 12.0 Normal 11/15/2022 7 - 17 [facility] GFR/BSA.pred SerPlBld QVX-WZA-EdUBvi >60.0 mL/min/1.73m2 Normal 11/15/2022 - [facility] Calcium SerPl-mCnc 7.6 mg/dL Below low normal 11/15/2022 8.8 - 10.2 [facility] Sodium SerPl-sCnc 138.0 mmol/L Normal 11/15/2022 136 - 14 4 [facility] Chloride SerPl-sCnc 106.0 mmol/L Normal 11/15/2022 98 - 1 07 [facility] ALT SerPl w/o P-5'-P-cCnc 34.0 U/L Normal 11/15/2022 10 - 35 [facility] AST SerPl w P-5'-P-cCnc 97.0 U/L Above high normal 11/15/2022 10 - 35 [facility] AST/ALT SerPl-cRto 2.9 Normal 11/15/2022 - [facility] ALP SerPl-cCnc 66.0 U/L Normal 11/15/2022 9 - 122 [facility] Bilirub SerPl-mCnc 1.5 mg/dL Above high normal 11/15/2022 - [facility] Bil[facility]ub Direct SerPl-mCnc 0.8 mg/dL Above high normal 11/15/2022 - [facility] Phosphate SerPl-mCnc 1.8 mg/dL Below low normal 11/15/2022 2 .2 - 4.5 [facility] Magnesium SerPl-mCnc 1.8 mg/dL Normal 11/15/2022 1.7 - 2. 4 [facility] Prothrombin time 11.4 seconds Normal 11/15/2022 9.5 - 12. 1 [facility] aPTT PPP 33.7 seconds Above high normal 11/15/2022 22.5 - 3 2 [facility] INR PPP 1.07 Normal 11/15/2022 0.88 - 1.14 [facility] T BUN/Creat SerPl 10.0 Normal 11/14/2022 8 - 23 [facility] Anion Gap3 SerPl-sCnc 8.0 Normal 11/14/2022 7 - 17 [facility] Glucose SerPl-mCnc 96.0 mg/dL Normal 11/14/2022 70 - 100 [facility] HCO3 SerPl-sCnc 21.0 mmol/L Normal 11/14/2022 20 - 30 [facility] Potassium SerPl-sCnc 3.9 mmol/L Normal 11/14/2022 3.3 - 5 .3 [facility] Chloride SerPl-sCnc 108.0 mmol/L Above high normal 3 98 - 107 [facility] Calcium SerPl-mCnc 7.4 mg/dL Below low normal 11/14/2022 8.8 - 10.2 [facility] Sodium SerPl-sCnc 137.0 mmol/L Normal 11/14/2022 136 - 14 4 [facility] BUN SerPl-mCnc 5.0 mg/dL Below low normal 11/14/2022 6 - 20 [facility] Creat SerPl-mCnc 0.5 mg/dL Normal 11/14/2022 0.4 - 1.3 [facility] GFR/BSA.pred SerPlBld EPS-[id number]-[id number] >60.0 mL/min/1.73m2 Normal 11/14/2022 - [facility] Phosphate SerPl-mCnc 1.8 mg/dL Below low normal 11/14/2022 2 .2 - 4.5 [facility] Magnesium SerPl-mCnc 1.9 mg/dL Normal 11/14/2022 1.7 - 2. 4 [facility] INR PPP 1.07 Normal 11/14/2022 0.88 - 1.14 [facility] T Prothrombin time 11.4 seconds Normal 11/14/2022 9.5 - 12. 1 [facility] aPTT PPP 34.7 seconds Above high normal 11/14/2022 22.5 - 3 2 [facility] BKR WAM IPF 2.6 % Normal 11/14/2022 1.2 - 8.6 [facility] T BKR WAM IPF, ABSOLUTE 2.3 x1000/uL Normal 11/14/2022 - 20 [facility] Hct VFr Bld Auto 25.6 % Below low normal 11/14/2022 35 - 45 [facility] WBC # Bld Auto 8.4 x1000/uL Normal 11/14/2022 4 - 11 [facility] Monocytes # Bld Auto 0.51 x 1000/uL Normal 11/14/2022 0 - 1 [facility] Neutrophils # Bld Auto 6.73 x 1000/uL Normal 11/14/2022 2 - 7.6 [facility] Platelet # Bld Auto 88.0 x1000/uL Below low normal 150 - 420 [facility] MCH RBC Qn Auto 29.0 pg Normal 11/14/2022 27 - 33 [facility] Imm Granulocytes/leuk NFr Bld Auto 1.9 % Above high normal 11/14/2022 0 - 1 [facility] RDW RBC Auto-Rto 15.4 % Above high normal 11/14/2022 11 - 15 [facility] Basophils/leuk NFr Bld Auto 0.6 % Normal 11/14/2022 0 - 1.4 [facility] Eosinophil/leuk NFr Bld Auto 2.6 % Normal 11/14/2022 0 - 5 [facility] Lymphocytes/leuk NFr Bld Auto 8.6 % Below low normal 11/14/2022 17 - 50 [facility] Hgb Bld-mCnc 8.6 g/dL Below low normal 11/14/2022 11.7 - 15 .5 [facility] RBC # Bld Auto 2.97 M/uL Below low normal 11/14/2022 4 - 6 [facility] Imm Granulocytes # Bld Auto 0.16 x 1000/uL Normal 11/14/2022 0 - 0.3 [facility] BKR WAM BASOPHIL ABSOLUTE COUNT. 0.05 x 1000/uL Normal 11/14/2022 0 - 1 [facility] Lymphocytes # Bld Auto 0.72 x 1000/uL Normal 11/14/2022 0.6 - 3.7 [facility] PMV Bld Auto 9.6 fL Normal 11/14/2022 8 - [address] [facility] MCV RBC Auto 86.2 fL Normal 11/14/2022 80 - [address] [facility] [address] Eosinophil # Bld Auto 0.22 x 1000/uL Normal 11/14/2022 0 - 1 [facility] Monocytes/leuk NFr Bld Auto 6.1 % Normal 11/14/2022 4 - 12 [facility] Neutrophils/leuk NFr Bld Auto 80.2 % Above high normal 11/14/2022 39 - 72 [facility] nRBC/100 WBC Bld Auto-Rto 0.0 % Normal 11/14/2022 0 - 1 [facility] nRBC # Bld Auto 0.0 x 1000/uL Normal 11/14/2022 0 - 1 [facility] MCHC RBC Auto-mCnc 33.6 g/dL Normal 11/14/2022 31 - 36 [facility] Procalcitonin SerPl-mCnc 0.74 ng/mL Above high normal 11/14/2022 - [facility] BUN/Creat SerPl 8.3 Normal 11/14/2022 8 - 23 [facility] GFR/BSA.pred SerPlBld MBV-[id number]-[id number] >60.0 mL/min/1.73m2 Normal 11/14/2022 - [facility] Anion Gap3 SerPl-sCnc 8.0 Normal 11/14/2022 7 - 17 [facility] HCO3 SerPl-sCnc 22.0 mmol/L Normal 11/14/2022 20 - 30 [facility] Calcium SerPl-mCnc 7.3 mg/dL Below low normal 11/14/2022 8.8 - 10.2 [facility] Creat SerPl-mCnc 0.6 mg/dL Normal 11/14/2022 0.4 - 1.3 [facility] Sodium SerPl-sCnc 138.0 mmol/L Normal 11/14/2022 136 - 14 4 [facility] Potassium SerPl-sCnc 3.9 mmol/L Normal 11/14/2022 3.3 - 5 .3 [facility] BUN SerPl-mCnc 5.0 mg/dL Below low normal 11/14/2022 6 - 20 [facility] Glucose SerPl-mCnc 95.0 mg/dL Normal 11/14/2022 70 - 100 [facility] Chloride SerPl-sCnc 108.0 mmol/L Above high normal 3 98 - 107 [facility] ALT SerPl w/o P-5'-P-cCnc 33.0 U/L Normal 11/14/2022 10 - 35 [facility] Bilirub Direct SerPl-mCnc 0.9 mg/dL Above high normal 11/14/2022 - [facility] Bilirub SerPl-mCnc 1.3 mg/dL Above high normal 11/14/2022 - [facility] AST SerPl w P-5'-P-cCnc 104.0 U/L Above high normal 11/14/2022 10 - 35 [facility] ALP SerPl-cCnc 73.0 U/L Normal 11/14/2022 9 - 122 [facility] AST/ALT SerPl-cRto 3.2 Normal 11/14/2022 - [facility] Phosphate SerPl-mCnc 2.3 mg/dL Normal 11/14/2022 2.2 - 4. 5 [facility] Magnesium SerPl-mCnc 1.8 mg/dL Normal 11/14/2022 1.7 - 2. 4 [facility] INR PPP 1.09 Normal 11/14/2022 0.88 - 1.14 [facility] T aPTT PPP 32.8 seconds Above high normal 11/14/2022 22.5 - 3 2 [facility] Prothrombin time 11.6 seconds Normal 11/14/2022 9.5 - 12. 1 [facility] BKR WAM IPF 2.8 % Normal 11/14/2022 1.2 - 8.6 [facility] T BKR WAM IPF, ABSOLUTE 2.3 x1000/uL Normal 11/14/2022 - 20 [facility] Imm Granulocytes/leuk NFr Bld Auto 1.7 % Above high normal 11/14/2022 0 - 1 [facility] Platelet # Bld Auto 82.0 x1000/uL Below low normal 150 - 420 [facility] Monocytes/leuk NFr Bld Auto 6.7 % Normal 11/14/2022 4 - 12 [facility] RBC # Bld Auto 3.03 M/uL Below low normal 11/14/2022 4 - 6 [facility] Lymphocytes/leuk NFr Bld Auto 9.8 % Below low normal 11/14/2022 17 - 50 [facility] Lymphocytes # Bld Auto 0.89 x 1000/uL Normal 11/14/2022 0.6 - 3.7 [facility] PMV Bld Auto 9.5 fL Normal 11/14/2022 8 - [address] [facility] [address] Basophils/leuk NFr Bld Auto 0.4 % Normal 11/14/2022 0 - 1.4 [facility] MCH RBC Qn Auto 29.0 pg Normal 11/14/2022 27 - 33 [facility] Monocytes # Bld Auto 0.61 x 1000/uL Normal 11/14/2022 0 - 1 [facility] nRBC # Bld Auto 0.0 x 1000/uL Normal 11/14/2022 0 - 1 [facility] Imm Granulocytes # Bld Auto 0.15 x 1000/uL Normal 11/14/2022 0 - 0.3 [facility] Neutrophils/leuk NFr Bld Auto 78.4 % Above high normal 11/14/2022 39 - 72 [facility] MCV RBC Auto 87.8 fL Normal 11/14/2022 80 - [address] [facility] [address] MCHC RBC Auto-mCnc 33.1 g/dL Normal 11/14/2022 31 - 36 [facility] RDW RBC Auto-Rto 15.3 % Above high normal 11/14/2022 11 - 15 [facility] Eosinophil # Bld Auto 0.27 x 1000/uL Normal 11/14/2022 0 - 1 [facility] BKR WAM BASOPHIL ABSOLUTE COUNT. 0.04 x 1000/uL Normal 11/14/2022 0 - 1 [facility] Hct VFr Bld Auto 26.6 % Below low normal 11/14/2022 35 - 45 [facility] nRBC/100 WBC Bld Auto-Rto 0.0 % Normal 11/14/2022 0 - 1 [facility] Hgb Bld-mCnc 8.8 g/dL Below low normal 11/14/2022 11.7 - 15 .5 [facility] Eosinophil/leuk NFr Bld Auto 3.0 % Normal 11/14/2022 0 - 5 [facility] WBC # Bld Auto 9.1 x1000/uL Normal 11/14/2022 4 - 11 [facility] Neutrophils # Bld Auto 7.11 x 1000/uL Normal 11/14/2022 2 - 7.6 [facility] BKR WAM IPF, ABSOLUTE 1.9 x1000/uL Normal 11/13/2022 - 20 [facility] BKR WAM IPF 2.3 % Normal 11/13/2022 1.2 - 8.6 [facility] T nRBC/100 WBC Bld Auto-Rto 0.0 % Normal 11/13/2022 0 - 1 [facility] Neutrophils # Bld Auto 7.23 x 1000/uL Normal 11/13/2022 2 - 7.6 [facility] nRBC # Bld Auto 0.0 x 1000/uL Normal 11/13/2022 0 - 1 [facility] Monocytes/leuk NFr Bld Auto 5.5 % Normal 11/13/2022 4 - 12 [facility] MCHC RBC Auto-mCnc 33.6 g/dL Normal 11/13/2022 31 - 36 [facility] RDW RBC Auto-Rto 15.1 % Above high normal 11/13/2022 11 - 15 [facility] Imm Granulocytes/leuk NFr Bld Auto 1.3 % Above high normal 11/13/2022 0 - 1 [facility] RBC # Bld Auto 3.34 M/uL Below low normal 11/13/2022 4 - 6 [facility] WBC # Bld Auto 8.7 x1000/uL Normal 11/13/2022 4 - 11 [facility] Lymphocytes # Bld Auto 0.66 x 1000/uL Normal 11/13/2022 0.6 - 3.7 [facility] Hgb Bld-mCnc 9.6 g/dL Below low normal 11/13/2022 11.7 - 15 .5 [facility] Basophils/leuk NFr Bld Auto 0.3 % Normal 11/13/2022 0 - 1.4 [facility] Eosinophil/leuk NFr Bld Auto 1.8 % Normal 11/13/2022 0 - 5 [facility] MCV RBC Auto 85.6 fL Normal 11/13/2022 80 - [address] [facility] Hct VFr Bld Auto 28.6 % Below low normal 11/13/2022 35 - 45 [facility] Lymphocytes/leuk NFr Bld Auto 7.6 % Below low normal 11/13/2022 17 - 50 [facility] BKR WAM BASOPHIL ABSOLUTE COUNT. 0.03 x 1000/uL Normal 11/13/2022 0 - 1 [facility] PMV Bld Auto 9.2 fL Normal 11/13/2022 8 - [address] [facility] Monocytes # Bld Auto 0.48 x 1000/uL Normal 11/13/2022 0 - 1 [facility] Imm Granulocytes # Bld Auto 0.11 x 1000/uL Normal 11/13/2022 0 - 0.3 [facility] RBC Qn Auto 28.7 pg Normal 11/13/2022 27 - 33 [facility] Neutrophils/leuk NFr Bld Auto 83.5 % Above high normal 11/13/2022 39 - 72 [facility] Platelet # Bld Auto 83.0 x1000/uL Below low normal 3 150 - 420 [facility] Eosinophil # Bld Auto 0.16 x 1000/uL Normal 11/13/2022 0 - 1 [facility] aPTT PPP 30.8 seconds Normal 11/13/2022 22.5 - [address] INR PPP 1.14 Normal 11/13/2022 0.88 - 1.14 [facility] T Prothrombin time 12.1 seconds Normal 11/13/2022 9.5 - 12. 1 [facility] GFR/BSA.pred SerPlBld WIM-[id number]-MnQHre >60.0 mL/min/1.73m2 Normal 11/13/2022 - [facility] HCO3 SerPl-sCnc 21.0 mmol/L Normal 11/13/2022 20 - 30 [facility] Glucose SerPl-mCnc 99.0 mg/dL Normal 11/13/2022 70 - 100 [facility] Potassium SerPl-sCnc 3.5 mmol/L Normal 11/13/2022 3.3 - 5 .3 [facility] Anion Gap3 SerPl-sCnc 9.0 Normal 11/13/2022 7 - 17 [facility] Sodium SerPl-sCnc 136.0 mmol/L Normal 11/13/2022 136 - 14 4 [facility] BUN/Creat SerPl 6.7 Below low normal 11/13/2022 8 - 23 [facility] BUN SerPl-mCnc 4.0 mg/dL Below low normal 11/13/2022 6 - 20 [facility] Chloride SerPl-sCnc 106.0 mmol/L Normal 11/13/2022 98 - 1 07 [facility] Calcium SerPl-mCnc 7.1 mg/dL Below low normal 11/13/2022 8.8 - 10.2 [facility] Creat SerPl-mCnc 0.6 mg/dL Normal 11/13/2022 0.4 - 1.3 [facility] Magnesium SerPl-mCnc 1.7 mg/dL Normal 11/13/2022 1.7 - 2. 4 [facility] Phosphate SerPl-mCnc 2.7 mg/dL Normal 11/13/2022 2.2 - 4. 5 [facility] RH TYPE POS Normal 11/13/2022 [facility] ANTIBODY SCREEN NEG Normal 11/13/2022 [facility] ABO GROUPING A Normal 11/13/[address] [facility] BKR WAM IPF, ABSOLUTE 1.6 x1000/uL Normal 11/13/2022 - 20 [facility] BKR WAM IPF 2.2 % Normal 11/13/2022 1.2 - 8.6 [facility] T Neutrophils/leuk NFr Bld Auto 77.7 % Above high normal 11/13/2022 39 - 72 [facility] Imm Granulocytes/leuk NFr Bld Auto 1.7 % Above high normal 11/13/2022 0 - 1 [facility] nRBC # Bld Auto 0.0 x 1000/uL Normal 11/13/2022 0 - 1 [facility] Lymphocytes/leuk NFr Bld Auto 12.0 % Below low normal 11/13/2022 17 - 50 [facility] Eosinophil # Bld Auto 0.23 x 1000/uL Normal 11/13/2022 0 - 1 [facility] Neutrophils # Bld Auto 5.05 x 1000/uL Normal 11/13/2022 2 - 7.6 [facility] Hct VFr Bld Auto 28.2 % Below low normal 11/13/2022 35 - 45 [facility] Hgb Bld-mCnc 9.5 g/dL Below low normal 11/13/2022 11.7 - 15 .5 [facility] MCHC RBC Auto-mCnc 33.7 g/dL Normal 11/13/2022 31 - 36 [facility] Monocytes # Bld Auto 0.3 x 1000/uL Normal 11/13/2022 0 - 1 [facility] PMV Bld Auto 9.1 fL Normal 11/13/2022 8 - [address] [facility] Basophils/leuk NFr Bld Auto 0.5 % Normal 11/13/2022 0 - 1.4 [facility] Platelet # Bld Auto 72.0 x1000/uL Below low normal 150 - 420 [facility] RBC # Bld Auto 3.26 M/uL Below low normal 11/13/2022 4 - 6 [facility] Monocytes/leuk NFr Bld Auto 4.6 % Normal 11/13/2022 4 - 12 [facility]CH RBC Qn Auto 29.1 pg Normal 11/13/2022 27 - 33 [facility] Imm Granulocytes # Bld Auto 0.11 x 1000/uL Normal 11/13/2022 0 - 0.3 [facility] WBC # Bld Auto 6.5 x1000/uL Normal 11/13/2022 4 - 11 [facility] nRBC/100 WBC Bld Auto-Rto 0.0 % Normal 11/13/2022 0 - 1 [facility] Lymphocytes # Bld Auto 0.78 x 1000/uL Normal 11/13/2022 0.6 - 3.7 [facility] Eosinophil/leuk NFr Bld Auto 3.5 % Normal 11/13/2022 0 - 5 [facility] BKR WAM BASOPHIL ABSOLUTE COUNT. 0.03 x 1000/uL Normal 11/13/2022 0 - 1 [facility] MCV RBC Auto 86.5 fL Normal 11/13/2022 80 - [address] [facility] RDW RBC Auto-Rto 14.7 % Normal 11/13/2022 11 - 15 [facility] aPTT PPP 29.3 seconds Normal 11/13/2022 22.5 - [address] [facility] INR PPP 1.12 Normal 11/13/2022 0.88 - 1.14 [facility] T Prothrombin time 11.9 seconds Normal 11/13/2022 9.5 - 12. 1 [facility] Potassium SerPl-sCnc 4.1 mmol/L Normal 11/13/2022 3.3 - 5 .3 [facility] BUN SerPl-mCnc 4.0 mg/dL Below low normal 11/13/2022 6 - 20 [facility] GFR/BSA.pred SerPlBld [id number] >60.0 mL/min/1.73m2 Normal 11/13/2022 - [facility] BUN/Creat SerPl 5.7 Below low normal 11/13/2022 8 - 23 [facility] Anion Gap3 SerPl-sCnc 7.0 Normal 11/13/2022 7 - 17 [facility] Calcium SerPl-mCnc 7.0 mg/dL Below low normal 11/13/2022 8.8 - 10.2 [facility] Chloride SerPl-sCnc 112.0 mmol/L Above high normal 3 98 - 107 [facility] Creat SerPl-mCnc 0.7 mg/dL Normal 11/13/2022 0.4 - 1.3 [facility] HCO3 SerPl-sCnc 21.0 mmol/L Normal 11/13/2022 20 - 30 [facility] Sodium SerPl-sCnc 140.0 mmol/L Normal 11/13/2022 136 - 14 4 [facility] Glucose SerPl-mCnc 108.0 mg/dL Above high normal 11/13/2022 70 - 100 [facility] ALP SerPl-cCnc 126.0 U/L Above high normal 11/13/2022 9 - 12 2 [facility] Bilirub SerPl-mCnc 1.4 mg/dL Above high normal 11/13/2022 - [facility] AST/ALT SerPl-cRto 3.6 Normal 11/13/2022 - [facility] ALT SerPl w/o P-5'-P-cCnc 29.0 U/L Normal 11/13/2022 10 - 35 [facility] Bilirub Direct SerPl-mCnc 0.8 mg/dL Above high normal 11/13/2022 - [facility] AST SerPl w P-5'-P-cCnc 105.0 U/L Above high normal 11/13/2022 10 - 35 [facility] Trigl SerPl-mCnc 512.0 mg/dL Above high normal 11/13/2022 - [facility] Lipase SerPl-cCnc 8.0 U/L Below low normal 11/13/2022 11 - 55 [facility] Magnesium SerPl-mCnc 1.8 mg/dL Normal 11/13/2022 1.7 - 2. 4 [facility] Phosphate SerPl-mCnc 1.9 mg/dL Below low normal 11/13/2022 2 .2 - 4.5 [facility] Base excess std BldA Calc-sCnc -4.0 mmol/L Below low normal 11/13/2022 - [facility] pCO2 BldA 34.0 mmHg Normal 11/13/2022 32 - 48 [facility] pH BldA 7.38 units Normal 11/13/2022 7.35 - 7.[address] [facility] Bdy temp Pnl 37.0 Celsius Normal 11/13/2022 [facility] SaO2 % BldA 99.0 % Above high normal 11/13/2022 94 - 98 [facility] pO2 BldA 168.0 mmHg Above high normal 11/13/2022 83 - 108 [facility] HCO3 std BldA-sCnc 19.7 mmol/L Below low normal 11/13/2022 2 1 - 28 [facility] BKR WAM IPF 2.2 % Normal 11/13/2022 1.2 - 8.6 [facility] T BKR WAM IPF, ABSOLUTE 1.7 x1000/uL Normal 11/13/2022 - 20 [facility] RDW RBC Auto-Rto 14.9 % Normal 11/13/2022 11 - 15 [facility] Hct VFr Bld Auto 23.8 % Below low normal 11/13/2022 35 - 45 [facility] Imm Granulocytes # Bld Auto 0.1 x 1000/uL Normal 11/13/2022 0 - 0.3 [facility] Lymphocytes # Bld Auto 0.81 x 1000/uL Normal 11/13/2022 0.6 - 3.7 [facility] nRBC # Bld Auto 0.0 x 1000/uL Normal 11/13/2022 0 - 1 [facility] MCV RBC Auto 88.8 fL Normal 11/13/2022 80 - [address] [facility] Hgb Bld-mCnc 7.9 g/dL Below low normal 11/13/2022 11.7 - 15 .5 [facility] Imm Granulocytes/leuk NFr Bld Auto 1.5 % Above high normal 11/13/2022 0 - 1 [facility] BKR WAM BASOPHIL ABSOLUTE COUNT. 0.03 x 1000/uL Normal 11/13/2022 0 - 1 [facility] Monocytes/leuk NFr Bld Auto 4.5 % Normal 11/13/2022 4 - 12 [facility] Neutrophils/leuk NFr Bld Auto 78.3 % Above high normal 11/13/2022 39 - 72 [facility] Platelet # Bld Auto 77.0 x1000/uL Below low normal 150 - 420 [facility] MCHC RBC Auto-mCnc 33.2 g/dL Normal 11/13/2022 31 - 36 [facility] Eosinophil/leuk NFr Bld Auto 3.5 % Normal 11/13/2022 0 - 5 [facility] RBC # Bld Auto 2.68 M/uL Below low normal 11/13/2022 4 - 6 [facility] Monocytes # Bld Auto 0.31 x 1000/uL Normal 11/13/2022 0 - 1 [facility] nRBC/100 WBC Bld Auto-Rto 0.0 % Normal 11/13/2022 0 - 1 [facility] MCH RBC Qn Auto 29.5 pg Normal 11/13/2022 27 - 33 [facility] Basophils/leuk NFr Bld Auto 0.4 % Normal 11/13/2022 0 - 1.4 [facility] PMV Bld Auto 10.5 fL Normal 11/13/2022 8 - [address] [facility] Lymphocytes/leuk NFr Bld Auto 11.8 % Below low normal 11/13/2022 17 - 50 [facility] Neutrophils # Bld Auto 5.39 x 1000/uL Normal 11/13/2022 2 - 7.6 [facility] WBC # Bld Auto 6.9 x1000/uL Normal 11/13/2022 4 - 11 [facility] Eosinophil # Bld Auto 0.24 x 1000/uL Normal 11/13/2022 0 - 1 [facility] aPTT PPP 28.3 seconds Normal 11/13/2022 22.5 - [address] Prothrombin time 11.7 seconds Normal 11/13/2022 9.5 - 12. 1 [facility] INR PPP 1.1 Normal 11/13/2022 0.88 - 1.14 [facility] T Creat SerPl-mCnc 0.7 mg/dL Normal 11/13/2022 0.4 - 1.3 [facility] Anion Gap3 SerPl-sCnc 6.0 Below low normal 11/13/2022 7 - 17 [facility] Chloride SerPl-sCnc 110.0 mmol/L Above high normal 98 - 107 [facility] GFR/BSA.pred SerPlBld KGW-EWB-IiNIiy >60.0 mL/min/1.73m2 Normal 11/13/2022 - [facility] BUN SerPl-mCnc 4.0 mg/dL Below low normal 11/13/2022 6 - 20 [facility] Potassium SerPl-sCnc 3.7 mmol/L Normal 11/13/2022 3.3 - 5 .3 [facility] HCO3 SerPl-sCnc 22.0 mmol/L Normal 11/13/2022 20 - 30 [facility] Calcium SerPl-mCnc 7.1 mg/dL Below low normal 11/13/2022 8.8 - 10.2 [facility] BUN/Creat SerPl 5.7 Below low normal 11/13/2022 8 - 23 [facility] Sodium SerPl-sCnc 138.0 mmol/L Normal 11/13/2022 136 - 14 4 [facility] Glucose SerPl-mCnc 113.0 mg/dL Above high normal 11/13/2022 70 - 100 [facility] Phosphate SerPl-mCnc 2.3 mg/dL Normal 11/13/2022 2.2 - 4. 5 [facility] Magnesium SerPl-mCnc 1.8 mg/dL Normal 11/13/2022 1.7 - 2. 4 [facility] BKR WBC/HPF INSTRUMENT 22.0 /HPF Above high normal 11/12/2022 0 - 5 [facility] BACTERIA, UA Rare Normal 11/12/2022 - [facility] URINE SQUAMOUS EPITHELIAL CELLS, UA (NUMERIC) <1.0 /HPF Normal 11/12/2022 0 - 5 [facility] BKR RBC/HPF INSTRUMENT 67.0 /HPF Above high normal 11/12/2022 0 - 2 [facility] Hgb Ur Ql Strip.auto 3+ Abnormal 11/12/2022 - [facility] Sp Gr Ur Refract.auto 1.024 Normal 11/12/2022 1.0 05 - 1.03 [facility] pH Ur Strip.auto 5.5 Normal 11/12/2022 5.5 - 7.5 [facility] Nitrite Ur Ql Strip.auto Negative Normal 11/12/2022 - [facility] WBC # Ur Strip 3+ Abnormal 11/12/2022 - [facility] Bilirub Ur Ql Strip.auto Negative Normal 11/12/2022 - [facility] Urobilinogen Ur Strip-mCnc <2.0 mg/dL Normal 11/12/2022 - [facility] Prot Ur Strip.auto-mCnc 1+ Abnormal 11/12/2022 - [facility] Clarity Ur Refract.auto Cloudy Abnormal 11/12/2022 - [facility] Ketones Ur Strip.auto-mCnc Negative Normal 11/12/2022 - [facility] Glucose Ur Strip.auto-mCnc Negative Normal 11/12/2022 - [facility] Color Ur Auto Yellow Normal 11/12/2022 - [facility] CK SerPl-cCnc 4356.0 U/L Above high normal 11/12/2022 11 - 2 04 [facility] Calcium SerPl-mCnc 7.7 mg/dL Below low normal 11/12/2022 8.8 - 10.2 [facility] BUN SerPl-mCnc 5.0 mg/dL Below low normal 11/12/2022 6 - 20 [facility] HCO3 SerPl-sCnc 22.0 mmol/L Normal 11/12/2022 20 - 30 [facility] Creat SerPl-mCnc 0.56 mg/dL Normal 11/12/2022 0.4 - 1.3 [facility] GFR/BSA.pred SerPlBld OVY-BHY-YvUQok >60.0 mL/min/1.73m2 Normal 11/12/2022 - [facility] Anion Gap3 SerPl-sCnc 8.0 Normal 11/12/2022 7 - 17 [facility] Glucose SerPl-mCnc 109.0 mg/dL Above high normal 11/12/2022 70 - 100 [facility] Sodium SerPl-sCnc 138.0 mmol/L Normal 11/12/2022 136 - 14 4 [facility] Chloride SerPl-sCnc 108.0 mmol/L Above high normal 3 98 - 107 [facility] Potassium SerPl-sCnc 4.3 mmol/L Normal 11/12/2022 3.3 - 5 .3 [facility] BUN/Creat SerPl 8.9 Normal 11/12/2022 8 - 23 [facility] Bilirub Direct SerPl-mCnc 0.5 mg/dL Above high normal 11/12/2022 - [facility] ALP SerPl-cCnc 55.0 U/L Normal 11/12/2022 9 - 122 [facility] AST/ALT SerPl-cRto 2.2 Normal 11/12/2022 - [facility] AST SerPl w P-5'-P-cCnc 112.0 U/L Above high normal 11/12/2022 10 - 35 [facility] Bilirub SerPl-mCnc 1.4 mg/dL Above high normal 11/12/2022 - [facility] ALT SerPl w/o P-5'-P-cCnc 50.0 U/L Above high normal 11/12/2022 10 - 35 [facility] Phosphate SerPl-mCnc 2.5 mg/dL Normal 11/12/2022 2.2 - 4. 5 [facility] Magnesium SerPl-mCnc 1.7 mg/dL Normal 11/12/2022 1.7 - 2. 4 [facility] INR PPP 1.05 Normal 11/12/2022 0.86 - 1.12 [facility] aPTT PPP 26.7 seconds Normal 11/12/2022 23 - 31.4 [facility] T Prothrombin time 11.6 seconds Normal 11/12/2022 9.6 - 12. 3 [facility] Neutrophils/leuk NFr Bld Auto 73.8 % Above high normal 11/12/2022 39 - 72 [facility] MCH RBC Qn Auto 28.9 pg Normal 11/12/2022 27 - 33 [facility] Hct VFr Bld Auto 33.8 % Below low normal 11/12/2022 35 - 45 [facility] Platelet # Bld Auto 102.0 x1000/uL Below low normal 11/13/19 23 150 - 420 [facility] Eosinophil/leuk NFr Bld Auto 1.8 % Normal 11/12/2022 0 - 5 [facility] Lymphocytes # Bld Auto 1.46 x 1000/uL Normal 11/12/2022 0.6 - 3.7 [facility] Neutrophils # Bld Auto 5.89 x 1000/uL Normal 11/12/2022 2 - 7.6 [facility] Imm Granulocytes # Bld Auto 0.07 x 1000/uL Normal 11/12/2022 0 - 0.3 [facility] Monocytes/leuk NFr Bld Auto 4.8 % Normal 11/12/2022 4 - 12 [facility] PMV Bld Auto 9.9 fL Normal 11/12/2022 8 - 12 [facility] T Basophils/leuk NFr Bld Auto 0.4 % Normal 11/12/2022 0 - 1.4 [facility] MCV RBC Auto 89.7 fL Normal 11/12/2022 80 - 100 [facility] Lymphocytes/leuk NFr Bld Auto 18.3 % Normal 11/12/2022 17 - 50 [facility] nRBC # Bld Auto 0.0 x 1000/uL Normal 11/12/2022 0 - 1 [facility] WBC # Bld Auto 8.0 x1000/uL Normal 11/12/2022 4 - 11 [facility] MCHC RBC Auto-mCnc 32.2 g/dL Normal 11/12/2022 31 - 36 [facility] RBC # Bld Auto 3.77 M/uL Below low normal 11/12/2022 4 - 6 [facility] BKR WAM BASOPHIL ABSOLUTE COUNT. 0.03 x 1000/uL Normal 11/12/2022 0 - 1 [facility] Hgb Bld-mCnc 10.9 g/dL Below low normal 11/12/2022 11.7 - 15 .5 [facility] nRBC/100 WBC Bld Auto-Rto 0.0 % Normal 11/12/2022 0 - 1 [facility] Monocytes # Bld Auto 0.38 x 1000/uL Normal 11/12/2022 0 - 1 [facility] RDW RBC Auto-Rto 14.9 % Normal 11/12/2022 11 - 15 [facility] Imm Granulocytes/leuk NFr Bld Auto 0.9 % Normal 11/12/2022 0 - 1 [facility] Eosinophil # Bld Auto 0.14 x 1000/uL Normal 11/12/2022 0 - 1 [facility] CK SerPl-cCnc 4471.0 U/L Above high normal 11/12/2022 11 - 2 04 [facility] Troponin T SerPl HS-mCnc 20.0 ng/L Above high normal 11/12/2022 - [facility] BKR TROPONIN T HS 3 HOUR DELTA FROM 0 HOUR 5.0 ng/L Normal 11/12/2022 [facility] BKR TROPONIN T HS 1 HOUR DELTA FROM 0 HOUR ON 3HR -3.0 ng/L Normal 11/12/2022 [facility] Calcium SerPl-mCnc 8.1 mg/dL Below low normal 11/12/2022 8.8 - 10.2 [facility] Glucose SerPl-mCnc 115.0 mg/dL Above high normal 11/12/2022 70 - 100 [facility] GFR/BSA.pred SerPlBld [id number] >60.0 mL/min/1.73m2 Normal 11/12/2022 - [facility] BUN SerPl-mCnc 6.0 mg/dL Normal 11/12/2022 6 - 20 [facility] Potassium SerPl-sCnc 4.2 mmol/L Normal 11/12/2022 3.3 - 5 .3 [facility] Sodium SerPl-sCnc 136.0 mmol/L Normal 11/12/2022 136 - 14 4 [facility] Creat SerPl-mCnc 0.58 mg/dL Normal 11/12/2022 0.4 - 1.3 [facility] BUN/Creat SerPl 10.3 Normal 11/12/2022 8 - 23 [facility] HCO3 SerPl-sCnc 22.0 mmol/L Normal 11/12/2022 20 - 30 [facility] Chloride SerPl-sCnc 108.0 mmol/L Above high normal 98 - 107 [facility] Anion Gap3 SerPl-sCnc 6.0 Below low normal 11/12/2022 7 - 17 [facility] Phosphate SerPl-mCnc 2.4 mg/dL Normal 11/12/2022 2.2 - 4. 5 [facility] Magnesium SerPl-mCnc 1.7 mg/dL Normal 11/12/2022 1.7 - 2. 4 [facility] BKR WAM IPF 2.9 % Normal 11/12/2022 1.2 - 8.6 [facility] BKR WAM IPF, ABSOLUTE 2.8 x1000/uL Normal 11/12/2022 - 20 [facility] Imm Granulocytes # Bld Auto 0.08 x 1000/uL Normal 11/12/2022 0 - 0.3 [facility] PMV Bld Auto 10.2 fL Normal 11/12/2022 8 - 12 [facility] T Hct VFr Bld Auto 32.1 % Below low normal 11/12/2022 35 - 45 [facility] Basophils/leuk NFr Bld Auto 0.4 % Normal 11/12/2022 0 - 1.4 [facility] Neutrophils # Bld Auto 6.48 x 1000/uL Normal 11/12/2022 2 - 7.6 [facility] Lymphocytes/leuk NFr Bld Auto 15.3 % Below low normal 11/12/2022 17 - 50 [facility] Hgb Bld-mCnc 10.4 g/dL Below low normal 11/12/2022 11.7 - 15 .5 [facility] WBC # Bld Auto 8.3 x1000/uL Normal 11/12/2022 4 - 11 [facility] MCV RBC Auto 87.9 fL Normal 11/12/2022 80 - 100 [facility] MCH RBC Qn Auto 28.5 pg Normal 11/12/2022 27 - 33 [facility] Monocytes # Bld Auto 0.39 x 1000/uL Normal 11/12/2022 0 - 1 [facility] nRBC # Bld Auto 0.0 x 1000/uL Normal 11/12/2022 0 - 1 [facility] Eosinophil/leuk NFr Bld Auto 0.6 % Normal 11/12/2022 0 - 5 [facility] MCHC RBC Auto-mCnc 32.4 g/dL Normal 11/12/2022 31 - 36 [facility] Imm Granulocytes/leuk NFr Bld Auto 1.0 % Normal 11/12/2022 0 - 1 [facility] BKR WAM BASOPHIL ABSOLUTE COUNT. 0.03 x 1000/uL Normal 11/12/2022 0 - 1 [facility] Neutrophils/leuk NFr Bld Auto 78.0 % Above high normal 11/12/2022 39 - 72 [facility] Lymphocytes # Bld Auto 1.27 x 1000/uL Normal 11/12/2022 0.6 - 3.7 [facility] nRBC/100 WBC Bld Auto-Rto 0.0 % Normal 11/12/2022 0 - 1 [facility] Monocytes/leuk NFr Bld Auto 4.7 % Normal 11/12/2022 4 - 12 [facility] Platelet # Bld Auto 97.0 x1000/uL Below low normal 150 - 420 [facility] Eosinophil # Bld Auto 0.05 x 1000/uL Normal 11/12/2022 0 - 1 [facility] RBC # Bld Auto 3.65 M/uL Below low normal 11/12/2022 4 - 6 [facility] RDW RBC Auto-Rto 15.0 % Normal 11/12/2022 11 - 15 [facility] aPTT PPP 27.5 seconds Normal 11/12/2022 23 - 31.4 [facility] T INR PPP 1.07 Normal 11/12/2022 0.86 - 1.12 [facility] Prothrombin time 11.8 seconds Normal 11/12/2022 9.6 - 12. 3 [facility] HCO3 std BldA-sCnc 21.0 mmol/L Normal 11/11/2022 21 - 28 [facility] pCO2 BldA 43.0 mmHg Normal 11/11/2022 32 - 48 [facility] pO2 BldA 104.0 mmHg Normal 11/11/2022 83 - 108 [facility] BKR FIO2 40.0 % Normal 11/11/2022 [facility] pH BldA 7.31 units Below low normal 11/11/2022 7.35 - 7.45 [facility] Bdy temp Pnl 37.0 Celsius Normal 11/11/2022 [facility] SaO2 % BldA 97.0 % Normal 11/11/2022 94 - 98 [facility] Base excess std BldA Calc-sCnc -5.0 mmol/L Below low normal 11/11/2022 - [facility] Myoglobin Ur Ql Positive Abnormal 11/11/2022 - [facility] CK SerPl-cCnc 4235.0 U/L Above high normal 11/11/2022 11 - 2 04 [facility] Ethanol SerPl-mCnc <10.0 mg/dL Normal 11/11/2022 - 10 [facility] BUN/Creat SerPl 10.9 Normal 11/11/2022 8 - 23 [facility] BUN SerPl-mCnc 7.0 mg/dL Normal 11/11/2022 6 - 20 [facility] Creat SerPl-mCnc 0.64 mg/dL Normal 11/11/2022 0.4 - 1.3 [facility] Anion Gap3 SerPl-sCnc 8.0 Normal 11/11/2022 7 - 17 [facility] HCO3 SerPl-sCnc 19.0 mmol/L Below low normal 11/11/2022 20 - 30 [facility] GFR/BSA.pred SerPlBld KUS-JVF-[id number] >60.0 mL/min/1.73m2 Normal 11/11/2022 - [facility] Glucose SerPl-mCnc 140.0 mg/dL Above high normal 11/11/2022 70 - 100 [facility] Sodium SerPl-sCnc 137.0 mmol/L Normal 11/11/2022 136 - 14 4 [facility] Potassium SerPl-sCnc 4.0 mmol/L Normal 11/11/2022 3.3 - 5 .3 [facility] Chloride SerPl-sCnc 110.0 mmol/L Above high normal 3 98 - 107 [facility] Calcium SerPl-mCnc 7.2 mg/dL Below low normal 11/11/2022 8.8 - 10.2 [facility] Phosphate SerPl-mCnc 2.3 mg/dL Normal 11/11/2022 2.2 - 4. 5 [facility] BKR TROPONIN T HS 1 HOUR DELTA FROM 0 HOUR -3.0 ng/L Normal 11/11/2022 [facility] Troponin T SerPl HS-mCnc 12.0 ng/L Above high normal 11/11/2022 - [facility] Magnesium SerPl-mCnc 1.6 mg/dL Below low normal 11/11/2022 1 .7 - 2.4 [facility] BKR WAM IPF 1.9 % Normal 11/11/2022 1.2 - 8.6 [facility] BKR WAM IPF, ABSOLUTE 1.6 x1000/uL Normal 11/11/2022 - 20 [facility] Imm Granulocytes/leuk NFr Bld Auto 1.1 % Above high normal 11/11/2022 0 - 1 [facility] WBC # Bld Auto 9.4 x1000/uL Normal 11/11/2022 4 - 11 [facility] Neutrophils # Bld Auto 7.94 x 1000/uL Above high normal 11/11/2022 2 - 7.6 [facility] Monocytes/leuk NFr Bld Auto 5.0 % Normal 11/11/2022 4 - 12 [facility] MCV RBC Auto 90.6 fL Normal 11/11/2022 80 - 100 [facility] T Basophils/leuk NFr Bld Auto 0.1 % Normal 11/11/2022 0 - 1.4 [facility] Eosinophil # Bld Auto 0.05 x 1000/uL Normal 11/11/2022 0 - 1 [facility] nRBC # Bld Auto 0.0 x 1000/uL Normal 11/11/2022 0 - 1 [facility] Imm Granulocytes # Bld Auto 0.1 x 1000/uL Normal 11/11/2022 0 - 0.3 [facility] Platelet # Bld Auto 85.0 x1000/uL Below low normal 150 - 420 [facility] Lymphocytes # Bld Auto 0.79 x 1000/uL Normal 11/11/2022 0.6 - 3.7 [facility] Lymphocytes/leuk NFr Bld Auto 8.4 % Below low normal 11/11/2022 17 - 50 [facility] MCH RBC Qn Auto 29.5 pg Normal 11/11/2022 27 - 33 [facility] PMV Bld Auto 10.1 fL Normal 11/11/2022 8 - 12 [facility] T Monocytes # Bld Auto 0.47 x 1000/uL Normal 11/11/2022 0 - 1 [facility] nRBC/100 WBC Bld Auto-Rto 0.0 % Normal 11/11/2022 0 - 1 [facility] Hgb Bld-mCnc 11.0 g/dL Below low normal 11/11/2022 11.7 - 15 .5 [facility] MCHC RBC Auto-mCnc 32.5 g/dL Normal 11/11/2022 31 - 36 [facility] RBC # Bld Auto 3.73 M/uL Below low normal 11/11/2022 4 - 6 [facility] BKR WAM BASOPHIL ABSOLUTE COUNT. 0.01 x 1000/uL Normal 11/11/2022 0 - 1 [facility] Neutrophils/leuk NFr Bld Auto 84.9 % Above high normal 11/11/2022 39 - 72 [facility] Eosinophil/leuk NFr Bld Auto 0.5 % Normal 11/11/2022 0 - 5 [facility] RDW RBC Auto-Rto 15.0 % Normal 11/11/2022 11 - 15 [facility] Hct VFr Bld Auto 33.8 % Below low normal 11/11/2022 35 - 45 [facility] aPTT PPP 24.0 seconds Normal 11/11/2022 23 - 31.4 [facility] T Prothrombin time 11.8 seconds Normal 11/11/2022 9.6 - 12. 3 [facility] INR PPP 1.07 Normal 11/11/2022 0.86 - 1.12 [facility] Troponin T SerPl HS-mCnc 15.0 ng/L Above high normal 11/11/2022 - [facility] BKR TEG MA, KAOLIN 59.2 mm Normal 11/11/2022 50 - 70 [facility] BKR TEG LY30, KAOLIN 0.0 % Normal 11/11/2022 0 - 8 [facility] BKR TEG R, K[place]OLIN 2.9 min Below low normal 11/11/2022 5 - 10 [facility] BKR TEG ANGLE, KAOLIN 72.0 deg Normal 11/11/2022 53 - 72 [facility] BKR TEG K, KAOLIN 1.5 min Normal 11/11/2022 1 - 3 [facility] Lactate SerPl-sCnc 1.6 mmol/L Normal 11/11/2022 0.5 - 2.2 [facility] Platelet # Bld Auto 120.0 x1000/uL Below low normal 11/12/19 23 150 - 420 [facility] RDW RBC Auto-Rto 15.3 % Above high normal 11/11/2022 11 - 15 [facility] MCH RBC Qn Auto 29.1 pg Normal 11/11/2022 27 - 33 [facility] Hct VFr Bld Auto 33.3 % Below low normal 11/11/2022 35 - 45 [facility] WBC # Bld Auto 8.4 x1000/uL Normal 11/11/2022 4 - 11 [facility] MCHC RBC Auto-mCnc 33.3 g/dL Normal 11/11/2022 31 - 36 [facility] Hgb Bld-mCnc 11.1 g/dL Below low normal 11/11/2022 11.7 - 15 .5 [facility] RBC # Bld Auto 3.82 M/uL Below low normal 11/11/2022 4 - 6 [facility] Neutrophils # Bld Auto 6.1 x 1000/uL Normal 11/11/2022 2 - 7.6 [facility] MCV RBC Auto 87.2 fL Normal 11/11/2022 80 - 100 [facility] T PMV Bld Auto 9.6 fL Normal 11/11/2022 8 - 12 [facility] T Monocytes/leuk NFr Bld Auto 6.9 % Normal 11/11/2022 4 - 12 [facility] Neutrophils/leuk NFr Bld Auto 72.8 % Above high normal 11/11/2022 39 - 72 [facility] Neutrophils # Bld Auto 3.67 x 1000/uL Normal 11/11/2022 2 - 7.6 [facility] nRBC/100 WBC Bld Auto-Rto 0.0 % Normal 11/11/2022 0 - 1 [facility] Lymphocytes # Bld Auto 0.94 x 1000/uL Normal 11/11/2022 0.6 - 3.7 [facility] Platelet # Bld Auto 77.0 x1000/uL Below low normal 150 - 420 [facility] Eosinophil/leuk NFr Bld Auto 0.8 % Normal 11/11/2022 0 - 5 [facility] MCHC RBC Auto-mCnc 28.3 g/dL Below low normal 11/11/2022 31 - 36 [facility] nRBC # Bld Auto 0.0 x 1000/uL Normal 11/11/2022 0 - 1 [facility] Imm Granulocytes # Bld Auto 0.03 x 1000/uL Normal 11/11/2022 0 - 0.3 [facility] Hct VFr Bld Auto 24.4 % Below low normal 11/11/2022 35 - 45 [facility] Imm Granulocytes/leuk NFr Bld Auto 0.6 % Normal 11/11/2022 0 - 1 [facility] MCV RBC Auto 100.8 fL Above high normal 11/11/2022 80 - 100 [facility] Basophils/leuk NFr Bld Auto 0.2 % Normal 11/11/2022 0 - 1.4 [facility] Hgb Bld-mCnc 6.9 g/dL Below low normal 11/11/2022 11.7 - 15 .5 [facility] Lymphocytes/leuk NFr Bld Auto 18.7 % Normal 11/11/2022 17 - 50 [facility] RBC # Bld Auto 2.42 M/uL Below low normal 11/11/2022 4 - 6 [facility] PMV Bld Auto 10.1 fL Normal 11/11/2022 8 - 12 [facility] T Monocytes # Bld Auto 0.35 x 1000/uL Normal 11/11/2022 0 - 1 [facility] Eosinophil # Bld Auto 0.04 x 1000/uL Normal 11/11/2022 0 - 1 [facility] WBC # Bld Auto 5.0 x1000/uL Normal 11/11/2022 4 - 11 [facility] RDW RBC Auto-Rto 16.1 % Above high normal 11/11/2022 11 - 15 [facility] B[facility] WAM BASOPHIL ABSOLUTE COUNT. 0.01 x 1000/uL Normal 11/11/2022 0 - 1 [facility] MCH RBC Qn Auto 28.5 pg Normal 11/11/2022 27 - 33 [facility] WAM IPF 1.3 % Normal 11/11/2022 1.2 - 8.6 [facility] WAM IPF, ABSOLUTE 1.0 x1000/uL Normal 11/11/2022 - 20 [facility] Cortis SerPl-mCnc 7.4 ug/dL Normal 11/11/2022 - [facility] CK SerPl-cCnc 4444.0 U/L Above high normal 11/11/2022 11 - 2 04 [facility] Glucose SerPl-mCnc 144.0 mg/dL Above high normal 11/11/2022 70 - 100 [facility] Anion Gap3 SerPl-sCnc 9.0 Normal 11/11/2022 7 - 17 [facility] BUN/Creat SerPl 11.8 Normal 11/11/2022 8 - 23 [facility] Sodium SerPl-sCnc 137.0 mmol/L Normal 11/11/2022 136 - 14 4 [facility] BUN SerPl-mCnc 8.0 mg/dL Normal 11/11/2022 6 - 20 [facility] Calcium SerPl-mCnc 7.6 mg/dL Below low normal 11/11/2022 8.8 - 10.2 [facility] Chloride SerPl-sCnc 109.0 mmol/L Above high normal 98 - 107 [facility] Creat SerPl-mCnc 0.68 mg/dL Normal 11/11/2022 0.4 - 1.3 [facility] Potassium SerPl-sCnc 3.4 mmol/L Normal 11/11/2022 3.3 - 5 .3 [facility] HCO3 SerPl-sCnc 19.0 mmol/L Below low normal 11/11/2022 20 - 30 [facility] GFR/BSA.pred SerPlBld ECT-XBA-DhJRgm >60.0 mL/min/1.73m2 Normal 11/11/2022 - [facility] AST SerPl w P-5'-P-cCnc 118.0 U/L Above high normal 11/11/2022 10 - 35 [facility] ALT SerPl w/o P-5'-P-cCnc 48.0 U/L Above high normal 11/11/2022 10 - 35 [facility] AST/ALT SerPl-cRto 2.5 Normal 11/11/2022 - [facility] ALP SerPl-cCnc 47.0 U/L Normal 11/11/2022 9 - 122 [facility] Bilirub SerPl-mCnc 1.0 mg/dL Normal 11/11/2022 - [facility] Bilirub Direct SerPl-mCnc 0.2 mg/dL Normal 11/11/2022 - [facility] Phosphate SerPl-mCnc 2.1 mg/dL Below low normal 11/11/2022 2 .2 - 4.5 [facility] Magnesium SerPl-mCnc 2.0 mg/dL Normal 11/11/2022 1.7 - 2. 4 [facility] aPTT PPP 24.0 seconds Normal 11/11/2022 23 - 31.4 [facility] T INR PPP 1.07 Normal 11/11/2022 0.86 - 1.12 [facility] Prothrombin time 11.8 seconds Normal 11/11/2022 9.6 - 12. 3 [facility] Sodium SerPl-sCnc 139.0 mmol/L Normal 11/11/2022 136 - 14 4 [facility] GFR/BSA.pred SerPlBld WZY-ADW-KsQOat >60.0 mL/min/1.73m2 Normal 11/11/2022 - [facility] Potassium SerPl-sCnc 3.9 mmol/L Normal 11/11/2022 3.3 - 5 .3 [facility] BUN/Creat SerPl 14.5 Normal 11/11/2022 8 - 23 [facility] Creat SerPl-mCnc 0.62 mg/dL Normal 11/11/2022 0.4 - 1.3 [facility] Chloride SerPl-sCnc 110.0 mmol/L Above high normal 98 - 107 [facility] HCO3 SerPl-sCnc 20.0 mmol/L Normal 11/11/2022 20 - 30 [facility] Glucose SerPl-mCnc 124.0 mg/dL Above high normal 11/11/2022 70 - 100 [facility] Anion Gap3 SerPl-sCnc 9.0 Normal 11/11/2022 7 - 17 [facility] BUN SerPl-mCnc 9.0 mg/dL Normal 11/11/2022 6 - 20 [facility] Calcium SerPl-mCnc 8.0 mg/dL Below low normal 11/11/2022 8.8 - 10.2 [facility] Phosphate SerPl-mCnc 2.4 mg/dL Normal 11/11/2022 2.2 - 4. 5 [facility] Magnesium SerPl-mCnc 2.1 mg/dL Normal 11/11/2022 1.7 - 2. 4 [facility] INR PPP 1.04 Normal 11/11/2022 0.86 - 1.12 [facility] Prothrombin time 11.5 seconds Normal 11/11/2022 9.6 - 12. 3 [facility] aPTT PPP 22.3 seconds Below low normal 11/11/2022 23 - 31.4 [facility] Lymphocytes # Bld Auto 1.49 x 1000/uL Normal 11/11/2022 0.6 - 3.7 [facility] Monocytes # Bld Auto 0.43 x 1000/uL Normal 11/11/2022 0 - 1 [facility] BKR WAM BASOPHIL ABSOLUTE COUNT. 0.03 x 1000/uL Normal 11/11/2022 0 - 1 [facility] nRBC # Bld Auto 0.0 x 1000/uL Normal 11/11/2022 0 - 1 [facility] Neutrophils/leuk NFr Bld Auto 70.2 % Normal 11/11/2022 39 - 72 [facility] PMV Bld Auto 9.9 fL Normal 11/11/2022 8 - 12 [facility] T Eosinophil/leuk NFr Bld Auto 0.6 % Normal 11/11/2022 0 - 5 [facility] Basophils/leuk NFr Bld Auto 0.4 % Normal 11/11/2022 0 - 1.4 [facility] MCH RBC Qn Auto 28.8 pg Normal 11/11/2022 27 - 33 [facility] RBC # Bld Auto 3.79 M/uL Below low normal 11/11/2022 4 - 6 [facility] Hct VFr Bld Auto 32.5 % Below low normal 11/11/2022 35 - 45 [facility] Imm Granulocytes/leuk NFr Bld Auto 0.6 % Normal 11/11/2022 0 - 1 [facility] nRBC/100 WBC Bld Auto-Rto 0.0 % Normal 11/11/2022 0 - 1 [facility] Lymphocytes/leuk NFr Bld Auto 21.9 % Normal 11/11/2022 17 - 50 [facility] Eosinophil # Bld Auto 0.04 x 1000/uL Normal 11/11/2022 0 - 1 [facility] MCHC RBC Auto-mCnc 33.5 g/dL Normal 11/11/2022 31 - 36 [facility] MCV RBC Auto 85.8 fL Normal 11/11/2022 80 - 100 [facility] T Neutrophils # Bld Auto 4.76 x 1000/uL Normal 11/11/2022 2 - 7.6 [facility] WBC # Bld Auto 6.8 x1000/uL Normal 11/11/2022 4 - 11 [facility] Hgb Bld-mCnc 10.9 g/dL Below low normal 11/11/2022 11.7 - 15 .5 [facility] Monocytes/leuk NFr Bld Auto 6.3 % Normal 11/11/2022 4 - 12 [facility] Platelet # Bld Auto 112.0 x1000/uL Below low normal 11/12/19 23 150 - 420 [facility] RDW RBC Auto-Rto 15.0 % Normal 11/11/2022 11 - 15 [facility] Imm Granulocytes # Bld Auto 0.04 x 1000/uL Normal 11/11/2022 0 - 0.3 [facility] Eosinophil/leuk NFr Bld Auto 0.2 % Normal 11/11/2022 0 - 5 [facility] RDW RBC Auto-Rto 14.8 % Normal 11/11/2022 11 - 15 [facility] Hct VFr Bld Auto 34.9 % Below low normal 11/11/2022 35 - 45 [facility] Hgb Bld-mCnc 11.7 g/dL Normal 11/11/2022 11.7 - 15.5 [facility] MCV RBC Auto 86.0 fL Normal 11/11/2022 80 - 100 [facility] T BKR WAM BASOPHIL ABSOLUTE COUNT. 0.02 x 1000/uL Normal 11/11/2022 0 - 1 [facility] Imm Granulocytes # Bld Auto 0.04 x 1000/uL Normal 11/11/2022 0 - 0.3 [facility] Monocytes/leuk NFr Bld Auto 6.1 % Normal 11/11/2022 4 - 12 [facility] MCHC RBC Auto-mCnc 33.5 g/dL Normal 11/11/2022 31 - 36 [facility] Basophils/leuk NFr Bld Auto 0.2 % Normal 11/11/2022 0 - 1.4 [facility] Monocytes # Bld Auto 0.55 x 1000/uL Normal 11/11/2022 0 - 1 [facility] nRBC # Bld Auto 0.0 x 1000/uL Normal 11/11/2022 0 - 1 [facility] MCH RBC Qn Auto 28.8 pg Normal 11/11/2022 27 - 33 [facility] PMV Bld Auto 10.1 fL Normal 11/11/2022 8 - 12 [facility] T WBC # Bld Auto 9.0 x1000/uL Normal 11/11/2022 4 - 11 [facility] Neutrophils # Bld Auto 6.67 x 1000/uL Normal 11/11/2022 2 - 7.6 [facility] Lymphocytes/leuk NFr Bld Auto 18.8 % Normal 11/11/2022 17 - 50 [facility] Lymphocytes # Bld Auto 1.69 x 1000/uL Normal 11/11/2022 0.6 - 3.7 [facility] Eosinophil # Bld Auto 0.02 x 1000/uL Normal 11/11/2022 0 - 1 [facility] Imm Granulocytes/leuk NFr Bld Auto 0.4 % Normal 11/11/2022 0 - 1 [facility] Neutrophils/leuk NFr Bld Auto 74.3 % Above high normal 11/11/2022 39 - 72 [facility] nRBC/100 WBC Bld Auto-Rto 0.0 % Normal 11/11/2022 0 - 1 [facility] RBC # Bld Auto 4.06 M/uL Normal 11/11/2022 4 - 6 [facility] Platelet # Bld Auto 137.0 x1000/uL Below low normal 11/12/19 23 150 - 420 [facility] Glucose SerPl-mCnc 123.0 mg/dL Above high normal 11/11/2022 70 - 100 [facility] Creat SerPl-mCnc 0.73 mg/dL Normal 11/11/2022 0.4 - 1.3 [facility] Anion Gap3 SerPl-sCnc 9.0 Normal 11/11/2022 7 - 17 [facility] Potassium SerPl-sCnc 4.2 mmol/L Normal 11/11/2022 3.3 - 5 .3 [facility] Chloride SerPl-sCnc 106.0 mmol/L Normal 11/11/2022 98 - 1 07 [facility] GFR/BSA.pred SerPlBld MPZ-BJX-DfLEjc >60.0 mL/min/1.73m2 Normal 11/11/2022 - [facility] BUN SerPl-mCnc 10.0 mg/dL Normal 11/11/2022 6 - 20 [facility] Calcium SerPl-mCnc 8.5 mg/dL Below low normal 11/11/2022 8.8 - 10.2 [facility] HCO3 SerPl-sCnc 21.0 mmol/L Normal 11/11/2022 20 - 30 [facility] BUN/Creat SerPl 13.7 Normal 11/11/2022 8 - 23 [facility] Sodium SerPl-sCnc 136.0 mmol/L Normal 11/11/2022 136 - 14 4 [facility] Lipase SerPl-cCnc 17.0 U/L Normal 11/11/2022 11 - 55 [facility] Phosphate SerPl-mCnc 2.9 mg/dL Normal 11/11/2022 2.2 - 4. 5 [facility] Magnesium SerPl-mCnc 2.2 mg/dL Normal 11/11/2022 1.7 - 2. 4 [facility] aPTT PPP 23.6 seconds Normal 11/11/2022 23 - 31.4 [facility] T INR PPP 1.01 Normal 11/11/2022 0.86 - 1.12 [facility] Prothrombin time 11.2 seconds Normal 11/11/2022 9.6 - 12. 3 [facility] Trigl SerPl-mCnc 65.0 mg/dL Normal 11/10/2022 - [facility] GFR/BSA.pred SerPlBld KAS-UGU-RhSMut >60.0 mL/min/1.73m2 Normal 11/10/2022 - [facility] Glucose SerPl-mCnc 193.0 mg/dL Above high normal 11/10/2022 70 - 100 [facility] BUN/Creat SerPl 19.3 Normal 11/10/2022 8 - 23 [facility] Creat SerPl-mCnc 0.57 mg/dL Normal 11/10/2022 0.4 - 1.3 [facility] HCO3 SerPl-sCnc 19.0 mmol/L Below low normal 11/10/2022 20 - 30 [facility] Sodium SerPl-sCnc 145.0 mmol/L Above high normal 11/10/2022 136 - 144 [facility] Chloride SerPl-sCnc 117.0 mmol/L Above high normal 3 98 - 107 [facility] BUN SerPl-mCnc 11.0 mg/dL Normal 11/10/2022 6 - 20 [facility] Calcium SerPl-mCnc 6.4 mg/dL Critically low 11/10/2022 8.8 - 10.2 [facility] Potassium SerPl-sCnc 3.2 mmol/L Below low normal 11/10/2022 3.3 - 5.3 [facility] Anion Gap3 SerPl-sCnc 9.0 Normal 11/10/2022 7 - 17 [facility] CRP SerPl HS-mCnc 4.3 mg/L Above high normal 11/10/2022 - [facility] Phosphate SerPl-mCnc 2.6 mg/dL Normal 11/10/2022 2.2 - 4. 5 [facility] Magnesium SerPl-mCnc 1.5 mg/dL Below low normal 11/10/2022 1 .7 - 2.4 [facility] Prealb SerPl Neph-mCnc 15.7 mg/dL Below low normal 11/10/2022 20 - 40 [facility] aPTT PPP 24.5 seconds Normal 11/10/2022 23 - 31.4 [facility] T INR PPP 1.09 Normal 11/10/2022 0.86 - 1.12 [facility] Prothrombin time 12.0 seconds Normal 11/10/2022 9.6 - 12. 3 [facility] Lymphocytes/leuk NFr Bld Auto 9.6 % Below low normal 11/10/2022 17 - 50 [facility] WBC # Bld Auto 9.2 x1000/uL Normal 11/10/2022 4 - 11 [facility] Hgb Bld-mCnc 10.7 g/dL Below low normal 11/10/2022 11.7 - 15 .5 [facility] Monocytes # Bld Auto 0.52 x 1000/uL Normal 11/10/2022 0 - 1 [facility] Neutrophils/leuk NFr Bld Auto 84.1 % Above high normal 11/10/2022 39 - 72 [facility] Neutrophils # Bld Auto 7.7 x 1000/uL Above high normal 11/10/2022 2 - 7.6 [facility] RBC # Bld Auto 3.73 M/uL Below low normal 11/10/2022 4 - 6 [facility] Platelet # Bld Auto 123.0 x1000/uL Below low normal 11/11/19 23 150 - 420 [facility] PMV Bld Auto 9.7 fL Normal 11/10/2022 8 - 12 [facility] T nRBC/100 WBC Bld Auto-Rto 0.0 % Normal 11/10/2022 0 - 1 [facility] RDW RBC Auto-Rto 14.7 % Normal 11/10/2022 11 - 15 [facility] Eosinophil # Bld Auto 0.0 x 1000/uL Normal 11/10/2022 0 - 1 [facility] BKR WAM BASOPHIL ABSOLUTE COUNT. 0.01 x 1000/uL Normal 11/10/2022 0 - 1 [facility] Imm Granulocytes/leuk NFr Bld Auto 0.5 % Normal 11/10/2022 0 - 1 [facility] MCHC RBC Auto-mCnc 33.0 g/dL Normal 11/10/2022 31 - 36 [facility] Monocytes/leuk NFr Bld Auto 5.7 % Normal 11/10/2022 4 - 12 [facility] nRBC # Bld Auto 0.0 x 1000/uL Normal 11/10/2022 0 - 1 [facility] MCV RBC Auto 86.9 fL Normal 11/10/2022 80 - 100 [facility] T Basophils/leuk NFr Bld Auto 0.1 % Normal 11/10/2022 0 - 1.4 [facility] Imm Granulocytes # Bld Auto 0.05 x 1000/uL Normal 11/10/2022 0 - 0.3 [facility] Eosinophil/leuk NFr Bld Auto 0.0 % Normal 11/10/2022 0 - 5 [facility] MCH RBC Qn Auto 28.7 pg Normal 11/10/2022 27 - 33 [facility] Hct VFr Bld Auto 32.4 % Below low normal 11/10/2022 35 - 45 [facility] Lymphocytes # Bld Auto 0.88 x 1000/uL Normal 11/10/2022 0.6 - 3.7 [facility] B[facility] BUPRENORPHINE SCREEN Negative Normal 11/10/2022 - [facility] DRUGS OF ABUSE NOTE Normal 11/10/2022 [facility] fentaNYL Ur Ql Scn Positive Abnormal 11/10/2022 - [facility] BKR DRUGS OF ABUSE NOTE Normal 11/10/2022 [facility] oxyCODONE Ur Ql Scn Negative Normal 11/10/2022 - [facility] Cannabinoids Ur Ql Scn Positive Abnormal 11/10/2022 - [facility] PCP Ur Ql Scn>25 ng/mL Negative Normal 11/10/2022 - [facility] Amphetamines Ur Ql Scn Negative Normal 11/10/2022 - [facility] Opiates Ur Ql Scn Negative Normal 11/10/2022 - [facility] Barbiturates Ur Ql Scn Negative Normal 11/10/2022 - [facility] BZE Ur Ql Scn Negative Normal 11/10/2022 - [facility] METHADONE METABOLITE SCREEN, URINE, NO CONF. Negative Normal 11/10/2022 - [facility] Benzodiaz Ur Ql Scn Negative Normal 11/10/2022 - [facility] DRUGS OF ABUSE DISCLAIMER See Comment Normal 11/10/2022 [facility] CK SerPl-cCnc 1392.0 U/L Above high normal 11/10/2022 11 - 2 04 [facility] Albumin SerPl BCG-mCnc 3.6 g/dL Normal 11/10/2022 3.6 - 4.9 [facility] TEG K, KAOLIN/HEPARINASE 1.3 min Normal 11/10/2022 1 - 3 [facility] TEG MA, KAOLIN/HEPARINASE 64.1 mm Normal 11/10/2022 50 - 70 [facility] TEG LY30, KAOLIN/HEPARINASE 0.1 % Normal 11/10/2022 0 - 8 [facility] TEG ANGLE, KAOLIN/HEPARINASE 71.2 deg Normal 11/10/2022 53 - 72 [facility] TEG R, KAOLIN/HEPARINASE 3.9 min Below low normal 11/10/2022 5 - 10 [facility] T Lactate SerPl-sCnc 1.4 mmol/L Normal 11/10/2022 0.5 - 2.2 [facility] Sodium SerPl-sCnc 139.0 mmol/L Normal 11/10/2022 136 - 14 4 [facility] Chloride SerPl-sCnc 106.0 mmol/L Normal 11/10/2022 98 - 1 07 [facility] BUN/Creat SerPl 17.5 Normal 11/10/2022 8 - 23 [facility] Creat SerPl-mCnc 0.8 mg/dL Normal 11/10/2022 0.4 - 1.3 [facility] Potassium SerPl-sCnc 3.7 mmol/L Normal 11/10/2022 3.3 - 5 .3 [facility] GFR/BSA.pred SerPlBld UOG-WPE-CnUQxc >60.0 mL/min/1.73m2 Normal 11/10/2022 - [facility] BUN SerPl-mCnc 14.0 mg/dL Normal 11/10/2022 6 - 20 [facility] Anion Gap3 SerPl-sCnc 12.0 Normal 11/10/2022 7 - 17 [facility] Glucose SerPl-mCnc 158.0 mg/dL Above high normal 11/10/2022 70 - 100 [facility] HCO3 SerPl-sCnc 21.0 mmol/L Normal 11/10/2022 20 - 30 [facility] Calcium SerPl-mCnc 8.4 mg/dL Below low normal 11/10/2022 8.8 - 10.2 [facility] Ca-I adj pH7.4 BldV ISE-mCnc 4.41 mg/dL Below low normal 11/10/2022 4.6 - 5.08 [facility] Lymphocytes # Bld Auto 0.95 x 1000/uL Normal 11/10/2022 0.6 - 3.7 [facility] Imm Granulocytes/leuk NFr Bld Auto 1.1 % Above high normal 11/10/2022 0 - 1 [facility] RDW RBC Auto-Rto 14.4 % Normal 11/10/2022 11 - 15 [facility] PMV Bld Auto 9.4 fL Normal 11/10/2022 8 - 12 [facility] T WBC # Bld Auto 10.1 x1000/uL Normal 11/10/2022 4 - 11 [facility] Eosinophil/leuk NFr Bld Auto 0.2 % Normal 11/10/2022 0 - 5 [facility] Neutrophils # Bld Auto 8.47 x 1000/uL Above high normal 11/10/2022 2 - 7.6 [facility] nRBC/100 WBC Bld Auto-Rto 0.0 % Normal 11/10/2022 0 - 1 [facility] Hct VFr Bld Auto 36.8 % Normal 11/10/2022 35 - 45 [facility] Neutrophils/leuk NFr Bld Auto 84.2 % Above high normal 11/10/2022 39 - 72 [facility] Lymphocytes/leuk NFr Bld Auto 9.5 % Below low normal 11/10/2022 17 - 50 [facility] Platelet # Bld Auto 134.0 x1000/uL Below low normal 11/11/19 23 150 - 420 [facility] MCHC RBC Auto-mCnc 32.9 g/dL Normal 11/10/2022 31 - 36 [facility] Monocytes/leuk NFr Bld Auto 4.8 % Normal 11/10/2022 4 - 12 [facility] BKR WAM BASOPHIL ABSOLUTE COUNT. 0.02 x 1000/uL Normal 11/10/2022 0 - 1 [facility] MCH RBC Qn Auto 28.5 pg Normal 11/10/2022 27 - 33 [facility] MCV RBC Auto 86.6 fL Normal 11/10/2022 80 - 100 [facility] T Hgb Bld-mCnc 12.1 g/dL Normal 11/10/2022 11.7 - 15.5 [facility] HCT RBC # Bld Auto 4.25 M/uL Normal 11/10/2022 4 - 6 [facility] Imm Granulocytes # Bld Auto 0.11 x 1000/uL Normal 11/10/2022 0 - 0.3 [facility] Eosinophil # Bld Auto 0.02 x 1000/uL Normal 11/10/2022 0 - 1 [facility] Basophils/leuk NFr Bld Auto 0.2 % Normal 11/10/2022 0 - 1.4 [facility] Monocytes # Bld Auto 0.48 x 1000/uL Normal 11/10/2022 0 - 1 [facility] nRBC # Bld Auto 0.0 x 1000/uL Normal 11/10/2022 0 - 1 [facility] pO2 BldA 70.0 mmHg Below low normal 11/10/2022 83 - 108 [facility] HCO3 std BldA-sCnc 22.8 mmol/L Normal 11/10/2022 21 - 28 [facility] SaO2 % BldA 95.0 % Normal 11/10/2022 94 - 98 [facility] Bdy temp Pnl 36.4 Celsius Normal 11/10/2022 [facility] Base excess std BldA Calc-sCnc -2.0 mmol/L Normal 11/10/2022 - [facility] pH BldA 7.35 units Normal 11/10/2022 7.35 - 7.45 [facility] T BKR FIO2 21.0 % Normal 11/10/2022 [facility] pCO2 BldA 42.0 mmHg Normal 11/10/2022 32 - 48 [facility] ABORH RECHECK INTERPRETATION A POS Normal 11/11/2022 [facility] ANTIBODY SCREEN NEG Normal 11/10/2022 [facility] ABO GROUPING A Normal 11/10/2022 [facility] T RH TYPE POS Normal 11/10/2022 [facility] HOLD SPECIMEN BB RECVD Normal 11/10/2022 [facility] CK SerPl-cCnc 384.0 U/L Above high normal 11/10/2022 11 - 20 4 [facility] Phosphate SerPl-mCnc 4.1 mg/dL Normal 11/10/2022 2.2 - 4. 5 [facility] Bilirub SerPl-mCnc 0.8 mg/dL Normal 11/10/2022 - [facility] Bilirub Direct SerPl-mCnc 0.2 mg/dL Normal 11/10/2022 - [facility] ALP SerPl-cCnc 59.0 U/L Normal 11/10/2022 9 - 122 [facility] AST/ALT SerPl-cRto 1.8 Normal 11/10/2022 - [facility] AST SerPl w P-5'-P-cCnc 73.0 U/L Above high normal 11/10/2022 10 - 35 [facility] ALT SerPl w/o P-5'-P-cCnc 40.0 U/L Above high normal 11/10/2022 10 - 35 [facility] Magnesium SerPl-mCnc 2.2 mg/dL Normal 11/10/2022 1.7 - 2. 4 [facility] B[facility] ISOPROPANOL BLOOD2 Not Detected Normal 11/10/2022 - [facility] ACETONE BLOOD2 Not Detected Normal 11/10/2022 - [facility] METHANOL2 Not Detected Normal 11/10/2022 - [facility] Ethanol SerPl-mCnc Not Detected Normal 11/10/2022 - [facility] Anion Gap3 SerPl-sCnc 21.0 Above high normal 11/10/2022 7 - 17 [facility] GFR/BSA.pred SerPlBld FLS-SAM-YxVCjp >60.0 mL/min/1.73m2 Normal 11/10/2022 - [facility] Sodium SerPl-sCnc 138.0 mmol/L Normal 11/10/2022 136 - 14 4 [facility] HCO3 SerPl-sCnc 15.0 mmol/L Below low normal 11/10/2022 20 - 30 [facility] Creat SerPl-mCnc 1.08 mg/dL Normal 11/10/2022 0.4 - 1.3 [facility] Calcium SerPl-mCnc 8.6 mg/dL Below low normal 11/10/2022 8.8 - 10.2 [facility] Chloride SerPl-sCnc 102.0 mmol/L Normal 11/10/2022 98 - 1 07 [facility] BUN/Creat SerPl 13.9 Normal 11/10/2022 8 - 23 [facility] BUN SerPl-mCnc 15.0 mg/dL Normal 11/10/2022 6 - 20 [facility] Potassium SerPl-sCnc 3.8 mmol/L Normal 11/10/2022 3.3 - 5 .3 [facility] Glucose SerPl-mCnc 169.0 mg/dL Above high normal 11/10/2022 70 - 100 [facility] aPTT PPP 21.9 seconds Below low normal 11/10/2022 23 - 31.4 [facility] INR PPP 1.04 Normal 11/10/2022 0.86 - 1.12 [facility] Prothrombin time 11.5 seconds Normal 11/10/2022 9.6 - 12. 3 [facility] nRBC/100 WBC Bld Auto-Rto 0.0 % Normal 11/10/2022 0 - 1 [facility] BKR WAM BASOPHIL ABSOLUTE COUNT. 0.04 x 1000/uL Normal 11/10/2022 0 - 1 [facility] RDW RBC Auto-Rto 14.6 % Normal 11/10/2022 11 - 15 [facility] Neutrophils/leuk NFr Bld Auto 41.7 % Normal 11/10/2022 39 - 72 [facility] Hct VFr Bld Auto 35.2 % Normal 11/10/2022 35 - 45 [facility] Eosinophil # Bld Auto 0.07 x 1000/uL Normal 11/10/2022 0 - 1 [facility] MCV RBC Auto 88.0 fL Normal 11/10/2022 80 - 100 [facility] T RBC # Bld Auto 4.0 M/uL Normal 11/10/2022 4 - 6 [facility] MCH RBC Qn Auto 28.0 pg Normal 11/10/2022 27 - 33 [facility] Hgb Bld-mCnc 11.2 g/dL Below low normal 11/10/2022 11.7 - 15 .5 [facility] PMV Bld Auto 9.7 fL Normal 11/10/2022 8 - 12 [facility] T Eosinophil/leuk NFr Bld Auto 0.8 % Normal 11/10/2022 0 - 5 [facility] WBC # Bld Auto 8.7 x1000/uL Normal 11/10/2022 4 - 11 [facility] MCHC RBC Auto-mCnc 31.8 g/dL Normal 11/10/2022 31 - 36 [facility] Monocytes/leuk NFr Bld Auto 4.7 % Normal 11/10/2022 4 - 12 [facility] Basophils/leuk NFr Bld Auto 0.5 % Normal 11/10/2022 0 - 1.4 [facility] Lymphocytes # Bld Auto 4.38 x 1000/uL Above high normal 11/10/2022 0.6 - 3.7 [facility] Imm Granulocytes/leuk NFr Bld Auto 1.8 % Above high normal 11/10/2022 0 - 1 [facility] Platelet # Bld Auto 218.0 x1000/uL Normal 11/10/2022 150 - 420 [facility] nRBC # Bld Auto 0.0 x 1000/uL Normal 11/10/2022 0 - 1 [facility] Monocytes # Bld Auto 0.41 x 1000/uL Normal 11/10/2022 0 - 1 [facility] Imm Granulocytes # Bld Auto 0.16 x 1000/uL Normal 11/10/2022 0 - 0.3 [facility] Lymphocytes/leuk NFr Bld Auto 50.5 % Above high normal 11/10/2022 17 - 50 [facility] Neutrophils # Bld Auto 3.61 x 1000/uL Normal 11/10/2022 2 - 7.6 [facility] History of Medication Use Medication Directions Dispensed Refills Start Date End Date Stat cyclobenzaprine (FLEXERIL) 5 MG tablet 05/18/2024 ac tive gabapentin (NEURONTIN) 100 MG capsule 10/15/2023 active doxycycline (VIBRAMYCIN) 100 MG capsule 07/30/2023 active diazepam (VALIUM) 10 MG tablet Take 1 tablet (10 mg total) by mouth 3 times daily (every 8 hours) as needed for muscle spasms. 03/24/2023 active polyethylene glycol (miraLAx) 17 g packet Take 1 packet (17 g total) by mouth daily. 03/24/2023 active midodrine (ProAmatine) 5 MG tablet Take 1 tablet (5 mg total) by mouth 3 (three) times a day as needed for orthostatic hypotension (SBP <100. Hold for SBP >100). Take during daytime hours. 03/07/2023 active polycarbophil (FIBERCON) 625 MG tablet Take 1 tablet (625 mg total) by mouth daily. 06/19/2023 active acetaminophen (TYLENOL) 325 MG suppository Insert 1 suppository (325 mg total) into the rectum 4 times daily (every 6 hours) as needed for mild pain. active calcium carbonate (TUMS) 500 MG chewable tablet Chew 1 tablet (500 mg total) every 4 (four) hours as needed for indigestion or heartburn. active hydroxypropyl methylcellulose (HYPROMELLOSE) 2.5 % ophthalmic solution Administer 1 drop to both eyes every 2 (two) hours as needed for dry eyes. active lidocaine (PROZENA) 4 % patch Place 1 patch on the skin daily. active loratadine (CLARITIN) 10 MG tablet Take 1 tablet (10 mg total) by mouth daily. active methocarbamol (ROBAXIN) 500 MG tablet Take 1 tablet (500 mg total) by mouth 4 (four) times a day. active naloxone (NARCAN) 4 mg/0.1 mL Liquid nasal spray device 1 spray (4 mg total) by Alternating Nares route once. [place] contents (4mg) into one nostril once. May repeat every 2 to 3 minutes in alternating nostrils. Call 911 immediately after use. active naloxone (NARCAN) 4 mg/0.1 mL Liquid nasal spray device [place] contents (4mg) into one nostril once. May repeat every 2 to 3 minutes in alternating nostrils. Call 911 immediately after use. active oseltamivir (TAMIFLU) 75 MG capsule Take 1 capsule (75 mg total) by mouth. active Problems Problem Status Onset Date Problem Type Date of Resolution Source Neurogenic bladder active EncounterDiagnosisAct [facility] Neurogenic bowel active EncounterDiagnosisAct [facility] Neuropathic pain [facility] Spasticity active [facility] Paraplegia (H[facility]) active EncounterDiagnosisAct [facility] Urinary retention active EncounterDiagnosisAct [facility] History of spinal cord injury active EncounterDiagnosisAct [facility] Traumatic pneumothorax, initial encounter active EncounterDiagnosisAct [facility] Cannabis use disorder, mild, in sustained remission active 2015-04-11 ProblemAct [facility] Pelvic avulsion fracture, open, initial encounter [...] EncounterDiagnosisAct [facility] Homeless active 2022-10-21 ProblemAct [facility] Pelvic ring fracture with routine healing active EncounterDiagnosisAct [facility] Closed nondisplaced fracture of sixth cervical vertebra, unspecified fracture morphology, initial encounter (HC Code) active EncounterDiagnosisAct [facility] Aftercare following surgery of the musculoskeletal system active EncounterDiagnosisAct [facility] Rash active 2022-10-21 ProblemAct [...] [facility] Vitamin D deficiency active 2018-10-26 ProblemAct [facility] Schizoaffective disorder, bipolar type (HC Code) (HC CODE) active 2015-12-08 ProblemAct [facility] Suicidal ideation active EncounterDiagnosisAct [facility] Immunizations Vaccine Date Source Lot Number Status COVID-19, PFIZER 12Y up,mRNA,MARY JANE 09/29/2021 [facility] FP [id number] completed COVID-19, FRANCINE (J&J), 0.5 mL 01/23/2021 [facility] [id number] completed Influenza, injectable, quadr ivalent, preservative free 12/09/2015 [facility] [id number] completed Influenza, seasonal, injecta ble, preservative free 12/16/2014 [facility] completed Tdap 04/19/2014 [facility] completed Influenza, seasonal, injectable 11/23/2013 [facility] completed Encounters Encounter Type Encounter Reason Primary Diagnosis Location Date Ambulatory Paraplegia, unspecified Paraplegia, unspecified [place] 08/19/2024 Ambulatory Neuromuscular dysfunction of bladder, unspecified Neuromuscular dysfunction of bladder, unspecified [place] 08/06/2024 Ambulatory Retention of urine, unspecified Retention of urine, unspecified [place] 07/12/2024 Ambulatory [place] 06/03/2024 Ambulatory Neuromuscular dysfunction of bladder, unspecified Neuromuscular dysfunction of bladder, unspecified [place] 06/02/2024 Ambulatory Paraplegia, unspecified Paraplegia, unspecified [place] 02/26/2024 Ambulatory [place] 12/15/2023 [facility]. 10/01/2023 [facility]. 08/11/2023 Ambulatory Neuromuscular dysfunction of bladder, unspecified Neuromuscular dysfunction of bladder, unspecified [place] 08/06/2023 [facility] [facility] 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 05/28/2023 Emergency Unspecified complication of genitourinary prosthetic device, implant and graft, initial encounter Unspecified complication of genitourinary prosthetic device, implant and graft, initial encounter [place] 05/21/2023 Ambulatory pt is experiencing low back pain [facility] 04/30/2023 Ambulatory Neuromuscular dysfunction of bladder, unspecified Neuromuscular dysfunction of bladder, unspecified [place] 04/28/2023 Ambulatory Neuromuscular dysfunction of bladder, unspecified Neuromuscular dysfunction of bladder, unspecified [place] 04/08/2023 Ambulatory Low back pain, unspecified Low back pain, unspecified [facility] 04/03/2023 [facility] 03/28/2023 Emergency Pelvic and perineal pain Pelvic and perineal pain [facility] 03/23/2023 [facility] 03/10/2023 Emergency Unspecified abdomina l pain Unspecified abdominal pain [facility] 03/09/2023 Emergency Unspecified abdomina l pain Unspecified abdominal pain [place] 03/06/2023 Inpatient Sepsis, unspecified organism Sepsis, unspecified organism [facility] 02/23/2023 [facility] 02/17/2023 [facility] 02/09/2023 Ambulatory 2nd post op sx 11/12/22 (patient released from [place] on 12/17) [facility] 01/15/2023 [facility] 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 [facility] 11/12/2022 Inpatient Cannabis abuse, in remission Cannabis abuse, in remission [facility] 11/10/2022 Inpatient Cannabis abuse, in remission Cannabis abuse, in remission [facility] 11/10/2022 Emergency Screening examination for venereal disease [facility] 01/26/2022 Emergency Jaw pain [facility] 01/23/2022 Emergency Abdominal pain, unspecified site [facility] 08/30/2021 Emergency Other and unspecified alcohol dependence, in remission [facility] 08/25/2021 Emergency Screening for unspecified condition [facility] 08/24/2021 Emergency psych [facility] 11/16/2020 Care Team Organization Name Specialty Phone Email Start Date End Da te [place] LIONEL CORTES Primary [facility] 07/12/2024 [place] LIONEL CORTES Primary Care 07/12/2024 [facility] 01/14/2024 [facility] 10/20/2023 [facility] 07/01/2023 [facility] EDDA JOSE Primary Care 09/2023 [facility] Carroll Alfredo Primary Care 03/23/2023 [place] PCP [facility] 03/23/2023 [place] 02/24/2023 [place] PCP,No Primary Care 02/24/2023 [facility] provided No Primary Care 01/10/2023 04/18/2024 [facility] No provided Primary Care 01/10/2023 023 [facility] 11/15/2022 [facility] Other 11/15/2022 [facility] 02/01/2022 [facility] CARROLL ALFREDO Primary Care 01/26/2022 [facility] SOCORROCARROLL LAKHANI Primary Care 01/23/2022 [facility] Carroll Alfredo Primary Care 01/23/2022 022 [facility] [employer] NO PCP Primary Care 06/25/2021 06/25/2021 [facility] Carroll Alfredo Primary Care 11/16/2020 022 [facility] 11/16/2020 08/30/2021 [facility] 03/30/2010
--- OUTSIDE RECORDS SUMMARY | 2024-08-31 15:46 | XMS_ITS | Clinical Summary ---
Author Organization [facility] Address [address] [place] [address] Phone Care Team Providers Care Horser Up Name Role Phone Joel Jorgensen MD Primary Care Provider [phone] Encounters Date Type Department Care Team Description 08/06/2024 Lab Requisition [facility] [address] [place] [address] Joel Jorgensen MD Encounter for therapeutic drug level monitoring 08/03/2024 Lab Requisition [facility] [address] [place] [address] Joel Jorgensen MD Vitamin D deficiency, unspecified; Encounter for other specified special examinations from Last 3 Months Social History Tobacco [...] 02/27/2005 COVID-19 Vaccine (2023-2 5 season) 2023 Depression Screening 12/28/2023 HIV Screening 12/28/2023 Hepatitis C Screening 12/28/2023 Social Influencers of Health Screening 12/28/2023 Influenza Vaccine (Season Ended) 2024 HIB Vaccines Aged Out No longer eligi [...] age to complete this topic Meningococcal B Vaccine Aged Out No l onger eligible based on patient's age to complete [...] Diagnosis Comments CBC WITH AUTO DIFFERENTIAL Routine 08/06/2024 6:55 AM EDT Encounter for therapeutic drug level monitoring CBC AND DIFFERENTIAL Routine 08/06/2024 6:55 AM EDT Encounter for therapeutic drug level monitoring COMPREHENSIVE METABOLIC PANEL Routine 08/03/2024 7:05 AM EDT Vitamin D deficiency, unspecified Encounter for other specified special examinations VITAMIN D 25 HYDROXY Routine 08/03/2024 7:05 AM EDT Vitamin D deficiency, unspecified from Last 3 Months Results * (ABNORMAL) CBC auto differential (08/06/2024 6:55 AM EDT) WBC 4.1(L) 4.8 - 10.8 K/mcL LAB HEMETOLOGY METHOD 08/06/2024 7:59 AM EDT [facility] RBC 4.00 3.80 - 4.80 M/mcL LAB HEMETOLOGY METHOD 08/06/2024 7:59 AM EDT [facility] Hemoglobin 10.4(L) 11.5 - 16.0 g/dL LAB HEMETOLOGY METHOD 08/06/2024 7:59 AM EDT [facility] Hematocrit 33.8(L) 35.0 - 47.0 % LAB HEMETOLOGY METHOD 08/06/2024 7:59 AM [facility] MCV 84.3 79.0 - 98.0 FL LAB HEMETOLOGY METHOD 08/06/2024 7:59 AM [facility] MCH 25.9(L) 27.0 - 32.0 pcg LAB HEMETOLOGY METHOD 08/06/2024 7:59 AM [facility] MCHC 30.8(L) 32.0 - 37.0 g/dL LAB HEMETOLOGY METHOD 08/06/2024 7:59 AM [facility] RDW 15.3(H) 11.0 - 15.0 % LAB HEMETOLOGY METHOD 08/06/2024 7:59 AM [facility] Platelets 249 130 - 400 K/mcL LAB HEMETOLOGY METHOD 08/06/2024 7:59 AM [facility] MPV 9.1 7.0 - 11.0 FL LAB HEMETOLOGY METHOD 08/06/2024 7:59 AM [facility] NRBC 0.0 <1.0 % LAB HEMETOLOGY METHOD 08/06/2024 7:59 AM [facility] NRBC Absolute 0.00 <0.10 K/mcL LAB HEMETOLOGY METHOD 08/06/2024 7:59 AM [facility] Neutrophils Relative 38.7 % LAB HEMETOLOGY METHOD 08/06/2024 7:59 AM [facility] Lymphocytes Relative 48.8 % LAB HEMETOLOGY METHOD 08/06/2024 7:59 AM [facility] Monocytes Relative 7.2 % LAB HEMETOLOGY METHOD 08/06/2024 7:59 AM [facility] Eosinophils Relative 3.6 % LAB HEMETOLOGY METHOD 08/06/2024 7:59 AM EDT [facility] Basophils Relative 0.7 % LAB HEMETOLOGY METHOD 08/06/2024 7:59 AM EDT [facility] Immature Granulocytes Relative 1.0 % LAB HEMETOLOGY METHOD 08/06/2024 7:59 AM EDT [facility] Neutrophils Absolute 1.60 1.50 - 7.00 K/mcL LAB HEMETOLOGY METHOD 08/06/2024 7:59 AM EDT [facility] Lymphocytes Absolute 2.02 1.00 - 5.00 K/mcL LAB HEMETOLOGY METHOD 08/06/2024 7:59 AM EDT [facility] Monocytes Absolute 0.30 0.20 - 1.00 K/mcL LAB HEMETOLOGY METHOD 08/06/2024 7:59 AM EDT [facility] Eosinophils Absolute 0.15 0.00 - 0.50 K/mcL LAB HEMETOLOGY METHOD 08/06/2024 7:59 AM EDT [facility] Basophils Absolute 0.03 0.00 - 0.20 K/mcL LAB HEMETOLOGY METHOD 08/06/2024 7:59 AM EDT [facility] Immature Granulocytes Absolute 0.04(H) 0.00 - 0.03 K/mcL LAB HEMETOLOGY METHOD 08/06/2024 7:59 AM EDT [facility] Blood Venous blood specimen / Unknown 08/06/2024 6:55 AM EDT 08/06/2024 7:36 AM EDT us Joel Jorgensen MD LAB BLOOD ORDERABLES Final Resul t [facility] [address] [place] [address], * Vitamin D 25 hydroxy (08/03/2024 7:05 AM EDT) Vit D, 25-Hydroxy 48.1 30.0 - 80.0 ng/mL LAB CHEMISTRY METHOD 08/03/2024 8:34 AM [facility] Blood Venous blood specimen / Unknown 08/03/2024 7:05 AM EDT 08/03/2024 7:36 AM EDT us Joel Jorgensen MD LAB BLOOD ORDERABLES Final Resul t [facility] [address] [place] [address], [place] [phone] * (ABNORMAL) Comprehensive metabolic panel (08/03/2024 7:05 AM EDT) Sodium 143 133 - 145 mmol/L LAB CHEMISTRY METHOD 08/05/2024 2:30 PM [facility] Potassium 4.5 3.5 - 5.5 mmol/L LAB CHEMISTRY METHOD 08/05/2024 2:30 PM [facility] Chloride 110 96 - 110 mmol/L LAB CHEMISTRY METHOD 08/05/2024 2:30 PM [facility] CO2 26 21 - 32 mmol/L LAB CHEMISTRY METHOD 08/05/2024 2:30 PM [facility] Anion Gap 7 3 - 11 LAB CHEMISTRY METHOD 08/05/2024 2:30 PM [facility] Glucose 86 70 - 100 mg/dL LAB CHEMISTRY METHOD 08/05/2024 2:30 PM [facility] BUN 12 5 - 25 mg/dL LAB CHEMISTRY METHOD 08/05/2024 2:30 PM [facility] Creatinine 0.66 0.50 - 1.10 mg/dL LAB CHEMISTRY METHOD 08/05/2024 2:30 PM [facility] eGFR 114 >=60 mL/min/1. 73m2 LAB CHEMISTRY METHOD 08/05/2024 2:30 PM [facility] Comment:Calculation based on the Chronic Kidney Disease Epidemiology Collaboration (CKD-EPI) equation refit without adjustment for race. BUN/Creatinine Ratio 18.2 LAB CHEMISTRY METHOD 08/05/2024 2:30 PM EDT [facility] Calcium 8.9 8.5 - 10.5 mg/dL LAB CHEMISTRY METHOD 08/05/2024 2:30 PM EDT [facility] AST (SGOT) 12 10 - 42 unit/L LAB CHEMISTRY METHOD 08/05/2024 2:30 PM T [facility] ALT (SGPT) 18 10 - 60 unit/L LAB CHEMISTRY METHOD 08/05/2024 2:30 PM [facility] Alkaline Phosphatase 149(H) 42 - 121 unit/L LAB CHEMISTRY METHOD 08/05/2024 2:30 PM EDT [facility] Total Protein 6.9 6.0 - 8.0 g/dL LAB CHEMISTRY METHOD 08/05/2024 2:30 PM EDT [facility] Albumin 3.2 3.2 - 5.0 g/dL LAB CHEMISTRY METHOD 08/05/2024 2:30 PM [facility] Total Bilirubin 0.3 0.0 - 1.4 mg/dL LAB CHEMISTRY METHOD 08/05/2024 2:30 PM EDT [facility] Blood Venous blood specimen / Unknown 08/03/2024 7:05 AM EDT 08/03/2024 7:36 AM EDT us Joel Jorgensen MD LAB BLOOD ORDERABLES Final Resul t [facility] [address] [place] [address], from Last 3 Months Insurance MEDICAID - [place] Care Teams Horser Up Relationship Specialty Start Date End Date Joel Jorgensen MD [address] [place] [address] Dr [address] [employer] PCP - General Internal Medicine 04/07/24
--- OUTSIDE RECORDS SUMMARY | 2024-08-31 15:46 | XMS_ITS | Clinical Summary ---
Author Organization [facility] Address [address] [place] [address] Care Team Providers Care Brake Engineer Name Role Phone Unavailable Primary Care Provider [...] Date Diagnosed Date Schizoaffective disorder, bipolar type ([facility]) 12/29/2023 Social History Tobacco Use Types Packs/Day Years [...] Health Maintenance Due Date Last Done Comments Anxiety Screening 1984 Diabetes Screening 1984 HPV Screening 1984 Hepatitis C Screening 1984 Lipid Screening 1984 Pap + HPV 1984 Tobacco Screening 1984 HIV Screening 02/27/1999 Relationship Safety Screening/Counseling 02/27/1999 Hypertension Screening (#1) 02/27/2002 Imm-DTaP/Tdap/Td (1 - Tdap) 02/27/2003 Imm-Hepatitis B (1 of 3 - 19+ 3-dose series) 3 Cervical Cancer Screening 02/27/2005 Pap Smear 02/27/2005 Cds-LNGEX-28 (2023- season) 2023 Breast Cancer Screening (Mammogram) 2024 Alcohol and Drug Screen 03/03/2024 Depression Annual Screen 03/03/2024 Imm-Influenza (#1) 2024 Cervical Ablation/Cold-Knife Conization Discontinued Cervical Cryotherapy Discontinued Colposcopy Discontinued Endometrial Biopsy Discontinued Excision/Leep Discontinued HPV Genotyping Discontinued Vaginal Pap Discontinued Vulvoscopy Discontinued
--- OUTSIDE RECORDS SUMMARY | 2024-08-31 15:46 | XMS_ITS | Encounter Summary ---
Author Organization [facility] Address [address] [place] [address] Care Team Providers Care Process Stripper Name Role Phone Pcp, No Primary Care Provider Unavailabl e Emma Bernard PT Unavailable [phone] Joel Jorgensen Primary Care Provider [phone] Reason for Visit * Reason Comments Other Encounter Details Date Type Department Care Team (Late st Contact Info) Description 10/06/2023 Telephone [facility] [address] [place] [phone] Sharad Trujillo MD [address] [place] [address] Other Social History Tobacco Use [...] more drinks on one occasion? Never 02/24/2023 [facility] [place] of Occupat ional Health - Occupational Stress [...] has been transferred to a facility in [facility]. It takes about 1.5 hours to get to the [place] office. Zakiya did have an appointment for 09/16 that needed to be canceled. The facility is asking if she needs to come in for a follow up or can she be seen on an as needed basis? I can call Sadie Aaron back at [phone] Thank You - Dipika documented in this encounter Plan of Treatment Upcoming Encounters Date Type Department Care Team (Late st Contact Info) Description 11/25/2024 1:45 PM EDT Office Visit [facility] Urologic Surgery [address] [phone] Rafia Meyer PA-C [address] [address] 02/17/2025 10:00 AM EST Office Visit [facility] PHYSICAL MEDICINE & [facility] [place] [address] [facility] [address] [place] [address] Jerry Galindo MD 85 [facility] [address] [place] [phone] documented as of this encounter Visit Diagnoses Not on filedocumented in this encounter Care Teams Process Stripper Relationship Specialty Start Date End Date Pcp, No [address] [place] [address] PCP - General 06/13/21 07/11/24 Joel Jorgensen [address] [place] [address] Dr [address] [place] [address] PCP - General Medicine Hospitalist 07/12/24 Emma Bernard, PT [address] [address] Tank Setter HelperSpiritual Advisor Medicine and Rehabilitation 02/27/24 documented as of this encounter
== END 2024-08-31 14:46 | disposition home or self-care (01) ==
LOC: HO.US 14:45
PROVIDERS: Visit Provider Hospitalist
DX: R33.9 Retention of urine, unspecified (principal)
CPT/HCPCS: 76770

== ENCOUNTER → 2024-08-31 14:49 | Outpatient (BNV) | payer MEDICAID, SELFPAY | PROVIDERS: Visit Provider Specialist | DX: R33.9 Retention of urine, unspecified (principal) | CPT/HCPCS: 76770 ==

== ENCOUNTER 2025-02-27 18:08 | Emergency (ER) | payer MEDICAID, SELFPAY ==
--- NOTE | ~2025-02-27 | CT_ITS ---
CLINICAL HISTORY: RLQ tender, UTI, paraplegic --- Additional Notes or Special Instructions: NO IV @ 21:40 CT abdomen and pelvis with contrast Comparison: None provided Findings: No consolidation or effusion. Kidneys are normal in size. No hydronephrosis. No ureteral stones. There is a small amount of contrast within the bilateral collecting systems proximally. Liver, spleen, adrenal glands and pancreas are unremarkable. No bowel obstruction, pneumoperitoneum, or pneumatosis. Large amount of fecal loading in the distal colon and rectum. Uterus is normal. In the right ovary there is a incidentally noted 2 cm dominant follicle. No free fluid in the pelvis. Urinary bladder is partially decompressed and diffusely thick-walled. Previous open reduction internal fixation of the pelvis. Previous fusion extending from T12 through L5. Old burst fracture of L2 with prior L2 decompression. Previous anterior compression deformity of L3. Old sacral fracture. IMPRESSION: Thick-walled urinary bladder which could be compatible with cystitis versus underdistention artifact. This document has been electronically signed by: James Castillo MD on 02/27/2025 23:23:35
[2025-02-27 18:16] VITALS: BP 112/66; PULSE 87; O2SAT 99
[2025-02-27 18:24] VITALS: BP 105/55; PULSE 69; RESP 16; TEMP 36.9; O2SAT 99; BMI 40.4
--- OUTSIDE RECORDS SUMMARY | 2025-02-27 18:51 | XMS_ITS | Encounter Summary ---
Author Organization [facility] Address [address] [place] [address] Care Team Providers Care Shop Fitter Name Role Phone Emma Bernard PT Unavailable [phone] Joel Jorgensen Primary Care Provider [phone] Encounter Details Date Type Department Care Team (Late st Contact Info) Description 11/30/2024 Scanned Document [facility] Urologic Surgery [address] [phone] Rafia Meyer PA-C 65 [facility] [address] [place] [address] Social History Tobacco Use Types Packs/Day Years [...] more drinks on one occasion? Never 02/24/2023 [facility] [place] of Occupat ional Health - Occupational Stress Questionnaire Answer Date Recorded Do you feel stress - tense, restless, nervous, or anxious, or unable to sleep at night because your mind is troubled all the time - these days? Not at all 08/19/2024 Physical Activity Answer Date Recorded On average, how many days pe r week do you engage in moderate to strenuous exercise (like a brisk walk)? 7 days 08/19/2024 On average, how many minutes do you exercise per day at this level? 60 min 08/19/2024 Comments Unknown Sex and Gender Information Value Date Recorded Sex Assigned at Female 02/23/2023 11:03 PM EST Legal Sex Female 11:14 AM EDT Gender Identity Female 02/23/2023 11:03 PM EST Sexual Orientation Choose not to disclose 2022 11:03 PM EST documented as of this encounter Plan of Treatment Upcoming Encounters Date Type Department Care Team (Late st Contact Info) Description 03/24/2025 7:30 AM EST Office Visit [facility] PHYSICAL MEDICINE & REHAB [address] [phone] Jerry Galindo MD [address] [address] 05/25/2025 11:30 AM EDT Office Visit [facility] Urologic Surgery [address] [phone] Rafia Meyer PA-C [address] [place] [phone] documented as of this encounter Visit Diagnoses Not on filedocumented in this encounter Care Teams Shop Fitter Relationship Specialty Start Date End Date Joel Jorgensen [address] [place] [address] Dr [address] [place] [address] [place] [address] PCP - General Medicine Hospitalist 07/12/24 Emma Bernard, CASSY [address] [address] Cause AnalystBaseball Inspector And Repairer Medicine and Rehabilitation 02/27/24 documented as of this encounter
--- OUTSIDE RECORDS SUMMARY | 2025-02-27 18:51 | XMS_ITS | Clinical Summary ---
Author Organization [address] [facility] Address [address] [place] [address] Phone Care Team Providers Care Financial Advocate Name Role Phone Joel Jorgensen MD Primary Care Provider [phone] Encounters Date Type Department Care Team Description 02/27/[address] [facility] Lab [address] [place] [phone] Joel Jorgensen MD Retention of urine, unspecified 02/11/[address] [facility] Lab [address] [place] [phone] Joel Jorgensen MD Dysuria; Painful micturition, unspecified 02/03/[address] [facility] Lab [address] [place] [phone] Joel Jorgensen MD Vitamin D deficiency, unspecified from Last 3 Months Social History Tobacco [...] Cervical Cancer Screening: P ap Smear 02/27/2005 HPV Vaccines (1 - 3-dose SCD M series) 02/27/2011 HIV Screening 12/28/2023 Hepatitis C Screening 12/28/2023 Medicare Annual Wellness Visit 12/28/2023 Social Influencers of Health Screening 12/28/2023 Depression Screening 03/03/2024 COVID-19 Vaccine ( - 2024-2 6 season) 2024 Influenza Vaccine (#1) 2024 Cholesterol Screening (Lipid Panel) 10/05/2029 10/05/2024 RSV Immunization Adult Patie nts (1 - 1-dose 75+ series) 02/27/2059 HIB Vaccines Aged Out No longer eligi [...] 5 Years) and At-Risk Patients (6 to 49 Years) Aged Out No longer eligi ble based on patient's age to complete this topic RSV Immunization Patients Un ariana 20 months Aged Out No longer eligible b ased on patient's age to complete this topic Varicella Vaccines Aged Out No longer eligible based on patient's age to complete this topic Procedures Procedure Name Priority Date/Time Associated Diagnosis Comments URINALYSIS WITH REFLEX MICROSCOPIC Routine 02/27/2025 10:00 AM EST Retention of urine, unspecified URINALYSIS WITH REFLEX MICROSCOPIC Routine 02/27/2025 10:00 AM EST Retention of urine, unspecified URINALYSIS WITH REFLEX MICROSCOPIC Routine 02/11/2025 12:00 AM EST Dysuria Painful micturition, unspecified URINALYSIS WITH REFLEX MICROSCOPIC Routine 02/11/2025 12:00 AM EST Dysuria Painful micturition, unspecified CULTURE URINE Routine 02/11/2025 12:00 AM EST Dysuria Painful micturition, unspecified VITAMIN D 25 HYDROXY Routine 02/03/2025 7:01 AM EST Vitamin D deficiency, unspecified COMPREHENSIVE METABOLIC PANEL Routine 02/03/2025 7:01 AM EST Vitamin D deficiency, unspecified LIPID PANEL WITH REFLEX TO DIRECT LDL Routine 10/05/2024 6:54 AM EDT Encounter for other specified special examinations from Last 3 Months or Most Recently Relevant to Health Maintenance Results * (ABNORMAL) Urinalysis with reflex microscopic (02/27/2025 10:00 AM EST) Only the most recent of2 resultswithin the time period is included. Specific Gary Urine 1.013 1.003 - 1.030 LAB URINALYSIS - AUTOMATED METHOD 02/27/2025 4:12 PM [facility] pH, Urine 6.5 5.0 - 8.0 pH LAB URINALYSIS - AUTOMATED METHOD 02/27/2025 4:12 PM [facility] Leukocytes, Urine Large(A) Negative LAB URINALYSIS - AUTOMATED METHOD 02/27/2025 4:12 PM [facility] Nitrite, Urine Negative Negative LAB URINALYSIS - AUTOMATED METHOD 02/27/2025 4:12 PM [facility] Protein, Urine Trace <=Trace mg/dL LAB URINALYSIS - AUTOMATED METHOD 02/27/2025 4:12 PM [facility] Glucose, Urine Negative Negative mg/dL LAB URINALYSIS - AUTOMATED METHOD 02/27/2025 4:12 PM [facility] Ketones, Urine Negative Negative mg/dL LAB URINALYSIS - AUTOMATED METHOD 02/27/2025 4:12 PM [facility] Urobilinogen , Urine 0.2 0.2 - 1.0 mg/dL LAB URINALYSIS - AUTOMATED METHOD 02/27/2025 4:12 PM [facility] Bilirubin, Urine Negative Negative LAB URINALYSIS - AUTOMATED METHOD 02/27/2025 4:12 PM [facility] Blood, Urine Trace(A) Negative LAB URINALYSIS - AUTOMATED METHOD 02/27/2025 4:12 PM [facility] RBC, Urine 4 0 - 4 /HPF 02/27/2025 4:12 PM EST [facility] WBC, Urine >100(H) 0 - 4 /HPF 02/27/2025 4:12 PM EST [facility] Squamous Epithelial, Urine 50 0 - 60 /LPF 02/27/2025 4:12 PM EST [facility] Bacteria, Urine Moderate(A) Negative /HPF 02/27/2025 4:12 PM EST [facility] Hyaline Casts, Urine 0 0 - 3 /LPF 02/27/2025 4:12 PM EST [facility] Urine Urinary bladder structure / Unknown 02/27/2025 10:00 AM EST 02/27/2025 3:29 PM EST Joel Jorgensen MD LAB URINE ORDERABLES Final Resul t [facility] [address] [place] [address], [place] [phone] * (ABNORMAL) Culture urine (02/11/2025 12:00 AM EST) Culture, Urine >=100,000 CFU/mL Escherichia coli(A) YOLA 02/13/2025 9:22 AM EST [facility] Urine Urine specimen obtained by clean catch procedure / Unknown 02/11/2025 02/11/2025 8:57 PM EST Narrative Organism Antibiotic Method Susceptibility Escherichia coli Amoxicillin/Clavulanate YOLA >=32 ug/ml: Resistant Escherichia coli Ampicillin/Sulbactam YOLA >=32 ug/ml: Resistant Escherichia coli Piperacillin/Tazobactam YOLA 8 ug/ml: Susceptible Escherichia coli Cefazolin (Urine) YOLA 16 ug/ml: Susceptible Escherichia coli Cefoxitin YOLA <=4 ug/ml: Susceptible Escherichia coli Ceftazidime YOLA <=0.5 ug/ml: Susceptible Escherichia coli Ceftriaxone YOLA <=0.25 ug/ml: Susceptible Escherichia coli Cefepime YOLA <=0.12 ug/ml: Susceptible Escherichia coli Meropenem YOLA <=0.25 ug/ml: Susceptible Escherichia coli Amikacin YOLA 2 ug/ml: Susceptible Escherichia coli Gentamicin YOLA >=16 ug/ml: Resistant Escherichia coli Ciprofloxacin YOLA <=0.06 ug/ml: Susceptible Escherichia coli Levofloxacin YOLA <=0.12 ug/ml: Susceptible Escherichia coli Nitrofurantoin YOLA <=16 ug/ml: Susceptible Escherichia coli Trimethoprim/Sulfamethoxazole YOLA >=320 ug/ml: Resistant us Joel Jorgensen MD LAB MICROBIOLOGY - GENERAL ORDER [place] Final Result [facility] [address] [place] [address], [place] [phone] * (ABNORMAL) Vitamin D 25 hydroxy (02/03/2025 7:01 AM EST) Vit D, 25-Hydroxy 28.4(L) 30.0 - 80.0 ng/mL 02/03/2025 11:20 AM EST [facility] Blood Venous blood specimen / Unknown 02/03/2025 7:01 AM EST 02/03/2025 8:35 AM EST us Joel Jorgensen MD LAB BLOOD ORDERABLES Final Resul t [facility] [address] [place] [address], [place] [phone] * Comprehensive metabolic panel (02/03/2025 7:01 AM EST) Sodium 140 133 - 145 mmol/L 02/03/2025 11:19 AM EST [facility] Potassium 4.4 3.5 - 5.5 mmol/L 02/03/2025 11:19 AM EST [facility] Chloride 107 96 - 110 mmol/L 02/03/2025 11:19 AM EST [facility] CO2 26 21 - 32 mmol/L 02/03/2025 11:19 AM [facility] Anion Gap 7 3 - 11 02/03/2025 11:19 AM [facility] Glucose 81 70 - 100 mg/dL 02/03/2025 11:19 AM [facility] BUN 14 5 - 25 mg/dL 02/03/2025 11:19 AM [facility] Creatinine 0.80 0.50 - 1.10 mg/dL 02/03/2025 11:19 AM [facility] eGFR 96 >=60 mL/min/1. 73m2 02/03/2025 11:19 AM [facility] Comment:Calculation based on the Chronic Kidney Disease Epidemiology Collaboration (CKD-EPI) equation refit without adjustment for race. BUN/Creatinine Ratio 17.5 02/03/2025 11:19 AM [facility] Calcium 8.6 8.5 - 10.5 mg/dL 02/03/2025 11:19 AM [facility] AST (SGOT) 16 10 - 42 unit/L 02/03/2025 11:19 AM [facility] ALT (SGPT) 17 10 - 60 unit/L 02/03/2025 11:19 AM [facility] Alkaline Phosphatase 110 42 - 121 unit/L 02/03/2025 11:19 AM [facility] Total Protein 6.5 6.0 - 8.0 g/dL 02/03/2025 11:19 AM [facility] Albumin 3.8 3.2 - 5.0 g/dL 02/03/2025 11:19 AM [facility] Total Bilirubin 0.5 0.0 - 1.4 mg/dL 02/03/2025 11:19 AM [facility] Blood Venous blood specimen / Unknown 02/03/2025 7:01 AM EST 02/03/2025 8:35 AM EST us Joel Jorgensen MD LAB BLOOD ORDERABLES Final Resul t Performing Organization Address City/[facility]/ZIP Co de Phone Number [facility] [address] [place] [address], [place] [phone] * (ABNORMAL) Lipid panel with reflex to direct LDL (10/05/2024 6:54 AM EDT) Cholesterol 181 0 - 200 mg/dL LAB CHEMISTRY METHOD 10/05/2024 9:12 AM EDT [facility] Triglycerides 130 0 - 150 mg/dL LAB CHEMISTRY METHOD 10/05/2024 9:12 AM EDT [facility] HDL 41 >=40 mg/dL LAB CHEMISTRY METHOD 10/05/2024 9:12 AM EDT [facility] LDL Calculated 114(H) 0 - 100 mg/dL LAB CHEMISTRY METHOD 10/05/2024 9:12 AM EDT [facility] Comment:Estimated LDL Calcul ated using equation: Total cholesterol - HDL cholesterol - (Triglycerides/5) VLDL Cholesterol Min 26 mg/dL LAB CHEMISTRY METHOD 10/05/2024 9:12 AM EDT [facility] Non HDL Chol. 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
--- OUTSIDE RECORDS SUMMARY | 2025-02-27 18:51 | XMS_ITS | Clinical Summary ---
Author Organization [facility] Address [address] [place] [address] Care Team Providers Care Radio Recorder Name Role Phone Emma Bernard PT Unavailable [phone] Joel Jorgensen Primary Care Provider [phone] Allergies No known active allergies Medications * This document contains information received from the source organization and may not represent a complete record from that organization. doxycycline (VIBRAMYCIN) 100 MG capsule 07/30/19 24 Active Vitamin D3 (CHOLECALCIFEROL) 50 MCG (1999 [place]) tablet Take 1 tablet (2,000 Units total) by mouth daily. Active oxyCODONE (ROXICODONE) 5 MG immediate [...] mg total) by Alternating Nares route once. [place] contents (4mg) into one nostril once. May [...] as needed for indigestion or heartburn. Active cyclobenzaprine (FLEXERIL) 5 MG tablet 05/19/19 25 Active gabapentin (NEURONTIN) 100 MG capsule 10/15/19 24 Active hydroxypropyl methylcellulose (HYPROMELLOSE) 2.5 % ophthalmic solution Administer 1 drop to both eyes every 2 (two) hours as needed for dry eyes. Active lactulose (ENULOSE) 10 gm/15 mL solution Take 45 mL (30 g total) by mouth nightly. 10/06/19 25 Active bisacodyl 5 MG EC tablet Take 1 tablet (5 mg total) by mouth daily as needed for constipation. Active HM LIDOCAINE PATCH EX Apply 5 % topically daily. Active Active Problems No known active problems Resolved Problems Problem Noted Date Diagnosed Date Resolved Date UTI (urinary tract infection) 02/24/2023 05/14/2023 Encounters Date Type Department Care Team Description 11/30/2024 Scanned Document [facility] Urologic Surgery [address] [phone] Rafia Meyer PA-C from Last 3 Months Family History Medical [...] more drinks on one occasion? Never 02/24/2023 [facility] - Occupational Stress [...] Sign Reading Time Taken Comments Blood Pressure 103/72 08/19/2024 2:29 PM EDT Pulse 100 08/19/2024 2:29 PM EDT Temperature 36.8 C (98.2 F) 05/21/2023 10:38 PM EDT Respiratory Rate 16 08/19/2024 2:29 PM EDT Oxygen Saturation 98% 08/19/2024 2:29 PM EDT Inhaled Oxygen Concentration - - Weight 101 kg (222 lb) 11/25/2024 1:44 PM EDT pe r pt Height 166.4 cm (5' 5.5 ) 11/25/2024 1:44 PM EDT per pt Body Mass Index 36.38 11/25/2024 1:44 PM EDT Plan of Treatment Upcoming Encounters Date Type Department Care Team (Late st Contact Info) Description 03/24/2025 7:30 AM EST Office Visit [facility] [address] [phone] Jerry Galindo MD [address] [place] [address] 05/25/2025 11:30 AM EDT Office Visit [facility] Urologic Surgery [place] [address] [facility] [address] [place] [address] Rafia Meyer PA-C [address] [facility] [address] [place] [address] Health Maintenance Due Date Last Done Comments Microalbumin/Creatinine Ratio Urine 02/27/2002 DTaP/Tdap/Td Vaccines (1 - Tdap) 02/27/2003 Hepatitis B Vaccines (1 of 3 - 19+ 3-dose series) 02/27/2003 Pap Smear (Ages 21-65) 02/27/2005 Mammogram 2024 Influenza Vaccine 10/01/2024 12/09/2015, , 11/23/2013 COVID-19 Vaccine (2024- season) 2024 09/29/2021, 01/23/2021 Hemoglobin A1C Discontinued 11/08/2021, 03/06/2019 Hepatitis C Virus Screening Completed 05/17/2022, 01/01/2022 HIV Screening Completed 09/30/2022, 06/01, 05/17/2022, Additional history exists HPV Vaccines (No Doses Required) Completed Pneumococcal Vaccine: Pediatric (0-5 Years) and At-Risk Patients (6 to 49 Years) Aged Out No longer eligible based on patient's age to complete this topic Procedures Procedure Name Priority Date/Time Associated Diagnosis Comments ULTRASOUND EXTERNAL RESULT Routine 12/09/2024 12:20 PM EDT from Last 3 Months Results * Ultrasound External Result (12/09/2024 12:20 PM EDT) Anatomical Region Laterality Modality Ultrasound us Joel Jorgensen Tim US ORDERABLES Final Result from Last 3 Months Insurance [facility] MEDICARE PART A & B [facility] Advance Directives * Full Code (Latest Code Status on File) Date Activated Date Inactivated Comments 02/24/2023 4:26 AM 03/06/2023 8:25 PM Care Teams Radio Recorder Relationship Specialty Start Date End Date Joel Jorgensen [address] [place] [address] [address] [place] [address] PCP - General Medicine Hospitalist 07/12/24 Emma Bernard, PT [address] [facility] [address] [place] [address] [employer] Worker Medicine and Rehabilitation 02/27/24
--- OUTSIDE RECORDS SUMMARY | 2025-02-27 18:51 | XMS_ITS | Encounter Summary ---
Author Organization [facility] Address [address] [place] [address] Care Team Providers Care Poultry Helper Name Role Phone Joel Jorgensen MD Primary Care Provider [phone] Encounter Details Date Type Department Care Team (Late st Contact Info) Description 02/03/2025 Lab Requisition [facility] Lab [address] [place] [address] Joel Jorgensen MD [address] [place] [address] [address] [place] Vitamin D deficiency, unspecified Social History Tobacco Use Types Packs/Day Years [...] Procedure Name Priority Date/Time Associated Diagnosis Comments VITAMIN D 25 HYDROXY Routine 02/03/2025 7:01 AM EST Vitamin D deficiency, unspecified COMPREHENSIVE METABOLIC PANEL Routine 02/03/2025 7:01 AM EST Vitamin D deficiency, unspecified documented in this encounter Results * (ABNORMAL) Vitamin D 25 hydroxy (02/03/2025 7:01 AM EST) Vit D, 25-Hydroxy 28.4(L) 30.0 - 80.0 ng/mL 02/03/2025 11:20 AM EST [facility] Blood Venous blood specimen / Unknown 02/03/2025 7:01 AM EST 02/03/2025 8:35 AM EST us Joel Jorgensen MD LAB BLOOD ORDERABLES Final Resul t [facility] [address] [place] [address], * Comprehensive metabolic panel (02/03/2025 7:01 AM EST) Sodium 140 133 - 145 mmol/L 02/03/2025 11:[address] [facility] Potassium 4.4 3.5 - 5.5 mmol/L 02/03/2025 11:[address] [facility] Chloride 107 96 - 110 mmol/L 02/03/2025 11:[address] [facility] CO2 26 21 - 32 mmol/L 02/03/2025 11:[address] [facility] Anion Gap 7 3 - 11 02/03/2025 11:[address] [facility] Glucose 81 70 - 100 mg/dL 02/03/2025 11:[address] [facility] BUN 14 5 - 25 mg/dL 02/03/2025 11:[address] [facility] Creatinine 0.80 0.50 - 1.10 mg/dL 02/03/2025 11:[address] [facility] eGFR 96 >=60 mL/min/1. 73m2 02/03/2025 11:[address] [facility] Comment:Calculation based on the Chronic Kidney Disease Epidemiology Collaboration (CKD-EPI) equation refit without adjustment for race. BUN/Creatinine Ratio 17.5 02/03/2025 11:[address] [facility] Calcium 8.6 8.5 - 10.5 mg/dL 02/03/2025 11:[address] [facility] AST (SGOT) 16 10 - 42 unit/L 02/03/2025 11:[address] [facility] ALT (SGPT) 17 10 - 60 unit/L 02/03/2025 11:19 AM EST [facility] Alkaline Phosphatase 110 42 - 121 unit/L 02/03/2025 11:19 AM EST [facility] Total Protein 6.5 6.0 - 8.0 g/dL 02/03/2025 11:[address] [facility] Albumin 3.8 3.2 - 5.0 g/dL 02/03/2025 11:[address] [facility] Total Bilirubin 0.5 0.0 - 1.4 mg/dL 02/03/2025 11:[address] [facility] Blood Venous blood specimen / Unknown 02/03/2025 7:01 AM EST 02/03/2025 8:35 AM EST Joel Jorgensen MD LAB BLOOD ORDERABLES Final Resul t [facility] [address] [place] [address], documented in this encounter Visit Diagnoses Diagnosis Vitamin D deficiency, unspecified documented in this encounter Additional Health Concerns Infection Onset Date Last Indicated Resolved Time ESBL 10/01/2024 10/01/2024 documented as of this encounter Care Teams Poultry Helper Relationship Specialty Start Date End Date Joel Jorgensen MD [address] [facility] [address] [place], [place] PCP - General Internal Medicine 04/07/24 documented as of this encounter
--- OUTSIDE RECORDS SUMMARY | 2025-02-27 18:51 | XMS_ITS | Encounter Summary ---
Author Organization [facility] Address [address] [place] [address] Care Team Providers Care Distance Learning Coordinator Name Role Phone Joel Jorgensen MD Primary Care Provider [phone] Encounter Details Date Type Department Care Team (Late st Contact Info) Description 11/03/2024 Lab Requisition [facility] - Main Lab [address] [facility] [place] [address] Joel Jorgensen MD [address] [place] [address] [address] [place] Traumatic subarachnoid hemorrhage with loss of consciousness of unspecified duration, sequela (CMS/HCC V24) Social History Tobacco Use Types Packs/Day Years [...] Associated Diagnosis Comments COMPREHENSIVE METABOLIC PANEL Routine 11/03/2024 6:48 AM EDT Traumatic subarachnoid hemorrhage with loss of consciousness of unspecified duration, sequela (CMS/HCC V24) documented in this encounter Results * Comprehensive metabolic panel (11/03/2024 6:48 AM EDT) Sodium 140 133 - 145 mmol/L LAB CHEMISTRY METHOD 11/03/2024 8:37 AM EDT [facility] Potassium 4.4 3.5 - 5.5 mmol/L LAB CHEMISTRY METHOD 11/03/2024 8:37 AM EDT [facility] Chloride 108 96 - 110 mmol/L LAB CHEMISTRY METHOD 11/03/2024 8:37 AM T [facility] CO2 27 21 - 32 mmol/L LAB CHEMISTRY METHOD 11/03/2024 8:37 AM [facility] Anion Gap 5 3 - 11 LAB CHEMISTRY METHOD 11/03/2024 8:37 AM [facility] Glucose 85 70 - 100 mg/dL LAB CHEMISTRY METHOD 11/03/2024 8:37 AM [facility] BUN 11 5 - 25 mg/dL LAB CHEMISTRY METHOD 11/03/2024 8:37 AM [facility] Creatinine 0.68 0.50 - 1.10 mg/dL LAB CHEMISTRY METHOD 11/03/2024 8:37 AM [facility] eGFR 113 >=60 mL/min/1. 73m2 LAB CHEMISTRY METHOD 11/03/2024 8:37 AM [facility] Comment:Calculation based on the Chronic Kidney Disease Epidemiology Collaboration (CKD-EPI) equation refit without adjustment for race. BUN/Creatinine Ratio 16.2 LAB CHEMISTRY METHOD 11/03/2024 8:37 AM [facility] Calcium 8.6 8.5 - 10.5 mg/dL LAB CHEMISTRY METHOD 11/03/2024 8:37 AM [facility] AST (SGOT) 13 10 - 42 unit/L LAB CHEMISTRY METHOD 11/03/2024 8:37 AM [facility] ALT (SGPT) 21 10 - 60 unit/L LAB CHEMISTRY METHOD 11/03/2024 8:37 AM [facility] Alkaline Phosphatase 120 42 - 121 unit/L LAB CHEMISTRY METHOD 11/03/2024 8:37 AM [facility] Total Protein 6.9 6.0 - 8.0 g/dL LAB CHEMISTRY METHOD 11/03/2024 8:37 AM [facility] Albumin 3.2 3.2 - 5.0 g/dL LAB CHEMISTRY METHOD 11/03/2024 8:37 AM [facility] Total Bilirubin 0.5 0.0 - 1.4 mg/dL LAB CHEMISTRY METHOD 11/03/2024 8:37 AM EDT [facility] Blood Venous blood specimen / Unknown 11/03/2024 6:48 AM EDT 11/03/2024 7:47 AM EDT us Joel Jorgensen MD LAB BLOOD ORDERABLES Final Resul t [facility] [address] [place] [address], documented in this encounter Visit Diagnoses Diagnosis Traumatic subarachnoid hemorrhage with loss of consciousness of unspecified duration, sequela (CMS/HCC V24) documented in this encounter Additional Health Concerns Infection Onset Date Last Indicated Resolved Time ESBL 10/01/2024 10/01/2024 documented as of this encounter Care Teams Distance Learning Coordinator Relationship Specialty Start Date End Date Joel Jorgensen MD [address] [facility] [address] [place], [place] PCP - General Internal Medicine 04/07/24 documented as of this encounter
--- OUTSIDE RECORDS SUMMARY | 2025-02-27 18:51 | XMS_ITS | Encounter Summary ---
Author Organization [facility] Address [address] [place] [address] Care Team Providers Care Prototype Model Maker Name Role Phone Joel Jorgensen MD Primary Care Provider [phone] Encounter Details Date Type Department Care Team (Late st Contact Info) Description 01/06/2024 Lab Requisition [facility] - Main Lab 299 [facility] [employer] [place] [address] Joel Jorgensen MD [address] [place] [address] Dr [address] Stewart MD Traumatic subarachnoid hemorrhage with loss of [...] LAB CHEMISTRY METHOD 01/06/2024 7:07 AM EST [facility] LAB Potassium 4.5 3.5 - 5.5 mmol/L LAB CHEMISTRY METHOD 01/06/2024 7:07 AM EST [facility] LAB Chloride 110 96 - 110 mmol/L LAB CHEMISTRY METHOD 01/06/2024 7:07 AM EST [facility] LAB CO2 27 21 - 32 mmol/L LAB CHEMISTRY METHOD 01/06/2024 7:07 AM [facility] LAB Anion Gap 5 3 - 11 LAB CHEMISTRY METHOD 01/06/2024 7:07 AM [facility] LAB Glucose 89 70 - 100 mg/dL LAB CHEMISTRY METHOD 01/06/2024 7:07 AM [facility] BUN 14 5 - 25 mg/dL LAB CHEMISTRY METHOD 01/06/2024 7:07 AM [facility] Creatinine 0.57 0.50 - 1.10 mg/dL LAB CHEMISTRY METHOD 01/06/2024 7:07 AM [facility] LAB eGFR 119 >=60 mL/min/1. 73m2 LAB CHEMISTRY METHOD 01/06/2024 7:07 AM [facility] LAB Comment:Calculation based on the Chronic Kidney Disease Epidemiology Collaboration (CKD-EPI) equation refit without adjustment for race. BUN/Creatinine Ratio 24.6 LAB CHEMISTRY METHOD 01/06/2024 7:07 AM [facility] Calcium 8.9 8.5 - 10.5 mg/dL LAB CHEMISTRY METHOD 01/06/2024 7:07 AM [facility] LAB AST (SGOT) 17 10 - 42 unit/L LAB CHEMISTRY METHOD 01/06/2024 7:07 AM [facility] ALT (SGPT) 15 10 - 60 unit/L LAB CHEMISTRY METHOD 01/06/2024 7:07 AM [facility] Alkaline Phosphatase 142(H) 42 - 121 unit/L LAB CHEMISTRY METHOD 01/06/2024 7:07 AM [facility] Total Protein 6.7 6.0 - 8.0 g/dL LAB CHEMISTRY METHOD 01/06/2024 7:07 AM [facility] Albumin 3.0(L) 3.2 - 5.0 g/dL LAB CHEMISTRY METHOD 01/06/2024 7:07 AM [facility] Total Bilirubin 0.3 0.0 - 1.4 mg/dL LAB CHEMISTRY METHOD 01/06/2024 7:07 AM EST [facility] LAB Blood Venous blood specimen / Unknown 01/06/2024 5:05 AM EST 01/06/2024 6:46 AM EST us Joel Jorgensen MD LAB BLOOD ORDERABLES Final Resul t [facility] LAB [address] [place] [address], documented in this encounter Visit Diagnoses Diagnosis Traumatic subarachnoid hemorrhage with loss of consciousness of unspecified duration, sequela (CMS/HCC V24) documented in this encounter Additional Health Concerns Infection Onset Date Last Indicated Resolved Time ESBL 10/01/2024 10/01/2024 documented as of this encounter Care Teams Prototype Model Maker Relationship Specialty Start Date End Date Joel Jorgensen MD [address] [facility] [address] [facility] [address] [place], [place] PCP - General Internal Medicine 04/07/24 documented as of this encounter
--- OUTSIDE RECORDS SUMMARY | 2025-02-27 18:51 | XMS_ITS | Encounter Summary ---
Author Organization [facility] Address [address] [place] [address] Care Team Providers Care Beef Splitter Name Role Phone Joel Jorgensen MD Primary Care Provider [phone] Encounter Details Date Type Department Care Team (Late st Contact Info) Description 11/26/2024 Lab Requisition [facility] - Main Lab [address] [facility] [place] [address] Joel Jorgensen MD [address] [place] [address] [address] [place], [place] Traumatic subarachnoid hemorrhage with loss of consciousness [...] Procedure Name Priority Date/Time Associated Diagnosis Comments BASIC METABOLIC PANEL Routine 11/26/2024 6:56 AM EDT Traumatic subarachnoid hemorrhage with loss of consciousness of unspecified duration, sequela (CMS/HCC V24) documented in this encounter Results * Basic metabolic panel (11/26/2024 6:56 AM EDT) Sodium 139 133 - 145 mmol/L LAB CHEMISTRY METHOD 11/26/2024 8:[address] [facility] Potassium 4.5 3.5 - 5.5 mmol/L LAB CHEMISTRY METHOD 11/26/2024 8:[address] [facility] Chloride 109 96 - 110 mmol/L LAB CHEMISTRY METHOD 11/26/2024 8:21 AM [facility] CO2 27 21 - 32 mmol/L LAB CHEMISTRY METHOD 11/26/2024 8:21 AM [facility] LAB Anion Gap 3 3 - 11 LAB CHEMISTRY METHOD 11/26/2024 8:21 AM [facility] LAB Glucose 83 70 - 100 mg/dL LAB CHEMISTRY METHOD 11/26/2024 8:21 AM [facility] BUN 13 5 - 25 mg/dL LAB CHEMISTRY METHOD 11/26/2024 8:21 AM [facility] Creatinine 0.68 0.50 - 1.10 mg/dL LAB CHEMISTRY METHOD 11/26/2024 8:21 AM [facility] LAB eGFR 113 >=60 mL/min/1. 73m2 LAB CHEMISTRY METHOD 11/26/2024 8:21 AM [facility] LAB Comment:Calculation based on the Chronic Kidney Disease Epidemiology Collaboration (CKD-EPI) equation refit without adjustment for race. BUN/Creatinine Ratio 19.1 LAB CHEMISTRY METHOD 11/26/2024 8:21 AM [facility] Calcium 8.8 8.5 - 10.5 mg/dL LAB CHEMISTRY METHOD 11/26/2024 8:21 AM [facility] Blood Venous blood specimen / Unknown 11/26/2024 6:56 AM EDT 11/26/2024 7:46 AM EDT us Joel Jorgensen MD LAB BLOOD ORDERABLES Final Resul t [facility] [address] [place] [address], documented in this encounter Visit Diagnoses Diagnosis Traumatic subarachnoid hemorrhage with loss of consciousness of unspecified duration, sequela (CMS/HCC V24) documented in this encounter Additional Health Concerns Infection Onset Date Last Indicated Resolved Time ESBL 10/01/2024 10/01/2024 documented as of this encounter Care Teams Beef Splitter Relationship Specialty Start Date End Date Joel Jorgensen MD [address] Ninfa William [place] PCP - General Internal Medicine 04/07/24 documented as of this encounter
--- OUTSIDE RECORDS SUMMARY | 2025-02-27 18:51 | XMS_ITS | Encounter Summary ---
Author Organization [facility] Address [address] [place] [address] Care Team Providers Care Conversion Worker Name Role Phone Joel Jorgensen MD Primary Care Provider [phone] Encounter Details Date Type Department Care Team (Late st Contact Info) Description 04/07/2024 Lab Requisition [facility] - Main Lab [address] [facility] [place] [address] Joel Jorgensen MD [address] [place] [address] Dr [address] SHANNON William Traumatic subarachnoid [...] differential (04/07/2024 6:41 AM EST) [facility] Signature WBC 4.8 4.8 - 10.8 K/mcL LAB HEMETOLOGY METHOD 04/07/2024 8:10 AM [facility] LAB RBC 4.10 3.80 - 4.80 M/mcL LAB HEMETOLOGY METHOD 04/07/2024 8:10 AM [facility] LAB Hemoglobin 10.5(L) 11.5 - 16.0 g/dL LAB HEMETOLOGY METHOD 04/07/2024 8:10 AM [facility] LAB Hematocrit 34.3(L) 35.0 - 47.0 % LAB HEMETOLOGY METHOD 04/07/2024 8:10 AM [facility] LAB MCV 84.7 79.0 - 98.0 FL LAB HEMETOLOGY METHOD 04/07/2024 8:10 AM [facility] LAB MCH 25.9(L) 27.0 - 32.0 pcg LAB HEMETOLOGY METHOD 04/07/2024 8:10 AM [facility] LAB MCHC 30.6(L) 32.0 - 37.0 g/dL LAB HEMETOLOGY METHOD 04/07/2024 8:10 AM [facility] LAB RDW 14.7 11.0 - 15.0 % LAB HEMETOLOGY METHOD 04/07/2024 8:10 AM [facility] LAB Platelets 268 130 - 400 K/mcL LAB HEMETOLOGY METHOD 04/07/2024 8:10 AM [facility] LAB MPV 9.4 7.0 - 11.0 FL LAB HEMETOLOGY METHOD 04/07/2024 8:10 AM [facility] LAB NRBC 0.0 <1.0 % LAB HEMETOLOGY METHOD 04/07/2024 8:10 AM [facility] LAB NRBC Absolute 0.00 <0.10 K/mcL LAB HEMETOLOGY METHOD 04/07/2024 8:10 AM [facility] Neutrophils Relative 41.2 % LAB HEMETOLOGY METHOD 04/07/2024 8:10 AM [facility] Lymphocytes Relative 46.3 % LAB HEMETOLOGY METHOD 04/07/2024 8:10 AM [facility] Monocytes Relative 7.3 % LAB HEMETOLOGY METHOD 04/07/2024 8:10 AM [facility] Eosinophils Relative 3.8 % LAB HEMETOLOGY METHOD 04/07/2024 8:10 AM [facility] Basophils Relative 0.4 % LAB HEMETOLOGY METHOD 04/07/2024 8:10 AM [facility] Immature Granulocytes Relative 1.0 % LAB HEMETOLOGY METHOD 04/07/2024 8:10 AM [facility] Neutrophils Absolute 1.98 1.50 - 7.00 K/mcL LAB HEMETOLOGY METHOD 04/07/2024 8:10 AM [facility] Lymphocytes Absolute 2.22 1.00 - 5.00 K/mcL LAB HEMETOLOGY METHOD 04/07/2024 8:10 AM [facility] Monocytes Absolute 0.35 0.20 - 1.00 K/mcL LAB HEMETOLOGY METHOD 04/07/2024 8:10 AM [facility] Eosinophils Absolute 0.18 0.00 - 0.50 K/mcL LAB HEMETOLOGY METHOD 04/07/2024 8:10 AM [facility] Basophils Absolute 0.02 0.00 - 0.20 K/mcL LAB HEMETOLOGY METHOD 04/07/2024 8:10 AM [facility] LAB Immature Granulocytes Absolute 0.05(H) 0.00 - 0.03 K/mcL LAB HEMETOLOGY METHOD 04/07/2024 8:10 AM [facility] Blood Venous blood specimen / Unknown 04/07/2024 6:41 AM EST 04/07/2024 7:58 AM EST us Joel Jorgensen MD LAB BLOOD ORDERABLES Final Resul t Performing Organization Address [facility]/ZIP Co de Phone Number [facility] LAB [address] [place] [address], [place] [phone] * (ABNORMAL) Vitamin D 25 hydroxy (04/07/2024 6:41 AM EST) Vit D, 25-Hydroxy 21.7(L) 30.0 - 80.0 ng/mL LAB CHEMISTRY METHOD 04/07/2024 8:57 AM EST [facility] LAB Blood Venous blood specimen / Unknown 04/07/2024 6:41 AM EST 04/07/2024 7:58 AM EST us Joel Jorgensen MD LAB BLOOD ORDERABLES Final Resul t Performing Organization Address [facility]/ZIP Co de Phone Number [facility] [address] [place] [address], [place] [phone] * (ABNORMAL) Comprehensive metabolic panel (04/07/2024 6:41 AM EST) [facility] Sodium 140 133 - 145 mmol/L LAB CHEMISTRY METHOD 04/07/2024 8:30 AM [facility] Potassium 4.4 3.5 - 5.5 mmol/L LAB CHEMISTRY METHOD 04/07/2024 8:30 AM EST [facility] LAB Chloride 108 96 - 110 mmol/L LAB CHEMISTRY METHOD 04/07/2024 8:30 AM [facility] CO2 28 21 - 32 mmol/L LAB CHEMISTRY METHOD 04/07/2024 8:30 AM [facility] LAB Anion Gap 4 3 - 11 LAB CHEMISTRY METHOD 04/07/2024 8:30 AM [facility] LAB Glucose 85 70 - 100 mg/dL LAB CHEMISTRY METHOD 04/07/2024 8:30 AM [facility] BUN 13 5 - 25 mg/dL LAB CHEMISTRY METHOD 04/07/2024 8:30 AM [facility] LAB Creatinine 0.53 0.50 - 1.10 mg/dL LAB CHEMISTRY METHOD 04/07/2024 8:30 AM [facility] LAB eGFR 120 >=60 mL/min/1. 73m2 LAB CHEMISTRY METHOD 04/07/2024 8:30 AM [facility] LAB Comment:Calculation based on the Chronic Kidney Disease Epidemiology Collaboration (CKD-EPI) equation refit without adjustment for race. BUN/Creatinine Ratio 24.5 LAB CHEMISTRY METHOD 04/07/2024 8:30 AM [facility] LAB Calcium 8.8 8.5 - 10.5 mg/dL LAB CHEMISTRY METHOD 04/07/2024 8:30 AM [facility] LAB AST (SGOT) 12 10 - 42 unit/L LAB CHEMISTRY METHOD 04/07/2024 8:30 AM [facility] LAB ALT (SGPT) 17 10 - 60 unit/L LAB CHEMISTRY METHOD 04/07/2024 8:30 AM [facility] LAB Alkaline Phosphatase 137(H) 42 - 121 unit/L LAB CHEMISTRY METHOD 04/07/2024 8:30 AM [facility] Total Protein 6.8 6.0 - 8.0 g/dL LAB CHEMISTRY METHOD 04/07/2024 8:30 AM [facility] LAB Albumin 2.9(L) 3.2 - 5.0 g/dL LAB CHEMISTRY METHOD 04/07/2024 8:30 AM [facility] LAB Total Bilirubin 0.3 0.0 - 1.4 mg/dL LAB CHEMISTRY METHOD 04/07/2024 8:30 AM [facility] LAB Blood Venous blood specimen / Unknown 04/07/2024 6:41 AM EST 04/07/2024 7:58 AM EST us Joel Jorgensen MD LAB BLOOD ORDERABLES Final Resul t [facility] ([facility]) [facility] [address] [place] [address], documented in this encounter Visit Diagnoses Diagnosis Traumatic subarachnoid hemorrhage with loss of consciousness of unspecified duration, sequela (CMS/HCC V24) documented in this encounter Additional Health Concerns Infection Onset Date Last Indicated Resolved Time ESBL 10/01/2024 10/01/2024 documented as of this encounter Care Teams Conversion Worker Relationship Specialty Start Date End Date Joel Jorgensen MD [address] [place], [place] PCP - General Internal Medicine 04/07/24 documented as of this encounter
--- OUTSIDE RECORDS SUMMARY | 2025-02-27 18:51 | XMS_ITS | Encounter Summary ---
Author Organization [facility] Address [address] [place] [address] Care Team Providers Care Greeting Card Maker Name Role Phone Emma Bernard PT Unavailable [phone] Joel Jorgensen Primary Care Provider [phone] Encounter Details Date Type Department Care Team (Late st Contact Info) Description 08/09/2024 Scanned Document [facility] Urolog[facility] Surgery [address] [place] [address] Eugene Bazan MD [address] [address] Social History Tobacco Use Types Packs/Day Years [...] more drinks on one occasion? Never 02/24/2023 [facility] of Occupat ional Health - Occupational Stress [...] day at this level? 30 min 02/26/2024 Comments Unknown Sex and Gender Information Value [...] Description 03/24/2025 7:30 AM EST Office Visit [facility] [address] [address] Jerry Galindo MD [address] [phone] 05/25/2025 11:30 AM EDT Office Visit [facility] Urologic [facility] [place] [address] [address] Rafia Meyer PA-C [address] [phone] documented as of this encounter Visit Diagnoses Not on filedocumented in this encounter Care Teams Greeting Card Maker Relationship Specialty Start Date End Date Joslyn Joel [address] [place] [address] Dr [address] [facility] [place] [address] PCP - General Medicine Hospitalist 07/12/24 Emma Bernard, CASSY [address] [phone] Photolith OperatorCrusher And Binder Operator Medicine and Rehabilitation 02/27/24 documented as of this encounter
--- OUTSIDE RECORDS SUMMARY | 2025-02-27 18:51 | XMS_ITS | Encounter Summary ---
Author Organization [facility] Address [address] [place] [address] Care Team Providers Care Autistic Teacher Name Role Phone Joel Jorgensen MD Primary Care Provider [phone] Encounter Details Date Type Department Care Team (Late st Contact Info) Description 05/06/2024 Lab Requisition [facility] - Main Lab [address] [facility] [place] [address] Joel Jorgensen MD [address] [place] [address] Dr [address] SHANNON William Traumatic subarachnoid hemorrhage without loss of consciousness, initial encounter (CMS/[facility] V24, [facility] V28) Social History Tobacco Use Types Packs/Day Years [...] Diagnosis Comments CBC WITH AUTO DIFFERENTIAL Routine 05/06/2024 6:40 AM EST Traumatic subarachnoid hemorrhage without loss of consciousness, initial encounter ([facility]) VITAMIN D 25 HYDROXY Routine 05/06/2024 6:40 AM EST Traumatic subarachnoid hemorrhage without loss of consciousness, initial encounter ([facility]) CBC AND DIFFERENTIAL Routine 05/06/2024 6:40 AM EST Traumatic subarachnoid hemorrhage without loss of consciousness, initial encounter ([facility]) COMPREHENSIVE METABOLIC PANEL Routine 05/06/2024 6:40 AM EST Traumatic subarachnoid hemorrhage without loss of consciousness, initial encounter ([facility]) documented in this encounter Results * (ABNORMAL) CBC auto differential (05/06/2024 6:40 AM EST) [facility] WBC 5.2 4.8 - 10.8 K/mcL LAB HEMETOLOGY METHOD 05/06/2024 7:46 AM [facility] RBC 4.20 3.80 - 4.80 M/mcL LAB HEMETOLOGY METHOD 05/06/2024 7:46 AM [facility] Hemoglobin 11.0(L) 11.5 - 16.0 g/dL LAB HEMETOLOGY METHOD 05/06/2024 7:46 AM [facility] LAB Hematocrit 35.2 35.0 - 47.0 % LAB HEMETOLOGY METHOD 05/06/2024 7:46 AM [facility] MCV 83.0 79.0 - 98.0 FL LAB HEMETOLOGY METHOD 05/06/2024 7:46 AM [facility] MCH 25.9(L) 27.0 - 32.0 pcg LAB HEMETOLOGY METHOD 05/06/2024 7:46 AM [facility] LAB MCHC 31.3(L) 32.0 - 37.0 g/dL LAB HEMETOLOGY METHOD 05/06/2024 7:46 AM [facility] RDW 14.7 11.0 - 15.0 % LAB HEMETOLOGY METHOD 05/06/2024 7:46 AM [facility] Platelets 264 130 - 400 K/mcL LAB HEMETOLOGY METHOD 05/06/2024 7:46 AM [facility] MPV 9.1 7.0 - 11.0 FL LAB HEMETOLOGY METHOD 05/06/2024 7:46 AM [facility] NRBC 0.0 <1.0 % LAB HEMETOLOGY METHOD 05/06/2024 7:46 AM [facility] NRBC Absolute 0.00 <0.10 K/mcL LAB HEMETOLOGY METHOD 05/06/2024 7:46 AM [facility] Neutrophils Relative 49.2 % LAB HEMETOLOGY METHOD 05/06/2024 7:46 AM [facility] Lymphocytes Relative 40.0 % LAB HEMETOLOGY METHOD 05/06/2024 7:46 AM [facility] Monocytes Relative 6.3 % LAB HEMETOLOGY METHOD 05/06/2024 7:46 AM [facility] Eosinophils Relative 3.1 % LAB HEMETOLOGY METHOD 05/06/2024 7:46 AM [facility] Basophils Relative 0.6 % LAB HEMETOLOGY METHOD 05/06/2024 7:46 AM [facility] Immature Granulocytes Relative 0.8 % LAB HEMETOLOGY METHOD 05/06/2024 7:46 AM [facility] Neutrophils Absolute 2.58 1.50 - 7.00 K/mcL LAB HEMETOLOGY METHOD 05/06/2024 7:46 AM [facility] Lymphocytes Absolute 2.09 1.00 - 5.00 K/mcL LAB HEMETOLOGY METHOD 05/06/2024 7:46 AM [facility] Monocytes Absolute 0.33 0.20 - 1.00 K/mcL LAB HEMETOLOGY METHOD 05/06/2024 7:46 AM [facility] Eosinophils Absolute 0.16 0.00 - 0.50 K/mcL LAB HEMETOLOGY METHOD 05/06/2024 7:46 AM [facility] Basophils Absolute 0.03 0.00 - 0.20 K/mcL LAB HEMETOLOGY METHOD 05/06/2024 7:46 AM [facility] Immature Granulocytes Absolute 0.04(H) 0.00 - 0.03 K/mcL LAB HEMETOLOGY METHOD 05/06/2024 7:46 AM [facility] Blood Venous blood specimen / Unknown 05/06/2024 6:40 AM EST 05/06/2024 7:25 AM EST us Joel Jorgensen MD LAB BLOOD ORDERABLES Final Resul t Performing Organization Address City/[facility]/ZIP Co de Phone Number [facility] [address] [place] [address], [place] [phone] * (ABNORMAL) Vitamin D 25 hydroxy (05/06/2024 6:40 AM EST) Pathologist [facility] Vit D, 25-Hydroxy 23.4(L) 30.0 - 80.0 ng/mL LAB CHEMISTRY METHOD 05/06/2024 8:01 AM EST [facility] Blood Venous blood specimen / Unknown 05/06/2024 6:40 AM EST 05/06/2024 7:25 AM EST us Joel Jorgensen MD LAB BLOOD ORDERABLES Final Resul t Performing Organization Address [facility]/ZIP Co de Phone Number [facility] [address] [place] [address], [place] [phone] * (ABNORMAL) Comprehensive metabolic panel (05/06/2024 6:40 AM EST) [facility] Sodium 140 133 - 145 mmol/L LAB CHEMISTRY METHOD 05/06/2024 7:54 AM [facility] Potassium 4.3 3.5 - 5.5 mmol/L LAB CHEMISTRY METHOD 05/06/2024 7:54 AM [facility] Chloride 107 96 - 110 mmol/L LAB CHEMISTRY METHOD 05/06/2024 7:54 AM [facility] CO2 27 21 - 32 mmol/L LAB CHEMISTRY METHOD 05/06/2024 7:54 AM [facility] Anion Gap 6 3 - 11 LAB CHEMISTRY METHOD 05/06/2024 7:54 AM [facility] Glucose 86 70 - 100 mg/dL LAB CHEMISTRY METHOD 05/06/2024 7:54 AM [facility] BUN 13 5 - 25 mg/dL LAB CHEMISTRY METHOD 05/06/2024 7:54 AM [facility] Creatinine 0.56 0.50 - 1.10 mg/dL LAB CHEMISTRY METHOD 05/06/2024 7:54 AM [facility] eGFR 118 >=60 mL/min/1. 73m2 LAB CHEMISTRY METHOD 05/06/2024 7:54 AM [facility] Comment:Calculation based on the Chronic Kidney Disease Epidemiology Collaboration (CKD-EPI) equation refit without adjustment for race. BUN/Creatinine Ratio 23.2 LAB CHEMISTRY METHOD 05/06/2024 7:54 AM [facility] Calcium 8.8 8.5 - 10.5 mg/dL LAB CHEMISTRY METHOD 05/06/2024 7:54 AM [facility] AST (SGOT) 13 10 - 42 unit/L LAB CHEMISTRY METHOD 05/06/2024 7:54 AM [facility] ALT (SGPT) 18 10 - 60 unit/L LAB CHEMISTRY METHOD 05/06/2024 7:54 AM [facility] Alkaline Phosphatase 147(H) 42 - 121 unit/L LAB CHEMISTRY METHOD 05/06/2024 7:54 AM [facility] Total Protein 7.1 6.0 - 8.0 g/dL LAB CHEMISTRY METHOD 05/06/2024 7:54 AM [facility] Albumin 3.2 3.2 - 5.0 g/dL LAB CHEMISTRY METHOD 05/06/2024 7:54 AM [facility] Total Bilirubin 0.4 0.0 - 1.4 mg/dL LAB CHEMISTRY METHOD 05/06/2024 7:54 AM [facility] Blood Venous blood specimen / Unknown 05/06/2024 6:40 AM EST 05/06/2024 7:25 AM EST Joel Jorgensen MD LAB BLOOD ORDERABLES Final Resul t [facility] [address] [place] [address], documented in this encounter Visit Diagnoses Diagnosis Traumatic subarachnoid hemorrhage without loss of consciousness, initial encounter ([facility] V24, [facility] V28) documented in this encounter Additional Health Concerns Infection Onset 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
--- OUTSIDE RECORDS SUMMARY | 2025-02-27 18:51 | XMS_ITS | Encounter Summary ---
Author Organization [facility] Address [address] [place] [address] Care Team Providers Care Side Framer Name Role Phone Emma Bernard PT Unavailable [phone] Joel Jorgensen Primary Care Provider [phone] Encounter Details Date Type Department Care Team (Late st Contact Info) Description 08/16/2024 Scanned Document [facility] Urologic Surgery [address] [place] [address] Eugene Bazan MD [address] [address] Social History Tobacco Use Types Packs/Day Years [...] more drinks on one occasion? Never 02/24/2023 [facility] of Occupat ional Health - Occupational Stress [...] Description 03/24/2025 7:30 AM EST Office Visit [facility] PHYSICAL MEDICINE & REHAB [address] [address] Jerry Galindo MD [address] [phone] 05/25/2025 11:30 AM EDT Office Visit [facility] Urologic Surgery [address] [address] Rafia Meyer PA-C [address] [phone] documented as of this encounter Visit Diagnoses Not on filedocumented in this encounter Care Teams Side Framer Relationship Specialty Start Date End Date Jolsyn Joel [address] [place] [address] Dr Ferguson [facility] [place] [address] PCP - General Medicine Hospitalist 07/12/24 Emma Bernard, CASSY [address] [phone] Wrapping ClerkStaffing Consultant Medicine and Rehabilitation 02/27/24 documented as of this encounter
--- OUTSIDE RECORDS SUMMARY | 2025-02-27 18:51 | XMS_ITS | Encounter Summary ---
Author Organization [facility] Address [address] [place] [address] Care Team Providers Care Supervisor Riveting Name Role Phone Joel Jorgensen MD Primary Care Provider [phone] Encounter Details Date Type Department Care Team (Late st Contact Info) Description 02/11/[address] [facility] - Main Lab [address] [place] [address] Joel Jorgensen MD [address] [place] [address] [address] [place] Dysuria; Painful micturition, unspecified Social History Tobacco Use Types Packs/Day [...] Diagnosis Comments URINALYSIS WITH REFLEX MICROSCOPIC Routine 02/11/2025 12:00 AM EST Dysuria Painful micturition, unspecified URINALYSIS WITH REFLEX MICROSCOPIC Routine 02/11/2025 12:00 AM EST Dysuria Painful micturition, unspecified CULTURE URINE Routine 02/11/2025 12:00 AM EST Dysuria Painful micturition, unspecified documented in this encounter Results * (ABNORMAL) Urinalysis with reflex microscopic (02/11/2025 12:00 AM EST) Specific [place] Urine 1.012 1.003 - 1.030 LAB URINALYSIS - AUTOMATED METHOD 02/11/2025 10:24 PM EST [facility] pH, Urine 5.5 5.0 - 8.0 pH LAB URINALYSIS - AUTOMATED METHOD 02/11/2025 10:24 PM [facility] Leukocytes, Urine Large(A) Negative LAB URINALYSIS - AUTOMATED METHOD 02/11/2025 10:24 PM [facility] Nitrite, Urine Positive(A) Negative LAB URINALYSIS - AUTOMATED METHOD 02/11/2025 10:24 PM [facility] Protein, Urine Negative <=Trace mg/dL LAB URINALYSIS - AUTOMATED METHOD 02/11/2025 10:24 PM [facility] Glucose, Urine Negative Negative mg/dL LAB URINALYSIS - AUTOMATED METHOD 02/11/2025 10:24 PM [facility] Ketones, Urine Negative Negative mg/dL LAB URINALYSIS - AUTOMATED METHOD 02/11/2025 10:24 PM [facility] Urobilinogen , Urine 0.2 0.2 - 1.0 mg/dL LAB URINALYSIS - AUTOMATED METHOD 02/11/2025 10:24 PM [facility] Bilirubin, Urine Negative Negative LAB URINALYSIS - AUTOMATED METHOD 02/11/2025 10:24 PM [facility] Blood, Urine Negative Negative LAB URINALYSIS - AUTOMATED METHOD 02/11/2025 10:24 PM [facility] RBC, Urine 4.0 0 - 4 /HPF LAB URINALYSIS - AUTOMATED METHOD 02/11/2025 10:24 PM [facility] WBC, Urine >100.0(H) 0 - 4 /HPF LAB URINALYSIS - AUTOMATED METHOD 02/11/2025 10:24 PM [facility] Squamous Epithelial, Urine 20 0 - 60 /LPF LAB URINALYSIS - AUTOMATED METHOD 02/11/2025 10:24 PM [facility] Bacteria, Urine Moderate(A) Negative /HPF LAB URINALYSIS - AUTOMATED METHOD 02/11/2025 10:24 PM [facility] Hyaline Casts, Urine 3.0 0 - 3 /LPF LAB URINALYSIS - AUTOMATED METHOD 02/11/2025 10:[address] [facility] Urine Urine specimen obtained by clean catch procedure / Unknown 02/11/2025 02/11/2025 8:57 PM EST us Joel Jorgensen MD LAB URINE ORDERABLES Final Resul t [facility] [address] [place] [address], * (ABNORMAL) Culture urine (02/11/2025 12:00 AM EST) Culture, Urine >=100,000 CFU/mL Escherichia coli(A) YOLA 02/13/2025 9:[address] [facility] Urine Urine specimen obtained by [...] MICROBIOLOGY - GENERAL ORDER [place] Final Result [facility] [address] [place] [address], documented in this encounter Visit Diagnoses Diagnosis Dysuria Painful micturition, unspecified documented in this encounter Additional Health Concerns Infection Onset Date Last Indicated Resolved Time ESBL 10/01/2024 10/01/2024 documented as of this encounter Care Teams Supervisor Riveting Relationship Specialty Start Date End Date Joel Jorgensen MD [address] [place] [address] Dr [address] [place], [place] PCP - General Internal Medicine 04/07/24 documented as of this encounter
--- OUTSIDE RECORDS SUMMARY | 2025-02-27 18:51 | XMS_ITS | Encounter Summary ---
Author Organization [facility] Address [address] [place] [address] Care Team Providers Care Bike Technician Name Role Phone Joel Jorgensen MD Primary Care Provider [phone] Encounter Details Date Type Department Care Team (Late st Contact Info) Description 08/06/2024 Lab Requisition [facility] - Main Lab [address] [facility] [place] [address] Joel Jorgensen MD [address] [place] [address] Dr [address] [place], [place] Encounter for therapeutic drug level monitoring Social History Tobacco Use Types Packs/Day Years [...] EDT Encounter for therapeutic drug level monitoring documented in this encounter Results * (ABNORMAL) CBC auto differential (08/06/2024 6:55 AM EDT) WBC 4.1(L) 4.8 - 10.8 K/mcL LAB HEMETOLOGY METHOD 08/06/2024 7:59 AM EDT [facility] RBC 4.00 3.80 - 4.80 M/mcL LAB HEMETOLOGY METHOD 08/06/2024 7:59 AM EDT [facility] Hemoglobin 10.4(L) 11.5 - 16.0 g/dL LAB HEMETOLOGY METHOD 08/06/2024 7:59 AM [facility] Hematocrit 33.8(L) 35.0 - 47.0 % LAB HEMETOLOGY METHOD 08/06/2024 7:59 AM [facility] MCV 84.3 79.0 - 98.0 FL LAB HEMETOLOGY METHOD 08/06/2024 7:59 AM [facility] MCH 25.9(L) 27.0 - 32.0 pcg LAB HEMETOLOGY METHOD 08/06/2024 7:59 AM [facility] MCHC 30.8(L) 32.0 - 37.0 g/dL LAB HEMETOLOGY METHOD 08/06/2024 7:59 AM [facility] RDW 15.3(H) 11.0 - 15.0 % LAB HEMETOLOGY METHOD 08/06/2024 7:59 AM [facility] Platelets 249 130 - 400 K/mcL LAB HEMETOLOGY METHOD 08/06/2024 7:59 AM [facility] MPV 9.1 7.0 - 11.0 FL LAB HEMETOLOGY METHOD 08/06/2024 7:59 AM [facility] NRBC 0.0 <1.0 % LAB HEMETOLOGY METHOD 08/06/2024 7:59 AM [facility] NRBC Absolute 0.00 <0.10 K/mcL LAB HEMETOLOGY METHOD 08/06/2024 7:59 AM [facility] Neutrophils Relative 38.7 % LAB HEMETOLOGY METHOD 08/06/2024 7:59 AM [facility] Lymphocytes Relative 48.8 % LAB HEMETOLOGY METHOD 08/06/2024 7:59 AM [facility] Monocytes Relative 7.2 % LAB HEMETOLOGY METHOD 08/06/2024 7:59 AM EDT [facility] Eosinophils Relative 3.6 % LAB HEMETOLOGY METHOD 08/06/2024 7:59 AM EDT [facility] Basophils Relative 0.7 % LAB [facility]OLOGY [facility] Immature Granulocytes Relative 1.0 % LAB HEMETOLOGY METHOD 08/06/2024 7:59 AM EDT [facility] Neutrophils Absolute 1.60 1.50 - 7.00 K/mcL LAB HEMETOLOGY METHOD 08/06/2024 7:59 AM EDT [facility] Lymphocytes Absolute 2.02 1.00 - 5.00 K/mcL LAB HEMETOLOGY METHOD [facility] Monocytes Absolute 0.30 0.20 - 1.00 K/mcL LAB HEMETOLOGY METHOD 08/06/2024 7:59 AM EDT [facility] Eosinophils Absolute 0.15 0.00 - 0.50 K/mcL LAB HEMETOLOGY METHOD 08/06/2024 7:59 AM EDT [facility] Basophils Absolute 0.03 0.00 - 0.20 K/mcL LAB HEMETOLOGY METHOD [facility] Immature Granulocytes Absolute 0.04(H) 0.00 - 0.03 K/mcL LAB HEMETOLOGY METHOD 08/06/2024 7:59 AM EDT [facility] Blood Venous blood specimen / Unknown 08/06/2024 6:55 AM EDT 08/06/2024 7:36 AM EDT us Joel Jorgesnen MD LAB BLOOD ORDERABLES Final Resul t [facility] [address] [place] [address], documented in this encounter Visit Diagnoses Diagnosis Encounter for therapeutic drug level monitoring documented in this encounter Additional Health Concerns Infection Onset Date Last Indicated Resolved Time ESBL 10/01/2024 10/01/2024 documented as of this encounter Care Teams Bike Technician Relationship Specialty Start Date End Date Joel Jorgensen MD [address] [place] [address] Dr [address] [place] PCP - General Internal Medicine 04/07/24 documented as of this encounter
--- OUTSIDE RECORDS SUMMARY | 2025-02-27 18:51 | XMS_ITS | Encounter Summary ---
Author Organization [facility] Address [address] [place] [address] Care Team Providers Care Cement Mason Apprentice Name Role Phone Joel Jorgensen MD Primary Care Provider [phone] Encounter Details Date Type Department Care Team (Late st Contact Info) Description 08/03/2024 Lab Requisition [facility] - Main Lab [address] [facility] [place] [address] Joel Jorgensen MD [address] [place] [address] [address] [place] Vitamin D deficiency, unspecified; Encounter for other specified special examinations Social History Tobacco Use Types Packs/Day Years [...] Diagnosis Comments VITAMIN D 25 HYDROXY Routine 08/03/2024 7:05 AM EDT Vitamin D deficiency, unspecified COMPREHENSIVE METABOLIC PANEL Routine 08/03/2024 7:05 AM EDT Vitamin D deficiency, unspecified Encounter for other specified special examinations documented in this encounter Results * (ABNORMAL) Comprehensive metabolic panel (08/03/2024 7:05 AM EDT) Sodium 143 133 - 145 mmol/L LAB CHEMISTRY METHOD 08/05/2024 2:30 PM EDT [facility] Potassium 4.5 3.5 - 5.5 mmol/L LAB CHEMISTRY METHOD 08/05/2024 2:30 PM EDT [facility] Chloride 110 96 - 110 mmol/L LAB CHEMISTRY METHOD 08/05/2024 2:30 PM [facility] CO2 26 21 - 32 mmol/L LAB CHEMISTRY METHOD 08/05/2024 2:30 PM [facility] Anion Gap 7 3 - 11 LAB CHEMISTRY METHOD 08/05/2024 2:30 PM [facility] Glucose 86 70 - 100 mg/dL LAB CHEMISTRY METHOD 08/05/2024 2:30 PM [facility] BUN 12 5 - 25 mg/dL LAB CHEMISTRY METHOD 08/05/2024 2:30 PM [facility] Creatinine 0.66 0.50 - 1.10 mg/dL LAB CHEMISTRY METHOD 08/05/2024 2:30 PM [facility] eGFR 114 >=60 mL/min/1. 73m2 LAB CHEMISTRY METHOD 08/05/2024 2:30 PM [facility] Comment:Calculation based on the Chronic Kidney Disease Epidemiology Collaboration (CKD-EPI) equation refit without adjustment for race. BUN/Creatinine Ratio 18.2 LAB CHEMISTRY METHOD 08/05/2024 2:30 PM [facility] Calcium 8.9 8.5 - 10.5 mg/dL LAB CHEMISTRY METHOD 08/05/2024 2:30 PM [facility] AST (SGOT) 12 10 - 42 unit/L LAB CHEMISTRY METHOD 08/05/2024 2:30 PM [facility] ALT (SGPT) 18 10 - 60 unit/L LAB CHEMISTRY METHOD 08/05/2024 2:30 PM [facility] Alkaline Phosphatase 149(H) 42 - 121 unit/L LAB CHEMISTRY METHOD 08/05/2024 2:30 PM [facility] Total Protein 6.9 6.0 - 8.0 g/dL LAB CHEMISTRY METHOD 08/05/2024 2:30 PM [facility] Albumin 3.2 3.2 - 5.0 g/dL LAB CHEMISTRY METHOD 08/05/2024 2:30 PM EDT [facility] Total Bilirubin 0.3 0.0 - 1.4 mg/dL LAB CHEMISTRY METHOD 08/05/2024 2:30 PM EDT [facility] Blood Venous blood specimen / Unknown 08/03/2024 7:05 AM EDT 08/03/2024 7:36 AM EDT Joel Jorgensen MD LAB BLOOD ORDERABLES Final Resul t Performing Organization Address [facility]/ZIP Co de Phone Number [facility] [address] [place] [address], [place] [phone] * Vitamin D 25 hydroxy (08/03/2024 7:05 AM EDT) Vit D, 25-Hydroxy 48.1 30.0 - 80.0 ng/mL LAB CHEMISTRY METHOD 08/03/2024 8:34 AM EDT [facility] Blood Venous blood specimen / Unknown 08/03/2024 7:05 AM EDT 08/03/2024 7:36 AM EDT Joel Jorgensen MD LAB BLOOD ORDERABLES Final Resul t Performing Organization Address [facility]/ZIP Co de Phone Number [facility] [address] [place] [address], [place] [phone] documented in this encounter Visit Diagnoses Diagnosis Vitamin D deficiency, unspecified Encounter for other specified special examinations documented in this encounter Additional Health Concerns Infection Onset Date Last Indicated Resolved Time ESBL 10/01/2024 10/01/2024 documented as of this encounter Care Teams Cement Mason Apprentice Relationship Specialty Start Date End Date Joel Jorgensen MD [address] [facility] [address] [place] PCP - General Internal Medicine 04/07/24 documented as of this encounter
--- OUTSIDE RECORDS SUMMARY | 2025-02-27 18:51 | XMS_ITS | Encounter Summary ---
Author Organization [facility] Address [address] [place] [address] Care Team Providers Care Cone Baker Machine Name Role Phone Joel Jorgensen MD Primary Care Provider [phone] Encounter Details Date Type Department Care Team (Late st Contact Info) Description 02/27/2025 Lab Requisition [facility] - Main Lab [address] [place] [address] Joel Jorgensen MD [address] [place] [address] [address] [place] Retention of urine, unspecified Social History Tobacco Use Types Packs/Day Years Used Date Smoking Tobacco: Never Assessed Comments Unknown Sex and Gender Information Value Date Recorded Sex Assigned at Not on file Legal Sex Female 3:40 PM EDT Gender Identity Not on file Sexual Orientation Not on file documented as of this encounter Plan of Treatment Pending Results Name Type Priority Associated Diagnoses Date /Time Culture urine Microbiology Routine Retention of urine, unspecified 02/27/2025 10:00 AM EST documented as of this encounter Procedures Procedure Name Priority Date/Time Associated Diagnosis Comments URINALYSIS WITH REFLEX MICROSCOPIC Routine 02/27/2025 10:00 AM EST Retention of urine, unspecified URINALYSIS WITH REFLEX MICROSCOPIC Routine 02/27/2025 10:00 AM EST Retention of urine, unspecified documented in this encounter Results * (ABNORMAL) Urinalysis with reflex microscopic (02/27/2025 10:00 AM EST) Specific [place] Urine 1.013 1.003 - 1.030 LAB URINALYSIS - AUTOMATED METHOD 02/27/2025 4:12 PM EST [facility] pH, Urine 6.5 5.0 - 8.0 pH LAB URINALYSIS - AUTOMATED METHOD 02/27/2025 4:12 PM [facility] Leukocytes, Urine Large(A) Negative LAB URINALYSIS - AUTOMATED METHOD 02/27/2025 4:12 PM [facility] Nitrite, Urine Negative Negative LAB URINALYSIS - AUTOMATED METHOD 02/27/2025 4:12 PM [facility] Protein, Urine Trace <=Trace mg/dL LAB URINALYSIS - AUTOMATED METHOD 02/27/2025 4:12 PM [facility] Glucose, Urine Negative Negative mg/dL LAB URINALYSIS - AUTOMATED METHOD 02/27/2025 4:12 PM [facility] Ketones, Urine Negative Negative mg/dL LAB URINALYSIS - AUTOMATED METHOD 02/27/2025 4:12 PM [facility] Urobilinogen , Urine 0.2 0.2 - 1.0 mg/dL LAB URINALYSIS - AUTOMATED METHOD 02/27/2025 4:12 PM [facility] Bilirubin, Urine Negative Negative LAB URINALYSIS - AUTOMATED METHOD 02/27/2025 4:12 PM [facility] Blood, Urine Trace(A) Negative LAB URINALYSIS - AUTOMATED METHOD 02/27/2025 4:12 PM [facility] RBC, Urine 4 0 - 4 /HPF 02/27/2025 4:12 PM [facility] WBC, Urine >100(H) 0 - 4 /HPF 02/27/2025 4:12 PM [facility] Squamous Epithelial, Urine 50 0 - 60 /LPF 02/27/2025 4:12 PM [facility] Bacteria, Urine Moderate(A) Negative /HPF 02/27/2025 4:12 PM [facility] Hyaline Casts, Urine 0 0 - 3 /LPF 02/27/2025 4:12 PM [facility] Urine Urinary bladder structure / Unknown 02/27/2025 10:00 AM EST 02/27/2025 3:29 PM EST us Joel Jorgensen MD LAB URINE ORDERABLES Final Resul t [facility] [address] [place] [address], [place] [phone] documented in this encounter Visit Diagnoses Diagnosis Retention of urine, unspecified documented in this encounter Additional Health Concerns Infection Onset Date Last Indicated Resolved Time ESBL 10/01/2024 10/01/2024 documented as of this encounter Care Teams Cone Baker Machine Relationship Specialty Start Date End Date Joel Jorgensen MD [address] [facility] [address] [place], [place] PCP - General Internal Medicine 04/07/24 documented as of this encounter
--- OUTSIDE RECORDS SUMMARY | 2025-02-27 18:51 | XMS_ITS | Encounter Summary ---
Author Organization [facility] Address [address] [place] [address] Care Team Providers Care Stores Laborer Name Role Phone Pcp, No Primary Care Provider Emma Doe PT Unavailable [phone] Joel Jorgensen Primary Care Provider [phone] Encounter Details Date Type Department Care Team (Late st Contact Info) Description 06/02/2024 Scanned Document [facility] UROLOGY SCAN Urology, Scan Social History Tobacco Use Types Packs/Day Years [...] more drinks on one occasion? Never 02/24/2023 [facility] of Occupat ional Health - Occupational Stress [...] Description 03/24/2025 7:30 AM EST Office Visit [facility] PHYSICAL MEDICINE & REHAB [place] [address] [facility] [address] [place] [address] Jerry Galindo MD [address] [address] 05/25/2025 11:30 AM EDT Office Visit [facility] Urologic Surgery [place] [address] [facility] [address] [place] [id number] Rafia Meyer PA-C [address] [phone] documented as of this encounter Visit Diagnoses Not on filedocumented in this encounter Care Teams Stores Laborer Relationship Specialty Start Date End Date Pcp, No 80 [place] [address] PCP - General 06/13/21 07/11/24 Joel Jorgensen [address] [place] [address] [address] [place] [address] PCP - General Medicine Hospitalist 07/12/24 Emma Bernard, PT [address] [address] Nurse Substance AbuseBatch Trucker Medicine and Rehabilitation 02/27/24 documented as of this encounter
--- OUTSIDE RECORDS SUMMARY | 2025-02-27 18:51 | XMS_ITS | Encounter Summary ---
Author Organization [employer] [facility] Address [address] [place] [address] Care Team Providers Care Advanced Analytics Associate Name Role Phone Joel Jorgensen MD Primary Care Provider [phone] Encounter Details Date Type Department Care Team (Late st Contact Info) Description 10/02/2024 Lab Requisition [facility] - Main Lab [address] [place] [address] Joel Jorgensen MD [address] [place] [address] [address] [place] Retention of urine, unspecified Social History Tobacco [...] Diagnosis Comments URINALYSIS WITH REFLEX MICROSCOPIC Routine 10/01/2024 3:00 PM EDT Retention of urine, unspecified URINALYSIS WITH REFLEX MICROSCOPIC Routine 10/01/2024 3:00 PM EDT Retention of urine, unspecified CULTURE URINE Routine 10/01/2024 3:00 PM EDT Retention of urine, unspecified documented in this encounter Results * (ABNORMAL) Urinalysis with reflex microscopic (10/01/2024 3:00 PM EDT) Specific Garrett Urine 1.012 1.003 - 1.030 LAB URINALYSIS - AUTOMATED METHOD 10/02/2024 9:18 AM EDT [facility] ([facility] pH, Urine 7.5 5.0 - 8.0 pH LAB URINALYSIS - AUTOMATED METHOD 10/02/2024 9:18 AM [facility] Leukocytes, Urine Large(A) Negative LAB URINALYSIS - AUTOMATED METHOD 10/02/2024 9:18 AM [facility] Nitrite, Urine Negative Negative LAB URINALYSIS - AUTOMATED METHOD 10/02/2024 9:18 AM [facility] Protein, Urine Trace <=Trace mg/dL LAB URINALYSIS - AUTOMATED METHOD 10/02/2024 9:18 AM [facility] Glucose, Urine Negative Negative mg/dL LAB URINALYSIS - AUTOMATED METHOD 10/02/2024 9:18 AM [facility] Ketones, Urine Negative Negative mg/dL LAB URINALYSIS - AUTOMATED METHOD 10/02/2024 9:18 AM [facility] Urobilinogen, Urine 0.2 0.2 - 1.0 mg/dL LAB URINALYSIS - AUTOMATED METHOD 10/02/2024 9:18 AM [facility] Bilirubin, Urine Negative Negative LAB URINALYSIS - AUTOMATED METHOD 10/02/2024 9:18 AM [facility] Blood, Urine Negative Negative LAB URINALYSIS - AUTOMATED METHOD 10/02/2024 9:18 AM [facility] RBC, Urine 2.2 0 - 4 /HPF LAB URINALYSIS - AUTOMATED METHOD 10/02/2024 9:18 AM [facility] WBC, Urine 112.5(H) 0 - 4 /HPF LAB URINALYSIS - AUTOMATED METHOD 10/02/2024 9:18 AM [facility] Squamous Epithelial, Urine 4 0 - 60 /LPF LAB URINALYSIS - AUTOMATED METHOD 10/02/2024 9:18 AM [facility] Bacteria, Urine Many(A) Negative /HPF LAB URINALYSIS - AUTOMATED METHOD 10/02/2024 9:18 AM [facility] Hyaline Casts, Urine 1.2 0 - 3 /LPF LAB URINALYSIS - AUTOMATED METHOD 10/02/2024 9:18 AM EDT [facility] Urine Urine specimen from urinary conduit / Unknown Non-blood Collection / Unknown 10/01/2024 3:00 PM EDT 10/02/2024 8:35 AM EDT us Joel Jorgensen MD LAB URINE ORDERABLES Final Resul t [facility] [address] [place] [address], [place] [phone] * (ABNORMAL) Culture urine (10/01/2024 3:00 PM EDT) Culture, Urine >=100,000 CFU/mL Proteus mirabilis ESBL(A) YOLA 10/05/2024 8:53 AM EDT [facility] Comment: TESTING SUGGESTS AN ESBL(EXTENDED-SPECTRUM BETA-L ACTAMASE PRODUCING STRAIN)WHICH MAY BE RESISTANT C LINICALLY TO ALL CEPHALOSPORINS AND AZTREONAM. Edited result: Previously reported as Proteus species on 10/04/2024 at 1154 EDT. Urine Urine specimen from urinary conduit / Unknown Non-blood Collection / Unknown 10/01/2024 3:00 PM EDT 10/02/2024 8:35 AM EDT Narrative Organism Antibiotic Method Susceptibility Proteus mirabilis ESBL Ampicillin/Sulbactam YOLA 8 ug/ml: Susceptible Proteus mirabilis ESBL Piperacillin/Tazobactam YOLA <=4 ug/ml: Susceptible Proteus mirabilis ESBL Cefazolin (Urine) YOLA >=32 ug/ml: Resistant Proteus mirabilis ESBL Cefoxitin YOLA <=4 ug/ml: Susceptible Proteus mirabilis ESBL Ceftazidime YOLA <=0.5 ug/ml: Susceptible Proteus mirabilis ESBL Ceftriaxone YOLA >=64 ug/ml: Resistant Proteus mirabilis ESBL Cefepime YOLA 16 ug/ml: Resistant Proteus mirabilis ESBL Meropenem YOLA 1 ug/ml: Susceptible Proteus mirabilis ESBL Amikacin YOLA 4 ug/ml: Susceptible Proteus mirabilis ESBL Gentamicin YOLA <=1 ug/ml: Susceptible Proteus mirabilis ESBL Ciprofloxacin YOLA >=4 ug/ml: Resistant Proteus mirabilis ESBL Nitrofurantoin YOLA 128 ug/ml: Resistant Proteus mirabilis ESBL Trimethoprim/Sulf amethoxazol e YOLA >=320 ug/ml: Resistant us Joel Jorgensen MD LAB MICROBIOLOGY - GENERAL ORDER [place] Final Result [facility] ([facility]) [facility] [address] [place] [address], documented in this encounter Visit Diagnoses Diagnosis Retention of urine, unspecified documented in this encounter Additional Health Concerns Infection Onset Date Last Indicated Resolved Time ESBL 10/01/2024 10/01/2024 documented as of this encounter Care Teams Advanced Analytics Associate Relationship Specialty Start Date End Date Joel Jorgensen MD [address] [place], [place] PCP - General Internal Medicine 04/07/24 documented as of this encounter
--- OUTSIDE RECORDS SUMMARY | 2025-02-27 18:51 | XMS_ITS | Encounter Summary ---
Author Organization [facility] Address [address] [place] [address] Care Team Providers Care Sanitary Landfill Operator Name Role Phone Pcp, No Primary Care Provider Unavailabl Emma Mendes PT Unavailable [phone] Joel Jorgensen Primary Care Provider [phone] Encounter Details Date Type Department Care Team (Late st Contact Info) Description 06/19/2023 Scanned Document [facility] Urologic Surgery [place] [phone] Rafia Meyer PA-C [address] [address] Social History Tobacco Use Types Packs/Day Years [...] more drinks on one occasion? Never 02/24/2023 [employer] - Occupational Stress [...] Description 03/24/2025 7:30 AM EST Office Visit [facility] [address] [place] [address] Jerry Galindo MD [address] [address] 05/25/2025 11:30 AM EDT Office Visit [facility] Urologic Surgery [address] [phone] Rafia Meyer PA-C [address] [phone] documented as of this encounter Visit Diagnoses Not on filedocumented in this encounter Care Teams Sanitary Landfill Operator Relationship Specialty Start Date End Date Pcp, No [address] [place] [address] PCP - General 06/13/21 07/11/24 Joel Jorgensen [address] [place] [address] [address] [place] [address] PCP - General Medicine Hospitalist 07/12/24 Emma Bernard, CASSY [address] [address] [employer] System Administrator Medicine and Rehabilitation 02/27/24 documented as of this encounter
--- OUTSIDE RECORDS SUMMARY | 2025-02-27 18:51 | XMS_ITS | Encounter Summary ---
Author Organization [facility] Address [address] [place] [address] Care Team Providers Care Bindery Leadperson Name Role Phone Joel Jorgensen MD Primary Care Provider [phone] Encounter Details Date Type Department Care Team (Late st Contact Info) Description 10/05/2024 Lab Requisition [facility] - Main Lab [address] [place] [address] Joel Jorgensen MD [address] [place] [address] [address] [place] Encounter for other specified special examinations Social [...] Procedure Name Priority Date/Time Associated Diagnosis Comments LIPID PANEL WITH REFLEX TO DIRECT LDL Routine 10/05/2024 6:54 AM EDT Encounter for other specified special examinations THYROID STIMULATING HORMONE Routine 10/05/2024 6:54 AM EDT Encounter for other specified special examinations documented in this encounter Results * Thyroid stimulating hormone (10/05/2024 6:54 AM EDT) TSH 2.29 0.40 - 4.00 mcIU/mL LAB CHEMISTRY METHOD 10/05/2024 11:05 AM EDT [facility] ([facility]) [facility] Blood Venous blood specimen / Unknown 10/05/2024 6:54 AM EDT 10/05/2024 7:43 AM EDT us Joel Jorgensen MD LAB BLOOD ORDERABLES Final Resul t Performing Organization Address City/State/[facility] Co de Phone Number [facility] [address] [place] [address], [place] [phone] * (ABNORMAL) Lipid panel with reflex to direct LDL (10/05/2024 6:54 AM EDT) Cholesterol 181 0 - 200 mg/dL LAB CHEMISTRY METHOD 10/05/2024 9:12 AM EDT [facility] Triglycerides 130 0 - 150 mg/dL LAB CHEMISTRY METHOD 10/05/2024 9:12 AM EDT [facility] HDL 41 >=40 mg/dL LAB CHEMISTRY METHOD 10/05/2024 9:12 AM EDT [facility] LDL Calculated 114(H) 0 - 100 mg/dL LAB CHEMISTRY METHOD 10/05/2024 9:12 AM EDT [facility] Comment:Estimated LDL Calcul ated using equation: Total cholesterol - HDL cholesterol - (Triglycerides/5) VLDL Cholesterol Min 26 mg/dL LAB CHEMISTRY METHOD 10/05/2024 9:12 AM EDT [facility] Non HDL Chol. (LDL+VLDL) 140 <145 mg/dL LAB CHEMISTRY METHOD 10/05/2024 9:12 AM EDT [facility] Chol/HDL Ratio 4.4 0.0 - 4.4 LAB CHEMISTRY METHOD 10/05/2024 9:12 AM T [facility] Blood Venous blood specimen / Unknown 10/05/2024 6:54 AM EDT 10/05/2024 7:43 AM EDT us Joel Jorgensen MD LAB BLOOD ORDERABLES Final Resul t [facility] [address] [place] [address], [place] [phone] documented in this encounter Visit Diagnoses Diagnosis Encounter for other specified special examinations documented in this encounter Additional Health Concerns Infection Onset Date Last Indicated Resolved Time ESBL 10/01/2024 10/01/2024 documented as of this encounter Care Teams Bindery Leadperson Relationship Specialty Start Date End Date Joel Jorgensen MD [address] [place] PCP - General Internal Medicine 04/07/24 documented as of this encounter
--- OUTSIDE RECORDS SUMMARY | 2025-02-27 18:51 | XMS_ITS | Encounter Summary ---
Author Organization [employer] Address [address] [place] [address] Care Team Providers Care Education Diagnostician Name Role Phone Joel Jorgensen MD Primary Care Provider [phone] Encounter Details Date Type Department Care Team (Latest Contact Info) Description 10/20/2024 Lab Requisition [facility] - Main Lab [address] [facility] [place] [address] Joel Jorgensen MD [address] [place] [address] [address] [place] Schizoaffective disorder, bipolar type (CMS/HCC V24, CMS/HCC V28); Paraplegia, complete (CMS/HCC V24, CMS/HCC V28) Social History Tobacco Use Types Packs/Day [...] Procedure Name Priority Date/Time Associated Diagnosis Comments LAVENDER - EDTA Routine 10/20/2024 6:50 AM EDT Schizoaffective disorder, bipolar type (CMS/HCC V24, CMS/HCC V28) Paraplegia, complete (CMS/HCC V24, CMS/HCC V28) SEDIMENTATION RATE Routine 10/20/2024 6: 50 AM EDT Schizoaffective disorder, bipolar type (CMS/HCC V24, CMS/HCC V28) Paraplegia, complete (CMS/HCC V24, CMS/HCC V28) COMPLETE BLOOD COUNT Routine 10/20/2024 6:50 AM EDT Schizoaffective disorder, bipolar type (CMS/HCC V24, CMS/HCC V28) Paraplegia, complete (CMS/HCC V24, CMS/HCC V28) C-REACTIVE PROTEIN Routine 10/20/2024 6: 50 AM EDT Schizoaffective disorder, bipolar type (CMS/HCC V24, CMS/HCC V28) Paraplegia, complete (CMS/HCC V24, CMS/HCC V28) BASIC METABOLIC PANEL Routine 10/20/2024 6:50 AM EDT Schizoaffective disorder, bipolar type (CMS/HCC V24, CMS/HCC V28) Paraplegia, complete (CMS/HCC V24, CMS/HCC V28) documented in this encounter Results * Lavender tube (10/20/2024 6:50 AM EDT) Pathologist [facility] Extra Tube Hold for add-ons. 10/20/2024 9:01 AM EDT [facility] Comment:Auto resulted. Blood Venous blood specimen / Unknown 10/20/2024 6:50 AM EDT 10/20/2024 7:51 AM EDT us Joel Jorgensen MD LAB BLOOD ORDERABLES Final Resul t Performing Organization Address City/[facility]/ZIP Co de Phone Number [facility] [address] [place] [address], [place] [phone] * (ABNORMAL) Sedimentation rate (10/20/2024 6:50 AM EDT) [facility] Sed Rate 77(H) 0 - 20 mm/hr LAB HEMETOLOGY METHOD 10/20/2024 8:10 AM EDT [facility] Blood Venous blood specimen / Unknown 10/20/2024 6:50 AM EDT 10/20/2024 7:51 AM EDT us Joel Jorgensen MD LAB BLOOD ORDERABLES Final Resul t [facility] [address] [place] [address], [place] [phone] * C-reactive protein (10/20/2024 6:50 AM EDT) [facility] C-Reactive Protein 0.49 <=0.50 mg/dL LAB CHEMISTRY METHOD 10/20/2024 8:33 AM EDT [facility] Blood Venous blood specimen / Unknown 10/20/2024 6:50 AM EDT 10/20/2024 7:51 AM EDT us Joel Jorgensen MD LAB BLOOD ORDERABLES Final Resul t [facility] [address] [place] [address], * (ABNORMAL) Complete blood count (10/20/2024 6:50 AM EDT) [facility] WBC 5.3 4.8 - 10.8 K/mcL LAB HEMETOLOGY METHOD 10/20/2024 7:59 AM EDT [facility] RBC 4.10 3.80 - 4.80 M/mcL LAB HEMETOLOGY [facility] Hemoglobin 10.8(L) 11.5 - 16.0 g/dL LAB HEMETOLOGY METHOD 10/20/2024 7:59 AM EDT [facility] Hematocrit 34.8(L) 35.0 - 47.0 % LAB HEMETOLOGY METHOD 10/20/2024 7:59 AM EDT [facility] MCV 84.1 79.0 - 98.0 FL LAB HEMETOLOGY METHOD 10/20/2024 7[facility] MCH 26.1(L) 27.0 - 32.0 pcg LAB HEMETOLOGY METHOD 10/20/2024 7[facility] MCHC 31.0(L) 32.0 - 37.0 g/dL LAB HEMETOLOGY METHOD 10/20/2024 7:59 AM EDT [facility] RDW 15.0 11.0 - 15.0 % LAB HEMETOLOGY METHOD 10/20/2024 7:59 AM EDT [facility] Platelets 227 130 - 400 K/mcL LAB HEMETOLOGY METHOD 10/20/2024 7:59 AM EDT [facility] MPV 9.1 7.0 - 11.0 FL LAB HEMETOLOGY METHOD 10/20/2024 7:59 AM EDT [facility] NRBC 0.0 <1.0 % LAB HEMETOLOGY METHOD 10/20/2024 7:59 AM EDT [facility] NRBC Absolute 0.00 <0.10 K/mcL LAB HEMETOLOGY METHOD 10/20/2024 7:59 AM EDT [facility] Blood Venous blood specimen / Unknown 10/20/2024 6:50 AM EDT 10/20/2024 7:51 AM EDT us Joel Jorgensen MD LAB BLOOD ORDERABLES Final Resul t [facility] [address] [place] [address], * (ABNORMAL) Basic metabolic panel (10/20/2024 6:50 AM EDT) Sodium 140 133 - 145 mmol/L LAB CHEMISTRY METHOD 10/20/2024 8:33 AM EDT [facility] Potassium 4.3 3.5 - 5.5 mmol/L LAB CHEMISTRY METHOD 10/20/2024 8:33 AM EDT [facility] Chloride 111(H) 96 - 110 mmol/L LAB CHEMISTRY METHOD 10/20/2024 8:33 AM EDT [facility] CO2 26 21 - 32 mmol/L LAB CHEMISTRY METHOD 10/20/2024 8:33 AM T [facility] Anion Gap 3 3 - 11 LAB CHEMISTRY METHOD 10/20/2024 8:33 AM [facility] Glucose 95 70 - 100 mg/dL LAB CHEMISTRY METHOD 10/20/2024 8:33 AM [facility] BUN 15 5 - 25 mg/dL LAB CHEMISTRY METHOD 10/20/2024 8:33 AM [facility] Creatinine 0.68 0.50 - 1.10 mg/dL LAB CHEMISTRY METHOD 10/20/2024 8:33 AM [facility] eGFR 113 >=60 mL/min/1. 73m2 LAB CHEMISTRY METHOD 10/20/2024 8:33 AM [facility] Comment:Calculation based on the Chronic Kidney Disease Epidemiology Collaboration (CKD-EPI) equation refit without adjustment for race. BUN/Creatinine Ratio 22.1 LAB CHEMISTRY METHOD 10/20/2024 8:33 AM [facility] Calcium 8.4(L) 8.5 - 10.5 mg/dL LAB CHEMISTRY METHOD 10/20/2024 8:33 AM [facility] Blood Venous blood specimen / Unknown 10/20/2024 6:50 AM EDT 10/20/2024 7:51 AM EDT Joel Jorgensen MD LAB BLOOD ORDERABLES Final Resul t [facility] [address] [place] [address], documented in this encounter Visit Diagnoses Diagnosis Schizoaffective disorder, bipolar type (CMS/HCC V24, CMS/HCC V28) Schizoaffective disorder, unspecified condition Paraplegia, complete (CMS/HCC V24, CMS/HCC V28) documented in this encounter Additional Health Concerns Infection Onset Date Last Indicated Resolved Time ESBL 10/01/2024 10/01/2024 documented as of this encounter Care Teams Education Diagnostician Relationship Specialty Start Date End Date Joel Jorgensen MD [address] [place] [address] Dr [address] [place] PCP - General Internal Medicine 04/07/24 documented as of this encounter
--- OUTSIDE RECORDS SUMMARY | 2025-02-27 18:51 | XMS_ITS ---
Author Organization Unknown ENCOUNTERS Encounter Performer Location Date Diagnosis Diagnosis Status Pre Admit [facility] ED Physician [address] [address] [id number] *Note: Encounters from your own facility or health system may be excluded. Allergies, Adverse Reactions, Alerts Allergen Type Severity Identification Date Medications Name Date Quantity Days Supplied GPI Number
[2025-02-27 19:19] VITALS: BP 112/65; PULSE 82; RESP 18; TEMP 36.8; O2SAT 100
[2025-02-27 19:48] LABS: MANUAL DIFF FLAG NO
[2025-02-27 19:49] LABS: Hematocrit 34.8 % (37.0-47.0); Hemoglobin 10.9 g/dl (12.0-16.0); Imm Gran Abs Auto 0.07 X10*3/uL (0.00-0.03); Imm Gran Pct Auto 1.1 % (0.0-0.4); Lymphocytes Absolute Auto 2.1 X10*3/uL (1.2-4.9); Mean Corpuscular HGB Conc 31.3 g/dl (31.0-35.0); Mean Corpuscular Hemoglobin 26.0 pg (27.0-33.0); Mean Corpuscular Volume 82.9 fL (80.0-98.0); NRBC Abs Auto 0.000 X10*3/uL (0.0-0.012); NRBC Pct Auto 0.0 /100WBC (0.0-0.2); Platelet Count 250 X10*3/uL (160-400); Red Blood Count 4.20 X10*6/uL (4.20-5.50); White Blood Count 6.4 X10*3/uL (4.8-10.8)
[2025-02-27 19:50] LABS: Appearance Urine Turbid; Glucose Urine UA Negative (Negative); PH 8.0 (5.0-9.0); Specific Gravity - Urine 1.020 (1.005-1.025); UMIC TRIGGER UACC YES
[2025-02-27 19:55] LABS: UACC Culture Trigger YES
[2025-02-27 20:01] LABS: Alanine Aminotransferase 15 U/L (0-31); Albumin Level 4.0 g/dL (3.5-5.0); Alkaline Phosphatase 120 U/L (39-117); Anion Gap 10 (12-20); Aspartate Amino Transferase 19 U/L (5-31); Blood Urea Nitrogen 11 mg/dL (9-16); Calcium 8.4 mg/dL (8.4-10.2); Carbon Dioxide 24 mmol/L (22-29); Chloride 112 mmol/L (96-108); Creatinine Clr Calc Pharmacy 142.8; Estimated Glomerular Filt Rate > 60; Magnesium 2.1 mg/dL (1.6-2.6); Potassium 3.8 mmol/L (3.3-5.1); Sodium 142 mmol/L (135-145); Total Protein 7.3 g/dL (6.5-8.0)
--- NOTE | 2025-02-27 21:14 | ED.ABDPAIN ---
HPI - Abdominal Pain General Chief Complaint: Abdominal Pain Stated Complaint: LRQ pain x2 days paraplegic - n/v Time Seen by Provider: 02/27/25 19:06 History of Present Illness ED Provider: Harris Cason MD HPI narrative: This is a 40-year-old female paraplegic straight catheterization 6 times per day she has noticed right lower quadrant pain about 24 hours no injury. She does have abdominal sensation but not below the umbilicus really do denies vomiting she is hungry actively. Denies subjective fever. She has had UTIs in the past. She attributes her symptoms to eating ?bad [place] food ?on February 24. Related Data Home Medications ?Medication ?Instructions ?Recorded ?Confirmed acetaminophen 325 mg capsule 325 mg PO QID PRN 03/08/24 fluconazole 150 mg tablet 150 mg PO Q3D 03/08/24 methocarbamol 500 mg tablet 500 mg PO TID 03/08/24 olanzapine 10 mg tablet 10 mg PO BEDTIME 03/08/24 olanzapine 5 mg tablet 5 mg PO DAILY 03/08/24 oxycodone 5 mg tablet 5 mg PO QID PRN 03/08/24 Previous Rx's ?Medication ?Instructions ?Recorded fluconazole 150 mg tablet 150 mg PO Q3D 2 doses #2 tabs 02/27/25 sulfamethoxazole 800 1 tab PO Q12H 5 days #10 tabs 02/27/25 mg-trimethoprim 160 mg tablet (Bactrim DS) Allergies Allergy/AdvReac Type Severity Reaction Status Date / Time No Known Allergies Allergy Verified 02/27/25 18:25 Physical Exam ED Exam Exam: EXAM: Gen: Alert, awake, well appearing, well hydrated. Head: Atraumatic Eyes: Anicteric, Normal conjunctiva. ENT: Moist mucosa, no pallor. ? Neck: Supple. Skin: ?No observable rash or bruising on exposed or examined skin Respiratory: Breathing comfortably, No distress.Clear to auscultation bilaterally, symmetric chest expansion, No wheeze, rales, ronchi. Cardiovascular: Regular rate and rhythm. No murmurs or rub. Well perfused periphery, warm extremities. No edema. ? Abdominal: Mild tenderness elicited on deep tenderness of the right lower quadrant. Soft, no objective distension. No palpable masses or obvious organomegaly. ?No guarding, no rebound tenderness or other peritoneal findings. : No flank tenderness. Neuro: Alert. Paraplegic. Psych: Calm. Cooperative. MSK: No grossly visible deformity. Vital signs: See flowsheet Vital Signs: Vital Signs - 24 hr 02/27/25 18:24 02/27/25 19:19 02/28/25 00:47 Temperature 98.5 F 98.3 F 98.2 F Pulse Rate 69 82 90 Respiratory Rate 16 18 16 Blood Pressure 105/55 L 112/65 118/71 Pulse Oximetry 99 100 98 Oxygen Delivery Method Room Air Room Air Room Air 02/28/25 00:50 Temperature 98.2 F Pulse Rate 90 Respiratory Rate 16 Blood Pressure 118/71 Pulse Oximetry 98 Oxygen Delivery Method Room Air BMI result Body Mass Index 40.4 Course Reevaluation(s) Reevaluation #1: At time of DC, no tachy/hypotension or suspicion of sepsis. CT without acute process aside from bladder thickening. DC with abx. Urine Cx sent. pt to c/w self cath Medical Decision Making Medical Decision Making MDM Narrative: Medical Decision Makin-year-old female paraplegic of right lower quadrant pain. No fever vitals stable. Tenderness in the right lower quadrant on deep palpation but no rigidity soft abdomen. No surgical history to the abdomen. Urinalysis suggestive of UTI urine is quite cloudy she probably has UTI/cystitis but given the sensory limitation we will get CT to make sure there was no abscess or complication Preliminary Favored Differential Diagnosis: UTI, appendicitis, enteritis, intra-abdominal abscess or other complication among additional considered etiologies Testing Interpreted Independently: ?See below for details Radiology or Lab testing Results Reviewed: ?See below for details Consults: ?See below for details Independent Historians/External Chart Reviews: ?See below for details Social Determinants of Health Impacting MDM/Planning: ?See below for details Lab Data 02/27/25 19:44 02/27/25 19:44 Labs: Lab Results 02/27/25 02/27/25 Range/Units 19:37 19:44 WBC 6.4 (4.8-10.8) X10*3/uL RBC 4.20 (4.20-5.50) X10*6/uL Hgb 10.9 L (12.0-16.0) g/dl Hct 34.8 L (37.0-47.0) % MCV 82.9 (80.0-98.0) fL MCH 26.0 L (27.0-33.0) pg MCHC 31.3 (31.0-35.0) g/dl RDW 14.9 (11.0-16.0) % Plt Count 250 (160-400) X10*3/uL MPV 8.8 L (9.4-12.3) fL Immature Gran % (Auto) 1.1 H (0.0-0.4) % Neut % (Auto) 56.3 (45-73) % Lymph % (Auto) 32.8 (20-40) % [place] % (Auto) 6.8 (2-11) % Eos % (Auto) 2.8 (0-4) % Baso % (Auto) 0.2 (0-2) % Lymph # (Auto) 2.1 (1.2-4.9) X10*3/uL [place] # (Auto) 0.4 (0.1-1.2) X10*3/uL Eos # (Auto) 0.2 (0.0-0.4) X10*3/uL Baso # (Auto) 0.0 (0.0-0.2) X10*3/uL Abs Immat Gran (auto) 0.07 H (0.00-0.03) X10*3/uL Absolute Neuts (auto) 3.6 (2.0-8.3) x10*3/uL Absolute Nucleated RBC 0.000 (0.0-0.012) X10*3/uL Nucleated RBC % (auto) 0.0 (0.0-0.2) /100WBC Sodium 142 (135-145) mmol/L Potassium 3.8 (3.3-5.1) mmol/L Chloride 112 H (96-108) mmol/L Carbon Dioxide 24 (22-29) mmol/L Anion Gap 10 L (12-20) BUN 11 (9-16) mg/dL Creatinine 0.64 (0.5-1.4) mg/dL Estim Creat Clear Calc 142.8 Estimated GFR > 60 Random Glucose 87 (60-115) mg/dL Calcium 8.4 (8.4-10.2) mg/dL Magnesium 2.1 (1.6-2.6) mg/dL Total Bilirubin 0.4 (0.0-1.0) mg/dL AST 19 (5-31) U/L ALT 15 (0-31) U/L Alkaline Phosphatase 120 H (39-117) U/L Total Protein 7.3 (6.5-8.0) g/dL Albumin 4.0 (3.5-5.0) g/dL Urine Color Yellow Urine Appearance Turbid Urine pH 8.0 (5.0-9.0) Ur Specific [place] 1.020 (1.005-1.025) Urine Protein 30 (1+) H (Neg-Trace) mg/dL Urine Glucose (UA) Negative (Negative) mg/dL Urine Ketones Negative (Negative) mg/dL Urine Blood Trace H (Negative) Urine Nitrite Negative (Negative) Ur Leukocyte Esterase Large (3+) H (Negative) Urine RBC 0-2 (0-2) /HPF Urine WBC >50 H (0-5) /HPF Ur Squamous Epith Cells 3-5 (0-2) /HPF Urine Bacteria 4+ (None Seen) Hyaline Casts 0-2 (0-2) /LPF Medications Administered Discontinued Medications Generic Name Dose Route Start Last Admin Trade Name Boraq PRN Reason Stop Dose Admin Ceftriaxone Sodium 2 gm/ 50 mls @ 100 mls/hr 02/27/25 20:55 02/28/25 00:10 Sodium Chloride IV 02/27/25 21:24 Infused ONCE ONE Infusion Iohexol 100 ml 02/27/25 22:41 02/27/25 22:42 Iohexol 350 Mg/Ml 100 Ml Infus..Btl IV 02/27/25 22:42 85 ml ONCE ONE Administration Discharge Plan Discharge Clinical Impression: Urinary tract infection Patient Disposition: Home, Self-Care Instructions: Urinary Tract Infection in Women (ED) Additional Instructions: We have cultured your urine and the urinalysis looks suggestive of a urinary tract infection very cloudy and lots of white blood cells. We gave you an intravenous dose of ceftriaxone a strong antibiotic and we will send you home on oral antibiotics if you develop shaking chills severe worsening abdominal pain inability to urinate pain in your flank or back return back to the emergency department Prescriptions: New sulfamethoxazole-trimethoprim [Bactrim DS] 800-160 mg tablet 1 tab PO Q12H 5 Days Qty: 10 0RF fluconazole 150 mg tablet 150 mg PO Q3D Qty: 2 0RF No Action fluconazole 150 mg tablet 150 mg PO Q3D methocarbamol 500 mg tablet 500 mg PO TID oxycodone 5 mg tablet 5 mg PO QID PRN olanzapine 5 mg tablet 5 mg PO DAILY olanzapine 10 mg tablet 10 mg PO BEDTIME acetaminophen 325 mg capsule 325 mg PO QID PRN Interventions: ED Discharge Assessment Last Done: 02/28/25 00:50 Discharge Date/Time: 02/28/25 00:50 Print Language: Lithuanian
--- NOTE | 2025-02-27 21:52 | PC.NURSE ---
20 g IV placed in right AC
[2025-02-27] MEDS: iohexoL 350 MG/ML 100 ML INFUS..BTL IV (22:42)
[2025-02-28 00:47] VITALS: BP 118/71; PULSE 90; RESP 16; TEMP 36.8; O2SAT 98
--- NOTE | 2025-02-28 00:49 | PC.NURSE ---
Report called back to [facility] regarding pt's discharge instructions. EMS crew arrived, report given. Pt departing back to facility.
[2025-02-28 00:50] VITALS: BP 118/71; PULSE 90; RESP 16; TEMP 36.8; O2SAT 98
== END 2025-02-28 00:50 | disposition home or self-care (01) ==
PROVIDERS: Physician Assistant Medical; Emergency Provider Emergency Medicine
DX: N39.0 Urinary tract infection, site not specified (principal); G82.20 Paraplegia, unspecified; Z79.899 Other long term (current) drug therapy
CPT/HCPCS: 36415; 74177; 80053; 81001; 83735; 85025; 87086; 87088; 87186; 96365; 99284; 99285; J0696; Q9967

== ENCOUNTER → 2025-02-27 20:55 | Outpatient (BNV) | payer MEDICAID, SELFPAY | PROVIDERS: Emergency Provider Emergency Medicine; Visit Provider Radiology Diagnostic Radiology | DX: R10.31 Right lower quadrant pain (principal); N30.20 Other chronic cystitis without hematuria | CPT/HCPCS: 74177 ==